=== PATIENT | male | born 1940 | race Caucasian/White ===

== ENCOUNTER 2019-04-15 10:37 | Emergency (ER) | payer MEDICARE, OTHER ==
[~2019-04-15] VITALS: Ht 180.3 cm; Wt 81.7 kg
--- OUTSIDE RECORDS SUMMARY | ~2019-04-15 | XMS | Encounter Summary ---
Demographics + + + | Address | [address] | | | [place] [address] | + + + | Home Phone | | + + + | Preferred Language | Unknown | + + + | Marital Status | | + + + | Taoism Affiliation | Unknown | + + + | Race | Unknown | + + + | Ethnic Group | Unknown | + + + Author + + + | Author | [facility] | | | and [place] | + + + | Organization | [facility] | | | and [place] | + + + | Address | Unknown | + + + | Phone | Unavailable | + + + Support + + +---------+ + | Name | Relationship | Address | Phone | + + +---------+ + | Tami Gall | ECON | Unknown | | + + +---------+ + Care Team Providers + +------+ + | Care Tobacco Shaker Name | Role | Phone | + +------+ + | Parminder Malagon MD | PCP | | + +------+ + Encounter Details +--------+ + + + + | Date | Type | Department | Care Team | Description | +--------+ + + + + | 05/22/ | Orders Only | [facility] | Mya Frederick | | | 2016 | | RHEUMATOLOGY [address] | [address] | | | | | [address] | [facility] | | | | | [place] | [place] [address] | | | | | [address] | [phone] | | | | | [phone] | | | +--------+ + + + + Social History + +-------+ +--------+------+ | Tobacco Use | Types | Packs/Day | Years | Date | | | | | Used | | + +-------+ +--------+------+ | Never Assessed | | | | | + +-------+ +--------+------+ + + + | Sex Assigned at | Date Recorded | | | | + + + | Not on file | | + + + + + + + | Job Start Date | Occupation | Industry | + + + + | Not on file | Not on file | Not on file | + + + + + + + + | Travel History | Travel Start | Travel End | + + + + + + | No recent travel history available. | + + documented as of this encounter Plan of Treatment +--------+ + + + + | Date | Type | Specialty | Care Team | Description | +--------+ + + + + | 04/28/ | Office | Cardiology | Leighann Maddox, | | | 2019 | Visit | | MD [address] | | | | | | [place] | | | | | | [address] | | | | | | | | +--------+ + + + + | 05/11/ | Office | Orthopedic Surgery | Scot Wilson PT | | | 2019 | Visit | | [address] | | | | | | [place] [address] | | | | | | [phone] | | | | | | | | +--------+ + + + + | 05/11/ | Office | Orthopedic Surgery | Korey Hussein | | | 2019 | Visit | | MD [address] | | | | | | [place] | | | | | | [address] | | | | | | | | +--------+ + + + + | 05/14/ | Office | Rheumatology | Mya Frederick | | | 2019 | Visit | | SHELLY [address] | | | | | | [address] | | | | | | [place] [address] | | | | | | [phone] | | | | | | | | +--------+ + + + + | 06/06/ | Hospital | | Korey Hussein | Primary | | 2019 | Encounter | | MD [address] | 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[place] | right knee; Chronic | | | | | [address] | pain of right knee | | | | | | | +--------+ + + + + | 06/06/ | Surgery | | Korey Hussein | RIGHT TOTAL KNEE | | 2019 | | | MD [address] | ARTHROPLASTY | | | | | [place] | | | | | | [address] | | | | | | | | +--------+ + + + + | 06/21/ | Office | Orthopedic Surgery | Tahir, Jossue | | | 2019 | Visit | | [address] | | | | | | [address] | | | | | | [place] [address] | | | | | | [phone] | | | | | | | | +--------+ + + + + documented as of this encounter Procedures + +--------+ + + + | Procedure Name | Priori | Date/Time | Associated Diagnosis | Comments | | | ty | | | | + +--------+ + + + | EXTERNAL LAB: CBC | Routin | 05/22/2015 | | Results for this | | | e | 10:51 AM | | procedure are in the | | | | PST | | results section. | + +--------+ + + + | SEDIMENTATION RATE, | Routin | 05/22/2015 | | Results for this | | AUTOMATED | e | 10:51 AM | | procedure are in the | | | | PST | | results section. | + +--------+ + + + | COMPREHENSIVE | Routin | 05/22/2015 | | Results for this | | METABOLIC PANEL | e | 10:51 AM | | procedure are in the | | | | PST | | results section. | + +--------+ + + + documented in this encounter Results Sedimentation rate, automated (05/22/2015 10:51 AM PST) + +-------+ + + + | Component | Value | Ref Range | Performed | Pathologist | | | | | At | Signature | + +-------+ + + + | Sed Rate | 1 | 0 - 20 | EXTERNAL | | | | | | LAB | | + +-------+ + + + + + | Specimen | + + | Blood specimen | | (specimen) | + + + +---------+ + + | Performing | Address | City/State/Zipcode | Phone Number | | Organization | | | | + +---------+ + + | EXTERNAL LAB | | | | + +---------+ + + External Lab: CBC (05/22/2015 10:51 AM PST) + + + + + + | Component | Value | Ref Range | Performed | Pathologist | | | | | At | Signature | + + + + + + | WBC | 7.6 | 3.8 - 11.0 | EXTERNAL | | | | | 10*3/uL | LAB | | + + + + + + | RED CELL | 4.89 | 4.20 - 5.70 | EXTERNAL | | | COUNT | | | LAB | | + + + + + + | Hgb | 17.9 (H) | 13.2 - 17.0 | EXTERNAL | | | | | g/dL | LAB | | + + + + + + | Hematocrit, | 50.7 (H) | 39.0 - 50.0 % | EXTERNAL | | | POC | | | LAB | | + + + + + + | MCV | 104.0 (H) | 80.0 - 100.0 fL | EXTERNAL | | | | | | LAB | | + + + + + + | MCH | 36.5 (H) | 27.0 - 34.0 pg | EXTERNAL | | | | | | LAB | | + + + + + + | MCHC | 35.2 | 32.0 - 35.5 | EXTERNAL | | | | | g/dL | LAB | | + + + + + + | Platelet | 143 (L) | 150 - 400 | EXTERNAL | | | Count | | 10*3/uL | LAB | | | Plasma | | | | | + + + + + + | MPV | 8.7 | fL | EXTERNAL | | | | | | LAB | | + + + + + + | Differentia | AUTOMATED | | EXTERNAL | | | l Type | | | LAB | | + + + + + + | % Segmented | 76.6 | | EXTERNAL | | | | | | LAB | | | Neutrophils | | | | | + + + + + + | % | 13.0 | % | EXTERNAL | | | Lymphocytes | | | LAB | | + + + + + + | % Monocytes | 8.9 | % | EXTERNAL | | | | | | LAB | | + + + + + + | % | 1.0 | % | EXTERNAL | | | Eosinophils | | | LAB | | + + + + + + | % Basophils | 0.5 | % | EXTERNAL | | | | | | LAB | | + + + + + + | Absolute | 5.8 | 1.9 - 7.4 | EXTERNAL | | | Segmented | | 10*3/uL | LAB | | | Neutrophils | | | | | + + + + + + | Absolute | 1.0 | 1.0 - 3.9 | EXTERNAL | | | Lymphocytes | | 10*3/uL | LAB | | + + + + + + | Absolute | 0.7 | 0.0 - 0.8 | EXTERNAL | | | Monocytes | | 10*3/uL | LAB | | + + + + + + | Absolute | 0.1 | 0.0 - 0.5 | EXTERNAL | | | Eosinophils | | 10*3/uL | LAB | | + + + + + + | Absolute | 0.0 | 0.0 - 0.1 | EXTERNAL | | | Basophils | | 10*3/uL | LAB | | + + + + + + + + | Specimen | + + | Blood specimen | | (specimen) | + + + +---------+ + + | Performing | Address | City/State/Zipcode | Phone Number | | Organization | | | | + +---------+ + + | EXTERNAL LAB | | | | + +---------+ + + Comprehensive Metabolic Panel (05/22/2015 10:51 AM PST) + + + + + + | Component | Value | Ref Range | Performed | Pathologist | | | | | At | Signature | + + + + + + | Na | 147 (H) | 135 - 143 | EXTERNAL | | | | | mmol/L | LAB | | + + + + + + | K | 3.9 | 3.5 - 4.9 | EXTERNAL | | | | | mmol/L | LAB | | + + + + + + | Cl | 105 | 99 - 109 mmol/L | EXTERNAL | | | | | | LAB | | + + + + + + | CO2 | 27 | 23 - 32 mmol/L | EXTERNAL | | | | | | LAB | | + + + + + + | Anion Gap | 19 | 5 - 20 mmol/L | EXTERNAL | | | | | | LAB | | + + + + + + | Glucose, | 94 | 65 - 99 mg/dL | EXTERNAL | | | Fasting | | | LAB | | + + + + + + | BUN | 28 (H) | 8 - 25 mg/dL | EXTERNAL | | | | | | LAB | | + + + + + + | Creatinine | 1.0 | 0.70 - 1.30 | EXTERNAL | | | | | mg/dL | LAB | | + + + + + + | BUN/Creatin | 28 | | EXTERNAL | | | ine Ratio | | | LAB | | + + + + + + | Calcium | 9.8 | 8.5 - 10.5 | EXTERNAL | | | | | mg/dL | LAB | | + + + + + + | Protein, | 6.9 | 6.3 - 8.2 g/dL | EXTERNAL | | | Total | | | LAB | | + + + + + + | Albumin | 4.5 | 3.3 - 4.8 g/dL | EXTERNAL | | | | | | LAB | | + + + + + + | Globulin | 2.4 | 1.3 - 4.9 g/dL | EXTERNAL | | | | | | LAB | | + + + + + + | A/G Ratio | 1.9 | 1.0 - 2.4 | EXTERNAL | | | | | | LAB | | + + + + + + | Bilirubin | 1.2 | 0.1 - 1.5 mg/dL | EXTERNAL | | | Total | | | LAB | | + + + + + + | ALP, | 78 | 35 - 115 U/L | EXTERNAL | | | External | | | LAB | | + + + + + + | AST | 34 | 10 - 45 U/L | EXTERNAL | | | | | | LAB | | + + + + + + | ALT | 24 | 10 - 65 U/L | EXTERNAL | | | | | | LAB | | + + + + + + | Estimated | >60Comment: GFR <60: | | EXTERNAL | | | GFR | CHRONIC KIDNEY DISEASE, | | LAB | | | | IF FOUND OVER A 3 MONTH | | | | | | PERIOD. GFR <15: KIDNEY | | | | | | FAILURE. FOR | | | | | | AMERICANS, MULTIPLY THE | | | | | | CALCULATED GFR BY 1.210. | | | | + + + + + + + + | Specimen | + + | Blood specimen | | (specimen) | + + + +---------+ + + | Performing | Address | City/State/Zipcode | Phone Number | | Organization | | | | + +---------+ + + | EXTERNAL LAB | | | | + +---------+ + + documented in this encounter Visit Diagnoses Not on filedocumented in this encounter"
--- OUTSIDE RECORDS SUMMARY | ~2019-04-15 | XMS | Encounter Summary ---
Demographics + + + | Address | [address] | | | [place] [address] | + + + | Home Phone | | + + + | Preferred Language | Unknown | + + + | Marital Status | | + + + | Rastafari Affiliation | Unknown | + + + | Race | Unknown | + + + | Ethnic Group | Unknown | + + + Author + + + | Author | [facility] | | | and [place] | + + + | Organization | [facility] | | | and [place] [...] Team Providers + +------+ + | Care Radiagraph Operator Name | Role | Phone | + +------+ + | Parminder Malagon MD | PCP | | + +------+ + Encounter Details +--------+ + + + + | Date | Type | Department | Care Team | Description | +--------+ + + + + | 01/22/ | Orders Only | [facility] | Romel Martin, | | | 2015 | | RHEUMATOLOGY [address] | [address] | | | | [address] [place] | | | | | [place] | [address] | | | | | [address] | | | | | | [phone] | | | +--------+ + + + [...] | 2019 | Visit | | [address] | | | | | | [place] | | | | | | [address] | | | | | | | | +--------+ + + + + | 05/11/ | Office | Orthopedic Surgery | Scot Wilson PT | | | 2019 | Visit | | [address] | | | | | | [place] [address] | | | | | | [phone] | | | | | | | | +--------+ + + + + | 05/11/ | Office | Orthopedic Surgery | Korey Hussein | | | 2019 | Visit | | [address] | | | | | | [place] | | | | | | [address] | | | | | | | | +--------+ + + + + | 05/14/ | Office | Rheumatology | Mya Frederick | | | 2019 | Visit | | [address] | | | | | | [address] | | | | | | [place] [address] | | | | | | [phone] | | | | | | | | +--------+ + + + + | 06/06/ | Hospital | | Korey Hussein | Primary | | 2019 | Encounter | | [address] | 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[place] | right knee; Chronic | | | | | [address] | pain of right knee | | | | | | | +--------+ + + + + | 06/06/ | Surgery | | Korey Hussein | RIGHT TOTAL KNEE | | 2019 | | | [address] | ARTHROPLASTY | | | | | [place] | | | | | | [address] | | | | | | | | +--------+ + + + + | 06/21/ | Office | Orthopedic Surgery | Jossue Haro | | | 2020 | Visit | | [address] | | | | | | [address] | | | | | | [place] [address] | | | | | | [phone] | | | | | | | | +--------+ + + + + documented as of this encounter Procedures + +--------+ + + + | Procedure Name | Priori | Date/Time | Associated Diagnosis | Comments | | | ty | | | | + +--------+ + + + | EXTERNAL LAB: CBC | Routin | 01/23/2016 | | Results for this | | | e | 9:25 AM | | procedure are in the | | | | PDT | | results section. | + +--------+ + + + | SEDIMENTATION RATE, | Routin | 01/23/2016 | | Results for this | | AUTOMATED | e | 9:25 AM | | procedure are in the | | | | PDT | | results section. | + +--------+ + + + | COMPREHENSIVE | Routin | 01/23/2016 | | Results for this | | METABOLIC PANEL | e | 9:25 AM | | procedure are in the | | | | PDT | | results section. | + +--------+ + + + documented in this encounter Results Sedimentation rate, automated (01/23/2016 9:25 AM PDT) + +-------+ + + + | Component | Value | Ref Range | Performed | Pathologist | | | | | At | Signature | + +-------+ + + + | Sed Rate | 3 | 0 - 20 mm/h | EXTERNAL | | | | | [...] + +---------+ + + External Lab: CBC (01/23/2016 9:25 AM PDT) + + + + + + | Component | Value | Ref Range | Performed | Pathologist | | | | | At | Signature | + + + + + + | WBC | 9.8 | 3.8 - 11.0 | EXTERNAL | | | | | 10*3/uL | LAB | | + + + + + + | RED CELL | 5.01 | 4.20 - 5.70 | EXTERNAL | | | COUNT | | 10*6/uL | LAB | | + + + + + + | Hgb | 17.6 (H) | 13.2 - 17.0 | EXTERNAL | | | | | g/dL | LAB | | + + + + + + | Hematocrit, | 50.1 (H) | 39.0 - 50.0 % | EXTERNAL | | | POC | | | LAB | | + + + + + + | MCV | 100.0 | 80.0 - 100.0 fL | EXTERNAL | | | | | | LAB | | + + + + + + | MCH | 35.1 (H) | 27.0 - 34.0 pg | EXTERNAL | | | | | | LAB | | + + + + + + | MCHC | 35.1 | 32.0 - 35.5 | EXTERNAL | | | | | g/dL | LAB | | + + + + + + | RDW-CV | 45.5 | 37 - 53 fL | EXTERNAL | | | | | | LAB | | + + + + + + | Platelet | 172 | 150 - 400 | EXTERNAL | | | Count | | 10*3/uL | LAB | | | Plasma | | | | | + + + + + + | MPV | 9.5 | fL | EXTERNAL | | | | | | LAB | | + + + + + + | Differentia | AUTOMATED | | EXTERNAL | | | l Type | | | LAB | | + + + + + + | % Segmented | 77.54 | % | EXTERNAL | | | | | | LAB | | | Neutrophils | | | | | + + + + + + | % | 11.82 | % | EXTERNAL | | | Lymphocytes | | | LAB | | + + + + + + | % Monocytes | 9.21 | % | EXTERNAL | | | | | | LAB | | + + + + + + | % | 1.17 | % | EXTERNAL | | | Eosinophils | | | LAB | | + + + + + + | % Basophils | 0.26 | % | EXTERNAL | | | | | | LAB | | + + + + + + | Absolute | 7.60 (H) | 1.90 - 7.40 | EXTERNAL | | | Segmented | | 10*3/uL | LAB | | | Neutrophils | | | | | + + + + + + | Absolute | 1.16 | 1.00 - 3.90 | EXTERNAL | | | Lymphocytes | | 10*3/uL | LAB | | + + + + + + | Absolute | 0.90 (H) | 0.00 - 0.80 | EXTERNAL | | | Monocytes | | 10*3/uL | LAB | | + + + + + + | Absolute | 0.12 | 0.00 - 0.50 | EXTERNAL | | | Eosinophils | | 10*3/uL | LAB | | + + + + + + | Absolute | 0.03 | 0.00 - 0.10 | EXTERNAL | | | Basophils | [...] + +---------+ + + Comprehensive Metabolic Panel (01/23/2016 9:25 AM PDT) + + + + + + | Component | Value | Ref Range | Performed | Pathologist | | | | | At | Signature | + + + + + + | Na | 145 | 135 - 145 | EXTERNAL | | | | | [...] + + + + | CO2 | 33 (H) | 23 - 32 mmol/L | EXTERNAL | | | | | | LAB | | + + + + + + | Anion Gap | 11 | 5 - 20 mmol/L | EXTERNAL | | | | | | LAB | | + + + + + + | Glucose, | 78 | 65 - 99 mg/dL | EXTERNAL | | | Fasting | | | LAB | | + + + + + + | BUN | 27 (H) | 8 - 25 mg/dL | EXTERNAL | | | | | | LAB | | + + + + + + | Creatinine | 1.1 | 0.70 - 1.30 | EXTERNAL | | | | | mg/dL | LAB | | + + + + + + | BUN/Creatin | 25 | | EXTERNAL | | | ine Ratio | | | LAB | | + + + + + + | Calcium | 9.6 | 8.5 - 10.5 | EXTERNAL | | | | | mg/dL | LAB | | + + + + + + | Protein, | 6.7 | 6.3 - 8.2 g/dL | EXTERNAL | | | Total | | | LAB | | + + + + + + | Albumin | 3.9 | 3.3 - 4.8 g/dL | EXTERNAL | | | | | | LAB | | + + + + + + | Globulin | 2.8 | 1.3 - 4.9 g/dL | EXTERNAL | | | | | | LAB | | + + + + + + | A/G Ratio | 1.4 | 1.0 - 2.4 | EXTERNAL | | | | | | LAB | | + + + + + + | Bilirubin | 1.1 | 0.1 - 1.5 mg/dL | EXTERNAL | | | Total | | | LAB | | + + + + + + | ALP, | 72 | 35 - 115 U/L | EXTERNAL | | | External | | | LAB | | + + + + + + | AST | 37 | 10 - 45 U/L | EXTERNAL | | | | | | LAB | | + + + + + + | ALT | 29 | 10 - 65 U/L | EXTERNAL | | | | | | LAB | | + + + + + + | Estimated | >60Comment: GFR <60: | mL/min/{1.73_m2 | EXTERNAL | | | GFR | CHRONIC KIDNEY DISEASE, | } | LAB | | | | IF [...]
--- OUTSIDE RECORDS SUMMARY | ~2019-04-15 | XMS | Clinical Summary ---
Demographics + + + | Address | [address] | | | [place] [address] | + + + | Home Phone | | + + + | Preferred Language | Unknown | + + + | Marital Status | | + + + | Orthodoxy Affiliation | Unknown | + + + | Race | Unknown | + + + | Ethnic Group | Unknown | + + + Author + + + | Author | [facility] | | | and [place] | + + + | Organization | [facility] | | | and [place] | [...] Team Providers + +------+ + | Care Commercial Loan Administrator Name | Role | Phone | + +------+ + | Parminder Malagon MD | PCP | | + +------+ + Allergies + + + + + + | Active Allergy | Reactions | Severity | Noted | Comments | | | | | Date | | + + + + + + | Penicillins | Hives | High | 01/20/20 | | | | | | 15 | | + + + + + + Medications + + + +---------+------+------+-------+ | Medication | Sig | Dispensed | Refills | Star | End | Statu | | | | | | t | Date | s | | | | | | Date | | | + + + +---------+------+------+-------+ | metoprolol | Take 50 mg by mouth | | 0 | | | Activ | | succinate | Daily. | | | | | e | | (TOPROL-XL) 50 mg 24 | | | | | | | | hr tablet | | | | | | | + + + +---------+------+------+-------+ | omeprazole | Take 20 mg by mouth | | 0 | | | Activ | | (PRILOSEC) 20 mg | every morning | | | | | e | | capsule | (before breakfast). | | | | | | + + + +---------+------+------+-------+ | B Complex-C (SUPER | Take 1 tablet by | | 0 | | | Activ | | B COMPLEX PO) | mouth daily. | | | | | e | + + + +---------+------+------+-------+ | | Take 1 tablet by | | 0 | | | Activ | | Glucosamine-Chondroi | mouth daily. | | | | | e | | t-Vit C-Mn | | | | | | | | (GLUCOSAMINE 1500 | | | | | | | | COMPLEX PO) | | | | | | | + + + +---------+------+------+-------+ | Multiple | Take 1 tablet by | | 0 | | | Activ | | Minerals-Vitamins | mouth daily. | | | | | e | | (CALCIUM | | | | | | | | HPNDUIE-AUM-VZKESAQX | | | | | | | | PO) | | | | | | | + + + +---------+------+------+-------+ | ascorbic acid | Take 1,000 mg by | | 0 | | | Activ | | (VITAMIN C) 1000 MG | mouth daily. | | | | | e | | tablet | | | | | | | + + + +---------+------+------+-------+ | | Take 2 tablets by | | 0 | 10/0 | | Activ | | lisinopril-hydrochlo | mouth daily. | | | 6/20 | | e | | rothiazide | | | | 15 | | | | (PRINZIDE,ZESTORETIC | | | | | | | | ) 20-12.5 MG per | | | | | | | | tablet | | | | | | | + + + +---------+------+------+-------+ | potassium chloride | Take 20 mEq by mouth | | 0 | | | Activ | | (KLOR-CON) 20 MEQ | daily. | | | | | e | | packet | | | | | | | + + + +---------+------+------+-------+ | pravastatin | Take 20 mg by mouth | | 0 | 10/0 | | Activ | | (PRAVACHOL) 40 MG | daily. | | | 8/20 | | e | | tablet | | | | 15 | | | + + + +---------+------+------+-------+ | tocopherol | Take 400 Units by | | 0 | | | Activ | | (VITAMIN E) 400 | mouth daily. | | | | | e | | units capsule | | | | | | | + + + +---------+------+------+-------+ | folic acid 1 mg | TAKE ONE TABLET BY | 90 | 3 | 11/30 | | Activ | | tablet | MOUTH ONCE DAILY | tablet | | 420 | | e | | | | | | 19 | | | + + + +---------+------+------+-------+ | sulfaSALAzine | TAKE 1 TABLET BY | 180 | 0 | 11/0 | | Activ | | (AZULFIDINE) 500 mg | MOUTH TWICE DAILY | tablet | | 4/20 | | e | | tablet | | | | 19 | | | + + + +---------+------+------+-------+ | aspirin 325 MG EC | Take 1 tablet by | 60 | 0 | 11/1 | | Activ | | tablet | mouth 2 times daily. | tablet | | 8/20 | | e | | | | | | 19 | | | + + + +---------+------+------+-------+ | celecoxib | Take 1 capsule by | 60 | 0 | 01/29 | | Activ | | (CELEBREX) 100 mg | mouth 2 times daily. | capsule | | 7/20 | | e | | capsule | | | | 19 | | | + + + +---------+------+------+-------+ +---+ + | | Additional | | | informationPatient | | | not taking. Reported | | | on 04/01/2019 10:23 | | | AM | +---+ + + + +---------+---+------+---+-------+ | gabapentin | Take 1 capsule by | 90 | 0 | 01/29 | | Activ | | (NEURONTIN) 100 mg | mouth 3 times daily. | capsule | | 7/20 | | e | | capsule | | | | 19 | | | + + +---------+---+------+---+-------+ +---+ + | | Additional | | | informationPatient | | | not taking. Reported | | | on 04/01/2019 10:23 | | | AM | +---+ + + + +--------+---+------+---+-------+ | acetaminophen | Take 2 tablets by | 60 | 0 | 01/29 | | Activ | | (TYLENOL) 500 mg | mouth every 8 hours. | tablet | | 7/20 | | e | | tablet | | | | 19 | | | + + +--------+---+------+---+-------+ | traMADol (ULTRAM) | Take 1 tablet by | 30 | 0 | 01/29 | | Activ | | 50 mg tablet | mouth EVERY 4 TO 6 | tablet | | 7/20 | | e | | | HOURS NEEDED (for | | | 19 | | | | | increased pain). | | | | | | + + +--------+---+------+---+-------+ +---+ + | | Additional | | | informationPatient | | | not taking. Reported | | | on 04/01/2019 10:23 | | | AM | +---+ + Active Problems + + + | Problem | Noted Date | + + + | Primary osteoarthritis of right knee | 04/07/2019 | + + + + + | Overview: Added automatically from request for surgery | | [id number] | + + + + + | Chronic pain of right knee | 04/07/2019 | + + + + + | Overview: Added automatically from request for surgery | | [id number] | + + + + + | Pain in both knees, unspecified chronicity | 01/08/2019 | + + + + + | Overview: Added automatically from request for surgery | | [id number] | + + + + + | Primary osteoarthritis of left knee | 01/08/2019 | + + + | Abnormal ECG | 04/22/2018 | + + + | Former smoker | 12/01/2017 | + + + | Scrotal hematoma | 11/30/2017 | + + + | High risk medication use | 12/30/2016 | + + + + + | Overview: Last Assessment & Plan: Basic labs Monitored | | (CBC,CMP and ESR): OrderedLabs routinely ordered due to high | | risk medication use- Monitored for cytopenias, liver toxicity, | | renal dysfunction and disease activity. Hepatitis panel negative | | 2011 This will be checked every 5 years based on patients risk or | | at time of biologic drug change. Chest x-ray satisfactory 2011 | | No evidence of cardiopulmonary disease Last Assessment & Plan: | | Basic labs Monitored (CBC,CMP and ESR): OrderedLabs | | routinely ordered due to high risk medication use- Monitored for | | cytopenias, liver toxicity, renal dysfunction and disease | | activity. Hepatitis panel negative 2011 This will be checked | | every 5 years based on patients risk or at time of biologic drug | | change. Chest x-ray satisfactory 2011 No evidence of | | cardiopulmonary disease | + + + + + | Primary osteoarthritis of both hands | 12/30/2016 | + + + + + | Overview: Last Assessment & Plan: Patient has done well and | | will continue to use mobic PRN. Discussed NSAID indications for | | use and its side effects. Patient aware that NSAIDs and even | | dumont-2 inhibitors may cause some side effects including stomach | | upset, GI bleed, hypertension, renal failure, liver problems. | | Patient advised regarding administration to offset these side | | effects including morning dosing, intake with food in | | stomach. Last Assessment & Plan: Taking Mobic 7.5mg daily. | | Planning a left TKA. Patient is taking OTC analgesics PRN for | | pain. Discussed the utility of omega fatty acid and | | glucosamine/chondroitin supplements, weight loss and exercise. | | Discussed NSAID indications for useand its side effects. Patient | | aware that NSAIDs and even dumont-2 inhibitors may cause some side | | effects including stomach upset, GI bleed, hypertension, renal | | failure, liver problems. Patient advised regarding administration | | to offset these side effects including morning dosing, intake | | with food in stomach. | + + + + + | Rheumatoid arthritis involving multiple joints | 12/30/2016 | + + + + + | Overview: Methotrexate/SulfaSALAzine (AZULFIDINE) Last | | Assessment & Plan: Responding well to current treatment plan. No | | change in treatment plan. Patient understands that treatment is | | [employer] and if patient fails to continue regimen , the disease | | has propensity to flare.Methotrexate threshold is 10mg weekly no | | lower. Last Assessment & Plan: Responding well to current | | treatment plan. No change in treatment plan. Patient understands | | that treatment is [employer] and if patient fails to continue | | regimen , the disease has propensity to flare.Rheumatological | | perspective the patient may remain on both of sulfasalazine and | | methotrexate for his total knee replacement. Likely need to hold | | the Mobic | + + + + + | History of prostate cancer | 03/30/2001 | + + + + + | Overview: 2000 Prostatectomy | + + + +---+ | HTN (hypertension) | | + +---+ | Beta Blockers - Daily Use | | + +---+ | URIEL Inhibitors - Daily Use | | + +---+ | Chronic renal insufficiency, stage II (mild) | | + +---+ + + | Overview: 8212-9840: GFR 40's-60's | + + + +---+ | Left posterior fascicular block (LPFB) | | + +---+ | History of orchiectomy, right | | + +---+ + + | Overview: Ultrasound suggested a complex cystic mass. | | Inguinal exploration 11/04/17 identified induration and | | enlargement of the epididymis with traces of green discoloration | | to the tissue. Right inguinal orchiectomy was performed and | | pathology reported benign necrosis which replaced the epididymis, | | with a compressed fairly normal testis. | + + Encounters +--------+ + + + + | Date | Type | Specialty | Care Team | Description | +--------+ + + + + | 04/08/ | Orders Only | Orthopedic Surgery | Korey Hussein | | | 2019 | | | MD Shan | | +--------+ + + + + | 04/06/ | Orders Only | Orthopedic Surgery | Korey Hussein | Primary | | 2019 | | | MD Shan | 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| right knee (Primary | | | | | | Dx); Chronic pain of | | | | | | right knee | +--------+ + + + + | 04/01/ | Hospital | Radiology | Jossue Haro | Left knee pain, | | 2019 | Encounter | | SHELLY Hamilton | unspecified | | | | | | chronicity; S/P TKR | | | | | | (total knee | | | | | | replacement), left | +--------+ + + + + | 04/01/ | Office | Orthopedic Surgery | Jossue Haro | Primary | | 2019 | Visit | | SHE[place] | 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| right knee (Primary | | | | | | Dx); Chronic pain of | | | | | | right knee; S/P TKR | | | | | | (total knee | | | | | | replacement), left | +--------+ + + + + | 03/25/ | Orders Only | Orthopedic Surgery | Jossue Haro | Left knee pain, | | 2018 | | | SHELLY Hamilton | unspecified | | | | | | chronicity (Primary | | | | | | Dx); S/P TKR (total | | | | | | knee replacement), | | | | | | left | +--------+ + + + + | 02/23/ | Office | Orthopedic Surgery | Jossue Haro | S/P orthopedic | | 2018 | Visit | | SHELLY Hamilton | surgery, follow-up | | | | | | exam (Primary Dx) | +--------+ + + + + | 02/15/ | Telephone | Orthopedic Surgery | TahirJossue | Other | | 2019 | | | SHELLY Hamilton | | +--------+ + + + + | 02/12/ | Surgery | | Korey Hussein | LEFT TOTAL KNEE | | 2018 | | | MD Shna | ARTHROPLASTY | +--------+ + + + + | 02/12/ | Anesthesia | | Billy Malagon, | | | 2018 | Event | | MD | | +--------+ + + + + | 02/12/ | Hospital | | Korey Hussein | Pain in both knees, | | 2019 - | Encounter | | MD Shan | unspecified | | | | | | chronicity; Primary | | 02/14/ | | | | osteoarthritis of | | 2018 | | | | left knee | +--------+ + + + + | 02/10/ | Orders Only | Orthopedic Surgery | Korey Hussein | Pain in both knees, | | 2018 | | | MD Shan | unspecified | | | | | | chronicity (Primary | | | | | | Dx) | +--------+ + + + + | 02/04/ | Office | Orthopedic Surgery | Korey Hussein | Pre-op testing | | 2019 | Visit | | MD Shan | (Primary Dx); | | | | | | Primary | | | | | | 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| left knee; | | | | | | Hypertension, | | | | | | unspecified type; | | | | | | senior living current | | | | | | use of diuretic; | | | | | | Nocturia | +--------+ + + + + | 02/04/ | Office | Orthopedic Surgery | Scot Wilson PT | Pain in both knees, | | 2018 | Visit | | | unspecified | | | | | | chronicity (Primary | | | | | | Dx); Primary | | | | | | 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| left knee | +--------+ + + + + | 01/31/ | Refill | Rheumatology | Mya Frederick | Medication Refill | | 2018 | | | SHELLY Nguyen | | +--------+ + + + + from Last 3 Months Family History + + +---------+ + | Medical History | Relation | Name | Comments | + + +---------+ + | Heart defect | Brother | | | + + +---------+ + | Arthritis | Brother | Edil | | + + +---------+ + | Heart failure | Father | | | + + +---------+ + | Alzheimer's disease | Mother | | | + + +---------+ + + +---------+ + + | Relation | Name | Status | Comments | + +---------+ + + | Brother | | | heart surgery | + +---------+ + + | Brother | | Alive | heart surgery | + +---------+ + + | Brother | | | | + +---------+ + + | Brother | Edil | | | + +---------+ + + | Father | | | | + +---------+ + + | Father | | | CHF | | | | (Age | | | | | 84) | | + +---------+ + + | Mother | | | | + +---------+ + + | Mother | | | | + +---------+ + + Social History + +-------+ +--------+ + | Tobacco Use | Types | Packs/Day | Years | Date | | | | | Used | | + +-------+ +--------+ + | Former Smoker | | | | Quit: 1968 | + +-------+ +--------+ + + +---+---+---+ | Smokeless Tobacco: | | | | | Never Used | | | | + +---+---+---+ + + +---------+ + | Alcohol Use | Drinks/Week | oz/Week | Comments | + + +---------+ + | Yes | | | 1/ month | + + +---------+ + + + + + | Alcohol Habits | Answer | Date Recorded | + + + + | How often do you have a drink containing | Monthly or less | 02/11/2019 | | alcohol? | | | + + + + | How many drinks containing alcohol do you | Not asked | | | have on a typical day when you are | | | | drinking? | | | + + + + | How often do you have six or more drinks on | Not asked | | | one occasion? | | | + + + + + + + | Sex Assigned at [...] recent travel history available. | + + Last Filed Vital Signs + + + + + | Vital Sign | Reading | Time Taken | Comments | + + + + + | Blood Pressure | 168/76 | 02/14/2019 7:24 AM | | | | | PST | | + + + + + | Pulse | 70 | 02/14/2019 7:24 AM | | | | | PST | | + + + + + | Temperature | 36.5 C (97.7 F) | 02/14/2019 7:24 AM | | | | | PST | | + + + + + | Respiratory Rate | 20 | 02/14/2019 7:24 AM | | | | | PST | | + + + + + | Oxygen Saturation | 92% | 02/14/2019 7:24 AM | | | | | PST | | + + + + + | Inhaled Oxygen | - | - | | | Concentration | | | | + + + + + | Weight | 82.2 kg (181 lb 3.5 | 02/23/2019 10:14 AM | | | | oz) | PST | | + + + + + | Height | 180.3 cm (5' 11") | 02/23/2019 10:14 AM | | | | | PST | | + + + + + | Body Mass Index | 25.27 | 02/23/2019 10:14 AM | | | | | PST | | + + + + + Plan of Treatment +--------+ + + + + | Date | Type | Specialty | Care Team | Description | +--------+ + + + + | 04/28/ | Office | Cardiology | Leighann Maddox, | | | 2020 | Visit | | MD Aileen MARISCAL | | | | | | [place] | | | | | | [address] | | | | | | | | +--------+ + + + + | 05/11/ | Office | Orthopedic Surgery | Scot Wilson PT | | | 2019 | Visit | | [address] | | | | | | [place] [address] | | | | | | [phone] | | | | | | | | +--------+ + + + + | 05/11/ | Office | Orthopedic Surgery | Korey Hussein | | | 2019 | Visit | | MD [address] | | | | | | [place] | | | | | | [address] | | | | | | | | +--------+ + + + + | 05/14/ | Office | Rheumatology | Mya Frederick | | | 2020 | Visit | | SHELLY Nguyen [address] | | | | | | [place] | | | | | | [place] [address] | | | | | | [phone] | | | | | | | | +--------+ + + + + | 06/06/ | Hospital | | Korey Hussein | Primary | | 2019 | Encounter | | MD [address] | 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[place] | right knee; Chronic | | | | | [id number] | pain of right knee | | | | | | | +--------+ + + + + | 06/06/ | Surgery | | Korey Hussein | RIGHT TOTAL KNEE | | 2019 | | | [place] [address] | ARTHROPLASTY | | | | | [place] | | | | | | [address] | | | | | | | | +--------+ + + + + | 06/21/ | Office | Orthopedic Surgery | Jossue Haro | | | 2019 | Visit | | SHELLY Hamilton [address] | | | | | | [address] | | | | | | [place] [address] | | | | | | [phone] | | | | | | | | +--------+ + + + + + + + + + | Health Maintenance | Due Date | Last Done | Comments | + + + + + | Vaccine: | | | | | Dtap/Tdap/Td (1 - | 1 | | | | Tdap) | | | | + + + + + | Vaccine: Zoster (1 | | | | | of 2) | 0 | | | + + + + + | Vaccine: | | | | | Pneumococcal 65+ (1 | 5 | | | | of 2 - PCV13) | | | | + + + + + | Adult Annual | | | | | Wellness Visit | 8 | | | + + + + + | Vaccine: Influenza | | | | | (#1) | 9 | | | + + + + + Implants + +--------+--------+ +--------+--------+--------+ | Implanted | Type | Area | Manufacture | Device | Shelf | Model | | | | | r | | Expira | / | | | | | | Identi | tion | Serial | | | | | | fier | Date | / Lot | + +--------+--------+ +--------+--------+--------+ | Imp Knee Ptela Polyeth 32mm - | Generi | Left: | [place] - | | 09/27/ | 42-540 | | [id number]: Qty: 1 | c | Knee | ZIMM | | 2026 | 0-000- | | on 02/12/2019 by Keenan, | | | | | | 32 / | | Korey Torrez MD at [facility] | | | | | | /[id number] | | [facility] | | | | | | [facility] | | CENTER | | | | | | | + +--------+--------+ +--------+--------+--------+ | Imp Knee Fem Stem [id number] | Generi | Left: | [place] - | | 07/28/ | 42-502 | | Lt - [id number]: | c | Knee | ZIMM | | 2028 | 6-070- | | Qty: 1 on 02/12/2019 by | | | | | | 01 / | | Korey Hussein MD at | | | | | | /[id number] | | [facility] | | | | | | [address] | | [facility] | | | | | | | + +--------+--------+ +--------+--------+--------+ | Imp Knee Tib 5deg Lt Szh - | Generi | Left: | [place] - | | 12/28/ | 42-532 | | [id number]: Qty: 1 | c | Knee | ZIMM | | 2027 | 0-083- | | on 02/12/2019 by Keenan, | | | | | | 01 / | | Korey Torrez MD at [facility] | | | | | | /[id number] | | [facility] | | | | | | [address] | | CENTER | | | | | | | + +--------+--------+ +--------+--------+--------+ | Imp Knee Surf Art L 13 | Generi | Left: | [place] - | | 06/28/ | 42-512 | | 8-11gh - [id number]: | c | Knee | ZIMM | | 2019 | 1-009- | | Qty: 1 on 02/12/2019 by | | | | | | 13 / | | Korey Hussein MD at | | | | | | /[id number] | | [facility] | | | | | | [address] | | [facility] | | | | | | | + +--------+--------+ +--------+--------+--------+ | Nik Bone Palacos-R Hv 40gm - | | Left: | GREGGUS - | | 05/28/ | [id number] | | [id number]: Qty: 1 | | Knee | KELL | | 2022 | 3 / | | on 02/12/2019 by Keenan, | | | | | | /[id number] | | Korey Torrez MD at [facility] | | | | | | [address] | | [facility] | | | | | | | | CENTER | | | | | | | + +--------+--------+ +--------+--------+--------+ | Nik Bone Palacos-R Hv 40gm - | | Left: | HERAEUS - | | 05/28/ | [id number] | | [id number]: Qty: 1 | | Knee | KELL | | 2022 | 3 / | | on 02/12/2019 by Keenan, | | | | | | /[id number] | | Korey Torrez MD at [facility] | | | | | | [address] | | [facility] | | | | | | | | CENTER | | | | | | | + +--------+--------+ +--------+--------+--------+ Procedures + +--------+ + + + | Procedure Name | Priori | Date/Time | Associated Diagnosis | Comments | | | ty | | | | + +--------+ + + + | XR KNEE LEFT 1 - 2 | Routin | 04/01/2019 | Left knee pain, | Results for this | | VW | e | 10:12 AM | unspecified | procedure are in the | | | | PST | chronicity S/P TKR | results section. | | | | | (total knee | | | | | | replacement), left | | + +--------+ + + + | HEMOGLOBIN AND | Routin | 02/13/2019 | | Results for this | | HEMATOCRIT | e | 6:27 AM | | procedure are in the | | | | PST | | results section. | + +--------+ + + + | BASIC METABOLIC | Routin | 02/13/2019 | | Results for this | | PANEL | e | 6:27 AM | | procedure are in the | | | | PST | | results section. | + +--------+ + + + | RESPIRATORY THERAPY | Routin | 02/12/2019 | | | | COMMUNICATION | e | 1:29 PM | | | | | | PST | | | + +--------+ + + + | XR KNEE LEFT 1 - 2 | STAT | 02/12/2019 | | Results for this | | VW | | 11:47 AM | | procedure are in the | | | | PST | | results section. | + +--------+ + + + | ANE NERVE BLOCK | Routin | 02/12/2019 | | Results for this | | CATHETER NOTE | e | 10:15 AM | | procedure are in the | | | | PST | | results section. | + +--------+ + + + | ANE NERVE BLOCK | Routin | 02/12/2019 | | Results for this | | CATHETER NOTE | e | 10:15 AM | | procedure are in the | | | | PST | | results section. | + +--------+ + + + | ANE AIRWAY NOTE | Routin | 02/12/2019 | | Results for this | | | e | 10:14 AM | | procedure are in the | | | | PST | | results section. | + +--------+ + + + | ARTHROPLASTY KNEE | | 02/12/2019 | Pain in both | | | | | 9:48 AM | knees, unspecified | | | | | PST | chronicity Primary | | | | | | 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| left knee | | + +--------+ + + + +---+--------+ | | | | | Specia | | | l | | | Needs | | | Yan | | | Mariano | | | | | | [place] | +---+--------+ + +--------+ + + + | URINALYSIS WITH | Routin | 02/04/2019 | Pre-op testing | Results for this | | MICROSCOPIC WITH | e | 1:09 PM | Primary | procedure are in the | | CULTURE IF INDICATED | | PST | osteoarthritis of | results section. | | | | | left knee Nocturia | | + +--------+ + + + | BASIC METABOLIC | Routin | 02/04/2019 | Pre-op testing | Results for this | | PANEL | e | 1:07 PM | Primary | procedure are in the | | | | PST | osteoarthritis of | results section. 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 | | | | | left knee | | | | | | Hypertension, | | | | | | unspecified type | | + +--------+ + + + | ECG 12 LEAD | Routin | 02/04/2019 | Pre-op testing | Results for this | | | e | 11:52 AM | Primary | procedure are in the | | | | PST | osteoarthritis of | results section. | | | | | left knee | | | | | | Hypertension, | | | | | | unspecified type | | + +--------+ + + + | CULTURE, MRSA | Routin | 02/04/2019 | Pre-op testing | Results for this | | | e | 11:51 AM | Primary | procedure are in the | | | | PST | osteoarthritis of | results section. | | | | | left knee | | + +--------+ + + + from Last 3 Months Results XR Knee Left 1 - 2 Vw (04/01/2019 10:12 AM PST)Only the most recent of 2 results within the time period is included. + + | Specimen | + + | | + + + + + | Impressions | Performed At | + + + | No evidence for interval complication. Dictated and Signed by: | [facility] | | Watson Lino MD Electronically signed: 04/01/2019 4:36 PM | | + + + + + + | Narrative | Performed At | + + + | XR KNEE LEFT 1 - 2 VW 04/01/2019 10:12 AM HISTORY: S/P LEFT TOTAL | [facility] | | KNEE ARTHROPLASTY DOS 02/12/19. COMPARISON: 02/12/2019 | | | FINDINGS: Intact appearance of the total left knee arthroplasty. | | | Resolving soft tissue swelling and joint effusion. Vascular | | | calcifications are seen. Bones are in anatomic alignment. | | + + + + + | Procedure Note | + + | Noe, Rad Results In - 04/01/2019 4:39 PM PST XR KNEE LEFT 1 - 2 VW 04/01/2019 10:12 AM | | | | HISTORY: S/P LEFT TOTAL KNEE ARTHROPLASTY DOS 02/12/19. | | | | COMPARISON: 02/12/2019 | | | | FINDINGS: Intact appearance of the total left knee arthroplasty. Resolving soft | | tissue swelling and joint effusion. Vascular calcifications are seen. Bones are | | in anatomic alignment. | | | | IMPRESSION: | | No evidence for interval complication. | | | | Dictated and Signed by: Watson Lino MD | | Electronically signed: 04/01/2019 4:36 PM | + + + +---------+ + + | Performing | Address | City/State/Zipcode | Phone Number | | Organization | | | | + +---------+ + + | [facility] | | | | + +---------+ + + Hemoglobin and Hematocrit (02/13/2019 6:27 AM PST) + +-------+ + + + | Component | Value | Ref Range | Performed | Pathologist | | | | | At | Signature | + +-------+ + + + | Hematocrit | 40.2 | 40.0 - 51.0 % | [facility] | | | | | [facility] | | | | [facility] | | | [facility] - | | | | | | [facility] | | + +-------+ + + + | Hemoglobin | 14.1 | 13.5 - 18.0 | [facility] | | | | | g/dL | [facility] | | | | | | [facility] | | | | | | CENTER - | | | | | | LABORATORY | | + +-------+ + + + + + | Specimen | + + | Blood | + + + + + + + | Performing | Address | City/State/Zipcode | Phone Number | | Organization | | | | + + + + + | [facility] | [address] | [place], [place] | [phone] | | [facility] | | [address] | | | - LABORATORY | | | | + + + + + Basic Metabolic Panel (02/13/2019 6:27 AM PST)Only the most recent of 2 results within the time period is included. + + + + + + | Component | Value | Ref Range | Performed | Pathologist | | | | | At | Signature | + + + + + + | Na | 143 | 136 - 145 | [facility] | | | | | mmol/L | [facility] | | | | | | MEDICAL | | | | | | CENTER - | | | | | | LABORATORY | | + + + + + + | K | 3.5 | 3.4 - 5.1 | [facility] | | | | | mmol/L | [facility] | | | | | | MEDICAL | | | | | | CENTER - | | | | | | LABORATORY | | + + + + + + | Cl | 106 | 98 - 107 mmol/L | [facility] | | | | | | [facility] | | | | | | MEDICAL | | | | | | CENTER - | | | | | | LABORATORY | | + + + + + + | CO2 | 29 | 20 - 31 mmol/L | [facility] | | | | | | [facility] | | | | | | MEDICAL | | | | | | CENTER - | | | | | | LABORATORY | | + + + + + + | Anion Gap | 8 | 3 - 16 mmol/L | [facility] | | | | | | [facility] | | | | | | MEDICAL | | | | | | CENTER - | | | | | | LABORATORY | | + + + + + + | Glucose | 116 (H) | 60 - 106 mg/dL | [facility] | | | | | | [facility] | | | | | | MEDICAL | | | | | | CENTER - | | | | | | LABORATORY | | + + + + + + | BUN | 24 (H) | 9 - 23 mg/dL | [facility] | | | | | | [facility] | | | | | | MEDICAL | | | | | | CENTER - | | | | | | LABORATORY | | + + + + + + | Creatinine | 1.24 | 0.70 - 1.30 | [facility] | | | | | mg/dL | [facility] | | | | | | MEDICAL | | | | | | CENTER - | | | | | | LABORATORY | | + + + + + + | eGFR if not | 56 (L)Comment: | >=60 | [facility] | | | | GLOMERULAR FILTRATION | mL/min/1.73m2 | [facility] | | | [place] | RATE,ESTIMATED | | MEDICAL | | | | mL/min/[id number] than | | CENTER - | | | | 60 Chronic kidney | | LABORATORY | | | | disease,if found over a | | | | | | 3-month period.Less than | | | | | | 15 Kidney failureFor | | | | | | | | | | | | Americans,multiply the | | | | | | calculated GFR by 1.21. | | | | | | | | | | + + + + + + | Calcium | 8.7 | 8.7 - 10.4 | [facility] | | | | | mg/dL | [facility] | | | | | | MEDICAL | | | | | | CENTER - | | | | | | LABORATORY | | + + + + + + | BUN/Creatin | 19.4 | | [facility] | | | ine Ratio | | | [facility] | | | | | | MEDICAL | | | | | | CENTER - | | | | | | LABORATORY | | + + + + + + + + | Specimen | + + | Blood | + + + + + + + | Performing | Address | City/State/Zipcode | Phone Number | | Organization | | | | + + + + + | [facility] | [address] | [place] | [phone] | | [facility] | | [address] | | | - LABORATORY | | | | + + + + + Nerve Block (02/12/2019 10:15 AM PST) + + + | Narrative | Performed At | + + + | Billy Malagon MD 02/12/2019 10:16 AM Perineural Procedure | | | Note 02/12/2019 9:38 AM LDA Nerve Block Type: IPACK (nterspace | | | between the Popliteal Artery and Capsule of the Knee) Laterality: | | | left Continuous block with catheter: No Provider requested | | | procedure: Keenan Indication: postoperative analgesia | | | Preprocedure check: patient identified, procedure and rescue equipment | | | checked, preevaluation including airway assessment complete, | | | risks/benefits discussed, consent obtained, timeout performed, | | | reassessment prior to procedure and monitors applied Patient | | | position: supine Preparation: chlorhexidine/isopropyl alcohol | | | Introducer used: no Technique: ultrasound Radiology image stored in | | | patient's chart: ultrasound Needle: stimulating Needle size: 21 g | | | Needle length: 4 in Medication administered through: needle and | | | incremental injection Negative findings: no blood aspirated Total | | | volume of local anesthetic solution administered: 15 mL Attempts: 1 | | | Ease of procedure: easy Comments: IPACK Regional block placed for | | | postoperative pain control at request of patient and surgeon. | | | Under ultrasound guidance, a needle (as specified above) was | | | inserted and placed in close proximity within the posterior fossa of | | | the knee. Ultrasound was also used to visualize the spread of | | | local anesthetic in close proximity to the nerve/plane being | | | blocked. The nerve appeared anatomically normal, and there was no | | | apparent abnormal pathological findings. A permanent ultrasound | | | image was saved in the patient's record. NIBP/SpO2 monitoring. | | | Please see anesthesia record or flowsheet for vital sign | | | documentation and see anesthesia record or MAR for additional | | | medication documentation. Performing provider: Billy Malagon | | | Authorizing provider: Billy Malagon MD Residential Driver: Koki Carmichael, | | | AT | | + + + Nerve Block (02/12/2019 10:15 AM PST) + + + | Narrative | Performed At | + + + | Billy aMlagon MD 02/12/2019 10:15 AM Perineural Procedure | | | Note 02/12/2019 9:35 AM Nerve block: adductor canal-femoral | | | Laterality: left Provider requested procedure: Keenan Indication: | | | postoperative analgesia Preprocedure check: patient identified, | | | procedure and rescue equipment checked, preevaluation including | | | airway assessment complete, risks/benefits discussed, consent | | | obtained, timeout performed, reassessment prior to procedure and | | | monitors applied Patient position: supine Preparation: | | | chlorhexidine/isopropyl alcohol Technique: ultrasound Radiology | | | image stored in patient's chart: ultrasound Needle: stimulating and | | | insulated Needle size: 21 g Needle length: 4 in Medication | | | administered through: needle Negative findings: no blood aspirated | | | and no paresthesia Total volume of local anesthetic solution | | | administered: 15 (Incremental injection in 3-4 mL increments with | | | negative aspiration each time.) mL Attempts: 1 Ease of procedure: | | | easy Comments: Regional block placed for postoperative pain | | | control at request of patient and surgeon. Under ultrasound | | | guidance, a needle (as specified above) was inserted and placed in | | | close proximity within the adductor canal. Ultrasound was also | | | used to visualize the spread of local anesthetic in close proximity | | | to the nerve being blocked. The nerve appeared anatomically | | | normal, and there was no apparent abnormal pathological findings. | | | A permanent ultrasound image was saved in the patient's record. | | | Positive level and "donut" sign. NIBP/SpO2 monitoring. Spouse | | | present and actively watched both PNBs. Please see | | | anesthesia record or flowsheet for vital sign documentation and see | | | anesthesia record or MAR for additional medication documentation. | | | Performing provider: Billy Malagon MD Authorizing provider: | | | Billy Malagon MD Residential Driver: Koki Carmichael AT | | + + + Airway (02/12/2019 10:14 AM PST) + + + | Narrative | Performed At | + + + | Billy Malagon MD 02/12/2019 10:15 AM Anesthesia Airway | | | Placement 02/12/2019 9:53 AM Preprocedure check: patient | | | identified, suction, airway equipment checked, oxygen, airway | | | assessed and patient reassessment prior to induction Rapid Sequence | | | Induction: no Mask ventilation: easy (poor seal with large | | | mustache) Attempts: 1 Airway type: laryngeal mask Size: 5 Cuffed: | | | cuffed Route, reference point: center of mouth Trauma: none Tube | | | placement verification: carbon dioxide detection Performing provider: | | | Billy Malagon MD Authorizing provider: Billy Malagon MD | | | Please see intraoperative grid for any additional medication | | | documentation. | | + + + Urinalysis with Microscopic with Culture if Indicated (02/04/2019 1:09 PM PST) + + + + + + | Component | Value | Ref Range | Performed | Pathologist | | | | | At | Signature | + + + + + + | Color, | Karen (A) | Light Yellow, | [facility] | | | Urine | | Yellow, Straw | [facility] | | | | | | MEDICAL | | | | | | CENTER - | | | | | | LABORATORY | | + + + + + + | Clarity | Hazy (A) | Clear | [facility] | | | | | | [facility] | | | | | | MEDICAL | | | | | | CENTER - | | | | | | LABORATORY | | + + + + + + | pH, Urine | 6.0 | 5.0 - 8.0 | [facility] | | | | | | [facility] | | | | | | MEDICAL | | | | | | CENTER - | | | | | | LABORATORY | | + + + + + + | Specific | 1.023 | 1.001 - 1.030 | [facility] | | | [place] | | | [facility] | | | | | | MEDICAL | | | | | | CENTER - | | | | | | LABORATORY | | + + + + + + | Protein, | Negative | Negative | [facility] | | | Urine | | | [facility] | | | | | | MEDICAL | | | | | | CENTER - | | | | | | LABORATORY | | + + + + + + | Blood, | Negative | Negative | [facility] | | | Urine | | | [facility] | | | | | | MEDICAL | | | | | | CENTER - | | | | | | LABORATORY | | + + + + + + | Glucose, | Negative | Negative | [facility] | | | Urine | | | [facility] | | | | | | MEDICAL | | | | | | CENTER - | | | | | | LABORATORY | | + + + + + + | Ketones, | 20 mg/dL (A) | Negative | [facility] | | | Urine | | | [facility] | | | | | | MEDICAL | | | | | | CENTER - | | | | | | LABORATORY | | + + + + + + | Bilirubin, | Negative | Negative | [facility] | | | Urine | | | [facility] | | | | | | MEDICAL | | | | | | CENTER - | | | | | | LABORATORY | | + + + + + + | Nitrite, | Negative | Negative | [facility] | | | Urine | | | [facility] | | | | | | MEDICAL | | | | | | CENTER - | | | | | | LABORATORY | | + + + + + + | Leukocyte | Negative | Negative | [facility] | | | Esterase, | | | [facility] | | | Urine | | | MEDICAL | | | | | | CENTER - | | | | | | LABORATORY | | + + + + + + | Urobilinoge | Negative | 0.2 mg/dL, 1.0 | [facility] | | | n, Urine | | mg/dL, Negative | [facility] | | | | | | MEDICAL | | | | | | CENTER - | | | | | | LABORATORY | | + + + + + + | WBC UA | 0-2 | 0 - 2 /HPF | [facility] | | | | | | [facility] | | | | | | MEDICAL | | | | | | CENTER - | | | | | | LABORATORY | | + + + + + + | RBC UA | 0-2 | 0 - 2 /HPF | [facility] | | | | | | [facility] | | | | | | MEDICAL | | | | | | CENTER - | | | | | | LABORATORY | | + + + + + + | SQUAMOUS | 2-5 (A) | 0 - 2 /LPF | [facility] | | | EPITHELIAL | | | [facility] | | | UA | | | MEDICAL | | | | | | CENTER - | | | | | | LABORATORY | | + + + + + + | BACTERIA UA | Negative | Negative /HPF | [facility] | | | | | | [facility] | | | | | | MEDICAL | | | | | | CENTER - | | | | | | LABORATORY | | + + + + + + | MUCUS UA | Present (A) | Negative /LPF | [facility] | | | | | | [facility] | | | | | | MEDICAL | | | | | | CENTER - | | | | | | LABORATORY | | + + + + + + | HYALINE | 0-2 | 0 - 2 /LPF | [facility] | | | [facility] | | | [facility] | | | | | | MEDICAL | | | | | | CENTER - | | | | | | LABORATORY | | + + + + + + | URINE | Urine Culture Not | | [facility] | | | COMMENT | Indicated | | [facility] | | | | | | MEDICAL | | | | | | CENTER - | | | | | | LABORATORY | | + + + + + + + + | Specimen | + + | Urine | + + + + + + + | Performing | Address | City/State/Zipcode | Phone Number | | Organization | | | | + + + + + | [facility] | [address] | [place] | [phone] | | [facility] | | [address] | | | - LABORATORY | | | | + + + + + CBC with Differential (02/04/2019 1:07 PM PST) + + + + + + | Component | Value | Ref Range | Performed | Pathologist | | | | | At | Signature | + + + + + + | WBC | 7.7 | 4.0 - 11.0 K/uL | [facility] | | | | | | [facility] | | | | | | MEDICAL | | | | | | CENTER - | | | | | | LABORATORY | | + + + + + + | RBC | 4.92 | 4.30 - 5.70 | [facility] | | | | | M/uL | [facility] | | | | | | MEDICAL | | | | | | CENTER - | | | | | | LABORATORY | | + + + + + + | Hemoglobin | 16.8 | 13.5 - 18.0 | [facility] | | | | | g/dL | [facility] | | | | | | MEDICAL | | | | | | CENTER - | | | | | | LABORATORY | | + + + + + + | Hematocrit | 48.5 | 40.0 - 51.0 % | [facility] | | | | | | [facility] | | | | | | MEDICAL | | | | | | CENTER - | | | | | | LABORATORY | | + + + + + + | MCV | 98.6 | 83.0 - 101.0 fL | [facility] | | | | | | [facility] | | | | | | MEDICAL | | | | | | CENTER - | | | | | | LABORATORY | | + + + + + + | MCH | 34.1 | 28.0 - 35.0 pg | [facility] | | | | | | [facility] | | | | | | MEDICAL | | | | | | CENTER - | | | | | | LABORATORY | | + + + + + + | MCHC | 34.6 | 32.0 - 36.0 | [facility] | | | | | g/dL | [facility] | | | | | | MEDICAL | | | | | | CENTER - | | | | | | LABORATORY | | + + + + + + | RDW-CV | 12.0 | <15.0 % | [facility] | | | | | | [facility] | | | | | | MEDICAL | | | | | | CENTER - | | | | | | LABORATORY | | + + + + + + | RDW-SD | 43.4 | 35.1 - 46.3 fL | [facility] | | | | | | [facility] | | | | | | MEDICAL | | | | | | CENTER - | | | | | | LABORATORY | | + + + + + + | Platelet | 166 | 140 - 440 K/uL | [facility] | | | Count | | | [facility] | | | | | | MEDICAL | | | | | | CENTER - | | | | | | LABORATORY | | + + + + + + | MPV | 10.4 | 6.5 - 12.4 fL | [facility] | | | | | | [facility] | | | | | | MEDICAL | | | | | | CENTER - | | | | | | LABORATORY | | + + + + + + | % | 74.3 | 45.0 - 82.0 % | [facility] | | | Neutrophils | | | [facility] | | | | | | MEDICAL | | | | | | CENTER - | | | | | | LABORATORY | | + + + + + + | % | 16.0 (L) | 20.0 - 45.0 % | [facility] | | | Lymphocytes | | | [facility] | | | | | | MEDICAL | | | | | | CENTER - | | | | | | LABORATORY | | + + + + + + | % Monocytes | 7.8 | 4.0 - 12.0 % | [facility] | | | | | | [facility] | | | | | | MEDICAL | | | | | | CENTER - | | | | | | LABORATORY | | + + + + + + | % | 1.3 | 0.0 - 5.0 % | [facility] | | | Eosinophils | | | [facility] | | | | | | MEDICAL | | | | | | CENTER - | | | | | | LABORATORY | | + + + + + + | % Basophils | 0.3 | 0.0 - 1.0 % | [facility] | | | | | | [facility] | | | | | | MEDICAL | | | | | | CENTER - | | | | | | LABORATORY | | + + + + + + | % Immature | 0.3 | 0.0 - 0.4 % | [facility] | | | Granulocyte | | | [facility] | | | s | | | MEDICAL | | | | | | CENTER - | | | | | | LABORATORY | | + + + + + + | Absolute | 5.74 | 1.80 - 8.50 | [facility] | | | Neutrophils | | K/uL | [facility] | | | | | | MEDICAL | | | | | | CENTER - | | | | | | LABORATORY | | + + + + + + | Absolute | 1.23 | 0.60 - 3.20 | [facility] | | | Lymphocytes | | K/uL | [facility] | | | | | | MEDICAL | | | | | | CENTER - | | | | | | LABORATORY | | + + + + + + | Absolute | 0.60 | 0.00 - 1.00 | [facility] | | | Monocytes | | K/uL | [facility] | | | | | | MEDICAL | | | | | | CENTER - | | | | | | LABORATORY | | + + + + + + | Absolute | 0.10 | 0.00 - 0.40 | [facility] | | | Eosinophils | | K/uL | [facility] | | | | | | MEDICAL | | | | | | CENTER - | | | | | | LABORATORY | | + + + + + + | Absolute | 0.02 | 0.00 - 0.10 | [facility] | | | Basophils | | K/uL | [facility] | | | | | | MEDICAL | | | | | | CENTER - | | | | | | LABORATORY | | + + + + + + | Absolute | 0.02 | 0.00 - 0.03 | [facility] | | | Immature | | K/uL | [facility] | | | Granulocyte | | | MEDICAL | | | s | | | CENTER - | | | | | | LABORATORY | | + + + + + + | % nRBC | 0 | 0 - 2 per 100 | [facility] | | | | | WBCs | [facility] | | | | | | MEDICAL | | | | | | CENTER - | | | | | | LABORATORY | | + + + + + + | Absolute | 0.00 | 0.00 - 0.01 | [facility] | | | nRBC | | K/uL | [facility] | | | | | | MEDICAL | | | | | | CENTER - | | | | | | LABORATORY | | + + + + + + + + | Specimen | + + | Blood | + + + + + + + | Performing | Address | City/State/Zipcode | Phone Number | | Organization | | | | + + + + + | [facility] | [address] | [place], [place] | [phone] | | [facility] | | [address] | | | - LABORATORY | | | | + + + + + ECG 12 lead (02/04/2019 11:52 AM PST) + + + + + + | Component | Value | Ref Range | Performed | Pathologist | | | | | At | Signature | + + + + + + | VENTRICULAR | 69 | BPM | [facility] | | | RATE EKG | | | | | + + + + + + | ATRIAL RATE | 69 | BPM | [facility] | | + + + + + + | P-R | 108 | ms | [facility] | | | INTERVAL | | | | | + + + + + + | QRS | 112 | ms | [facility] | | | DURATION | | | | | + + + + + + | Q-T | 432 | ms | [facility] | | | INTERVAL | | | | | + + + + + + | Q-T | 462 | ms | [facility] | | | INTERVAL | | | | | | (CORRECTED) | | | | | + + + + + + | P WAVE AXIS | 136 | degrees | [facility] | | + + + + + + | QRS AXIS | 135 | degrees | [facility] | | + + + + + + | T AXIS | -5 | degrees | [facility] | | + + + + + + | INTERPRETAT | Unusual P axis, possible | | [facility] | | | ION TEXT | ectopic atrial rhythm | | | | | | with premature atrial | | | | | | complexesLeft posterior | | | | | | fascicular blockInferior | | | | | | infarct , age | | | | | | undeterminedAbnormal | | | | | | ECGNo previous ECGs | | | | | | availableConfirmed by | | | | | | DESIRAE DELUNA MD ([id number]) | | | | | | on 02/05/2019 6:38:49 AM | | | | + + + + + + + + | Specimen | + + | | + + + + + | Narrative | Performed At | + + + | | | + + + + +---------+ + + | Performing | Address | City/State/Zipcode | Phone Number | | Organization | | | | + +---------+ + + | [facility] | | | | + +---------+ + + Culture, MRSA (02/04/2019 11:51 AM PST) + + + + + + | Component | Value | Ref Range | Performed | Pathologist | | | | | At | Signature | + + + + + + | Culture | Negative for MRSA by | | [facility] | | | | chromogenic agar method. | | [facility] | | | | | | MEDICAL | | | | | | CENTER - | | | | | | LABORATORY | | + + + + + + + + | Specimen | + + | Tissue - Both | | anterior nares (body | | structure) | + + + + + + + | Performing | Address | City/State/Zipcode | Phone Number | | Organization | | | | + + + + + | [facility] | [address] | [place] | [phone] | | [facility] | | [address] | | | - LABORATORY | | | | + + + + + from Last 3 Months Insurance + +--------+ +--------+ +---------+--------+ | Payer | Benefi | Subscriber | Effect | Phone | Address | Type | | | t Plan | ID | figueroa | | | | | | / | | Dates | | | | | | Group | | | | | | + +--------+ +--------+ +---------+--------+ | MEDICARE | MED[employer] | [id number] | 03/31/19 | [phone] | | Medica | | | RE | | 07-Pre | 5 | | re | | | PART A | | sent | | | | | | AND B | | | | | | + +--------+ +--------+ +---------+--------+ | MEDICARE | [employer] | [id number] | 03/31/19 | [phone] | | Medica | | | RE | | 07-Pre | 5 | | re | | | PART A | | sent | | | | | | AND B | | | | | | + +--------+ +--------+ +---------+--------+ | CIGNA | CIGNA | [id number] | | [id number] | | Indemn | | | MDCR | | 017-Pr | 1 | | ity | | | SUPPLE | | esent | | | | | | MENT | | | | | | | | SOLUTI | | | | | | | | ONS | | | | | | + +--------+ +--------+ +---------+--------+ | CIGNA | CIGNA | [id number] | | [id number] | | Indemn | | | MDCR | | 017-Pr | 1 | | ity | | | SUPPLE | | esent | | | | | | MENT | | | | | | | | SOLUTI | | | | | | | | ONS | | | | | | + +--------+ +--------+ +---------+--------+ + +--------+ +--------+ + + | Guarantor Name | Accoun | Relation to | Date | Phone | Billing Address | | | t Type | Patient | of | | | | | | | | | | + +--------+ +--------+ + + | Beni Delcid | Person | Self [birth year] | [address] | | | al/Fam | | 1940 | [address] | [place] [address] | | | [place] | | | 3 (Home) | | + +--------+ +--------+ + + | Beni Delcid | Person | Self [birth year] | [address] | | | al/Fam | | 1940 | [address] | [place] [address] | | | [place] | | | 3 (Home) | | + +--------+ +--------+ + + Advance Directives + + + + + | Type | Date Recorded | Patient | Explanation | | | | 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
--- OUTSIDE RECORDS SUMMARY | ~2019-04-15 | XMS | Encounter Summary ---
Demographics + + + | Address | [address] | | | [place] [address] | + + + | Home Phone | | + + + | Preferred Language | Unknown | + + + | Marital Status | | + + + | Orthodoxy Affiliation | Unknown | + + + | Race | Unknown | + + + | Ethnic Group | Unknown | + + + Author + + + | Author | [facility] | | | and [place] | + + + | Organization | [facility] | | | and [place] | [...] Team Providers + +------+ + | Care Steel Layout Worker Name | Role | Phone | + +------+ + | Parminder Malagon MD | PCP | | + +------+ + Reason for Visit + + + | Reason | Comments | + + + | Initial Assessment | | + + + Evaluate & Treat (Routine) +--------+ + + + + + | Status | Reason | Specialty | Diagnoses / | Referred By | Referred To | | | | | Procedures | Contact | Contact | +--------+ + + + + + | Closed | Specialty | Physical | Diagnoses | [place], | Scot Wilson | | | Services | Therapy / | Pain in | Korey L, | B, PT [address] | | | Required | Orthopedic | both knees, | MD [address] | | | | Surgery | unspecified | [address] | [place], | | | | | chronicity | [place], | [place] [address] | | | | | Primary | [address] | Phone: | | | | | osteoarthrit | Phone: | [phone] | | | | | is of left | [phone] | Fax: | | | | | knee | Fax: | [phone] | | | | | | [phone] | | +--------+ + + + + + Encounter Details +--------+---------+ + + + | Date | Type | Department | Care Team | Description | +--------+---------+ + + + | 02/04/ | Office | [facility] [place] | Scot Wilson, PT | Pain in both knees, | | 2019 | Visit | ORTHOPEDIC SURGERY | [address] [facility] [place] | unspecified | | | | [address] [facility] | [place] [address] | chronicity (Primary | | | | [place] | [phone] | Dx); Primary | | | | [address] | | osteoarthritis of | | | | [phone] | | left knee | +--------+---------+ + + + Social History + +-------+ +--------+------+ | Tobacco Use | Types | Packs/Day | Years | Date | | | | | Used | | + +-------+ +--------+------+ | Former Smoker | | | | | + +-------+ +--------+------+ + +---+---+---+ | Smokeless Tobacco: | | | | | Never Used | | | | + +---+---+---+ + + +---------+ + | Alcohol Use | Drinks/Week | oz/Week | Comments | + + +---------+ + | Yes | | | 1/ month | + + +---------+ + + + + | Sex Assigned [...] + + documented as of this encounter Functional Status + + + + | Functional Status | Response | Date of Assessment | + + + + | Are you deaf or do you have serious | No | 12/02/2017 | | difficulty hearing? | | | + + + + | Are you blind or do you have serious | No | 12/02/2017 | | difficulty seeing, even when wearing | | | | glasses? | | | + + + + | Do you have serious difficulty walking or | No | 12/02/2017 | | climbing stairs? (5 years old or older) | | | + + + + | Do you have difficulty dressing or bathing? | No | 12/02/2017 | | (5 years old or older) | | | + + + + | Because of a physical, mental, or emotional | No | 12/02/2017 | | condition, do you have difficulty doing | | | | errands alone such as visiting a doctor's | | | | office or shopping? [15 years old or | | | | older)] | | | + + + + + + + + | Cognitive Status | Response | Date of Assessment | + + + + | Because of a physical, mental, or emotional | No | 12/02/2017 | | condition, do you have serious difficulty | | | | concentrating, remembering, or making | | | | decisions? (5 years old or older) | | | + + + + documented as of this encounter Progress Notes Scot Wilson, PT - 02/04/2019 11:00 AM PST Physical Therapy Plan of Care Date: 02/04/2019 Patient Name: Beni Delcid Date of : 1940 Encounter Diagnoses Code Name Primary? M25.561, M25.562 Pain in both knees, unspecified chronicity Yes M17.12 Primary osteoarthritis of left knee Date of Onset: 05/30/2018 Start of Care Date: 02/04/2019 Requested # of Visits: 1 visits 1x/week for one month Certification From: 02/04/2019 Certification To: 05/05/2019 Clinical Impression: Patient presents to physical therapy for their pre-habilitation total joint replacement evaluation. Beni Delcid is scheduled for a left total knee arthrop lasty on 02/12/2019. The predicted patient discharge disposition is home with outpatient the madiha. For outpatient physical therapy, patient requests to be scheduled at [facility] with recommended start date 02/17/2019. Patient has identified Tami ) as their support defensive secondary coach. Patient has completed the physical therapy specific pre-operat figueroa education. Patient was educated on post-operative pain management techniques and how to best prepare their home for recovery. Functional outcome measure TUG with a pre operative score of 10.08. Patient reported outcome measure KOOS Jr. with a pre operative score of 47.49%. PROMIS Global - 10 pre operative Physical Health Raw Score: 75% (T-score: 47.7 ), Global - 10 Mental Health Raw Score: 65% (T-score: 45.8 ). Patient's superintendent terminal goal is walk around [facility]. Patient agrees with this pre-operative plan for post-operative return to function. Goals: Patient Reported Outcome Goals Patient Reported Outcome Goals: PSFS Patient Specific Functional Scale Goal 1: Patient agrees with home with outpatient PT as th e predicted post-operative discharge destination. Patient Specific Functional Scale Goal 1 Status: 10 Patient Specific Functional Scale Goal 2: Patient demonstrates independence with their pre- habilitation exercise program. Patient Specific Functional Scale Goal 2 Status: 10 Patient Specific Functional Scale Goal 3: Patient and physical therapist established long t erm goal for post-surgery. Patient Specific Functional Scale Goal 3 Status: 10 Treatment Plan/Interventions PT [id number] - Therapeutic [id number] - Self Care/Home [id number] - Gait T [id number] - Therapeutic [id number] - Neuromuscular [id number] - Manual Therapy Electronically signed by: Scot Wilson PT, 02/04/2019 12:20 Patient Name: Beni Delcid/: 1940/ Scot Avila P T - 02/04/2019 11:00 AM PST [facility] [address] [place] [id number] Physical Therapy Pre-habilitation Orthopedic Evaluation Date: 02/04/2019 Patient Information Patient Name: Beni Delcid Date of : 1940 Age: 78 y.o. Assessment Patient presents to physical therapy for their pre-habilitation total joint replacement marie gillette. Beni Delcid is scheduled for a left total knee arthroplasty on 02/12/2019. T he predicted patient discharge disposition is home with outpatient therapy. For outpatient p hysical therapy, patient requests to be scheduled at [facility] ([facility]) with seb mmended start date 02/17/2019. Patient has identified Tami ([phone]) as their support defensive secondary coach. Patient has completed the physical therapy specific pre-operative education. Patient was educated on post-operative pain management techniques and how to best prepare their nay e for recovery. Functional outcome measure TUG with a pre operative score of 10.08. Patient reported outcome measure KOOS Jr. with a pre operative score of 47.49%. PROMIS Global - 10 pre operative Physical Health Raw Score: 75% (T-score: 47.7 ), Global - 10 Mental Health Raw Score: 65% (T-score: 45.8 ). Patient's skilled nursing goal is walk around [facility]. Patient agrees with this pre-operative plan for post-operative return to function. History Social History Socioeconomic History Marital status: Spouse name: Not on file Number of children: Not on file Years of education: Not on file Highest education level: Not on file Occupational History Occupation: retired Tobacco Use Smoking status: Former Smoker Smokeless tobacco: Never Used Substance and Sexual Activity Alcohol use: Yes Comment: 1/ month Drug use: No Comment: Drug use: No Sexual activity: Never Encounter Diagnoses Code Name Primary? M25.561, M25.562 Pain in both knees, unspecified chronicity Yes M17.12 Primary osteoarthritis of left knee Date of Onset: 05/30/2018 Referring Provider: Korey Hussein MD No history on file. Past Medical History: Diagnosis Date Arthritis Cancer (HCC) prostate Hyperlipemia Hypertension Hypertension Joint pain Osteoarthritis Prostate cancer (HCC) Rheumatoid arthritis (HCC) Past Surgical History: Procedure Laterality Date APPENDECTOMY 1954 APPENDECTOMY COLONOSCOPY 2004 CYST REMOVAL 11/04/2017 scrotum HERNIA REPAIR INCISION AND DRAINAGE N/A 12/01/2017 Procedure: INCISION AND DRAINAGE SCROTUM; Surgeon: Tay Garrido MD; Location: [facility] MAIN OR INGUINAL HERNIA REPAIR Right 1979 KNEE ARTHROSCOPY Bilateral 1989' PROSTATECTOMY 2000 prostate cancer scrotal cyst excision Left 2008 [place] TESTICLE REMOVAL Right 11/04/2017 Dr. Garrido TONSILLECTOMY Family History Problem Relation Age of Onset Alzheimer's disease Mother Heart failure Father Heart defect Brother Arthritis Brother Developmental History Allergies Allergen Reactions Penicillins Hives Pain Assessment: Pain Scale Used: NUMERIC Pain Rating Pre Assessment: 3 Location: left knee Subjective: Living environment: Lives with: spouse / significant other Type of home: house Stairs to enter: 2 stairs to enter and without railing. Stairs in home: no stairs. Bathroom set up: walk in shower with grab bar Available assistance at discharge: Name: Tami, for indefinite Additional social support: Manuelito (son) for one wek Durable medical equipment: Currently uses: none Has access to: front wheeled walker, cane, toileting aids and brand advocate Have you fallen in the last year? no Have you recently had physical therapy? no Objective: AROM: left knee approximately 4-105 degrees Gait: Left Antalgic Goals: Patient Reported Outcome Goals Patient Reported Outcome Goals: PSFS Patient Specific Functional Scale Goal 1: Patient agrees with home with outpatient PT as th e predicted post-operative discharge destination. Patient Specific Functional Scale Goal 1 Status: 10 Patient Specific Functional Scale Goal 2: Patient demonstrates independence with their pre- habilitation exercise program. Patient Specific Functional Scale Goal 2 Status: 10 Patient Specific Functional Scale Goal 3: Patient and physical therapist established long t erm goal for post-surgery. Patient Specific Functional Scale Goal 3 Status: 10 Plan Date of Onset: 05/30/2018 Start of Care Date: 02/04/2019 Requested # of Visits: 1 visits 1x/week for one month Certification From: 02/04/2019 Certification To: 05/05/2019 Treatment Plan/Interventions PT [id number] - Therapeutic [id number] - Self Care/Home [id number] - Gait T [id number] - Therapeutic Lzamlljyxc66878 - Neuromuscular Elcbjsdycoo35891 - Manual Therapy Patient and/or family has indicated understanding of treatment needs and actively participa sangeetha in the creation of this plan for care. Today's Treatment Start Time: 1045 Stop time: 1120 Duration: 35 minutes Timed Treatment Codes: 15 minutes # of PT Visits: 1 Objective: Patient education: Patient completed the physical therapy specific pre-operative education. Patient was educated on post-operative pain management techniques and how to best prepare t heir home for recovery. Patient was instructed in the below home exercise program and was ab le to safely return demonstration for each exercise. Prepared by: Scot Wilson Exercises Seated Knee Bend Stretch - 10 sets - 1 reps - 30 seconds hold - 3x daily - 7x weekly Seated Knee Extension Stretch with Chair - 30 seconds hold - 10 sets - 1 reps - 3x daily - 7x weekly Knee Extension Stretch on Towel Roll - 30 seconds hold - 10 sets - 1 reps - 3x daily - 7x w eekly Thigh Squeeze - 25 reps - 2 sets - 3x daily - 7x weekly Seated Heel Toe Raises - 25 reps - 2 sets - 3x daily - 7x weekly Patient Education Walking with a Front Wheel Walker - Weight Bearing as Tolerated Total Knee Replacement Handout Electronically signed by: Scot Wilson, PT, 02/04/2019 12:19 Patient Name: Beni Delcid/: 1940/ y signed by Scot Wilson PT at 02/04/2019 12:20 PM PSTdocumented in this encounter Plan of Treatment +--------+ + + + + | Date | Type | Specialty | Care Team | Description | +--------+ + + + + | 04/28/ | Office | Cardiology | Leighann Maddox, | | | 2019 | Visit | | MD Aileen MARISCAL | | | | | | [place] | | | | | | [address] | | | | | | | | +--------+ + + + + | 05/11/ | Office | Orthopedic Surgery | Scot iWlson PT | | | 2019 | Visit | | [address] | | | | | | [place] [address] | | | | | | [phone] | | | | | | | | +--------+ + + + + | 05/11/ | Office | Orthopedic Surgery | Korey Hussein | | | 2019 | Visit | | MD [address] | | | | | | [place] | | | | | | [address] | | | | | | | | +--------+ + + + + | 05/14/ | Office | Rheumatology | Mya Frederick | | | 2020 | Visit | | SHELLY Nguyen [address] | | | | | | [place] | | | | | | [place] [address] | | | | | | [phone] | | | | | | | | +--------+ + + + + | 06/06/ | Hospital | | Korey Hussein | Primary | | 2020 | Encounter | | MD [address] | 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[place] | right knee; Chronic | | | | | [address] | pain of right knee | | | | | | | +--------+ + + + + | 06/06/ | Surgery | | Korey Hussein | RIGHT TOTAL KNEE | | 2020 | | | MD Shan [address] | ARTHROPLASTY | | | | | [place] | | | | | | [address] | | | | | | | | +--------+ + + + + | 06/21/ | Office | Orthopedic Surgery | Jossue Haro | | | 2019 | Visit | | [address] | | | | | | [address] | | | | | | [place] [address] | | | | | | [phone] | | | | | | | | +--------+ + + + + documented as of this encounter Visit Diagnoses + + | Diagnosis | + + | Pain in both knees, unspecified chronicity - Primary | + + | Primary osteoarthritis of left knee Primary localized osteoarthrosis, lower leg | + + documented in this encounter"
--- OUTSIDE RECORDS SUMMARY | ~2019-04-15 | XMS | Encounter Summary ---
Demographics + + + | Address | [address] | | | [place] [address] | + + + | Home Phone | | + + + | Preferred Language | Unknown | + + + | Marital Status | | + + + | Yarsanism Affiliation | Unknown | + + + | Race | Unknown | + + + | Ethnic Group | Unknown | + + + Author + + + | Author | [facility] | | | and [place] | + + + | Organization | [facility] | | | and [...] Team Providers + +------+ + | Care Van Cdl Driver Name | Role | Phone | + +------+ + | Parminder Malagon MD | PCP | | + +------+ + Reason for Visit + + + | Reason | Comments | + + + | Knee Pain | bilateral knee pain ONSET 6 MO | + + + | New Patient | establish care with Jossue haro | + + + Evaluate & Treat (Routine) + +--------+ + + + + | Status | Reason | Specialty | Diagnoses / | Referred By | Referred To | | | | | Procedures | Contact | Contact | + +--------+ + + + + | Authorized | | Orthopedic | Diagnoses | [facility] | Camilo Gamboa | | | | Surgery | Pain in | Parminder | Orthopedic | | | | | right knee | MD Igor | Surgery [address] | | | | | Pain in left | [address] | | | | | knee | [place] | [place], | | | | | | [place] | [place] | | | | | | [address] | [address] | | | | | | Phone: | Phone: | | | | | | [phone] | [phone] | | | | | | Fax: | Fax: | | | | | | [phone] | [phone] | + +--------+ + + + + Encounter Details +--------+---------+ + + + | Date | Type | Department | Care Team | Description | +--------+---------+ + + + | 12/08/ | Office | [facility] | Jossue Haro | Pain in both knees, | | 2018 | Visit | ORTHOPEDIC SURGERY | SHELLY [address] | unspecified | | | | [address] [facility] | [facility] [place] | chronicity (Primary | | | | [place], [place] | [place] [address] | Dx); Primary | | | | [address] | [phone] | osteoarthritis of | | | | [phone] | | right knee; Primary | | | | | | 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| left knee | +--------+---------+ + [...] + + documented as of this encounter Last Filed Vital Signs + + + + + | Vital Sign | Reading | Time Taken | Comments | + + + + + | Blood Pressure | - | - | | + + + + + | Pulse | - | - | | + + + + + | Temperature | - | - | | + + + + + | Respiratory Rate | - | - | | + + + + + | Oxygen Saturation | - | - | | + + + + + | Inhaled Oxygen | - | - | | | Concentration | | | | + + + + + | Weight | 83.8 kg (184 lb 12.8 | 12/08/2018 9:54 AM | | | | oz) | PDT | | + + + + + | Height | 180.3 cm (5' 11") | 12/08/2018 9:54 AM | | | | | PDT | | + + + + + | Body Mass Index | 25.77 | 12/08/2018 9:54 AM | | | | | PDT | | + + + + + documented in this encounter Functional Status + + + [...] [place] | | | | | | [address] | | | | | | | | +--------+ + + + + | 05/11/ | Office | Orthopedic Surgery | Scot Wilson PT | | | 2019 | Visit | | [address] | | | | | | [place] [address] | | | | | | [phone] | | | | | | | | +--------+ + + + + | 05/11/ | Office | Orthopedic Surgery | Korey Hussein | | | 2020 | Visit | | MD [address] | | | | | | [place] | | | | | | [address] | | | | | | | | +--------+ + + + + | 05/14/ | Office | Rheumatology | Mya Frederick | | | 2019 | Visit | | SHELLY Nguyen [address] | | | | | | [address] | | | | | | [place] [address] | | | | | | [phone] | | | | | | | | +--------+ + + + + | 06/06/ | Hospital | | Korey Hussein | Primary | | 2019 | Encounter | | MD [address] | 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[place] | right knee; Chronic | | | | | [address] | pain of right knee | | | | | | | +--------+ + + + + | 06/06/ | Surgery | | Korey Hussein | RIGHT TOTAL KNEE | | 2019 | | | MD Shan [address] | ARTHROPLASTY | | | | | [place] | | | | | | [address] | | | | | | | | +--------+ + + + + | 06/21/ | Office | Orthopedic Surgery | Jossue Haro | | | 2019 | Visit | | SHELLY [address] | | | | | | [address] | | | | | | [place] [address] | | | | | | [phone] | | | | | | | | +--------+ + + + + documented as of this encounter Visit Diagnoses + + | Diagnosis | + + | Pain in both knees, unspecified chronicity - Primary | + + | Primary osteoarthritis of right knee Primary localized osteoarthrosis, lower leg | + + | Primary osteoarthritis of left knee Primary localized osteoarthrosis, lower leg | + + documented in this encounter
--- OUTSIDE RECORDS SUMMARY | ~2019-04-15 | XMS | Encounter Summary ---
Demographics + + + | Address | [address] | | | [place] [address] | + + + | Home Phone | | + + + | Preferred Language | Unknown | + + + | Marital Status | | + + + | Mu-Ism Affiliation | Unknown | + + + | Race | Unknown | + + + | Ethnic Group | Unknown | + + + Author + + + | Author | [facility] | | | and [place] | + + + | Organization | [facility] | | | and [place] [...] Team Providers + +------+ + | Care Newspaper Clipper Name | Role | Phone | + +------+ + | Parminder Malagon MD | PCP | | + +------+ + Reason for Visit Auth/Cert +--------+--------+ + + + + | Status | Reason | Specialty | Diagnoses / | Referred By | Referred To | | | | | Procedures | Contact | Contact | +--------+--------+ + + + + | | | | Diagnoses | | [place], | | | | | Pain in | | Korey Torrez MD | | | | | both knees, | | [address] | | | | | unspecified | | [address] [place] | | | | | chronicity | | [place] | | | | | Primary | | [address] Phone: | | | | | osteoarthrit | | [phone] | | | | | is of left | | Fax: | | | | | knee | | [phone] | | | | | Procedures | | | | | | | PA TOTAL | | | | | | | KNEE | | | | | | | ARTHROPLASTY | | | | | | | LEFT TOTAL | | | | | | | KNEE | | | | | | | ARTHROPLASTY | | | | | | | | | | +--------+--------+ + + + + Encounter Details +--------+ + + + + | Date | Type | Department | Care Team | Description | +--------+ + + + + | 02/12/ | Hospital | [facility] | Korey Hussein | Pain in both knees, | | 2019 - | Encounter | [facility] | MD Shan [address] [facility] | unspecified | | | | [address] | [place] | chronicity; Primary | | 02/14/ | | [place] [address] | [address] | osteoarthritis of | | 2019 | | [phone] | | left knee | +--------+ + + + + Social History + +-------+ +--------+ [...] | 82.2 kg (181 lb 3.5 | 02/12/2019 7:41 AM | | | | oz) | PST | | + + + + + | Height | 180.3 cm (5' 11") | 02/12/2019 1:01 PM | | | | | PST | | + + + + + | Body Mass Index | 25.27 | 02/12/2019 7:41 AM | | | | | PST [...] + + documented as of this encounter Discharge Summaries Jossue Haro PA-C - 02/14/2019 11:49 AM PSTFormatting of this note might be differe nt from the original. Name: Beni Delcid : [id number] Age: 78 y.o. Sex: male Todays Date: 02/14/2019 PCP:Parminder Malagon MD Date of admission: 02/12/2019 Date of Discharge: 02/14/19 Admitting Physician: Dr. Korey Hussein Discharging Physician: Jossue Haro PA-C Admitting Diagnosis: Primary osteoarthritis left knee Discharge Diagnosis: Left total knee arthroplasty Admitting Condition: Stable and Comfortable Discharge Condition: Comfortable. Pain well controlled. Hospital Course: Pt was admitted to [facility] for a left total knee arthropla sty. This surgical procedure was performed by Dr. Korey Hussein and Jossue Haro PA-C. Pt was admitted to inpatient status for recovery. They continued to progress well and be ac tively engaged with both PT and OT. Pain overall has remained quite controlled postoperativ fawn. The plan is for him to be discharged today to his home for continued recovery and reha bilitation. We will continue with aspirin 325 mg twice daily for blood thinning therapy. Consults: PT, OT, Respiratory Labs: Vitals: 02/13/19 1800 02/13/19 2020 02/14/19 0238 02/14/19 0724 BP: 109/54 118/67 148/72 168/76 Pulse: 60 64 63 70 Resp: Temp: 36.1 C (97 F) 36.7 C (98 F) 35.8 C (96.5 F) 36.5 C (97.7 F) TempSrc: Oral Oral Oral Oral SpO2: 96% 95% 98% 92% Weight: Height: @[id number]@ No results found for this or any previous visit (from the past 24 hour(s)). Treatments: No current facility-administered medications on file prior to encounter. Current Outpatient Medications on File Prior to Encounter Medication Sig Dispense Refill acetaminophen (TYLENOL) 500 mg tablet Take 2 tablets by mouth every 8 hours. 60 tablet 0 ascorbic acid (VITAMIN C) 1000 MG tablet Take 1,000 mg by mouth daily. [START ON 02/15/2019] aspirin 325 MG EC tablet Take 1 tablet by mouth 2 times daily. 60 tablet 0 aspirin 81 MG tablet Take 81 mg by mouth every other day. B Complex-C (SUPER B COMPLEX PO) Take 1 tablet by mouth daily. folic acid 1 mg tablet TAKE ONE TABLET BY MOUTH ONCE DAILY 90 tablet 3 Krbbpdykayz-Sdgmkpzme-Nvr C-Mn (GLUCOSAMINE 1500 COMPLEX PO) Take 1 tablet by mouth yunier ly. lisinopril-hydrochlorothiazide (PRINZIDE,ZESTORETIC) 20-12.5 MG per tablet Take 2 table ts by mouth daily. meloxicam (MOBIC) 7.5 mg tablet Take 1 tablet by mouth daily. methotrexate 2.5 mg tablet TAKE 4 TABLETS BY MOUTH ONCE A WEEK 54 tablet 0 metoprolol succinate (TOPROL-XL) 50 mg 24 hr tablet Take 50 mg by mouth Daily. Multiple Minerals-Vitamins (CALCIUM ICIGWLQ-AWN-UGUIFUVF PO) Take 1 tablet by mouth yunier ly. omeprazole (PRILOSEC) 20 mg capsule Take 20 mg by mouth every morning (before breakfast ). potassium chloride (KLOR-CON) 20 MEQ packet Take 20 mEq by mouth daily. pravastatin (PRAVACHOL) 40 MG tablet Take 20 mg by mouth daily. tocopherol (VITAMIN E) 400 units capsule Take 400 Units by mouth daily. Discharge Physical Exam: Constitutional:Alert and oriented x 3, in no acute distress Head: Atraumatic and normocephalic Eyes: EOM intact bilaterally Respiratory: Non-labored respiration, no acute SOA Cardiovascular: No ankle or foot edema lower extremities Skin: Keep bandages are clean, dry and intact to the left lower extremity. [place] are int act to the left anterior knee incision site. No hematoma or seroma is noted. Inspection of incision site reveals no erythema, induration, drainage or signs of infection. Limited bru ising noted. Incision and knee does remain mildly swollen. Left knee dressed with Aquacel bandage. Neuro: Neurovascularly intact lower extremities, bilaterally Pysch: Cooperative with exam and answers questions promptly when asked. M/S: Moves normal plantar and dorsiflexion of the left ankle without pain. Discharge Medications New Medications Details acetaminophen 500 mg tablet Take 2 tablets by mouth every 8 hours. aka: TYLENOL aspirin 325 MG EC tablet Replaces: aspirin 81 MG tablet Take 1 tablet by mouth 2 times daily. Start: February 15, 2019 celecoxib 100 mg capsule Take 1 capsule by mouth 2 times daily. aka: CELEBREX gabapentin 100 mg capsule Take 1 capsule by mouth 3 times daily. aka: NEURONTIN traMADol 50 mg tablet Take 1 tablet by mouth EVERY 4 TO 6 HOURS NEEDED (for increased pain). aka: ULTRAM Unchanged Medications Details ascorbic acid 1000 MG tablet Take 1,000 mg by mouth daily. aka: VITAMIN C CALCIUM QQEPCIO-JFN-PWOFWLEY PO Take 1 tablet by mouth daily. folic acid 1 mg tablet TAKE ONE TABLET BY MOUTH ONCE DAILY GLUCOSAMINE 1500 COMPLEX PO Take 1 tablet by mouth daily. lisinopril-hydrochlorothiazide 20-12.5 MG per tablet Take 2 tablets by mouth daily. aka: PRINZIDE,ZESTORETIC metoprolol succinate 50 mg 24 hr tablet Take 50 mg by mouth Daily. aka: TOPROL-XL omeprazole 20 mg capsule Take 20 mg by mouth every morning (before breakfast). aka: priLOSEC potassium chloride 20 MEQ packet Take 20 mEq by mouth daily. aka: KLOR-CON pravastatin 40 MG tablet Take 20 mg by mouth daily. aka: PRAVACHOL sulfaSALAzine 500 mg tablet TAKE 1 TABLET BY MOUTH TWICE DAILY aka: AZULFIDINE SUPER B COMPLEX PO Take 1 tablet by mouth daily. tocopherol 400 units capsule Take 400 Units by mouth daily. aka: VITAMIN E Discontinued Medications aspirin 81 MG tablet Replaced by: aspirin 325 MG EC tablet meloxicam 7.5 mg tablet aka: MOBIC methotrexate 2.5 mg tablet Diet: Regular diet Activity: activity as tolerated on affected leg Wound Care: Keep aquacell bandage in place. Remove aquacell bandage in 7 days. Follow Up: Follow up as scheduled with Dr. Hussein at office. Jossue Haro PA-C 02/14/19. This not was dictated using [employer] Voice recognition system. There may be minor errors in grammar. documented in t his encounter Discharge Instructions Instructions Jossue Haro PA-C - 02/12/2019Please keep appointment in Dr Hussein' s office as already scheduled. Take pain medications as prescribed if necessary Remove aquacell bandage from left knee in 7 days Continue with aspirin 325mg twice daily for blood thinning therapy for next 4 wks. Continue with full wt bearing on left leg. Elevate the left leg in response to swelling If you have any questions, comments or concerns please contact our office Do not exceed 4,000 mg of acetaminophen (Tylenol) per day. Hydrocodone-acetaminophen ([place] ) and Oxycodone-acetaminophen (Percocet) have 325 mg acetaminophen per tablet. Regular stren gth acetaminophen is 325 mg per tablet. Extra strength has 500 mg per tablet. Do not consume alcohol while taking opioid mediations. If constipation arises, try docusate-senna one tablet twice daily; milk of magnesia 30 mL o nce each night; or Miralax one capful (17 grams) dissolved in half a cup of water once daily for 3 days. If constipation does not resolve within 3 days after discharge, contact the doc tor's office. Medication Instructions: Do not exceed 4,000 mg of acetaminophen (Tylenol) per day. Hydrocodone-acetaminophen ([place] ) and Oxycodone-acetaminophen (Percocet) have 325 mg acetaminophen per tablet. Regular stre ngth acetaminophen is 325 mg per tablet. Extra strength has 500 mg per tablet. While you are taking the blood thinner (aspirin 325 mg daily), please do not take any NSAID s (additional aspirin, ibuprofen, naproxen, Motrin, Advil, Aleve, etc.) These can increase your risk of bleeding. Watch for signs of bleeding: Easy bruising Bleeding from the gums Vomiting something that looks like coffee grounds Dark tarry stool Call the doctor if you experience any of these. Watch for signs of blood clots: DVT: hard, hot, hurt, red in back of calf PE or KS: sudden chest pain or trouble breathing Stroke: trouble thinking or weakness on one side of body Call 911 if you experience any of these symptoms. Do not consume alcohol while taking prescription pain medications. For constipation: While you are taking opioid pain medications (hydrocodone and/or oxycodone), continue to ta ke docusate (Colace) and senna (Senokot) twice daily. This will both help you have a bowel movement and help the stool stay soft and duho-en-aaam. Remember to drink plenty of fluids and eat fiber-containing foods. If you do not have a bowel movement within two days of returning home, add milk of magnesia 30 mL once each night and/or Miralax one capful (17 grams) dissolved in half a cup of water once daily for 3 days. These are available kyht-uko-[id number] at any drugstore. If you are still constipated 3 days after discharge, add a one-time bisacodyl (Dulcolax) leal ppository or an enema. If these do not work, contact the surgeon's office. documented in this encounter Medications at Time of Discharge + + + +---------+ + + | Medication | Sig | Dispensed | Refills | Start | End Date | | | | | | Date | | + + + +---------+ + + | acetaminophen | Take 2 tablets by | 60 | 0 | 02/15/20 | | | (TYLENOL) 500 mg | mouth every 8 hours. | tablet | | 19 | | | tablet | | | | | | + + + +---------+ + + | ascorbic acid | Take 1,000 mg by | | 0 | | | | (VITAMIN C) 1000 MG | mouth daily. | | | | | | tablet | | | | | | + + + +---------+ + + | aspirin 325 MG EC | Take 1 tablet by | 60 | 0 | 02/16/20 | | | tablet | mouth 2 times daily. | tablet | | 19 | | + + + +---------+ + + | B Complex-C (SUPER | Take 1 tablet by | | 0 | | | | B COMPLEX PO) | mouth daily. | | | | | + + + +---------+ + + | celecoxib | Take 1 capsule by | 60 | 0 | 02/15/20 | | | (CELEBREX) 100 mg | mouth 2 times daily. | capsule | | 19 | | | capsule | | | | | | + + + +---------+ + + | folic acid 1 mg | TAKE ONE TABLET BY | 90 | 3 | 12/23/19 | | | tablet | MOUTH ONCE DAILY | tablet | | 19 | | + + + +---------+ + + | gabapentin | Take 1 capsule by | 90 | 0 | 02/15/20 | | | (NEURONTIN) 100 mg | mouth 3 times daily. | capsule | | 19 | | | capsule | | | | | | + + + +---------+ + + | | Take 1 tablet by | | 0 | | | | Glucosamine-Chondroi | mouth daily. | | | | | | t-Vit C-Mn | | | | | | | (GLUCOSAMINE 1500 | | | | | | | COMPLEX PO) | | | | | | + + + +---------+ + + | | Take 2 tablets by | | 0 | 01/04/20 | | | lisinopril-hydrochlo | mouth daily. | | | 15 | | | rothiazide | | | | | | | (PRINZIDE,ZESTORETIC | | | | | | | ) 20-12.5 MG per | | | | | | | tablet | | | | | | + + + +---------+ + + | metoprolol | Take 50 mg by mouth | | 0 | | | | succinate | Daily. | | | | | | (TOPROL-XL) 50 mg 24 | | | | | | | hr tablet | | | | | | + + + +---------+ + + | Multiple | Take 1 tablet by | | 0 | | | | Minerals-Vitamins | mouth daily. | | | | | | (CALCIUM | | | | | | | [id number] | | | | | | | PO) | | | | | | + + + +---------+ + + | omeprazole | Take 20 mg by mouth | | 0 | | | | (PRILOSEC) 20 mg | every morning | | | | | | capsule | (before breakfast). | | | | | + + + +---------+ + + | potassium chloride | Take 20 mEq by mouth | | 0 | | | | (KLOR-CON) 20 MEQ | daily. | | | | | | packet | | | | | | + + + +---------+ + + | pravastatin | Take 20 mg by mouth | | 0 | 01/06/20 | | | (PRAVACHOL) 40 MG | daily. | | | 15 | | | tablet | | | | | | + + + +---------+ + + | sulfaSALAzine | TAKE 1 TABLET BY | 180 | 0 | 02/02/20 | | | (AZULFIDINE) 500 mg | MOUTH TWICE DAILY | tablet | | 19 | | | tablet | | | | | | + + + +---------+ + + | tocopherol | Take 400 Units by | | 0 | | | | (VITAMIN E) 400 | mouth daily. | | | | | | units capsule | | | | | | + + + +---------+ + + | traMADol (ULTRAM) | Take 1 tablet by | 30 | 0 | 02/15/20 | | | 50 mg tablet | mouth EVERY 4 TO 6 | tablet | | 19 | | | | HOURS NEEDED (for | | | | | | | increased pain). | | | | | + + + +---------+ + + documented as of this encounter Progress Notes Arabella Hopper RN - 02/14/2019 12:23 PM PSTAVS and RXs given and explained to patient, he acknowledged understanding and all questions answered. is coming at 1pm to take him ho me, states he does not need help dressing. Will go to car via wheelchair with CNAElectronica lly signed by Arabella Hopper RN at 02/14/2019 12:25 PM Korey Gutiérrez MD - 2018 9:04 AM PST Beni Cox Farhana SUBJECTIVE: POD # 1 No complaints, taking Tylenol only for pain. Has already been up to the bathroom. OBJECTIVE: Vitals with Comments 02/13/2019 02/13/2019 02/13/2019 02/13/2019 SYSTOLIC - 125 - 111 DIASTOLIC - 58 - 55 Pulse 88 75 71 64 Temp - 97.7 - 96.3 Resp 20 16 18 18 Weight - - - - Height - - - - SPO2 95 97 98 99 BMI - - - - Pain Score - - - - Pain Loc - - - - Pain Edu? - - - - Intake/Output Summary (Last 24 hours) at 02/13/2019 09 Last data filed at 02/13/2019 0515 Gross per 24 hour Intake 3470 ml Output 1030 ml Net 2440 ml Recent Results (from the past 24 hour(s)) Basic Metabolic Panel Collection Time: 02/13/19 6:27 AM Result Value Ref Range Na 143 136 - 145 mmol/L K 3.5 3.4 - 5.1 mmol/L Cl 106 98 - 107 mmol/L CO2 29 20 - 31 mmol/L Anion Gap 8 3 - 16 mmol/L Glucose 116 (H) 60 - 106 mg/dL BUN 24 (H) 9 - 23 mg/dL Creatinine 1.24 0.70 - 1.30 mg/dL eGFR if not 56 (L) >=60 mL/min/1.73m2 Calcium 8.7 8.7 - 10.4 mg/dL BUN/Creatinine Ratio 19.4 Hemoglobin and Hematocrit Collection Time: 02/13/19 6:27 AM Result Value Ref Range Hematocrit 40.2 40.0 - 51.0 % Hemoglobin 14.1 13.5 - 18.0 g/dL Microbiology Results (72 hrs) No results found for the last 72 hours. Bandages dry. NV function intact to feet. ASSESSMENT: Stable. PLAN: Mobilize, possible home tomorrow. Korey Hussein MD MD documented in this encounter Plan of Treatment +--------+ + + + + | Date | Type | Specialty | Care Team | Description | +--------+ + + + + | 04/28/ | Office | Cardiology | Leighann Maddox, | | | 2019 | Visit | | MD Aileen MARISCAL | | | | | | [place] | | | | | | [id number] | | | | | | | | +--------+ + + + + | 05/11/ | Office | Orthopedic Surgery | Scot Wilson PT | | | 2019 | Visit | | [address] | | | | | | [place] [address] | | | | | | [phone] | | | | | | | | +--------+ + + + + | 05/11/ | Office | Orthopedic Surgery | Korey Hussein | | 2019 | Visit | | MD Shan [address] | | | | | | [place] | | | | | | [address] | | | | | | | | +--------+ + + + + | 05/14/ | Office | Rheumatology | Mya Frederick | | | 2019 | Visit | | SHELLY Nguyen [address] | | | | | | [address] | | | | | | [place] [address] | | | | | | [phone] | | | | | | | | +--------+ + + + + | 06/06/ | Hospital | | Korey Hussein | Primary | | 2019 | Encounter | | MD [address] | 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[place] | right knee; Chronic | | | | | [id number] | pain of right knee | | | | | | | +--------+ + + + + | 06/06/ | Surgery | | Korey Hussein | RIGHT TOTAL KNEE | | 2019 | | | MD Shan [address] | ARTHROPLASTY | | | | | [place] | | | | | | [address] | | | | | | | | +--------+ + + + + | 06/21/ | Office | Orthopedic Surgery | Jossue Haro | | 2019 | Visit | | SHELLY [address] | | | | | | [address] | | | | | | [place] [address] | | | | | | [phone] | | | | | | | [...] | | | Yan | | | [place] | | | | | | Eric | +---+--------+ documented in this encounter Results Hemoglobin and Hematocrit (02/13/2019 6:27 AM PST) + +-------+ + + + | Component | Value | Ref Range | Performed | Pathologist | | | | | At | Signature | + +-------+ + + + | Hematocrit | 40.2 | 40.0 - 51.0 % | [facility] | | | | | | [facility] | | | | | | [facility] | | | | | | [facility] - | | | | | | LABORATORY | | + +-------+ + + + | Hemoglobin | 14.1 | 13.5 - 18.0 | [facility] | | | | | g/dL | [facility] | | | | | | [facility] [...] | + + + + + | [facility] | [address] | [place] | [phone] | | [facility] | | [address] | | | - LABORATORY | | | | + + + + + Basic Metabolic Panel (02/13/2019 6:27 AM PST) + + + + + [...] (H) | 9 - 23 mg/dL | [facility] | | | | | | [facility] | | | | | | MEDICAL | | | | | | CENTER - | | | | | | LABORATORY | | + + + + + + | Creatinine | 1.24 | 0.70 - 1.30 | [facility] | | | | | mg/dL | [facility] | | | | | | MEDICAL | | | | | | CENTER - | | | | | | LABORATORY | | + + + + + + | eGFR if not | 56 (L)Comment: | >=60 | [facility] | | | | GLOMERULAR FILTRATION | mL/min/1.73m2 | [facility] | | | TRINIDADIAN | RATE,ESTIMATED | | MEDICAL | | | | mL/min/1.42n4Oqds than | | CENTER - | | [...] | | ine Ratio | | | [facility] | | [...] | + + + + + | [facility] | [address] | [place] | [phone] | | [facility] | | [address] | | | - LABORATORY | | | | + + + + + XR Knee Left 1 - 2 Vw (02/12/2019 11:47 AM [facility]) + + | Specimen | + + | | + + + + + | Impressions | Performed At | + + + | No radiographic evidence of immediate complication. Dictated and | [facility] | | Signed by: Bob Chavis MD Electronically signed: 02/12/2019 | | | 12:01 PM | | + + + + + + | Narrative | Performed At | + + + | CLINICAL INFORMATION: left tka. COMPARISON: 12/08/2018. | [facility] | | FINDINGS: 2 views of the left knee. Total knee arthropathy | | | changes without evidence to suggest hardware complication. Anterior | | | cutaneous eyad with expected subcutaneous air and edema. | | | Arteriovascular calcifications are evident. | | + + + + + | Procedure Note | + + | Oz Liu Results In - 02/12/2019 12:04 PM PST CLINICAL INFORMATION: left tka. | | | | COMPARISON: 12/08/2018. | | | | FINDINGS: | | 2 views of the left knee. | | | | Total knee arthropathy changes without evidence to suggest hardware | | complication. Anterior cutaneous eyad with expected subcutaneous air and | | edema. Arteriovascular calcifications are evident. | | | | IMPRESSION: | | No radiographic evidence of immediate complication. | | | | Dictated and Signed by: Bob Chavis MD | | Electronically signed: 02/12/2019 12:01 PM | + + + +---------+ + + | Performing | Address | City/State/Zipcode | Phone Number | | Organization | | | | + +---------+ + + | [facility] | | | | + +---------+ + + documented in this encounter Visit Diagnoses + + | Diagnosis | + + | Primary osteoarthritis of left knee - Primary Primary localized osteoarthrosis, lower | | leg | + + | Pain in both knees, unspecified chronicity | + + | HTN (hypertension) Unspecified essential hypertension | + + | Rheumatoid arthritis involving multiple joints (HCC) | + + | Chronic renal insufficiency, stage II (mild) Chronic kidney disease, Stage II (mild) | + + | Left posterior fascicular block (LPFB) | + + documented in this encounter Admitting Diagnoses + + | Diagnosis | + + | Pain in both knees, unspecified chronicity | + + | Primary osteoarthritis of left knee Primary localized osteoarthrosis, lower leg | + + documented in this encounter Administered Medications + +--------+ + +------+------+ | Medication Order | MAR | Action | Dose | Rate | Site | | | Action | Date | | | | + +--------+ + +------+------+ | acetaminophen (TYLENOL) tablet | Given | 02/13/20 | 1,000 mg | | | | 1,000 mg 1,000 mg, Oral, ONCE, | | 19 8:24 | | | | | Fri02/12/19 at 0830, For 1 dose, | | AM PST | | | | | Pre-op | | | | | | + +--------+ + +------+------+ +---+---+ | | | +---+---+ + +-------+ + +---+---+ | acetaminophen (TYLENOL) tablet | Given | 02/15/20 | 1,000 mg | | | | 1,000 mg 1,000 mg, Oral, EVERY 8 | | 19 6:38 | | | | | HOURS (3 times per day), First | | AM PST | | | | | dose on Fri02/12/19 at 1400, | | | | | | | Start 8 hours after pre-op dose., | | | | | | | Post-op/Phase II | | | | | | + +-------+ + +---+---+ +-------+ + +---+---+ | Given | 02/14/20 | 1,000 mg | | | | | 19 9:36 | | | | | | PM PST | | | | +-------+ + +---+---+ | Given | 02/14/20 | 1,000 mg | | | | | 19 2:10 | | | | | | PM PST | | | | +-------+ + +---+---+ +---+---+ | | | +---+---+ + +-------+ + +---+---+ | ascorbic acid (VITAMIN C) | Given | 02/15/20 | 1,000 mg | | | | tablet 1,000 mg 1,000 mg, Oral, | | 19 9:48 | | | | | DAILY, First dose on 02/13/19 | | AM PST | | | | | at 0900 | | | | | | + +-------+ + +---+---+ +-------+ + +---+---+ | Given | 02/14/20 | 1,000 mg | | | | | 19 8:49 | | | | | | AM PST | | | | +-------+ + +---+---+ +---+---+ | | | +---+---+ + +-------+ +--------+---+---+ | aspirin EC tablet 325 mg 325 | Given | 02/15/20 | 325 mg | | | | mg, Oral, DAILY, First dose on | | 19 9:48 | | | | | 02/13/19 at 0700, Do not cut | | AM PST | | | | | or crush Give first dose within | | | | | | | 20 hours of surgery end time. | | | | | | | Nursing/Pharmacy to retime first | | | | | | | dose to 1900 for surgeries ending | | | | | | | between 2200 and 0900., | | | | | | | Post-op/Phase II | | | | | | + +-------+ +--------+---+---+ +-------+ +--------+---+---+ | Given | 02/14/20 | 325 mg | | | | | 19 6:54 | | | | | | AM PST | | | | +-------+ +--------+---+---+ +---+---+ | | | +---+---+ + +-------+ +--------+---+---+ | celecoxib (CELEBREX) capsule | Given | 02/15/20 | 100 mg | | | | 100 mg 100 mg, Oral, 2 TIMES | | 19 9:48 | | | | | DAILY, First dose on Fri02/12/19 | | AM PST | | | | | at 1315, If urine output is less | | | | | | | than 240ml/8 hours (30ml/hr) or | | | | | | | if signs of bleeding, contact MD | | | | | | | and hold., Post-op/Phase II | | | | | | + +-------+ +--------+---+---+ +-------+ +--------+---+---+ | Given | 02/14/20 | 100 mg | | | | | 19 9:36 | | | | | | PM PST | | | | +-------+ +--------+---+---+ | Given | 02/14/20 | 100 mg | | | | | 19 8:48 | | | | | | AM PST | | | | +-------+ +--------+---+---+ + +---+ | | | + +---+ | diphenhydrAMINE (BENADRYL) 12.5 | | | mg/5 mL liquid 25 mg 25 mg, | | | Oral, EVERY 4 HOURS PRN, Itching, | | | Starting Fri02/12/19 at 1257, | | | Oral route is preferred., | | | Post-op/Phase II | | + +---+ | | | + +---+ | diphenhydrAMINE (BENADRYL) | | | injection 12.5 mg 12.5 mg, | | | Intravenous, EVERY 4 HOURS PRN, | | | Itching, Starting Fri02/12/19 at | | | 1257, Oral route is preferred., | | | Post-op/Phase II | | + +---+ | | | + +---+ | diphenhydrAMINE (BENADRYL) | | | tablet 25 mg 25 mg, Oral, EVERY | | | 4 HOURS PRN, Itching, Starting | | | Fri02/12/19 at 1257, Oral route | | | is preferred., Post-op/Phase II | | + +---+ | | | + +---+ + +-------+ +------+---+---+ | folic acid tablet 1 mg 1 mg, | Given | 02/15/20 | 1 mg | | | | Oral, DAILY, First dose on Fri | | 19 9:48 | | | | | 02/13/19 at 0900 | | AM PST | | | | + +-------+ +------+---+---+ +-------+ +------+---+---+ | Given | 02/14/20 | 1 mg | | | | | 19 8:49 | | | | | | AM PST | | | | +-------+ +------+---+---+ +---+---+ | | | +---+---+ + +-------+ +--------+---+---+ | gabapentin (NEURONTIN) capsule | Given | 02/15/20 | 100 mg | | | | 100 mg 100 mg, Oral, 3 TIMES | | 19 9:48 | | | | | DAILY, First dose on Fri02/12/19 | | AM PST | | | | | at 1400, For 3 days, Hold for | | | | | | | over-sedation, dizziness or | | | | | | | visual disturbance and contact | | | | | | | MD., Post-op/Phase II | | | | | | + +-------+ +--------+---+---+ +-------+ +--------+---+---+ | Given | 02/14/20 | 100 mg | | | | | 19 9:36 | | | | | | PM PST | | | | +-------+ +--------+---+---+ | Given | 02/14/20 | 100 mg | | | | | 19 2:10 | | | | | | PM PST | | | | +-------+ +--------+---+---+ +---+---+ | | | +---+---+ + +-------+ +---------+---+---+ | hydroCHLOROthiazide (MICROZIDE) | Given | 02/15/20 | 12.5 mg | | | | capsule 12.5 mg 12.5 mg, Oral, | | 19 9:48 | | | | | DAILY, First dose on Fri02/12/19 | | AM PST | | | | | at 1330 | | | | | | + +-------+ +---------+---+---+ +-------+ +---------+---+---+ | Given | 02/14/20 | 12.5 mg | | | | | 19 8:49 | | | | | | AM PST | | | | +-------+ +---------+---+---+ | Given | 02/13/20 | 12.5 mg | | | | | 19 1:32 | | | | | | PM PST | | | | +-------+ +---------+---+---+ +---+---+ | | | +---+---+ + +---------+ +---+---+---+ | lactated ringers (LR) infusion | New Bag | 02/13/20 | | | | | at 10-100 mL/hr, Intravenous, | | 19 11:22 | | | | | CONTINUOUS, Starting 02/12/19 | | AM PST | | | | | at 0830, TKO., Pre-op | | | | | | + +---------+ +---+---+---+ +---------+ +--------+-------+---+ | New Bag | 02/13/20 | 1,000 | 100 | | | | 19 8:23 | mLs | mL/hr | | | | AM PST | | | | +---------+ +--------+-------+---+ +---+---+ | | | +---+---+ + +---------+ +---+-------+---+ | lactated ringers (LR) infusion | New Bag | 02/13/20 | | 100 | | | at 100 mL/hr, Intravenous, | | 19 1:29 | | mL/hr | | | CONTINUOUS, Starting 02/12/19 | | PM PST | | | | | at 1315, Post-op/Phase II | | | | | | + +---------+ +---+-------+---+ +---+---+ | | | +---+---+ + +-------+ +-------+---+---+ | lisinopril (PRINIVIL, ZESTRIL) | Given | 02/15/20 | 20 mg | | | | tablet 20 mg 20 mg, Oral, DAILY, | | 19 9:48 | | | | | First dose on Fri02/12/19 at | | AM PST | | | | | 1330 | | | | | | + +-------+ +-------+---+---+ +-------+ +-------+---+---+ | Given | 02/14/20 | 20 mg | | | | | 19 8:49 | | | | | | AM PST | | | | +-------+ +-------+---+---+ | Given | 02/13/20 | 20 mg | | | | | 19 1:32 | | | | | | PM PST | | | | +-------+ +-------+---+---+ +---+---+ | | | +---+---+ + +-------+ +-------+---+---+ | metoprolol succinate | Given | 02/15/20 | 50 mg | | | | (TOPROL-XL) ER tablet 50 mg 50 | | 19 9:48 | | | | | mg, Oral, DAILY, First dose on | | AM PST | | | | | 02/13/19 at 0900, Tablet may | | | | | | | be cut where scored but do not | | | | | | | crush., | | | | | | + +-------+ +-------+---+---+ +-------+ +-------+---+---+ | Given | 02/14/20 | 50 mg | | | | | 19 8:49 | | | | | | AM PST | | | | +-------+ +-------+---+---+ +---+---+ | | | +---+---+ + +-------+ +-------+---+---+ | pantoprazole (PROTONIX) DR | Given | 02/15/20 | 40 mg | | | | tablet 40 mg 40 mg, Oral, DAILY | | 19 6:38 | | | | | BEFORE BREAKFAST, First dose on | | AM PST | | | | | 02/12/19 at 1315, Indication: | | | | | | | GERD | | | | | | + +-------+ +-------+---+---+ + + +-------+---+---+ | Given | 02/14/20 | 40 mg | | | | | 19 6:54 | | | | | | AM PST | | | | + + +-------+---+---+ | Dispense to Home | 02/13/20 | 40 mg | | | | | 19 1:34 | | | | | | PM PST | | | | + + +-------+---+---+ +---+---+ | | | +---+---+ + +-------+ +-------+---+---+ | pravastatin (PRAVACHOL) tablet | Given | 02/14/20 | 40 mg | | | | 40 mg 40 mg, Oral, NIGHTLY, | | 19 9:36 | | | | | First dose on Fri02/12/19 at | | PM PST | | | | | 2100 | | | | | | + +-------+ +-------+---+---+ +-------+ +-------+---+---+ | Given | 02/13/20 | 40 mg | | | | | 19 9:37 | | | | | | PM PST | | | | +-------+ +-------+---+---+ +---+---+ | | | +---+---+ + +-------+ +--------+---+---+ | sulfaSALAzine (AZULFIDINE) | Given | 02/15/20 | 500 mg | | | | tablet 500 mg 500 mg, Oral, 2 | | 19 9:59 | | | | | TIMES DAILY, First dose on Fri | | AM PST | | | | | 02/12/19 at 1315 | | | | | | + +-------+ +--------+---+---+ +-------+ +--------+---+---+ | Given | 02/14/20 | 500 mg | | | | | 19 9:36 | | | | | | PM PST | | | | +-------+ +--------+---+---+ | Given | 02/14/20 | 500 mg | | | | | 19 8:49 | | | | | | AM PST | | | | +-------+ +--------+---+---+ +---+---+ | | | +---+---+ + +---------+ +-----+--------+---+ | vancomycin 1 g in sodium | New Bag | 02/14/20 | 1 g | 166.7 | | | chloride 0.9% 250 mL IVPB 1 g, | | 19 3:04 | | mL/hr | | | Intravenous, Administer over 90 | | AM PST | | | | | Minutes, EVERY 8 HOURS INTERVAL, | | | | | | | First dose (after last | | | | | | | modification) on Fri02/12/19 at | | | | | | | 1900, For 2 doses, Start 12 hours | | | | | | | after previous dose. Last dose | | | | | | | to be given within 24 hours of | | | | | | | surgery end time Activate system | | | | | | | and mix before use., | | | | | | | Post-op/Phase II, Indications: | | | | | | | Surgical Prophylaxis | | | | | | + +---------+ +-----+--------+---+ +---------+ +-----+--------+---+ | New Bag | 02/13/20 | 1 g | 166.7 | | | | 19 6:56 | | mL/hr | | | | PM PST | | | | +---------+ +-----+--------+---+ +---+---+ | | | +---+---+ + +-------+ +-------+---+---+ | vancomycin 1.5 g in sodium | Bolus | 02/13/20 | 1.5 g | | | | chloride 0.9% 250 mL IVPB 1.5 g, | | 19 8:40 | | | | | Intravenous, Administer over 90 | | AM PST | | | | | Minutes, Prior to Incision, | | | | | | | Starting 02/12/19 at 0951, | | | | | | | For 1 dose, Keep in | | | | | | | refrigerator., Pre-op, | | | | | | | Indications: Surgical Prophylaxis | | | | | | + +-------+ +-------+---+---+ +---------+ +-------+--------+---+ | New Bag | 02/13/20 | 1.5 g | 176.7 | | | | 19 8:39 | | mL/hr | | | | AM PST | | | | +---------+ +-------+--------+---+ +---+---+ | | | +---+---+ documented in this encounter
--- OUTSIDE RECORDS SUMMARY | ~2019-04-15 | XMS | Encounter Summary ---
Demographics + + + | Address | [address] | | | [place] [address] | + + + | Home Phone | | + + + | Preferred Language | Unknown | + + + | Marital Status | | + + + | Roman Catholic Affiliation | Unknown | + + + | Race | Unknown | + + + | Ethnic Group | Unknown | + + + Author + + + | Author | [facility] | | | and [place] | + + + | Organization | [facility] | | | and [...] Team Providers + +------+ + | Care News Commentator Name | Role | Phone | + +------+ + | Parminder Malagon MD | PCP | | + +------+ + Reason for Visit + + + | Reason | Comments | + + + | Medication Refill | | + + + Encounter Details +--------+--------+ + + + | Date | Type | Department | Care Team | Description | +--------+--------+ + + + | 12/20/ | Refill | [facility] | Mya Frederick | Medication Refill | | 2019 | | RHEUMATOLOGY [address] | [address] | | | | | [address] | [address] | | | | | [place], [place] | [place] [address] | | | | | [address] | [phone] | | | | | [phone] | | | +--------+--------+ + + + Social History + +-------+ [...] MARISCAL | | | | | | [address] [place] | | | | | | [address] | | | | | | | | +--------+ + + + + | 05/11/ | Office | Orthopedic Surgery | Scot Wilson PT | | | 2019 | Visit | | [address] | | | | | | [place] [address] | | | | | | [phone] | | | | | | | | +--------+ + + + + | 05/11/ | Office | Orthopedic Surgery | Korey Hussein | | | 2019 | Visit | | [address] | | | | | | [place] | | | | | | [address] | | | | | | | | +--------+ + + + + | 05/14/ | Office | Rheumatology | Mya Frederick | | | 2019 | Visit | | SHELLY Nguyen [address] | | | | | | [address] | | | | | | [place] [address] | | | | | | [phone] | | | | | | | | +--------+ + + + + | 06/06/ | Hospital | | Korey Hussein | Primary | | 2019 | Encounter | | [address] | 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[place] | right knee; Chronic | | | | | [address] | pain of right knee | | | | | | | +--------+ + + + + | 06/06/ | Surgery | | Korey Hussein | RIGHT TOTAL KNEE | | 2019 | | | [address] | ARTHROPLASTY | | | | | [place] | | | | | | [address] | | | | | | | | +--------+ + + + + | 06/21/ | Office | Orthopedic Surgery | Jossue Haro | | | 2019 | Visit | | [address] | | | | | | [address] | | | | | | [place] [address] | | | | | | [phone] | | | | | | | | +--------+ + + + + documented as of this encounter Visit Diagnoses Not on filedocumented in this encounter"
--- OUTSIDE RECORDS SUMMARY | ~2019-04-15 | XMS | Encounter Summary ---
Demographics + + + | Address | [address] | | | [place] [address] | + + + | Home Phone | | + + + | Preferred Language | Unknown | + + + | Marital Status | | + + + | Nondenominational Affiliation | Unknown | + + + | Race | Unknown | + + + | Ethnic Group | Unknown | + + + Author + + + | Author | [facility] | | | and [place] | + + + | Organization | [facility] | | | and [place] [...] Team Providers + +------+ + | Care Stained Glass Glazier Name | Role | Phone | + +------+ + | Parminder Malagon MD | PCP | | + +------+ + Reason for Visit +--------+ + | Reason | Comments | +--------+ + | Other | | +--------+ + Encounter Details +--------+ + + + + | Date | Type | Department | Care Team | Description | +--------+ + + + + | 02/15/ | Telephone | [facility] | Jossue Haro | Other | | 2019 | | ORTHOPEDIC SURGERY | [address] | | | | | [address] [facility] | [address] [place] | | | | | [place], [place] | [place] [address] | | | | | [address] | [phone] | | | | | [phone] | | | +--------+ + + + [...] | | | | | [address] [place] | | | | | | [address] | | | | | | | | +--------+ + + + + | 05/11/ | Office | Orthopedic Surgery | Scot Wilson PT | | | 2019 | Visit | | [address] | | | | | | [place] [address] | | | | | | [phone] | | | | | | | | +--------+ + + + + | 05/11/ | Office | Orthopedic Surgery | Korey Hussein | | | 2019 | Visit | | MD Shan [address] | | | | | | [place] | | | | | | [address] | | | | | | | | +--------+ + + + + | 05/14/ | Office | Rheumatology | Mya Frederick | | | 2019 | Visit | | SHELLY Nguyen [address] | | | | | | [address] | | | | | | [place] [address] | | | | | | [phone] | | | | | | | | +--------+ + + + + | 06/06/ | Hospital | | Korey Hussein | Primary | | 2020 | Encounter | | [address] | 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[place] | right knee; Chronic | | | | | [address] | pain of right knee | | | | | | | +--------+ + + + + | 06/06/ | Surgery | | Korey Hussein | RIGHT TOTAL KNEE | | 2019 | | | [address] | ARTHROPLASTY | | | | | [place] | | | | | | [address] | | | | | | | | +--------+ + + + + | 06/21/ | Office | Orthopedic Surgery | Jossue Haro | | | 2019 | Visit | | [address] | | | | | | [address] | | | | | | [place] [address] | | | | | | [phone] | | | | | | | | +--------+ + + + + documented as of this encounter Visit Diagnoses Not on filedocumented in this encounter"
--- OUTSIDE RECORDS SUMMARY | ~2019-04-15 | XMS | Encounter Summary ---
Demographics + + + | Address | [address] | | | [place] [address] | + + + | Home Phone | | + + + | Preferred Language | Unknown | + + + | Marital Status | | + + + | Buddhist Affiliation | Unknown | + + + | Race | Unknown | + + + | Ethnic Group | Unknown | + + + Author + + + | Author | [facility] | | | and [place] | + + + | Organization | [facility] | | | and [...] Team Providers + +------+ + | Care Alterations Expert Name | Role | Phone | + +------+ + | Parminder Malagon MD | PCP | | + +------+ + Encounter Details +--------+ + + + + | Date | Type | Department | Care Team | Description | +--------+ + + + + | 12/08/ | [facility] | [facility] | Jossue Haro | Pain in both knees, | | 2019 | Encounter | [facility] | [address] | unspecified | | | | [address] | [address] | chronicity | | | | [place], [place] | [place] [address] | | | | | [address] | [phone] | | | | | [phone] | | | +--------+ + + + [...] + + documented as of this encounter Medications at Time of Discharge [...] | | | | | | | [id number] | | | | | | | [...] mg by mouth | | 0 | 10/08/20 | | | (PRAVACHOL) 40 MG | [...] + + +---------+ + + | aspirin 81 MG | Take 81 mg by mouth | | 0 | | | | tablet | every other day. | | | | 9 | + + + +---------+ + + | folic acid 1 mg | TAKE ONE TABLET BY | | 0 | 12/23/19 | | | tablet | MOUTH ONCE DAILY | | | 18 | 9 | + + + +---------+ + + | levoFLOXacin | Take 1 tablet by | 4 | 0 | 12/03/19 | | | (LEVAQUIN) 500 mg | mouth Daily. | tablet | | 18 | 9 | | tabletIndications: | Indications: | | | | | | PURULENT SKIN AND | Purulent Skin and | | | | | | SOFT TISSUE | Soft Tissue | | | | | | INFECTION | Infection | | | | | + + + +---------+ + + | lisinopril | Take 20 mg by mouth | | 0 | | | | (PRINIVIL, ZESTRIL) | 2 times daily. | | | | 9 | | 20 mg tablet | | | | | | + + + +---------+ + + | meloxicam (MOBIC) | Take 1 tablet by | | 0 | 05/04/19 | | | 7.5 mg tablet | mouth daily. | | | 19 | 9 | + + + +---------+ + + | methotrexate 2.5 | Take 10 mg by mouth | | 0 | | | | mg tablet | Once a week. | | | | 9 | + + + +---------+ + + | metoprolol | Take 50 mg by mouth | | 0 | 01/04/20 | | | tartrate (LOPRESSOR) | daily. | | | 15 | 9 | | 50 mg tablet | | | | | | + + + +---------+ + + | sulfaSALAzine | TAKE 1 TABLET BY | 180 | 0 | 11/19/19 | | | (AZULFIDINE) 500 mg | MOUTH TWICE DAILY | tablet | | 19 | 9 | | tablet | | | | [...] 2019 | Visit | | [address] | | | | | | [place] | | | | | | [address] | | | | | | | | +--------+ + + + + | 05/11/ | Office | Orthopedic Surgery | Scot Wilson PT | | | 2019 | Visit | | [address] | | | | | | [place] [address] | | | | | | [phone] | | | | | | | | +--------+ + + + + | 05/11/ | Office | Orthopedic Surgery | Korey Hussein | | | 2019 | Visit | | MD [address] | | | | | | [place] | | | | | | [address] | | | | | | | | +--------+ + + + + | 05/14/ | Office | Rheumatology | Mya Frederick | | | 2019 | Visit | | SHELLY Nguyen [address] | | | | | | [facility] | | | | | | [place] [address] | | | | | | [phone] | | | | | | | | +--------+ + + + + | 06/06/ | Hospital | | Korey Hussein | Primary | | 2019 | Encounter | | [address] | 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[place] | right knee; Chronic | | | | | [address] | pain of right knee | | | | | | | +--------+ + + + + | 06/06/ | Surgery | | Korey Hussein | RIGHT TOTAL KNEE | | 2020 | | | [address] | ARTHROPLASTY | | | | | [place] | | | | | | [address] | | | | | | | | +--------+ + + + + | 06/21/ | Office | Orthopedic Surgery | Jossue Haro | | | 2019 | Visit | | [address] | | | | | | [address] | | | | | | [place] [address] | | | | | | [phone] | | | | | | | | +--------+ + + + + documented as of this encounter Procedures + +--------+ + + + | Procedure Name | Priori | Date/Time | Associated Diagnosis | Comments | | | ty | | | | + +--------+ + + + | XR KNEE RIGHT 4 + VW | Routin | 12/08/2018 | Pain in both | Results for this | | | e | 9:43 AM | knees, unspecified | procedure are in the | | | | PDT | chronicity | results section. | + +--------+ + + + | XR KNEE LEFT 1 - 2 | Routin | 12/08/2018 | Pain in both | Results for this | | VW | e | 9:43 AM | knees, unspecified | procedure are in the | | | | PDT | chronicity | results section. | + +--------+ + + + documented in this encounter Results XR Knee Left 1 - 2 Vw (12/08/2018 9:43 AM PDT) + + | Specimen | + + | | + + + + + | Narrative | Performed At | + + + | XR KNEE LEFT 1 - 2 VW, XR KNEE RIGHT 4 + VW 12/08/2018 9:43 AM | [facility] | | HISTORY: BILATERAL KNEE PAIN. COMPARISON: None. FINDINGS: See | | | below IMPRESSION - Severe right medial and patellofemoral | | | compartment osteophytosis with obliteration of the medial compartment | | | joint space. Severe tricompartmental left knee gastroenteritis | | | with obliteration of the left medial compartment joint space. No | | | evidence of effusion bilaterally. Bilateral patella baja. | | | Pronounced vascular calcifications bilaterally. Dictated and | | | Signed by: Watson Lino MD Electronically signed: 12/08/2018 | | | 10:47 AM | | + + + + + | Procedure Note | + + | Noe, Oz Results In - 12/08/2018 10:50 AM PDT XR KNEE LEFT 1 - 2 VW, XR KNEE RIGHT 4 | | + VW 12/08/2018 9:43 AMHISTORY: BILATERAL KNEE PAIN.COMPARISON: None.FINDINGS:See | | belowIMPRESSION -Severe right medial and patellofemoral compartment osteophytosis | | withobliteration of the medial compartment joint space.Severe tricompartmental left knee | | gastroenteritis with obliteration of the leftmedial compartment joint space.No evidence | | of effusion bilaterally.Bilateral patella baja.Pronounced vascular calcifications | | bilaterally. Dictated and Signed by: Watson Lino MD Electronically signed: 12/08/2018 | | 10:47 AM | | | |IMPRESSION - | |Severe right medial and patellofemoral compartment osteophytosis with | |obliteration of the medial compartment joint space. | | | |Severe tricompartmental left knee gastroenteritis with obliteration of the left | |medial compartment joint space. | | | |No evidence of effusion bilaterally. | | | |Bilateral patella baja. | | | |Pronounced vascular calcifications bilaterally. | | | | | | | |Dictated and Signed by: Watson Lino MD | | Electronically signed: 12/08/2018 10:47 AM | + + + +---------+ + + | Performing | Address | City/State/Zipcode | Phone Number | | Organization | | | | + +---------+ + + | [facility] | | | | + +---------+ + + XR Knee Right 4 + Vw (12/08/2018 9:43 AM PDT) + + | Specimen | + + | | + + + + + | Narrative | Performed At | + + + | XR KNEE LEFT 1 - 2 VW, XR KNEE RIGHT 4 + VW 12/08/2018 9:43 AM | [facility] | | HISTORY: BILATERAL KNEE PAIN. COMPARISON: None. FINDINGS: See | | | below IMPRESSION - Severe right medial and patellofemoral | | | compartment osteophytosis with obliteration of the medial compartment | | | joint space. Severe tricompartmental left knee gastroenteritis | | | with obliteration of the left medial compartment joint space. No | | | evidence of effusion bilaterally. Bilateral patella baja. | | | Pronounced vascular calcifications bilaterally. Dictated and | | | Signed by: Watson Lino MD Electronically signed: 12/08/2018 | | | 10:47 AM | | + + + + + | Procedure Note | + + | Noe, Rad Results In - 12/08/2018 10:50 AM PDT XR KNEE LEFT 1 - 2 VW, XR KNEE RIGHT 4 | | + VW 12/08/2018 9:43 AMHISTORY: BILATERAL KNEE PAIN.COMPARISON: None.FINDINGS:See | | belowIMPRESSION -Severe right medial and patellofemoral compartment osteophytosis | | withobliteration of the medial compartment joint space.Severe tricompartmental left knee | | gastroenteritis with obliteration of the leftmedial compartment joint space.No evidence | | of effusion bilaterally.Bilateral patella baja.Pronounced vascular calcifications | | bilaterally. Dictated and Signed by: Watson Lino MD Electronically signed: 12/08/2018 | | 10:47 AM | | | |IMPRESSION - | |Severe right medial and patellofemoral compartment osteophytosis with | |obliteration of the medial compartment joint space. | | | |Severe tricompartmental left knee gastroenteritis with obliteration of the left | |medial compartment joint space. | | | |No evidence of effusion bilaterally. | | | |Bilateral patella baja. | | | |Pronounced vascular calcifications bilaterally. | | | | | | | |Dictated and Signed by: Watson Lino MD | | Electronically signed: 12/08/2018 10:47 AM | + + + +---------+ + + | Performing | Address | City/State/Zipcode | Phone Number | | Organization | | | | + +---------+ + + | [facility] | | | | + +---------+ + + documented in this encounter Visit Diagnoses + + | Diagnosis | + + | Pain in both knees, unspecified chronicity | + + documented in this encounter"
--- OUTSIDE RECORDS SUMMARY | ~2019-04-15 | XMS | Encounter Summary ---
Demographics + + + | Address | [address] | | | [place] [address] | + + + | Home Phone | | + + + | Preferred Language | Unknown | + + + | Marital Status | | + + + | Yazidi Affiliation | Unknown | + + + | Race | Unknown | + + + | Ethnic Group | Unknown | + + + Author + + + | Author | [facility] | | | and [place] | + + + | Organization | [facility] | | | and [...] Team Providers + +------+ + | Care Project Development Manager Name | Role | Phone | + +------+ + | Parminder Malagon MD | PCP | | + +------+ + Reason for Referral Evaluate & Treat (Routine) + + + + + + + | Status | Reason | Specialty | Diagnoses / | Referred By | Referred To | | | | | Procedures | Contact | Contact | + + + + + + + | Authorized | Specialty | Physical | Diagnoses | [facility] | [facility] | | | Services | Therapy | Pain in | [address]y Torrez, | HOSPITAL | | | Required | | both knees, | [address] | PHYSICAL | | | | | unspecified | [address] | THERAPY [address] | | | | | chronicity | [place], | [place] | | | | | Procedures | [place] [address] | [place] | | | | | [facility] | Phone: | [phone] | | | | | | [phone] | Phone: | | | | | | Fax: | [phone] | | | | | | [phone] | Fax: | | | | | | | [phone] | + + + + + + + Encounter Details +--------+ + + + + | Date | Type | Department | Care Team | Description | +--------+ + + + + | 02/10/ | Orders Only | [facility] [place] | Korey Hussein | Pain in both knees, | | 2018 | | ORTHOPEDIC SURGERY | MD [address] | unspecified | | | | [address] [facility] | [place] | chronicity (Primary | | | | [place] | [address] | Dx) | | | | [address] | | | | | | [phone] | | | +--------+ + + + [...] [place] | | | | | | [address] | | | | | | | | +--------+ + + + + | 05/11/ | Office | Orthopedic Surgery | Scot Wilson PT | | | 2019 | Visit | | [address] | | | | | | [place] [address] | | | | | | [phone] | | | | | | | | +--------+ + + + + | 05/11/ | Office | Orthopedic Surgery | Korey Hussein | | | 2019 | Visit | | [address] | | | | | | [place] | | | | | | [address] | | | | | | | | +--------+ + + + + | 05/14/ | Office | Rheumatology | Mya Frederick | | | 2019 | Visit | | [address] | | | | | | [address] | | | | | | [place] [address] | | | | | | [phone] | | | | | | | | +--------+ + + + + | 06/06/ | Hospital | | Korey Hussein | Primary | | 2019 | Encounter | | [address] | 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[place] | right knee; Chronic | | | | | [address] | pain of right knee | | | | | | | +--------+ + + + + | 06/06/ | Surgery | | Korey Hussein | RIGHT TOTAL KNEE | | 2019 | | | [address] | ARTHROPLASTY | | | | | [place] | | | | | | [address] | | | | | | | | +--------+ + + + + | 06/21/ | Office | Orthopedic Surgery | Jossue Haro | | | 2019 | Visit | | [address] | | | | | | [address] | | | | | | [place] [address] | | | | | | [phone] | | | | | | | | +--------+ + + + + + + +--------+ + + | Name | Type | Priori | Associated Diagnoses | Order Schedule | | | | ty | | | + + +--------+ + + | * [facility] | Outpatient | Routin | Pain in both | Ordered: 02/10/2019 | | Therapy - [facility] | Referral | e | knees, unspecified | | | Referral | | | chronicity | | + + +--------+ + + documented as of this encounter Visit Diagnoses + + | Diagnosis | + + | Pain in both knees, unspecified chronicity - Primary | + + documented in this encounter"
--- OUTSIDE RECORDS SUMMARY | ~2019-04-15 | XMS | Encounter Summary ---
Demographics + + + | Address | [address] | | | [place] [address] | + + + | Home Phone | | + + + | Preferred Language | Unknown | + + + | Marital Status | | + + + | Taoist Affiliation | Unknown | + + + | Race | Unknown | + + + | Ethnic Group | Unknown | + + + Author + + + | Author | [facility] | | | and [place] | + + + | Organization | [facility] | | | and [place] [...] Team Providers + +------+ + | Care Record Center Specialist Name | Role | Phone | + +------+ + | Parminder Malagon MD | PCP | | + +------+ + Reason for Visit +---------+ + | Reason | Comments | +---------+ + | Post Op | left total knee arthroplasty DOS 02/12/19 | +---------+ + Encounter Details +--------+---------+ + + + | Date | Type | Department | Care Team | Description | +--------+---------+ + + + | 04/01/ | Office | [facility] | Jossue Haro | Primary | | 2020 | Visit | ORTHOPEDIC SURGERY | [address] | osteoarthritis of | | | | [address] [facility] | [facility] [place] | right knee (Primary | | | | [place] | [place] [address] | Dx); Chronic pain of | | | | [address] | [phone] | right knee; S/P TKR | | | | [phone] | | (total knee | | | | | | replacement), left | +--------+---------+ + + + Social History [...] documented as of this encounter Progress Notes Jossue Haro PA-C - 04/01/2019 10:45 AM PSTFormatting of this note might be differe nt from the original. Name:Beni Delcid Todays Date: 04/01/2019 Age: 79 y.o. PCP: Parminder Malagon MD Chief Complaint Patient presents with Post Op left total knee arthroplasty DOS 02/12/19 SUBJECTIVE: Returns today for postoperative visit following left total knee arthroplasty performed on 04/14/2018; just shy of 2 months ago. Feels that he is recovering appropriately and quite we ll. He is only using aspirin and Tylenol for pain control PRN. [facility]. He notes that physical therapy has had them up to 115 degrees already. He is resuming all of his normal activities and quite pleased with his recovery. His curre nt level pain is 0 OBJECTIVE: Full weightbearing today with examination. He is ambulate without assistance of a walker a nd/or cane with no significant abnormal gait observed. Imaging/Studies: No studies to review at this time. There were no vitals filed for this visit. ASSESSMENT/PLAN: 1. Left total knee arthroplasty, status postop A. Patient is recovering quite well and appropriate from left total knee arthroplasty wit h pain overall being minimal and well-controlled. He is completed blood thinning therapy. And is now resume all of his normal activities. Recommend standing continue with light and low impact activities and continue with formal outpatient physical therapy. Recommend no hi gh impact activities. Follow-up at this time for the left total knee arthroplasty will be o n an as-needed basis and I will now move forward with authorization for a right total knee a rthroplasty to be performed in May if available. Follow my office will therefore be for p reoperative exam for right total knee arthroplasty. Follow-up of the left knee once again i s PRN. B. Patient is advised that if they have any questions, comments or concerns to contact our office. Electronically signed by: Jossue Haro PA-C 04/01/2019 12:25 PM If patient received pain medication today the prescription monitoring program was reviewed and patient appears to be in compliance with his program. This note was dictated using the Treat[employer] voice recognition system. Minor errors in grammar may have occurred. documented in t his encounter Plan of Treatment +--------+ + + + + | Date | Type | Specialty | Care Team | Description | +--------+ + + + + | 04/28/ | Office | Cardiology | Leighann Maddox, | | | 2019 | Visit | | MD [address] | | | | | | [place] | | | | | | [address] | | | | | | | | +--------+ + + + + | 05/11/ | Office | Orthopedic Surgery | Scot Wilson PT | | | 2019 | Visit | | [address] | | | | | | [place] [address] | | | | | | [phone] | | | | | | | | +--------+ + + + + | 05/11/ | Office | Orthopedic Surgery | Korey Hussein | | | 2019 | Visit | | MD Shan [address] | | | | | | [place] | | | | | | [address] | | | | | | | | +--------+ + + + + | 05/14/ | Office | Rheumatology | Otoniel Mya | | | 2020 | Visit | | [address] | | | | | | [address] | | | | | | [place] [address] | | | | | | [phone] | | | | | | | | +--------+ + + + + | 06/06/ | Hospital | | Korey Hussein | Primary | | 2020 | Encounter | | MD Shan [address] | 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[place] | right knee; Chronic | | | | | [address] | pain of right knee | | | | | | | +--------+ + + + + | 06/06/ | Surgery | | Korey Hussein | RIGHT TOTAL KNEE | | 2020 | | | MD Shan [address] | ARTHROPLASTY | | | | | [place] | | | | | | [address] | | | | | | | | +--------+ + + + + | 06/21/ | Office | Orthopedic Surgery | Jossue Haro | | | 2019 | Visit | | [address] | | | | | | [address] [place] | | | | | | [place] [address] | | | | | | [phone] | | | | | | | | +--------+ + + + + documented as of this encounter Visit Diagnoses + + | Diagnosis | + + | Primary osteoarthritis of right knee - Primary Primary localized osteoarthrosis, | | lower leg | + + | Chronic pain of right knee | + + | S/P TKR (total knee replacement), left | + + documented in this encounter"
--- OUTSIDE RECORDS SUMMARY | ~2019-04-15 | XMS | Encounter Summary ---
Demographics + + + | Address | [address] | | | [place] [address] | + + + | Home Phone | | + + + | Preferred Language | Unknown | + + + | Marital Status | | + + + | Presybeterian Affiliation | Unknown | + + + | Race | Unknown | + + + | Ethnic Group | Unknown | + + + Author + + + | Author | [facility] | | | and [place] | + + + | Organization | [facility] | | | and [...] Team Providers + +------+ + | Care Blankbook Forwarder Name | Role | Phone | + [...] | | | | Diagnoses | | | | | | | Scrotal | | | | | | | hematoma | | | | | | | scrotal | | | | | | | bleeding and | | | | | | | weeping | | | | | | | Procedures | | | | | | | INCISION AND | | | | | | | DRAINAGE | | | | | | | SCROTUM | | | +--------+--------+ + + + + Encounter Details +--------+ + + + + | Date | Type | Department | Care Team | Description | +--------+ + + + + | 12/01/ | [facility]est[facility] | [facility] | Korey Stone | | | 2017 | Event | MED CTR OR INTRA OP | MD [address] | | | | | [address] | [facility] | | | | | [place] | [place] [address] | | | | | [address] | [phone] | | | | | [phone] | | | +--------+ + + + + Anesthesia Record + + + + + | Procedure Name | Responsible | Anesthesia Start | Anesthesia Stop Time | | | Anesthesiologist | Time | | + + + + + | INCISION AND | Korey Hernandez | 12/01/17 1015 | 12/01/17 1110 | | DRAINAGE GDOTUM | MD Chase | | | | (N/A Rectum) | | | | + + + + + +----+---+ + + | Da | T | Event | Comment | | te | i | | | | | m | | | | | e | | | +----+---+ + + | 09 | 0 | | | | /0 | 8 | | | | 3/ | 5 | | | | 20 | 7 | | | | 18 | | | | +----+---+ + + | | 1 | An Checkout | Pre-use anesthesia machine/equipment checkout. | | | 0 | | | | | 1 | | | | | 5 | | | +----+---+ + + | | 1 | An Start | Reassessment prior to anesthesia induction/procedure. Transport | | | 0 | | from hospital [facility] to OR | | | 1 | | | | | 5 | | | +----+---+ + + | | 1 | Preoxygenat | | | | 0 | ed | | | | 2 | | | | | 8 | | | +----+---+ + + | | 1 | An | | | | 0 | Induction | | | | 3 | | | | | 1 | | | +----+---+ + + | | 1 | An | | | | 0 | Intubation | | | | 3 | | | | | 2 | | | +----+---+ + + | | 1 | AN | Per surgeon request. Pt received IV dose of levaquin last night, | | | 0 | Antibiotic | surgeon plans on re-dosing tonight, no additional abx requested | | | 3 | declined | for OR | | | 3 | | | +----+---+ + + | | 1 | [place] | | | | 0 | 43-degrees | | | | 3 | | | | | 4 | | | +----+---+ + + | | 1 | Pre-Procedu | | | | 0 | ral Timeout | | | | 3 | Completed | | | | 8 | | | +----+---+ + + | | 1 | First | | | | 0 | Inc/Proc St | | | | 4 | | | | | 3 | | | +----+---+ + + | | 1 | [place] off | | | | 1 | | | | | 0 | | | | | 3 | | | +----+---+ + + | | 1 | Breathing | | | | 1 | Spontaneous | | | | 0 | ly | | | | 3 | | | +----+---+ + + | | 1 | an stop | | | | 1 | data | | | | 0 | | | | | 3 | | | +----+---+ + + | | 1 | Moving | | | | 1 | Purposefull | | | | 0 | y | | | | 9 | | | +----+---+ + + | | 1 | Extubated | | | | 1 | Awake | | | | 0 | | | | | 9 | | | +----+---+ + + | | 1 | An Stop | Patient handed off to recovery nurse. | | | 1 | | | | | 0 | | | +----+---+ + + +------+ | Meds | +------+ + +---------+ | Name | Total | + +---------+ | fentaNYL | 100 mcg | + +---------+ | lidocaine 2% | 100 mg | + +---------+ | propofol (DIPRIVAN) injection | 200 mg | | (bolus) (20 mL) | | + +---------+ | dexamethasone | 5 mg | + +---------+ | ondansetron | 4 mg | + +---------+ | Phenylephrine 100mcg/mL SYRINGE | 150 mcg | + +---------+ | LR (Infusion) | 300 mL | + +---------+ + + | Name | + + | N2O Flow Rate (L/Min) | + + | O2 Flow Rate (L/Min) | + + | Insp O2 | + + | Exp SEV | + + | Air Flow Rate (L/Min) | + + + + | No blood administrations on file. | + + +--------+ + + + | Type | Details | Placement | Removal | +--------+ + + + | Wound | ; ana; megan (see | 11/30/17 7834 by | 12/02/17943 by | | | comments); s/p surgical site | | Champ Nichols RN | | | healing no drainage; 12/02/17; | | | | | 0944 | | | +--------+ + + + | Wound | Right; lower; scrotum; other (see | 11/30/172340 by | 12/02/17943 by | | | comments); oozing; 12/02/17; | | Champ Nichols RN | | | 0944 | | | +--------+ + + + | Periph | 11/30/17; 1900; Right; | 11/30/171900 by | 12/02/17 09 by | | eral | Antecubital; [id number] | Ann-Marie Frias RN | Champ Nichols RN | | IV | catheter system; 20 gauge; | | | | | Hematology, Chemistry; 0; no | | | | | longer indicated, catheter/device | | | | | intact; short term use; | | | | | 12/02/17; 0943 | | | +--------+ + + + | Airway | Placement Date: 12/01/17; | 12/01/17 1032 by | 12/01/17 1109 by | | | Placement Time: 1032 (created via | Korey Hernandez | Korey Hernandez | | | procedure documentation); | MD Chase | MD Chase | | | Attempts: 1; Airway Type: | | | | | laryngeal mask; Size: 5; Trauma: | | | | | none; Placement Check: exhaled | | | | | CO2 detection device, bilateral | | | | | chest rise, breath sounds equal | | | | | bilaterally; Removal Date: | | | | | 12/01/17; Removal Time: 1109; | | | | | Additional Comments: Atraumatic | | | | | LMA placement with quality seat | | | | | and seal. Initially tight seal | | | | | but syringe used to remove 3mL of | | | | | air and bulb feels much softer | | | | | now. | | | +--------+ + + + | Vagina | 12/01/17; 1055; OR; 1; Inserted | 12/01/17 1055 by | 12/02/17 0944 by | | l | by surgeon into pts scrotum. ; | Jennifer Kulkarni RN | Champ Nichols RN | | Packin | healing within expectations; | | | | g | 12/02/17; 0944 | | | +--------+ + + + | Drain/ | 12/01/17; 1059; #1; anterior; | 12/01/17 1059 by | 12/02/17942 by | | Device | (scrotum); Alexis; 04/03 in | Jennifer Kulkarni RN | Champ Nichols RN | | Site | alexis; short term use; | | | | | 12/02/17; 0943 | | | +--------+ + + + | Read | 12/01/17; 1059; Bilateral; | 12/01/17 1059 by | 12/02/17 09 by | | only - | scrotum; Vag packing inserted | Jennifer Kulkarni RN | Champ Nichols RN | | | into scrotum; short term use; | | | | Incisi | 12/02/17; 0943 | | | | on | | | | +--------+ + + + documented in this encounter Social History + +-------+ +--------+------+ | Tobacco [...] +---------+ + | Yes | | | sometimes | + + +---------+ + + + [...] [place] | | | | | | [address] | | | | | | | | +--------+ + + + + | 05/11/ | Office | Orthopedic Surgery | Scot Wilson PT | | | 2019 | Visit | | [address] | | | | | | [place] [address] | | | | | | [phone] | | | | | | | | +--------+ + + + + | 05/11/ | Office | Orthopedic Surgery | Korey Hussein | | | 2019 | Visit | | [address] | | | | | | [place] | | | | | | [address] | | | | | | | | +--------+ + + + + | 05/14/ | Office | Rheumatology | Mya Frederick | | | 2019 | Visit | | SHELLY Nguyen [address] | | | | | | [address] | | | | | | [place] [address] | | | | | | [phone] | | | | | | | | +--------+ + + + + | 06/06/ | Hospital | | Korey Hussein | Primary | | 2019 | Encounter | | [address] | 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[place] | right knee; Chronic | | | | | [address] | pain of right knee | | | | | | | +--------+ + + + + | 06/06/ | Surgery | | Korey Hussein | RIGHT TOTAL KNEE | | 2019 | | | MD [address] | ARTHROPLASTY | | | | | [place] | | | | | | [address] | | | | | | | | +--------+ + + + + | 06/21/ | Office | Orthopedic Surgery | Jossue Haro | | | 2019 | Visit | | [address] | | | | | | [address] | | | | | | [place] [address] | | | | | | [phone] | | | | | | | | +--------+ + + + + documented as of this encounter Procedures + +--------+ + + + | Procedure Name | Priori | Date/Time | Associated Diagnosis | Comments | | | ty | | | | + +--------+ + + + | ANE AIRWAY NOTE | Routin | 12/01/2017 | | Results for this | | | e | 10:40 AM | | procedure are in the | | | | PDT | | results section. | + +--------+ + + + documented in this encounter Results Anesthesia Airway Note (12/01/2017 10:40 AM PDT) + + + | Narrative | Performed At | + + + | Korey Stone MD 12/01/2017 10:42 Anesthesia Airway | | | Placement 12/01/2017 10:32 Preprocedure check: patient identified, | | | oxygen, airway assessed, suction, airway equipment checked and | | | patient reassessment prior to induction Attempts: 1 Airway type: | | | laryngeal mask Size: 5 Cuffed: cuffed Route, reference point: | | | center of mouth Tube secured with: adhesive tape Trauma: none Tube | | | placement verification: bilateral chest rise, equal bilateral breath | | | sounds and carbon dioxide detection Performing provider: CHASE, | | | KOREY HERNANDEZ Comments: Atraumatic LMA placement with quality | | | seat and seal. Initially tight seal but syringe used to remove 3mL | | | of air and bulb feels much softer now. Electronically Signed | | | by: Korey Stone MD | | | ESig date/time: 12/01/2017 10:40 | | + + + + + | Procedure Note | + + | Korey Stone MD - 12/01/2017 10:40 AM PDT Anesthesia Airway | | Placement12/01/2017 10:32Preprocedure check: patient identified, oxygen, airway assessed, | | suction, airway equipment checked and patient reassessment prior to inductionAttempts: | | 1Airway type: laryngeal maskSize: 5Cuffed: cuffedRoute, reference point: center of | | mouthTube secured with: adhesive tapeTrauma: noneTube placement verification: bilateral | | chest rise, equal bilateral breath sounds and carbon dioxide detectionPerforming | | provider: KOREY STONEComments: Atraumatic LMA placement with quality seat and | | seal. Initially tight seal but syringe used to remove 3mL of air and bulb feels much | | softer now.Electronically Signed by: Korey Stone MD ESig | | date/time: 12/01/2017 10:40 | |Trauma: none | |Tube placement verification: bilateral chest rise, equal bilateral breath sounds and carbon dioxide detection | |Performing provider: KOREY STONE | | | |Comments: Atraumatic LMA placement with quality seat and seal. Initially tight seal but syr ana used to remove 3mL of air and bulb feels much softer now. | | | | | |Electronically Signed by: Korey Stone MD ESig date/time: 12/01/2017 10:40 | | | + + documented in this encounter Visit Diagnoses Not on filedocumented in this encounter Administered Medications + +--------+ +------+------+------+ | Medication Order | MAR | Action | Dose | Rate | Site | | | Action | Date | | | | + +--------+ +------+------+------+ | dexamethasone (PF) 10 mg/mL | Given | 12/02/19 | 5 mg | | | | injection Intravenous, PRN, | | 18 10:31 | | | | | Starting 12/01/17 at 1031, | | AM PDT | | | | | Anesthesia Intra-op | | | | | | + +--------+ +------+------+------+ +---+---+ | | | +---+---+ + +-------+ +--------+---+---+ | fentaNYL (PF) injection | Given | 12/02/19 | 25 mcg | | | | Intravenous, PRN, Pain, Starting | | 18 10:48 | | | | | 12/01/17 at 1028, Anesthesia | | AM PDT | | | | | Intra-op | | | | | | + +-------+ +--------+---+---+ +-------+ +--------+---+---+ | Given | 12/02/19 | 25 mcg | | | | | 18 10:43 | | | | | | AM PDT | | | | +-------+ +--------+---+---+ | Given | 12/02/19 | 50 mcg | | | | | 18 10:28 | | | | | | AM PDT | | | | +-------+ +--------+---+---+ +---+---+ | | | +---+---+ + +---------+ +---+---+---+ | lactated ringers (LR) infusion | New Bag | 12/02/19 | | | | | Intravenous, CONTINUOUS PRN, | | 18 10:15 | | | | | Starting Fri12/01/17 at 1015, | | AM PDT | | | | | Anesthesia Intra-op | | | | | | + +---------+ +---+---+---+ +---+---+ | | | +---+---+ + +-------+ +--------+---+---+ | lidocaine (PF) 2% injection | Given | 12/02/19 | 100 mg | | | | Intravenous, PRN, Starting Mon | | 18 10:31 | | | | | 12/01/17 at 1031, Anesthesia | | AM PDT | | | | | Intra-op | | | | | | + +-------+ +--------+---+---+ +---+---+ | | | +---+---+ + +-------+ +------+---+---+ | ondansetron (ZOFRAN) injection | Given | 12/02/19 | 4 mg | | | | Intravenous, PRN, Nausea, | | 18 10:31 | | | | | Vomiting, Starting 12/01/17 at | | AM PDT | | | | | 1031, Anesthesia Intra-op | | | | | | + +-------+ +------+---+---+ +---+---+ | | | +---+---+ + +-------+ +---------+---+---+ | phenylephrine (DEBBIE-SYNEPHRINE) | Given | 12/02/19 | 150 mcg | | | | 100 mcg/mL injection | | 18 10:45 | | | | | Intravenous, PRN, Starting Mon | | AM PDT | | | | | 12/01/17 at 1045, Anesthesia | | | | | | | Intra-op | | | | | | + +-------+ +---------+---+---+ +---+---+ | | | +---+---+ + +-------+ +--------+---+---+ | propofol (DIPRIVAN) injection | Given | 12/02/19 | 200 mg | | | | Intravenous, PRN, Starting Mon | | 18 10:31 | | | | | 12/01/17 at 1031, Anesthesia | | AM PDT | | | | | Intra-op | | | | | | + +-------+ +--------+---+---+ +---+---+ | | | +---+---+ documented in this encounter"
--- OUTSIDE RECORDS SUMMARY | ~2019-04-15 | XMS | Encounter Summary ---
Demographics + + + | Address | [address] | | | [place] [address] | + + + | Home Phone | | + + + | Preferred Language | Unknown | + + + | Marital Status | | + + + | Mu-Ism Affiliation | Unknown | + + + | Race | Unknown | + + + | Ethnic Group | Unknown | + + + Author + + + | Author | [facility] | | | and [place] | + + + | Organization | and [facility] | | | and [place] [...] Team Providers + +------+ + | Care Marine Engine Machinist Name | Role | Phone | + +------+ + | Parminder Malagon MD | PCP | | + +------+ + Reason for Visit + + + | Reason | Comments | + + + | Post-op Problem | | + + + Auth/Cert +--------+--------+ + + + + | [...] +--------+--------+ + + + + Encounter Details +--------+---------+ + + + | Date | Type | Department | Care Team | Description | +--------+---------+ + + + | 12/01/ | Surgery | [facility] | Tay Garrido MD | INCISION AND | | 2018 | | MED CTR OR INTRA OP | [address] | D[facility] SCR[facility] | | | | [address] | [place] | | | | | [place] | [address] | | | | | [address] | [phone] | | | | | [phone] | | | +--------+---------+ + + + Social History [...] + + + | Blood Pressure | 160/78 | 12/02/2017 7:20 AM | | | | | PDT | | + + + + + | Pulse | 74 | 12/02/2017 7:20 AM | | | | | PDT | | + + + + + | Temperature | 36.3 C (97.3 F) | 12/02/2017 7:20 AM | | | | | PDT | | + + + + + | Respiratory Rate | 18 | 12/02/2017 7:20 AM | | | | | PDT | | + + + + + | Oxygen Saturation | 96% | 12/02/2017 7:20 AM | | | | | PDT | | + + + + + | Inhaled Oxygen | - | - | | | Concentration | | | | + + + + + | Weight | 83.9 kg (185 lb) | 11/30/2017 6:54 PM | | | | | PDT | | + + + + + | Height | 180.3 cm (5' 11") | 11/30/2017 6:54 PM | | | | | PDT | | + + + + + | Body Mass Index | 25.8 | 11/30/2017 6:54 PM | | | | | PDT | [...] documented as of this encounter Discharge Summaries Tay Garrido MD - 12/02/2017 6:32 AM PDT DISCHARGE SUMMARY Pt. Name/Age/: Beni Delcid 77 y.o. 1940 Date of Admission: 11/30/2017 Date of Discharge: 12/02/2017 Admitting Physician: Yan Pierre MD PCP: Parminder Malagon Discharging Physician: Tay Garrido Consultants: Primary Discharge Dx: Scrotal hematoma with focal skin necrosis Patient Active Problem List Diagnosis Scrotal hematoma Former smoker Secondary Discharge Dx: Rheumatoid arthritis Procedures: Debridement and drainage of scrotal hematoma Hospital Course, including Complications: The patient presented to the emergency room with drainage of bloody discharge from the scrotum following his initial surgery on 11/04/17. H e had a 2.5 cm tlingit & haida of necrosis on the anterior inferior scrotum which was draining dark b lood. Surgical aspiration cleared about 150 cc of nonpurulent and clot from the scrotum. W ound packing was initiated. Wound cultures remain pending. He presented with an elevated w clint blood cell count but remained afebrile. He had remarkable absence of wound pain. He w as instructed on showering deeply into the wound and repacking the wound twice daily. 4 add itional days of oral Levaquin prescribed following his 2 hospital IV doses of Levaquin. Medications Reconciled upon Discharge are: Discharge Medications New Medications Details levoFLOXacin 500 mg tablet Take 1 tablet by mouth Daily. Indications: Purulent Skin and Soft Tissue Infection aka: LEVAQUIN Unchanged Medications Details lisinopril 20 mg tablet Take 20 mg by mouth 2 times daily. aka: PRINIVIL, ZESTRIL methotrexate 2.5 mg tablet Take 10 mg by mouth Once a week. metoprolol succinate 50 mg 24 hr tablet Take 50 mg by mouth Daily. aka: TOPROL-XL omeprazole 20 mg capsule Take 20 mg by mouth every morning (before breakfast). aka: priLOSEC sulfaSALAzine 500 mg tablet Take 500 mg by mouth 2 times daily. aka: AZULFIDINE There is no immunization history on file for this patient. Vital Signs: Temp: 35.9 C (96.6 F) BP: 158/70 Pulse: 89 Resp: 18 SpO2: 94 % Min/Max Temp past 24 hours:Temp Av.7 C (98 F) Min: 35.9 C (96.6 F) Max: 37 C (98.6 F) Intake/Output Summary (Last 24 hours) at 12/02/17 0632 Last data filed at 12/01/17 1935 Gross per 24 hour Intake 2456 ml Output 125 ml Net 2331 ml Last Wt. Before discharge: Weight: 83.9 kg (185 lb) Pending study results on DC: Wound culture and histology Follow-Up Plans: Follow-up with: Dr. Garrido Diet: Normal Activity: Limited for 1 week Electronically signed by: Tay Garrido, 12/02/2017 6:32 [facility] documented in this enc ounter Discharge Instructions Instructions Tay Garrido MD - 11/30/2017Shower deeply into wound twice daily and then r eplace gauze packing. Resume all normal medications. Limited physical activity the next we ek. documented in this encounter Medications at Time [...] + +---------+ + + | sulfaSALAzine | Take 500 mg by mouth | | 0 | | | | (AZULFIDINE) 500 mg | 2 times daily. | | | | 9 | | tablet | | [...] [place] | | | | | | [id number] | | | | | | | | +--------+ + + + + | 05/11/ | Office | Orthopedic Surgery | Scot Wilson PT | | | 2019 | Visit | | [address] | | | | | | [place] [address] | | | | | | [phone] | | | | | | | | +--------+ + + + + | 05/11/ | Office | Orthopedic Surgery | Korey Hussein | | 2019 | Visit | | [address] | | | | | | [place] | | | | | | [address] | | | | | | | | +--------+ + + + + | 05/14/ | Office | Rheumatology | Mya Frederick | | 2019 | Visit | | SHELLY Nguyen [address] | | | | | | [address] | | | | | | [place] [address] | | | | | | [phone] | | | | | | | | +--------+ + + + + | 06/06/ | Hospital | | Korey Hussein | Primary | | 2019 | Encounter | | [address] | 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[place] | right knee; Chronic | | | | | [address] | pain of right knee | | | | | | | +--------+ + + + + | 06/06/ | Surgery | | Korey Hussein | RIGHT TOTAL KNEE | | 2019 | | | MD Shan [address] | ARTHROPLASTY | | | | | [place] | | | | | | [address] | | | | | | | | +--------+ + + + + | 06/21/ | Office | Orthopedic Surgery | Jossue Haro | | 2019 | Visit | | [address] | | | | | | [address] | | | | | | [place] [address] | | | | | | [phone] | | | | | | | | +--------+ + + + + documented as of this encounter Procedures + +--------+ + + + | Procedure Name | Priori | Date/Time | Associated Diagnosis | Comments | | | ty | | | | + +--------+ + + + | CBC WITH | Routin | 12/02/2017 | | Results for this | | DIFFERENTIAL | e | 6:10 AM | | procedure are in the | | | | PDT | | results section. | + +--------+ + + + | BASIC METABOLIC | Routin | 12/02/2017 | | Results for this | | PANEL | e | 6:10 AM | | procedure are in the | | | | PDT | | results section. | + +--------+ + + + | CULTURE, WOUND, | Routin | 12/01/2017 | | Results for this | | SMEAR | e | 10:49 AM | | procedure are in the | | | | PDT | | results section. | + +--------+ + + + | CULTURE, WOUND, | Routin | 12/01/2017 | | Results for this | | SMEAR, W/ANAEROBE | e | 10:49 AM | | procedure are in the | | | | PDT | | results section. | + +--------+ + + + | CULTURE, ANAEROBIC | Routin | 12/01/2017 | | Results for this | | | e | 10:49 AM | | procedure are in the | | | | PDT | | results section. | + +--------+ + + + | INCISION AND | | 12/01/2017 | scrotal bleeding | | | DRAINAGE SCROTUM | | 10:26 AM | and regan | | | | | PDT | | | + +--------+ + + + | CBC WITH | Routin | 12/01/2017 | | Results for this | | DIFFERENTIAL | e | 5:49 AM | | procedure are in the | | | | PDT | | results section. | + +--------+ + + + | COMPREHENSIVE | Routin | 12/01/2017 | | Results for this | | METABOLIC PANEL | e | 5:49 AM | | procedure are in the | | | | PDT | | results section. | + +--------+ + + + | SURGICAL PATHOLOGY | Routin | 12/01/2017 | | Results for this | | EXAM | e | 12:00 AM | | procedure are in the | | | | PDT | | results section. | + +--------+ + + + | URINALYSIS WITH | Routin | 11/30/2017 | | Results for this | | MICROSCOPIC WITH | e | 9:14 PM | | procedure are in the | | CULTURE IF INDICATED | | PDT | | results section. | + +--------+ + + + | US SCROTUM AND | STAT | 11/30/2017 | | Results for this | | TESTICLES | | 8:19 PM | | procedure are in the | | | | PDT | | results section. | + +--------+ + + + | EXTRA LAVENDER TOP | Routin | 11/30/2017 | | Results for this | | TUBE | e | 7:03 PM | | procedure are in the | | | | PDT | | results section. | + +--------+ + + + | EXTRA GREEN TOP TUBE | Routin | 11/30/2017 | | Results for this | | | e | 7:03 PM | | procedure are in the | | | | PDT | | results section. | + +--------+ + + + | EXTRA GOLD TOP TUBE | Routin | 11/30/2017 | | Results for this | | | e | 7:03 PM | | procedure are in the | | | | PDT | | results section. | + +--------+ + + + | EXTRA BLUE TOP TUBE | Routin | 11/30/2017 | | Results for this | | | e | 7:03 PM | | procedure are in the | | | | PDT | | results section. | + +--------+ + + + | CBC WITH | STAT | 11/30/2017 | | Results for this | | DIFFERENTIAL | | 7:02 PM | | procedure are in the | | | | PDT | | results section. | + +--------+ + + + | BASIC METABOLIC | STAT | 11/30/2017 | | Results for this | | PANEL | | 7:02 PM | | procedure are in the | | | | PDT | | results section. | + +--------+ + + + | ECG - EXTERNAL SCAN | | 10/21/2017 | | Results for this | | | | 12:00 AM | | procedure are in the | | | | PDT | | results section. | + +--------+ + + + documented in this encounter Results Basic Metabolic Panel (12/02/2017 6:10 AM PDT) + + + + + + | Component | Value | Ref Range | Performed | Pathologist | | | | | At | Signature | + + + + + + | Na | 142 | 136 - 149 | [facility] | | | | | mmol/L | [facility] | | | | | | [facility] | | | | | | [facility] - | | | | | | LABORATORY | | + + + + + + | K | 3.7 | 3.5 - 5.1 | [facility] | | | | | mmol/L | [facility] | | | | | | [facility] | | | | | | [facility] - | | | | | | LABORATORY | | + + + + + + | Cl | 106 | 98 - 109 mmol/L | [facility] | | | | | | [facility] | | | | | | [facility] | | | | | | [facility] - | | | | | | LABORATORY | | + + + + + + | CO2 | 31 | 24 - 31 mmol/L | [facility] | | | | | | [facility] | | | | | | [facility] | | | | | | [facility] - | | | | | | LABORATORY | | + + + + + + | Anion Gap | 5 | 3 - 16 mmol/L | [facility] | | | | | | [facility] | | | | | | [facility] | | | | | | [facility] - | | | | | | LABORATORY | | + + + + + + | Glucose | 130 (H) | 70 - 109 mg/dL | [facility] | | | | | | [facility] | | | | | | [facility] | | | | | | [facility] - | | | | | | LABORATORY | | + + + + + + | BUN | 19 (H) | 7 - 18 mg/dL | [facility] | | | | | | [facility] | | | | | | [facility] | | | | | | C[facility] - | | | | | | LABORATORY | | + + + + + + | Creatinine | 1.24 | 0.60 - 1.30 | [facility] | | | | | mg/dL | [facility] | | | | | | MEDICAL | | | | | | CENTER - | | | | | | LABORATORY | | + + + + + + | eGFR if not | 57 (L)Comment: | >=60 | [facility] | | | | GLOMERULAR FILTRATION | mL/min/1.73m2 | [facility] | | | [place] | RATE,ESTIMATED | | MEDICAL | | | | mL/min/1.81l8Tmhp than | | CENTER - | | [...] + + + + | Calcium | 8.1 (L) | 8.3 - 10.5 | [facility] | | | | | mg/dL | [facility] | | | | | | [facility] | | | | | | CENTER - | | | | | | LABORATORY | | + + + + + + | BUN/Creatin | 15.3 | | [facility] | | | ine Ratio | | | [facility] | | [...] + + | [facility] | [address] | [place] | [phone] | | [facility] | | [address] | | | - LABORATORY | | | | + + + + + CBC with Differential (12/02/2017 6:10 AM PDT) + + + + + + | Component | Value | Ref Range | Performed | Pathologist | | | | | At | Signature | + + + + + + | WBC | 14.6 (H) | 4.0 - 11.0 K/uL | [facility] | | | | | | [facility] | | | | | | MED[facility] | | | | | | CENTER - | | | | | | LABORATORY | | + + + + + + | RBC | 4.02 (L) | 4.30 - 5.70 | [facility] | | | | | M/uL | [facility] | | | | | | MEDICAL | | | | | | CENTER - | | | | | | LABORATORY | | + + + + + + | Hemoglobin | 13.9 | 13.5 - 18.0 | [facility] | | | | | g/dL | [facility] | | | | | | [facility]ICAL | | | | | | CENTER - | | | | | | LABORATORY | | + + + + + + | Hematocrit | 40.4 | 40.0 - 51.0 % | [facility] | | | | | | [facility] | | | | | | [facility]ICAL | | | | | | CENTER - | | | | | | LABORATORY | | + + + + + + | MCV | 100.5 | 83.0 - 101.0 fL | [facility] | | | | | | [facility] | | | | | | [facility] | | | | | | CENTER - | | | | | | LABORATORY | | + + + + + + | MCH | 34.6 | 28.0 - 35.0 pg | [facility] | | | | | | [facility] | | | | | | [facility] | | | | | | [facility] - | | | | | | LABORATORY | | + + + + + + | MCHC | 34.4 | 32.0 - 36.0 | [facility] | | | | | g/dL | [facility] | | | | | | MEDICAL | | | | | | CENTER - | | | | | | LABORATORY | | + + + + + + | RDW-CV | 13.1 | <15.0 % | [facility] | | | | | | [facility] | | | | | | [facility] | | | | | | CENTER - | | | | | | LABORATORY | | + + + + + + | Platelet | 160 | 140 - 440 K/uL | [facility] | | | Count | | | [facility] | | | | | | [facility] | | | | | | CENTER - | | | | | | LABORATORY | | + + + + + + | MPV | 9.3 | fL | [facility] | | | | | | [facility] | | | | | | [facility] | | | | | | CENTER - | | | | | | LABORATORY | | + + + + + + | % | 88.3 (H) | 45.0 - 82.0 % | [facility] | | | Neutrophils | | | [facility] | | | | | | MEDICAL | | | | | | CENTER - | | | | | | LABORATORY | | + + + + + + | % | 4.4 (L) | 20.0 - 45.0 % | [facility] | | | Lymphocytes | | | [facility] | | | | | | MEDICAL | | | | | | CENTER - | | | | | | LABORATORY | | + + + + + + | % Monocytes | 7.1 | 4.0 - 12.0 % | [facility] | | | | | | [facility] | | | | | | MEDICAL | | | | | | CENTER - | | | | | | LABORATORY | | + + + + + + | % | 0.0 | 0.0 - 5.0 % | [facility] | | | Eosinophils | | | [facility] | | | | | | [facility]ICAL | | | | | | CENTER - | | | | | | LABORATORY | | + + + + + + | % Basophils | 0.2 | 0.0 - 1.0 % | [facility] | | | | | | [facility] | | | | | | MEDICAL | | | | | | CENTER - | | | | | | LABORATORY | | + + + + + + | Absolute | 12.90 (H) | 1.80 - 8.50 | [facility] | | | Neutrophils | | K/uL | [facility] | | | | | | [facility]ICAL | | | | | | CENTER - | | | | | | LABORATORY | | + + + + + + | Absolute | 0.60 | 0.60 - 3.20 | [facility] | | | Lymphocytes | | K/uL | [facility] | | | | | | [facility]ICAL | | | | | | CENTER - | | | | | | LABORATORY | | + + + + + + | Absolute | 1.00 | 0.00 - 1.00 | [facility] | | | Monocytes | | K/uL | [facility] | | | | | | MEDICAL | | | | | | CENTER - | | | | | | LABORATORY | | + + + + + + | Absolute | 0.00 | 0.00 - 0.40 | [facility] | | | Eosinophils | | K/uL | [facility] | | | | | | MEDICAL | | | | | | CENTER - | | | | | | LABORATORY | | + + + + + + | Absolute | 0.00 | 0.00 - 0.10 | [facility] | [...] + + | [facility] | [address] | [place] | [phone] | | [facility] | | [address] | | | - LABORATORY | | | | + + + + + Culture, Anaerobic (12/01/2017 10:49 AM PDT) + + + + + + | Component | Value | Ref Range | Performed | Pathologist | | | | | At | Signature | + + + + + + | Culture | No anaerobes isolated. | | [facility] | | | | | | [facility] | | | | | | MEDICAL | | | | | | CENTER - | | | | | | LABORATORY | | + + + + + + + + | Specimen | + + | Tissue - Entire | | scrotum (body | | structure) | + + + + + + + | Performing | Address | City/State/Zipcode | Phone Number | | Organization | | | | + + + + + | [facility] | [address] | [place] | [phone] | | [facility] | | [address] | | | - LABORATORY | | | | + + + + + Culture, Wound, Smear (12/01/2017 10:49 AM PDT) + + + + + + | Component | Value | Ref Range | Performed | Pathologist | | | | | At | Signature | + + + + + + | Culture | 3+ Escherichia coli | | [facility] | | | | | | [facility] | | | | | | [facility] | | | | | | CENTER - | | | | | | LABORATORY | | + + + + + + | Culture | 1+ Enterococcus | | [facility] | | | | faecalisComment: | | [facility] | | | | Combination therapy of | | MEDICAL | | | | ampicillin, penicillin, | | CENTER - | | | | or vancomycin (for | | LABORATORY | | | | susceptible strains), | | | | | | plus an aminoglycoside, | | | | | | is usually indicated for | | | | | | serious enterococcal | | | | | | infections, such as | | | | | | endocarditis, unless | | | | | | high-level resistance to | | | | | | both gentamicin and | | | | | | streptomycin is | | | | | | documented; such | | | | | | combinations are | | | | | | predicted to result in | | | | | | synergistic killing of | | | | | | the enterococcus. | | | | + + + + + + | Culture | 3+ Corynebacterium | | [facility] | | | | amycolatumComment: No | | [facility] | | | | interpretive standards | | MEDICAL | | | | available for | | CENTER - | | | | sensitivities. | | LABORATORY | | + + + + + + | Gram Stain | 3+ White Blood Cells | | [facility] | | | Result | | | [facility] | | | | | | MEDICAL | | | | | | CENTER - | | | | | | LABORATORY | | + + + + + + | Gram Stain | No squamous epithelial | | [facility] | | | Result | cells seen | | [facility] | | | | | | MEDICAL | | | | | | CENTER - | | | | | | LABORATORY | | + + + + + + | Gram Stain | 1+ Gram positive cocci | | [facility] | | | Result | | | [facility] | | | | | | MEDICAL | | | | | | CENTER - | | | | | | LABORATORY | | + + + + + + | Gram Stain | 1+ Gram positive bacilli | | [facility] | | | Result | | | [facility] | | | | | | MEDICAL | | | | | | CENTER - | | | | | | LABORATORY | | + + + + + + | Gram Stain | 1+ Gram negative rods | | [facility] | | | Result | | | [facility] | | | | | | MEDICAL | | | | | | CENTER - | | | | | | LABORATORY | | + + + + + + + + | Specimen | + + | Tissue - Entire | | scrotum (body | | structure) | + + + + +--------+ + | Organism | Antibiotic | Method | Susceptibility | + + +--------+ + | Escherichia coli | Ampicillin | | >=32 ug/mL: | | | | | Resistant | + + +--------+ + | Escherichia coli | Ampicillin + | | 16 ug/mL: | | | Sulbactam | | Intermediate | + + +--------+ + | Escherichia coli | Cefazolin | | >=64 ug/mL: | | | | | Resistant | + + +--------+ + | Escherichia coli | Cefoxitin | | 32 ug/mL: | | | | | Resistant | + + +--------+ + | Escherichia coli | Ceftazidime | | 8 ug/mL: Sensitive | + + +--------+ + | Escherichia coli | Ceftriaxone | | 8 ug/mL: Sensitive | + + +--------+ + | Escherichia coli | Ciprofloxacin | | <=0.25 ug/mL: | | | | | Sensitive | + + +--------+ + | Escherichia coli | Ertapenem | | <=0.5 ug/mL: | | | | | Sensitive | + + +--------+ + | Escherichia coli | Gentamicin | | <=1 ug/mL: | | | | | Sensitive | + + +--------+ + | Escherichia coli | Meropenem | | <=0.25 ug/mL: | | | | | Sensitive | + + +--------+ + | Escherichia coli | Tobramycin | | <=1 ug/mL: | | | | | Sensitive | + + +--------+ + | Escherichia coli | Trimethoprim + | | >=320 ug/mL: | | | Sulfamethoxazole | | Resistant | + + +--------+ + | Enterococcus | Ampicillin | | <=2 ug/mL: | | faecalis | | | Sensitive | + + +--------+ + | Enterococcus | Penicillin G | | 2 ug/mL: Sensitive | | faecalis | | | | + + +--------+ + | Enterococcus | Vancomycin | | 2 ug/mL: Sensitive | | faecalis | | | | + + +--------+ + + + + + + | Performing | Address | City/State/Zipcode | Phone Number | | Organization | | | | + + + + + | [facility] | [address] | [place] | [phone] | | [facility] | | [address] | | | - LABORATORY | | | | + + + + + Comprehensive Metabolic Panel (12/01/2017 5:49 AM PDT) + + + + + + | Component | Value | Ref Range | Performed | Pathologist | | | | | At | Signature | + + + + + + | Na | 141 | 136 - 149 | [facility] | | | | | mmol/L | [facility] | | | | | | [facility] | | | | | | CENTER - | | | | | | LABORATORY | | + + + + + + | K | 3.3 (L) | 3.5 - 5.1 | [facility] | | | | | mmol/L | [facility] | | | | | | MEDICAL | | | | | | CENTER - | | | | | | LABORATORY | | + + + + + + | Cl | 104 | 98 - 109 mmol/L | [facility] | | | | | | [facility] | | | | | | MEDICAL | | | | | | CENTER - | | | | | | LABORATORY | | + + + + + + | CO2 | 27 | 24 - 31 mmol/L | [facility] | | | | | | [facility] | | | | | | MEDICAL | | | | | | CENTER - | | | | | | LABORATORY | | + + + + + + | Anion Gap | 10 | 3 - 16 mmol/L | [facility] | | | | | | [facility] | | | | | | [facility] | | | | | | CENTER - | | | | | | LABORATORY | | + + + + + + | Glucose | 104 | 70 - 109 mg/dL | [facility] | | | | | | [facility] | | | | | | [facility]ICAL | | | | | | CENTER - | | | | | | LABORATORY | | + + + + + + | BUN | 22 (H) | 7 - 18 mg/dL | [facility] | | | | | | [facility] | | | | | | MEDICAL | | | | | | CENTER - | | | | | | LABORATORY | | + + + + + + | Creatinine | 1.20 | 0.60 - 1.30 | [facility] | | | | | mg/dL | [facility] | | | | | | MEDICAL | | | | | | CENTER - | | | | | | LABORATORY | | + + + + + + | eGFR if not | 59 (L)Comment: | >=60 | [facility] | | | | GLOMERULAR FILTRATION | mL/min/1.73m2 | [facility] | | | [place] | RATE,ESTIMATED | | MEDICAL | | | | mL/min/1.04y0Wzwi than | | CENTER - | | [...] + + + + | Calcium | 8.4 | 8.3 - 10.5 | [facility] | | | | | mg/dL | [facility] | | | | | | MEDICAL | | | | | | CENTER - | | | | | | LABORATORY | | + + + + + + | Albumin | 3.0 (L) | 3.2 - 5.0 g/dL | [facility] | | | | | | [facility] | | | | | | MEDICAL | | | | | | CENTER - | | | | | | LABORATORY | | + + + + + + | Bilirubin | 1.3 | 0.1 - 1.5 mg/dL | [facility] | | | Total | | | [facility] | | | | | | MEDICAL | | | | | | CENTER - | | | | | | LABORATORY | | + + + + + + | Total | 5.6 (L) | 6.0 - 7.8 g/dL | [facility] | | | Protein | | | [facility] | | | | | | MEDICAL | | | | | | CENTER - | | | | | | LABORATORY | | + + + + + + | AST | 18 | 10 - 42 U/L | [facility] | | | | | | [facility] | | | | | | MEDICAL | | | | | | CENTER - | | | | | | LABORATORY | | + + + + + + | ALT | 11 | 6 - 45 U/L | [facility] | | | | | | [facility] | | | | | | MEDICAL | | | | | | CENTER - | | | | | | LABORATORY | | + + + + + + | Alkaline | 51 | 40 - 110 U/L | [facility] | | | Phosphatase | | | [facility] | | | | | | MEDICAL | | | | | | CENTER - | | | | | | LABORATORY | | + + + + + + | Globulin | 2.6 | 2.1 - 3.8 g/dL | [facility] | | | | | | [facility] | | | | | | MEDICAL | | | | | | CENTER - | | | | | | LABORATORY | | + + + + + + | Albumin/Leslie | 1.2 | 0.8 - 2.0 | [facility] | | | bulin Ratio | | | [facility] | | | | | | MEDICAL | | | | | | CENTER - | | | | | | LABORATORY | | + + + + + + | BUN/Creatin | 18.3 | | [facility] | | | ine Ratio | | | [facility] | | [...] + + | [facility] | [address] | [place] | [phone] | | [facility] | | [id number] | | | - LABORATORY | | | | + + + + + CBC with Differential (12/01/2017 5:49 AM PDT) + + + + + + | Component | Value | Ref Range | Performed | Pathologist | | | | | At | Signature | + + + + + + | WBC | 13.7 (H) | 4.0 - 11.0 K/uL | [facility] | | | | | | [facility] | | [facility] | | [facility] | | | | | | [facility] - | | | | | | LABORATORY | | + + + + + + | RBC | 4.03 (L) | 4.30 - 5.70 | [facility] | | | | | M/uL | [facility] | | | | | | [facility] | | | | | | [facility] - | | | | | | LABORATORY | | + + + + + + | Hemoglobin | 14.0 | 13.5 - 18.0 | [facility] | | | | | g/dL | [facility] | | | | | | [facility] | | | | | | [facility] - | | | | | | LABORATORY | | + + + + + + | Hematocrit | 40.5 | 40.0 - 51.0 % | [facility] | | | | | | [facility] | | | | | | [facility] | | | | | | [facility] - | | | | | | LABORATORY | | + + + + + + | MCV | 100.5 | 83.0 - 101.0 fL | [facility] | | | | | | [facility] | | | | | | [facility] | | | | | | [facility] - | | | | | | LABORATORY | | + + + + + + | MCH | 34.8 | 28.0 - 35.0 pg | [facility] | | | | | | [facility] | | | | | | [facility] | | | | | | [facility] - | | | | | | LABORATORY | | + + + + + + | MCHC | 34.7 | 32.0 - 36.0 | [facility] | | | | | g/dL | [facility] | | | | | | [facility] | | | | | | [facility] - | | | | | | LABORATORY | | + + + + + + | RDW-CV | 13.2 | <15.0 % | [facility] | | | | | | [facility] | | | | | | [facility] | | | | | | [facility] - | | | | | | LABORATORY | | + + + + + + | Platelet | 148 | 140 - 440 K/uL | [facility] | | | Count | | | [facility] | | | | | | [facility] | | | | | | [facility] - | | | | | | LABORATORY | | + + + + + + | MPV | 9.1 | fL | [facility] | | | | | | [facility] | | | | | | [facility] | | | | | | [facility] - | | | | | | LABORATORY | | + + + + + + | % | 85.8 (H) | 45.0 - 82.0 % | [facility] | | | Neutrophils | | | [facility] | | | | | | [facility] | | | | | | CENTER - | | | | | | LABORATORY | | + + + + + + | % | 5.8 (L) | 20.0 - 45.0 % | [facility] | | | Lymphocytes | | | [facility] | | | [facility] | [facility] | [facility] - | | | | | | LABORATORY | | + + + + + + | % Monocytes | 8.1 | 4.0 - 12.0 % | [facility] | | | | | | [facility] | | | | | | [facility] | | | | [facility] | [facility] - | | | | | | LABORATORY | | + + + + + + | % | 0.2 | 0.0 - 5.0 % | [facility] | | | Eosinophils | | | [facility] | | | | | | [facility] | | | | | | C[facility] - | | | | | | LABORATORY | | + + + + + + | % Basophils | 0.1 | 0.0 - 1.0 % | [facility] | | | | | | [facility] | | | | | | [facility] | | | | | | [facility] - | | | | | | LABORATORY | | + + + + + + | Absolute | 11.80 (H) | 1.80 - 8.50 | [facility] | | | Neutrophils | | K/uL | [facility] | | | | | | [facility] | | | | | | CENTER - | | | | | | LABORATORY | | + + + + + + | Absolute | 0.80 | 0.60 - 3.20 | [facility] | | | Lymphocytes | | K/uL | [facility] | | | | | | [facility] | | | | | | [facility] - | | | | | | LABORATORY | | + + + + + + | Absolute | 1.10 (H) | 0.00 - 1.00 | [facility] | | | Monocytes | | K/uL | [facility] | | | | | | [facility] | | | | | | CENTER - | | | | | | LABORATORY | | + + + + + + | Absolute | 0.00 | 0.00 - 0.40 | [facility] | | | Eosinophils | | K/uL | [facility] | | | | | | [facility] | | | | | | C[facility] - | | | | | | LABORATORY | | + + + + + + | Absolute | 0.00 | 0.00 - 0.10 | [facility] | | | Basophils | | K/uL | [facility] | | | | [...] + + | [facility] | [address] | [place], [place] | [phone] | | [facility] | | [address] | | | - LABORATORY | | | | + + + + + Surgical Pathology Exam (12/01/2017 12:00 AM PDT) + + | Specimen | + + | | + + + + + | Narrative | Performed At | + + + | SPECIMEN(S): A SCROTAL WALL SPECIMEN SOURCE: A. SCROTAL WALL | [facility] | | CLINICAL HISTORY: Scrotal bleeding and weeping. Incision and | [facility] | | drainage, scrotum. FINAL PATHOLOGIC DIAGNOSIS: Scrotal wall, | | | incision and drainage: - Blood clot and purulent material in | | | association with focally necrotic soft tissue. COMMENT: The | | | histologic features are compatible with abscess. JVR:[facility]:C2NR | | | MICROSCOPIC EXAMINATION: Histologic sections of all submitted blocks | | | are examined by light microscopy. These findings, together with the | | | gross examination, support the pathologic diagnosis. GROSS | | | DESCRIPTION: The specimen, received in formalin, labeled "scrotal | | | wall," is a 1.9 x 1.6 x 1.1 cm, hunt-red hemorrhagic fragment. | | | Entirely submitted in (A1). am:DANNIELLE:jhonathan PERFORMING LABORATORY: | | | The technical component was performed by [facility], [address] | | [facility] [address] (Small Battery Plate Assembler: Stephanie Courtney MD; | | | CLIA# [id number]). Professional interpretation was performed by | | | [employer], [facility], [facility] | | | [place] [address] (Small Battery Plate Assembler: Abelardo | | | Tere Thacker). Diagnostician: Abelardo Thacker MD | | | Pathologist Electronically Signed 12/03/2017 | | + + + + +---------+ + + | Performing | Address | City/State/Zipcode | Phone Number | | Organization | | | | + +---------+ + + | [facility] | | | | | [facility] | | | | + +---------+ + + Urinalysis with Microscopic with Culture if Indicated (11/30/2017 9:14 PM PDT) + + + + + + [...] + + + + | Clarity | Timothy (A) | Clear | [facility] | | | | | | [facility] | | | | | [facility] | | | | | | [facility] - | | | | | | LABORATORY | | + + + + + + | pH, Urine | 5.0 | 5.0 - 8.0 | [facility] | | | | | | [facility] | | | | | | [facility] | | | | | | CENTER - | | | | | | LABORATORY | | + + + + + + | Specific | 1.029 | 1.001 - 1.030 | [facility] | | | [place] | | | [facility] | | | | | | [facility] | | | | | | CENTER - | | | | | | LABORATORY | | + + + + + + | Protein, | 30 mg/dL (A) | Negative | [facility] | [...] + + + + | Ketones, | Trace (A) | Negative | [facility] | | [...] URINE | Urine Culture Not | | [facility] | | | COMMENT | Indicated | | [facility] | | | | | | MEDICAL | | | | | | CENTER - | | | | | | LABORATORY | | + + + + + + + + | Specimen | + + | Urine - Urine | | specimen obtained by | | clean catch | | procedure (specimen) | + + + + + + + | Performing | Address | City/State/Zipcode | Phone Number | | Organization | | | | + + + + + | [facility] | [address] | [place] | [phone] | | [facility] | | [address] | | | - LABORATORY | | | | + + + + + US Scrotum And Testicles (11/30/2017 8:19 PM PDT) + + | Specimen | + + | | + + + + + | Narrative | Performed At | + + + | US SCROTUM AND TESTICLES 11/30/2017 7:35 PM HISTORY: POST-OP | [facility] | | PROBLEM. COMPARISON: None. PROTOCOL: Simpson scale and Doppler | | | images of the scrotum. FINDINGS: Right testicle: The right | | | scrotum is filled with complex fluid measuring 12.8 x 8.3 x 8.1 cm | | | that obscures the testicle from view. The epididymis is not seen. | | | This likely represents a large hematoma. Left testicle: The | | | parenchyma is normal with normal color flow. The testicle measures | | | 4.5 x 2.7 x 2.2 cm. The left epididymis is normal with normal color | | | flow. There is no hydrocele or varicocele. IMPRESSION - Right | | | scrotum filled with complex fluid measuring 12.8 x 8.3 x 8.1 cm that | | | obscures the testicle from view and likely represents a large | | | hematoma. Dictated and Signed by: Shady Bob MD | | | Electronically signed: 12/01/2017 11:39 AM | | + + + + + | Procedure Note | + + | Noe, Rad Results In - 12/01/2017 11:42 AM PDT US SCROTUM AND TESTICLES 11/30/2017 7:35 | | PM HISTORY: POST-OP PROBLEM.COMPARISON: None.PROTOCOL: Simpson scale and Doppler images of | | the scrotum.FINDINGS:Right testicle: The right scrotum is filled with complex fluid | | measuring 12.8 x8.3 x 8.1 cm that obscures the testicle from view. The epididymis is not | | seen.This likely represents a large hematoma.Left testicle: The parenchyma is normal | | with normal color flow. The testiclemeasures 4.5 x 2.7 x 2.2 cm. The left epididymis is | | normal with normal colorflow. There is no hydrocele or varicocele.IMPRESSION -Right | | scrotum filled with complex fluid measuring 12.8 x 8.3 x 8.1 cm thatobscures the | | testicle from view and likely represents a large hematoma.Dictated and Signed by: Shady | | MD Paulino Electronically signed: 12/01/2017 11:39 AM | |8.3 x 8.1 cm that obscures the testicle from view. The epididymis is not seen. | |This likely represents a large hematoma. | | | |Left testicle: The parenchyma is normal with normal color flow. The testicle | |measures 4.5 x 2.7 x 2.2 cm. The left epididymis is normal with normal color | |flow. There is no hydrocele or varicocele. | | | |IMPRESSION - | |Right scrotum filled with complex fluid measuring 12.8 x 8.3 x 8.1 cm that | |obscures the testicle from view and likely represents a large hematoma. | | | |Dictated and Signed by: Shady Bob MD | | Electronically signed: 12/01/2017 11:39 AM | + + + +---------+ + + | Performing | Address | City/State/Zipcode | Phone Number | | Organization | | | | + +---------+ + + | [facility] | | | | + +---------+ + + Extra Blue Top Tube (11/30/2017 7:03 PM PDT) + +-------+ + + + | Component | Value | Ref Range | Performed | Pathologist | | | | | At | Signature | + +-------+ + + + | Extra Blue | Done | | [facility] | | | Top Tube | | | [facility] | | [...] + + | [facility] | [address] | [place] | [phone] | | [facility] | | [address] | | | - LABORATORY | | | | + + + + + Extra Gold Top Tube (11/30/2017 7:03 PM PDT) + +-------+ + + + | Component | Value | Ref Range | Performed | Pathologist | | | | | At | Signature | + +-------+ + + + | Extra Gold | Done | | [facility] | | | Top Tube | | | [facility] | | [...] [address] | [place] | [phone] | | [facility] | | [address] | | | - LABORATORY | | | | + + + + + Extra Green Top Tube (11/30/2017 7:03 PM PDT) + +-------+ + + + | Component | Value | Ref Range | Performed | Pathologist | | | | | At | Signature | + +-------+ + + + | Extra Green | Done | | [facility] | | | Top Tube | | | [facility] | | [...] + + | [facility] | [address] | [place] | [phone] | | [facility] | | [address] | | | - LABORATORY | | | | + + + + + Extra Lavender Top Tube (11/30/2017 7:03 PM PDT) + +-------+ + + + | Component | Value | Ref Range | Performed | Pathologist | | | | | At | Signature | + +-------+ + + + | Extra | Done | | [facility] | | | Lavender | | | [facility] | | | Top Tube | | | MEDICAL | | | [...] + + | [facility] | [address] | [place] | [phone] | | [facility] | | [address] | | | - LABORATORY | | | | + + + + + Basic Metabolic Panel (11/30/2017 7:02 PM PDT) + + + + + + | Component | Value | Ref Range | Performed | Pathologist | | | | | At | Signature | + + + + + + | Na | 139 | 136 - 149 | [facility] | | | | | mmol/L | [facility] | | | | | | MEDICAL | | | | | | CENTER - | | | | | | LABORATORY | | + + + + + + | K | 3.4 (L) | 3.5 - 5.1 | [facility] | | | | | mmol/L | [facility] | | | | | | MEDICAL | | | | | | CENTER - | | | | | | LABORATORY | | + + + + + + | Cl | 103 | 98 - 109 mmol/L | [facility] | | | | | | [facility] | | | | | | MEDICAL | | | | | | CENTER - | | | | | | LABORATORY | | + + + + + + | CO2 | 28 | 24 - 31 mmol/L | [facility] | | [...] + + + + | Glucose | 128 (H) | 70 - 109 mg/dL | [facility] | | | | | | [facility] | | | | | | MEDICAL | | | | | | CENTER - | | | | | | LABORATORY | | + + + + + + | BUN | 27 (H) | 7 - 18 mg/dL | [facility] | | | | | | [facility] | | | | | | MEDICAL | | | | | | CENTER - | | | | | | LABORATORY | | + + + + + + | Creatinine | 1.42 (H) | 0.60 - 1.30 | [facility] | | | | | mg/dL | [facility] | | | | | | MEDICAL | | | | | | CENTER - | | | | | | LABORATORY | | + + + + + + | eGFR if not | 48 (L)Comment: | >=60 | [facility] | | | | GLOMERULAR FILTRATION | mL/min/1.73m2 | [facility] | | | [place] | RATE,ESTIMATED | | MEDICAL | | | | mL/min/1.97g4Tuff than | | CENTER - | | [...] + + | Calcium | 8.7 | 8.3 - 10.5 | [facility] | | | | | mg/dL | [facility] | | | | | | MEDICAL | | | | | | CENTER - | | | | | | LABORATORY | | + + + + + + | BUN/Creatin | 19.0 | | [facility] | | | ine Ratio | | | [facility] | | [...] [address] | [place] | [phone] | | [facility] | | [address] | | | - LABORATORY | | | | + + + + + CBC with Differential (11/30/2017 7:02 PM PDT) + + + + + + | Component | Value | Ref Range | Performed | Pathologist | | | | | At | Signature | + + + + + + | WBC | 21.8 (H) | 4.0 - 11.0 K/uL | [facility] | | | | | | [facility] | | | | | | [facility] | | | | | | CENTER - | | | | | | LABORATORY | | + + + + + + | RBC | 4.28 (L) | 4.30 - 5.70 | [facility] | | | | | M/uL | [facility] | | | | | | MEDICAL | | | | | | CENTER - | | | | | | LABORATORY | | + + + + + + | Hemoglobin | 14.7 | 13.5 - 18.0 | [facility] | | | | | g/dL | [facility] | | | | | | MEDICAL | | | | | | CENTER - | | | | | | LABORATORY | | + + + + + + | Hematocrit | 43.4 | 40.0 - 51.0 % | [facility] | | | | | | [facility] | | | | | | MEDICAL | | | | | | CENTER - | | | | | | LABORATORY | | + + + + + + | MCV | 101.3 (H) | 83.0 - 101.0 fL | [facility] | | | | | | [facility] | | | | | | MEDICAL | | | | | | CENTER - | | | | | | LABORATORY | | + + + + + + | MCH | 34.3 | 28.0 - 35.0 pg | [facility] | | | | | | [facility] | | | | | | MEDICAL | | | | | | CENTER - | | | | | | LABORATORY | | + + + + + + | MCHC | 33.9 | 32.0 - 36.0 | [facility] | | | | | g/dL | [facility] | | | | | | MEDICAL | | | | | | CENTER - | | | | | | LABORATORY | | + + + + + + | RDW-CV | 13.2 | <15.0 % | [facility] | | | | | | [facility] | | | | | | MEDICAL | | | | | | CENTER - | | | | | | LABORATORY | | + + + + + + | Platelet | 171 | 140 - 440 K/uL | [facility] | | | Count | | | [facility] | | | | | | MEDICAL | | | | | | CENTER - | | | | | | LABORATORY | | + + + + + + | MPV | 8.7 | fL | [facility] | | | | | | [facility] | | | | | | MEDICAL | | | | | | CENTER - | | | | | | LABORATORY | | + + + + + + | % | 85.4 (H) | 45.0 - 82.0 % | [facility] | | | Neutrophils | | | [facility] | | | | | | MEDICAL | | | | | | CENTER - | | | | | | LABORATORY | | + + + + + + | % | 5.0 (L) | 20.0 - 45.0 % | [facility] | | | Lymphocytes | | | [facility] | | | | | | MEDICAL | | | | | | CENTER - | | | | | | LABORATORY | | + + + + + + | % Monocytes | 9.0 | 4.0 - 12.0 % | [facility] | | | | | | [facility] | | | | | | MEDICAL | | | | | | CENTER - | | | | | | LABORATORY | | + + + + + + | % | 0.1 | 0.0 - 5.0 % | [facility] | | | Eosinophils | | | [facility] | | | | | | MEDICAL | | | | | | CENTER - | | | | | | LABORATORY | | + + + + + + | % Basophils | 0.5 | 0.0 - 1.0 % | [facility] | | | | | | [facility] | | | | | | MEDICAL | | | | | | CENTER - | | | | | | LABORATORY | | + + + + + + | Absolute | 18.70 (H) | 1.80 - 8.50 | [facility] | | | Neutrophils | | K/uL | [facility] | | | | | | MEDICAL | | | | | | CENTER - | | | | | | LABORATORY | | + + + + + + | Absolute | 1.10 | 0.60 - 3.20 | [facility] | | | Lymphocytes | | K/uL | [facility] | | | | | | MEDICAL | | | | | | CENTER - | | | | | | LABORATORY | | + + + + + + | Absolute | 2.00 (H) | 0.00 - 1.00 | [facility] | | | Monocytes | | K/uL | [facility] | | | | | | MEDICAL | | | | | | CENTER - | | | | | | LABORATORY | | + + + + + + | Absolute | 0.00 | 0.00 - 0.40 | [facility] | | | Eosinophils | | K/uL | [facility] | | | | | | MEDICAL | | | | | | CENTER - | | | | | | LABORATORY | | + + + + + + | Absolute | 0.10 | 0.00 - 0.10 | [facility] | | | Basophils | | K/uL [...] + + | [facility] | [address] | [place] | [phone] | | [facility] | | [address] | | | - LABORATORY | | | | + + + + + ECG - EXTERNAL SCAN (10/21/2017 12:00 AM PDT) + + + | Narrative | Performed At | + + + | Ordered by an | | | unspecified provider. | | + + + documented in this encounter Visit Diagnoses Not on filedocumented in this encounter Administered Medications + +--------+---------+------+------+------+ | Medication Order | MAR | Action | Dose | Rate | Site | | | Action | Date | | | | + +--------+---------+------+------+------+ + +---+ | acetaminophen (TYLENOL) 160 | | | mg/5 mL liquid 650 mg 650 mg, | | | Oral, EVERY 4 HOURS PRN, Mild | | | Pain, Fever, fever equal or | | | greater than 38.3 C, Starting Sun | | | 11/30/17 at 2223, If unable to | | | swallow tablets. Maximum dose of | | | acetaminophen is 4,000 mg from | | | all sources in 24 hours., | | + +---+ | | | + +---+ | acetaminophen (TYLENOL) | | | suppository 650 mg 650 mg, | | | Rectal, EVERY 4 HOURS PRN, Mild | | | Pain, Fever, fever equal or | | | greater than 38.3 C, Starting Sun | | | 11/30/17 at 2223, If unable to | | | take oral. Maximum dose of | | | acetaminophen is 4,000 mg from | | | all sources in 24 hours., | | + +---+ | | | + +---+ | acetaminophen (TYLENOL) tablet | | | 650 mg 650 mg, Oral, EVERY 4 | | | HOURS PRN, Mild Pain, Fever, | | | fever equal to or more than 38.3 | | | C, Starting 11/30/17 at 2223, | | | May use liquid for patients | | | unable to swallow tablets. | | | Maximum dose of acetaminophen is | | | 4,000 mg from all sources in 24 | | | hours., | | + +---+ | | | + +---+ + +-------+ +--------+---+ + | bacitracin 50,000 units/10 mL | Given | 12/02/19 | 1,000 | | Surgical | | 50,000 Units in sodium chloride | | 18 11:04 | mLs | | Site | | 0.9% injection 1,000 mL | | AM PDT | | | | | irrigation PRN, Starting Mon | | | | | | | 12/01/17 at 1104, Intra-op | | | | | | + +-------+ +--------+---+ + +---+---+ | | | +---+---+ + +-------+ +--------+---+---+ | docusate sodium (COLACE) | Given | 12/02/19 | 100 mg | | | | capsule 100 mg 100 mg, Oral, | | 18 8:25 | | | | | TIMES DAILY, First dose on Fri | | PM PDT | | | | | 12/01/17 at 2100, First line agent | | | | | | | for constipation, Post-op/Phase | | | | | | | II | | | | | | + +-------+ +--------+---+---+ + +---+ | | | + +---+ | levoFLOXacin (LEVAQUIN) tablet | | | 500 mg 500 mg, Oral, DAILY, | | | First dose on Fri12/02/17 at 2100, | | | Give 2 hours before or 2 hours | | | after antacids, iron, or zinc., | | | Indications: PURULENT SKIN AND | | | SOFT TISSUE INFECTION | | + +---+ | | | + +---+ | lisinopril (PRINIVIL, ZESTRIL) | | | tablet 20 mg 20 mg, Oral, 2 | | | TIMES DAILY, First dose (after | | | last modification) on Fri12/02/17 | | | at 0900, Post-op/Phase II | | + +---+ | | | + +---+ + +-------+ +-------+---+---+ | metoprolol succinate | Given | 12/02/19 | 50 mg | | | | (TOPROL-XL) ER tablet 50 mg 50 | | 18 8:42 | | | | | mg, Oral, DAILY, First dose on | | AM PDT | | | | | 12/01/17 at 0900, Tablet may be | | | | | | | cut where scored but do not | | | | | | | crush., | | | | | | + +-------+ +-------+---+---+ + +---+ | | | + +---+ | ondansetron (ZOFRAN ODT) | | | disintegrating tablet 4 mg 4 mg, | | | Oral, EVERY 6 HOURS PRN, Nausea, | | | Vomiting, Starting 11/30/17 at | | | 2223, First line agent, | | + +---+ | | | + +---+ | ondansetron (ZOFRAN) injection | | | 4 mg 4 mg, Intravenous, EVERY 6 | | | HOURS PRN, Nausea, Vomiting, | | | Starting 11/30/17 at 2223, | | | First line agent. Use PO option | | | unless NPO status or unable to | | | tolerate., | | + +---+ | | | + +---+ + +-------+ +-------+---+---+ | pantoprazole (PROTONIX) DR | Given | 12/03/19 | 40 mg | | | | tablet 40 mg 40 mg, Oral, DAILY | | 18 6:39 | | | | | BEFORE BREAKFAST, First dose on | | AM PDT | | | | | 12/02/17 at 0730, Do not cut or | | | | | | | crush., Indication: GERD, | | | | | | | Post-op/Phase II | | | | | | + +-------+ +-------+---+---+ + +---+ | | | + +---+ | potassium chloride (KLOR-CON) | | | ER tablet 10 mEq 10 mEq, Oral, 2 | | | TIMES DAILY, First dose on Fri | | | 12/02/17 at 0900, May take with | | | food to decrease GI upset., | | + +---+ | | | + +---+ + +-------+ +--------+---+---+ | senna (SENOKOT) tablet 8.6 mg | Given | 12/02/19 | 8.6 mg | | | | 8.6 mg, Oral, 2 TIMES DAILY, | | 18 8:25 | | | | | First dose on 11/30/17 at 2245, | | PM PDT | | | | | If docusate ineffective or not | | | | | | | ordered, give BID until BM, then | | | | | | | PRN. Hold for loose stools, | | | | | | + +-------+ +--------+---+---+ +-------+ +--------+---+---+ | Given | 12/02/19 | 8.6 mg | | | | | 18 8:42 | | | | | | AM PDT | | | | +-------+ +--------+---+---+ | Given | 12/01/19 | 8.6 mg | | | | | 18 10:47 | | | | | | PM PDT | | | | +-------+ +--------+---+---+ +---+---+ | | | +---+---+ documented in this encounter
--- OUTSIDE RECORDS SUMMARY | ~2019-04-15 | XMS | Encounter Summary ---
Demographics + + + | Address | [address] | | | [place] [address] | + + + | Home Phone | | + + + | Preferred Language | Unknown | + + + | Marital Status | | + + + | Jain Affiliation | Unknown | + + + | Race | Unknown | + + + | Ethnic Group | Unknown | + + + Author + + + | Author | [facility] | | | and [place] | + + + | Organization | [facility] | | | and [place] [...] Team Providers + +------+ + | Care Spinning Bath Patroller Name | Role | Phone | + +------+ + | Parminder Malagon MD | PCP | | + +------+ + Encounter Details +--------+ + + + + | Date | Type | Department | Care Team | Description | +--------+ + + + + | 10/21/ | Orders Only | [facility] | Provider, | Rheumatoid arthritis | | 2019 | | SYSTEM GENERIC OP | MD [address] | ([facility]); Other long | | | | CONVERSION [address] | [address] | term (current) drug | | | | [address] [place], [place] | [place] [address] | therapy | | | | [address] | | | | | | [phone] | | | +--------+ + + + [...] +---------+ + | Yes | | | Alcoholic | | | | | Drinks/day: occ | + + +---------+ + + + [...] [place] | | | | | | [address] | | | | | | | | +--------+ + + + + | 05/11/ | Office | Orthopedic Surgery | Scot Wilson PT | | | 2019 | Visit | | [address] | | | | | | [place] [address] | | | | | | [phone] | | | | | | | | +--------+ + + + + | 05/11/ | Office | Orthopedic Surgery | Korey Hussein | | | 2019 | Visit | | MD Shan [address] | | | | | | [place] | | | | | | [address] | | | | | | | | +--------+ + + + + | 05/14/ | Office | Rheumatology | Mya Frederick | | | 2019 | Visit | | SHELLY Nguyen [address] | | | | | | [address] | | | | | | [place] [address] | | | | | | [phone] | | | | | | | | +--------+ + + + + | 06/06/ | Hospital | | Korey Hussein | Primary | | 2020 | Encounter | | MD [address] | 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[place] | right knee; Chronic | | | | | [address] | pain of right knee | | | | | | | +--------+ + + + + | 06/06/ | Surgery | | Korey Hussein | RIGHT TOTAL KNEE | | 2020 | | | MD Shan [address] | ARTHROPLASTY | | | | | [place] | | | | | | [address] | | | | | | | | +--------+ + + + + | 06/21/ | Office | Orthopedic Surgery | Jossue Haro | | | 2019 | Visit | | [address] | | | | | | [address] | | | | | | [place] [address] | | | | | | [phone] | | | | | | | | +--------+ + + + + + +------+--------+ + + | Name | Type | Priori | Associated Diagnoses | Order Schedule | | | | ty | | | + +------+--------+ + + | CBC with | Lab | Routin | Rheumatoid | 2 Occurrences | | Differential | | e | arthritis ([facility]) | starting 11/13/2018 | | | | | Other nursing home | until 04/28/2019, 1 | | | | | (current) drug | completed | | | | | therapy | | + +------+--------+ + + | Comprehensive | Lab | Routin | Rheumatoid | 2 Occurrences | | Metabolic Panel | | e | arthritis ([facility]) | starting 11/13/2018 | | | | | Other watermelon inspector | until 04/28/2019, 1 | | | | | (current) drug | completed | | | | | therapy | | + +------+--------+ + + | Sedimentation Rate | Lab | Routin | Rheumatoid | 2 Occurrences | | | | e | arthritis ([facility]) | starting 11/13/2018 | | | | | Other nursing home | until 04/28/2019, 1 | | | | | (current) drug | completed | | | | | therapy | | + +------+--------+ + + | C-Reactive Protein | Lab | Routin | Rheumatoid | 2 Occurrences | | | | e | arthritis ([facility]) | starting 11/13/2018 | | | | | Other watermelon inspector | until 04/28/2019, 1 | | | | | (current) drug | completed | | | | | therapy | | + +------+--------+ + + documented as of this encounter Results C-Reactive Protein (01/05/2019 9:09 AM PDT) + + + + + + | Component | Value | Ref Range | Performed | Pathologist | | | | | At | Signature | + + + + + + | CRP | <0.3Comment: Testing | <0.5 mg/dL | REFERENCE | | | | performed at [facility];[address] | | LAB | | | | [place] | | [facility] | | | | [address];[place] [address] | | LABORATORY | | + + + + + + + + | Specimen | + + | Blood | + + + + + + + | Performing | Address | City/State/Zipcode | Phone Number | | Organization | | | | + + + + + | REFERENCE LAB | [address] | [place] [address] | [phone] | | [facility] | Blvd[address] | | | | LABORATORY | | | | + + + + + | REFERENCE LAB | [address] | [place] [address] | | | [facility] | Blvd[address] | | | | LABORATORY | | | | + + + + + Sedimentation Rate (01/05/2019 9:09 AM PDT) + + + + + + | Component | Value | Ref Range | Performed | Pathologist | | | | | At | Signature | + + + + + + | ESR | 4Comment: Testing | 0 - 20 mm/Hr | REFERENCE | | | | performed at [facility];[address] | | LAB | | | | [place] | | [facility] | | | | [address];[place] [address] | | LABORATORY | | + + + + + + + + | Specimen | + + | Blood | + + + + + + + | Performing | Address | City/State/Zipcode | Phone Number | | Organization | | | | + + + + + | REFERENCE LAB | [address] [place] [address] | [place] [address] | [phone] | | [facility] | Blvd[address] | | | | LABORATORY | | | | + + + + + | REFERENCE LAB | [address] [place] [address] | [place] [address] | | | [facility] | Blvd[address] | | | | LABORATORY | | | | + + + + + Comprehensive Metabolic Panel (01/05/2019 9:09 AM PDT) + + + + + + | Component | Value | Ref Range | Performed | Pathologist | | | | | At | Signature | + + + + + + | Na | 147 (H) | 135 - 145 | REFERENCE | | | | | mmol/L | LAB | | | | | | [facility] | | | | | | LABORATORY | | + + + + + + | K | 4.2 | 3.5 - 4.9 | REFERENCE | | | | | mmol/L | LAB | | | | | | [facility] | | | | | | LABORATORY | | + + + + + + | Cl | 108 | 99 - 109 mmol/L | REFERENCE | | | | | | LAB | | | | | | [facility] | | | | | | LABORATORY | | + + + + + + | CO2 | 32 | 23 - 32 mmol/L | REFERENCE | | | | | | LAB | | | | | | [facility] | | | | | | LABORATORY | | + + + + + + | Anion Gap | 11 | 5 - 20 mmol/L | REFERENCE | | | | | | LAB | | | | | | [facility] | | | | | | LABORATORY | | + + + + + + | Glucose | 89 | 65 - 99 mg/dL | REFERENCE | | | | | | LAB | | | | | | [facility] | | | | | | LABORATORY | | + + + + + + | BUN | 30 (H) | 8 - 25 mg/dL | REFERENCE | | | | | | LAB | | | | | | [facility] | | | | | | LABORATORY | | + + + + + + | Creatinine | 1.1 | 0.70 - 1.30 | REFERENCE | | | | | mg/dL | LAB | | | | | | [facility] | | | | | | LABORATORY | | + + + + + + | BUN/Creatin | 27 | | REFERENCE | | | ine Ratio | | | LAB | | | | | | [facility] | | | | | | LABORATORY | | + + + + + + | Calcium | 9.4 | 8.5 - 10.5 | REFERENCE | | | | | mg/dL | LAB | | | | | | [facility] | | | | | | LABORATORY | | + + + + + + | Protein, | 7.0 | 6.3 - 8.2 g/dL | REFERENCE | | | Total | | | LAB | | | | | | [facility] | | | | | | LABORATORY | | + + + + + + | Albumin | 4.0 | 3.3 - 4.8 g/dL | REFERENCE | | | | | | LAB | | | | | | [facility] | | | | | | LABORATORY | | + + + + + + | Globulin | 3.0 | 1.3 - 4.9 g/dL | REFERENCE | | | | | | LAB | | | | | | [facility] | | | | | | LABORATORY | | + + + + + + | A/G Ratio | 1.3 | 1.0 - 2.4 | REFERENCE | | | | | | LAB | | | | | | [facility] | | | | | | LABORATORY | | + + + + + + | BILIRUBIN, | 0.8 | 0.1 - 1.5 mg/dL | REFERENCE | | | TOTAL | | | LAB | | | | | | [facility] | | | | | | LABORATORY | | + + + + + + | ALK PHOS | 85 | 35 - 115 U/L | REFERENCE | | | | | | LAB | | | | | | [facility] | | | | | | LABORATORY | | + + + + + + | AST | 32 | 10 - 45 U/L | REFERENCE | | | | | | LAB | | | | | | [facility] | | | | | | LABORATORY | | + + + + + + | ALT | 26 | 10 - 65 U/L | REFERENCE | | | | | | LAB | | | | | | [facility] | | | | | | LABORATORY | | + + + + + + | Estimated | >60Comment: GFR <60: | >60 | REFERENCE | | | GFR | CHRONIC KIDNEY DISEASE, | mL/min/1.73m2 | LAB | | | | IF FOUND OVER A 3 MONTH | | [facility] | | | | PERIOD.GFR <15: KIDNEY | | LABORATORY | | | | FAILURE.FOR | | | | | | AMERICANS, MULTIPLY THE | | | | | | CALCULATED GFR BY | | | | | | 1.210.This eGFR is | | | | | | calculated using the | | | | | | MDRD IDMS traceable | | | | | | equation.Testing | | | | | | performed at [facility];[address] | | | | | | [facility] | | | | | | [facility];[place] [address] | | | | | | | | | | + + + + + + + + | Specimen | + + | Blood | + + + + + + + | Performing | Address | City/State/Zipcode | Phone Number | | Organization | | | | + + + + + | REFERENCE LAB | [address] [place] [address] | [place] [address] | [phone] | | [facility] | Blvd[address] | | | | LABORATORY | | | | + + + + + | REFERENCE LAB | [address] [place] [address] | [place] [address] | | | [facility] | Blvd. | | | | LABORATORY | | | | + + + + + CBC with Differential (01/05/2019 9:09 AM PDT) + + + + + + | Component | Value | Ref Range | Performed | Pathologist | | | | | At | Signature | + + + + + + | WBC | 8.13 | 3.80 - 11.00 | REFERENCE | | | | | K/uL | LAB | | | | | | [facility] | | | | | | LABORATORY | | + + + + + + | RBC | 5.08 | 4.20 - 5.70 | REFERENCE | | | | | M/uL | LAB | | | | | | [facility] | | | | | | LABORATORY | | + + + + + + | Hemoglobin | 17.8 (H) | 13.2 - 17.0 | REFERENCE | | | | | g/dL | LAB | | | | | | [facility] | | | | | | LABORATORY | | + + + + + + | Hematocrit | 51.8 (H) | 39.0 - 50.0 % | REFERENCE | | | | | | LAB | | | | | | [facility] | | | | | | LABORATORY | | + + + + + + | MCV | 102.1 (H) | 80.0 - 100.0 fl | REFERENCE | | | | | | LAB | | | | | | [facility] | | | | | | LABORATORY | | + + + + + + | MCH | 35.1 (H) | 27.0 - 34.0 pg | REFERENCE | | | | | | LAB | | | | | | [facility] | | | | | | LABORATORY | | + + + + + + | MCHC | 34.4 | 32.0 - 35.5 | REFERENCE | | | | | g/dL | LAB | | | | | | [facility] | | | | | | LABORATORY | | + + + + + + | RDW-SD | 45.9 | 37 - 53 fl | REFERENCE | | | | | | LAB | | | | | | [facility] | | | | | | LABORATORY | | + + + + + + | Platelet | 171 | 150 - 400 K/uL | REFERENCE | | | Count | | | LAB | | | | | | [facility] | | | | | | LABORATORY | | + + + + + + | MPV | 9.3 | fl | REFERENCE | | | | | | LAB | | | | | | [facility] | | | | | | LABORATORY | | + + + + + + | Diff Type | AUTOMATED | | REFERENCE | | | | | | LAB | | | | | | [facility] | | | | | | LABORATORY | | + + + + + + | % | 79.00 | % | REFERENCE | | | Neutrophils | | | LAB | | | | | | [facility] | | | | | | LABORATORY | | + + + + + + | % | 11.80 | % | REFERENCE | | | Lymphocytes | | | LAB | | | | | | [facility] | | | | | | LABORATORY | | + + + + + + | Monocyte % | 7.34 | % | REFERENCE | | | | | | LAB | | | | | | [facility] | | | | | | LABORATORY | | + + + + + + | Eosinophils | 1.32 | % | REFERENCE | | | % | | | LAB | | | | | | [facility] | | | | | | LABORATORY | | + + + + + + | Basophils % | 0.54 | % | REFERENCE | | | | | | LAB | | | | | | [facility] | | | | | | LABORATORY | | + + + + + + | Neutrophils | 6.42 | 1.90 - 7.40 | REFERENCE | | | , Absolute | | K/uL | LAB | | | | | | [facility] | | | | | | LABORATORY | | + + + + + + | Absolute | 0.96 (L) | 1.00 - 3.90 | REFERENCE | | | Lymphocytes | | K/uL | LAB | | | | | | [facility] | | | | | | LABORATORY | | + + + + + + | Absolute | 0.60 | 0.00 - 0.80 | REFERENCE | | | Monocytes | | K/uL | LAB | | | | | | [facility] | | | | | | LABORATORY | | + + + + + + | Eosinophils | 0.11 | 0.00 - 0.50 | REFERENCE | | | , Absolute | | K/uL | LAB | | | | | | [facility] | | | | | | LABORATORY | | + + + + + + | Basophils, | 0.04Comment: Testing | 0.00 - 0.10 | REFERENCE | | | Absolute | performed at [facility];[address] | [address] | LAB | | | | [place] | | [facility] | | | | [address];[place] [address] | | LABORATORY | | + + + + + + + + | Specimen | + + | Blood | + + + + + + + | Performing | Address | City/State/Zipcode | Phone Number | | Organization | | | | + + + + + | REFERENCE LAB | [address] | [place] [address] | [phone] | | [facility] | Blvd[address] | | | | LABORATORY | | | | + + + + + | REFERENCE LAB | [address] | [place] [address] | | | [facility] | Blvd[address] | | | | LABORATORY | | | | + + + + + documented in this encounter Visit Diagnoses + + | Diagnosis | + + | Rheumatoid arthritis (HCC) | + + | Other nursing home (current) drug therapy | + + documented in this encounter"
--- OUTSIDE RECORDS SUMMARY | ~2019-04-15 | XMS | Encounter Summary ---
Demographics + + + | Address | [address] | | | [place] [address] | + + + | Home Phone | | + + + | Preferred Language | Unknown | + + + | Marital Status | | + + + | Hindu Affiliation | Unknown | + + + | Race | Unknown | + + + | Ethnic Group | Unknown | + + + Author + + + | Author | [facility] | | | and [place] | + + + | Organization | [facility] | | | and [...] Team Providers + +------+ + | Care Welding Machine Operator Ultrasonic Name | Role | Phone | + +------+ + | Parminder Malagon MD | PCP | | + +------+ + Encounter Details +--------+ + + + + | Date | Type | Department | Care Team | Description | +--------+ + + + + | 03/25/ | Orders Only | [facility] | Jossue Haro | Left knee pain, | | 2018 | | ORTHOPEDIC SURGERY | SHELLY [address] | unspecified | | | | [address] [facility] | [address] | chronicity (Primary | | | | [place] | [place] [address] | Dx); S/P TKR (total | | | | [address] | [phone] | knee replacement), | | | | [phone] | | left | +--------+ + + + + Social [...] | | | | | [place] | | | | | | [address] | | | | | | | | +--------+ + + + + | 05/11/ | Office | Orthopedic Surgery | Scot Wilson PT | | | 2019 | Visit | | [address] | | | | | | [place] [address] | | | | | | [phone] | | | | | | | | +--------+ + + + + | 05/11/ | Office | Orthopedic Surgery | Korey Hussein | | | 2019 | Visit | | [address] | | | | | | [place] | | | | | | [address] | | | | | | | | +--------+ + + + + | 05/14/ | Office | Rheumatology | Mya Frederick | | | 2019 | Visit | | SHELLY Nguyen [address] | | | | | | [address] | | | | | | [place] [address] | | | | | | [phone] | | | | | | | | +--------+ + + + + | 06/06/ | Hospital | | Korey Hussein | Primary | | 2020 | Encounter | | MD [address] | 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[place] | right knee; Chronic | | | | | [address] | pain of right knee | | | | | | | +--------+ + + + + | 06/06/ | Surgery | | Korey Hussein | RIGHT TOTAL KNEE | | 2019 | | | MD [address] | ARTHROPLASTY | | | | | [place] | | | | | | [address] | | | | | | | | +--------+ + + + + | 06/21/ | Office | Orthopedic Surgery | Jossue Haro | | | 2019 | Visit | | [address] | | | | | | [address] | | | | | | [place] [address] | | | | | | [phone] | | | | | | | | +--------+ + + + + documented as of this encounter Results GUNJAN Bradley Left 1 - 2 Vw (04/01/2019 10:12 AM PST) + + | Specimen | + + [...] + | Noe, Oz Results In - 04/01/2019 4:39 PM PST XR KNEE LEFT - 2 VW 04/01/2019 10:12 AM | [...] + | Diagnosis | + + | Left knee pain, unspecified chronicity - Primary | + + | S/P TKR (total knee replacement), left | + + documented in this encounter"
--- OUTSIDE RECORDS SUMMARY | ~2019-04-15 | XMS | Encounter Summary ---
Demographics + + + | Address | [address] | | | [place] [address] | + + + | Home Phone | | + + + | Preferred Language | Unknown | + + + | Marital Status | | + + + | Rastafari Affiliation | Unknown | + + + | Race | Unknown | + + + | Ethnic Group | Unknown | + + + Author + + + | Author | [facility] | | | and [place] | + + + | Organization | [facility] | | | and [...] Team Providers + +------+ + | Care Hydro Station Operator Name | Role | Phone | [...] + + | 12/01/ | Anesthesia | [facility] | Korey Stone | | | 2017 | Event | MED CTR OR INTRA OP | MD Tiburcio [address] | | | | | [address] | [facility] | | | | | [place] | [place] [address] | | | | | [address] | [phone] | | | | | [phone] | | | +--------+ + + + + Anesthesia Record + + + + + | Procedure Name | Responsible | Anesthesia Start | Anesthesia Stop Time | | | Anesthesiologist | Time | | + + + + + | INCISION AND | Korey Hernandez | 12/01/17 1015 | 12/01/17 1110 | | DRAINAGE DGOTUM | MD Chase | | | | [...] +----+---+ + + | | 1 | [place] | | | | 0 | 43-degrees [...] +----+---+ + + | | 1 | [place] off | | | | 1 | [...] | ; ana; megan (see | 11/30/17 2991 by | 12/02/17943 by | | | [...] 09 by | | eral | Antecubital; [id number] | Ann-Marie Frias RN | [address] [...] [place] | | | | | | [address] | | | | | | | | +--------+ + + + + | 05/11/ | Office | Orthopedic Surgery | Scot Wilson PT | | | 2019 | Visit | | [address] | | | | | | [place] [address] | | | | | | [phone] | | | | | | | | +--------+ + + + + | 05/11/ | Office | Orthopedic Surgery | Korey Hussein | | | 2019 | Visit | | [address] | | | | | | [place] | | | | | | [address] | | | | | | | | +--------+ + + + + | 05/14/ | Office | Rheumatology | Mya Frederick | | | 2019 | Visit | | SHELLY Nguyen [address] | | | | | | [address] | | | | | | [place] [address] | | | | | | [phone] | | | | | | | | +--------+ + + + + | 06/06/ | Hospital | | Korey Hussein | Primary | | 2019 | Encounter | | MD [address] | 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[place] | right knee; Chronic | | | | | [address] | pain of right knee | | | | | | | +--------+ + + + + | 06/06/ | Surgery | | Korey Hussein | RIGHT TOTAL KNEE | | 2019 | | | MD [address] | ARTHROPLASTY | | | | | [place] | | | | | | [address] | | | | | | | | +--------+ + + + + | 06/21/ | Office | Orthopedic Surgery | Jossue Haro | | | 2019 | Visit | | [address] | | | | | | [address] | | | | | | [place] [address] | | | | | | [phone] | | | | | | | [...]
--- OUTSIDE RECORDS SUMMARY | ~2019-04-15 | XMS | Encounter Summary ---
Demographics + + + | Address | [address] | | | [place] [address] | + + + | Home Phone | | + + + | Preferred Language | Unknown | + + + | Marital Status | | + + + | Moravian Affiliation | Unknown | + + + | Race | Unknown | + + + | Ethnic Group | Unknown | + + + Author + + + | Author | [facility] | | | and [place] | + + + | Organization | [facility] | | | and [place] [...] Team Providers + +------+ + | Care Hanger Off Name | Role | Phone | + +------+ + | Parminder Malagon MD | PCP | | + +------+ + Encounter Details +--------+ + + + + | Date | Type | Department | Care Team | Description | +--------+ + + + + | 05/22/ | Orders Only | [facility] | Mya Frederick | | | 2016 | | RHEUMATOLOGY [address] | [address]LLY [address] | | | | | [address] | [facility] | | | | | [place] | [place] [address] | | | | | [address] | [phone] | | | | | [phone] | | | +--------+ + + + [...] [place] | | | | | | [address] | | | | | | | | +--------+ + + + + | 05/11/ | Office | Orthopedic Surgery | Soct Wilson PT | | | 2019 | Visit | | [address] | | | | | | [place] [address] | | | | | | [phone] | | | | | | | | +--------+ + + + + | 05/11/ | Office | Orthopedic Surgery | Korey Hussein | | | 2019 | Visit | | [address] | | | | | | [place] | | | | | | [address] | | | | | | | | +--------+ + + + + | 05/14/ | Office | Rheumatology | Mya Frederick | | | 2019 | Visit | | SHELLY Nguyen [address] | | | | | | [address] | | | | | | [place] [address] | | | | | | [phone] | | | | | | | | +--------+ + + + + | 06/06/ | Hospital | | Korey Hussein | Primary | | 2019 | Encounter | | MD [address] | 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[place] | right knee; Chronic | | | | | [address] | pain of right knee | | | | | | | +--------+ + + + + | 06/06/ | Surgery | | Korey Hussein | RIGHT TOTAL KNEE | | 2019 | | | MD [address] | ARTHROPLASTY | | | | | [place] | | | | | | [address] | | | | | | | | +--------+ + + + + | 06/21/ | Office | Orthopedic Surgery | Tahir, Jossue | | | 2019 | Visit | | [address] | | | | | | [address] | | | | | | [place] [address] | | | | | | [phone] | | | | | | | [...]
--- OUTSIDE RECORDS SUMMARY | ~2019-04-15 | XMS | Encounter Summary ---
Demographics + + + | Address | [address] | | | [place] [address] | + + + | Home Phone | | + + + | Preferred Language | Unknown | + + + | Marital Status | | + + + | Mormonism Affiliation | Unknown | + + + | Race | Unknown | + + + | Ethnic Group | Unknown | + + + Author + + + | Author | [facility] | | | and [place] | + + + | Organization | [facility] | | | and [place] [...] Team Providers + +------+ + | Care Automatic Spooler Operator Name | Role | Phone | [...] | chronicity | [place], | [place] [address] | | | | | Primary | [address] | Phone: | | | | | osteoarthrit | Phone: | [phone] | | | | | is of left | [phone] | Fax: | | | | | knee | Fax: | [phone] | | | | | | [phone] | | +--------+ + + + + + Encounter Details +--------+---------+ + + + | Date | Type | Department | Care Team | Description | +--------+---------+ + + + | 02/04/ | Office | [facility] | Scot Wilson, PT | Pain in both knees, | | 2019 | Visit | ORTHOPEDIC SURGERY | [address] [facility] [place] | unspecified | | | | [address] [facility] | [place] [address] | chronicity (Primary | | | | [place] | [phone] | Dx); Primary | | | | [address] | | osteoarthritis of | | | | [phone] | | left knee | +--------+---------+ + [...] therapy, patient requests to be scheduled at [facility] with recommended start date 02/17/2019. Patient has identified Tami ) as their support curriculum coach. 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. Patient agrees with this pre-operative plan for [...] Goal 3 Status: 10 Treatment Plan/Interventions PT [id number] - Therapeutic [id number] - Self Care/Home [id number] - Gait T [id number] - Therapeutic Ybhwvnfqnr23962 - Neuromuscular Hclvjszgrve63644 - Manual Therapy Electronically signed by: Scot Wilson PT, 02/04/2019 12:20 Patient Name: Beni Delcid/: 1940/ Scot Avila P T - 02/04/2019 11:00 AM PST [facility] [address] [place] [id number] Physical Therapy Pre-habilitation Orthopedic Evaluation Date: 02/04/2019 [...] therapy, patient requests to be scheduled at [facility] ([facility] with seb mmended start date 02/17/2019. Patient has identified Tami ([phone]) as their support curriculum coach. Patient has completed the physical therapy [...] Raw Score: 65% (T-score: 45.8 ). Patient's senior care goal is walk around [facility]. Patient agrees with this pre-operative plan for [...] DRAINAGE SCROTUM; Surgeon: Tay Garrido MD; Location: [facility] MAIN OR INGUINAL HERNIA REPAIR Right 1979 KNEE ARTHROSCOPY Bilateral 1989' PROSTATECTOMY 2000 prostate cancer scrotal cyst excision Left 2008 [facility] TESTICLE REMOVAL Right 11/04/2017 Dr. Garrido TONSILLECTOMY [...] front wheeled walker, cane, toileting aids and gun profiler Have you fallen in the last year? [...] 02/04/2019 Certification To: 05/05/2019 Treatment Plan/Interventions PT [id number]-[id number] - Therapeutic Riyrbkbm05275 - Self Care/Home Dnapiausfv98732 - Gait T [id number] - Therapeutic Kvgvcnahrc07301 - Neuromuscular Thdcalysmjt33302 - Manual Therapy Patient and/or family has [...] [place] | | | | | | [address] | | | | | | | | +--------+ + + + + | 05/11/ | Office | Orthopedic Surgery | Scot Wilson PT | | | 2019 | Visit | | [address] | | | | | | [place] [address] | | | | | | [phone] | | | | | | | | +--------+ + + + + | 05/11/ | Office | Orthopedic Surgery | Korey Hussein | | | 2019 | Visit | | MD [address] | | | | | | [place] | | | | | | [address] | | | | | | | | +--------+ + + + + | 05/14/ | Office | Rheumatology | Mya Frederick | | | 2020 | Visit | | SHELLY Nguyen [address] | | | | | | [place] | | | | | | [place] [address] | | | | | | [phone] | | | | | | | | +--------+ + + + + | 06/06/ | Hospital | | Korey Hussein | Primary | | 2020 | Encounter | | MD [address] | 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[place] | right knee; Chronic | | | | | [address] | pain of right knee | | | | | | | +--------+ + + + + | 06/06/ | Surgery | | Korey Hussein | RIGHT TOTAL KNEE | | 2020 | | | MD Shan [address] | ARTHROPLASTY | | | | | [place] | | | | | | [address] | | | | | | | | +--------+ + + + + | 06/21/ | Office | Orthopedic Surgery | Jossue Haro | | | 2019 | Visit | | [address] | | | | | | [address] | | | | | | [place] [address] | | | | | | [phone] | | | | | | | [...]
--- OUTSIDE RECORDS SUMMARY | ~2019-04-15 | XMS | Encounter Summary ---
Demographics + + + | Address | [address] | | | [place] [address] | + + + | Home Phone | | + + + | Preferred Language | Unknown | + + + | Marital Status | | + + + | Jehovah'S Witness Affiliation | Unknown | + + + | Race | Unknown | + + + | Ethnic Group | Unknown | + + + Author + + + | Author | [facility] | | | and [place] | + + + | Organization | [facility] | | | and [...] Team Providers + +------+ + | Care Basting Puller Name | Role | Phone | + +------+ + | Parminder Malagon MD | PCP | | + +------+ + Encounter Details +--------+---------+ + + + | Date | Type | Department | Care Team | Description | +--------+---------+ + + + | 01/05/ | Office | [facility] | Mya Frederick | Rheumatoid arthritis | | 2019 | Visit | R[address]ATOLOGY [address] | [address] | involving multiple | | | | [address] | [address] | joints (HCC) | | | | [place] | [place] [address] | (Primary Dx); | | | | [address] | [phone] | Primary | | | | [phone] | | 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| both hands; High | | | | | | risk medication use | +--------+---------+ + + + Social History [...] + + + | Blood Pressure | 144/80 | 01/05/2019 8:54 AM | | | | | PDT | | + + + + + | Pulse | 50 | 01/05/2019 8:54 AM | | | | | PDT | | + + + + + | Temperature | 36.5 C (97.7 F) | 01/05/2019 8:54 AM | | | | | PDT [...] + + + + | Weight | 82.6 kg (182 lb) | 01/05/2019 8:54 AM | | | | | PDT | | + + + + + | Height | 181.6 cm (5' 11.5") | 01/05/2019 8:54 AM | | | | | PDT | | + + + + + | Body Mass Index | 25.03 | 01/05/2019 8:54 AM | | | | | PDT [...] + + documented as of this encounter Patient Instructions Patient Instructions Jessie Obrien Tactical Deception Plans Officer - 01/05/2019 9:00 AM PDTWe hope t hat you have experienced exceptional care today and that you found our service to be courteo us and helpful. If you have any questions or need medication refills you can send us a message/request wally gross Isai or call our office at [phone]. To reach Jessie Getyoo-C type extension [phone] To reach Amilcar Getyoo-C type extension [phone] If you are unable to reach a nurse during clinic hours, please leave a detailed message. We check our messages often and return calls in a timely manner during clinic hours. Orders for labs or imaging: Please remember that Mya will only call you if somethi ng of concern needs to be addressed, otherwise all result will be discussed at your next off ice visit. You can also look at your results on [facility]. If you are experiencing an emergency, please call 911 documented in this encounter Progress Notes Mya Frederick PA-C - 01/05/2019 9:00 AM PDTFormatting of this note might be diff erent from the original. Subjective: Patient ID: Beni Delcid is a 78 y.o. male. Rheumatological History Patient was diagnosed in 2011 with an initial presentation of acute shoulder, hand, hip and knee pain and swelling Serology: Negative RF and Negative anti-CCP Pertinent Imaging:OA changes Tried and failed oral DMARDs include: none Tried and failed biologic DMARDs include: none Tried and failed NSAIDs: none Past medical history does include: prostate cancer, HTN, CAD I Jessie MARIANO am personally taking down the notes in the presence of Mya Frederick PA-C. History of Present Illness Here for: Rheumatoid Arthritis Here for: Follow up Last seen: 09/01/2018 Any changes in overall health since last visit: Planning left TKR 02/12/2019 Current rheumatological medications: mobic 7.5mg daily, sulfasalazine 1gram daily and me thotrexte 10mg weekly Current rheumatological complaint: (RA) Patient is doing well, denies new rashes, chest kirby n and SOB. Patient complains of joint pain mainly in his knees. Morning stiffness in his reyes ds. No joint swelling. Location: hands, knees Morning stiffness lasting about 30 mins Quality: stiff Severity: mild Duration: chronic Timing:Morning>Evening Aggravated by:rest Relieved by:activity Denies: infection, fever and abdominal pain Patient's medications, allergies, past medical, surgical, social and family histories were obtained and reviewed as appropriate. Review of Systems Constitutional: Negative for fever. HENT: Negative for mouth sores and sore throat. Eyes: Negative for pain, discharge and redness. Respiratory: Negative for shortness of breath and wheezing. Cardiovascular: Negative for chest pain. Gastrointestinal: Negative for abdominal pain, constipation, diarrhea, nausea and vomiting. Genitourinary: Negative for dysuria. Musculoskeletal: Positive for arthralgias. Negative for joint swelling. Skin: Negative for rash and wound. Neurological: Negative for dizziness and headaches. IMya PA-C, reviewed the above ROS. Objective: BP 144/80 | Pulse 50 | Temp 36.5 C (97.7 F) | Ht 1.816 m (5' 11.5") | Wt 82.6 kg (1 82 lb) | BMI 25.03 kg/m Physical Exam Constitutional: He appears well-developed and well-nourished. HENT: Nose: No nasal deformity. Mouth/Throat: Uvula is midline and mucous membranes are normal. No oropharyngeal exudate. Eyes: Conjunctivae and EOM are normal. No scleral icterus. Cardiovascular: Normal rate and regular rhythm. Pulmonary/Chest: Effort normal and breath sounds normal. Musculoskeletal: See homunculus for tender and swollen joints. Sternoclavicular- Negative Fists- Able to make complete fists Elbows-Decreased extension by 5 degrees left Knees- crepitus B/L Ankles- negative Feet/MTPs- hallux valgus Lymphadenopathy: He has no cervical adenopathy. Neurological: He is alert. Skin: Skin is warm and dry. No rash noted. STEINBERG-28 (ESR): 1 (Remission) Lab Data: Lab Results Component Value Date WBC 8.13 01/05/2019 HGB 17.8 (H) 01/05/2019 HCT 51.8 (H) 01/05/2019 MCV 102.1 (H) 01/05/2019 LABPLAT 168 09/01/2018 PLT 171 01/05/2019 Lab Results Component Value Date GLUF 103 (H) 09/01/2018 GLUF 113 (H) 05/04/2018 NA 144 09/01/2018 K 4.1 09/01/2018 CL 108 09/01/2018 CALCIUM 9.6 09/01/2018 CO2 34 (H) 09/01/2018 ALT 29 09/01/2018 AST 31 09/01/2018 EGFR 59 (L) 09/01/2018 Lab Results Component Value Date CRP <0.3 09/01/2018 No components found for: SEDRATE Imaging: Laboratory results were reviewed in [facility] as well as chart notes and imaging from other prov ider(s) since their last rheumatology clinic visit, Please see the EMR for further detail. Assessment and Plan: Visit Diagnoses and Associated Orders: Problem List Items Addressed This Visit Musculoskeletal Primary osteoarthritis of both hands Taking Mobic 7.5mg daily. Planning a left TKA. Patient is taking OTC analgesics PRN for p ain. Discussed the utility of omega fatty acid and glucosamine/chondroitin supplements, weig ht loss and exercise. Discussed NSAID indications for useand its side effects. Patient aware that NSAIDs and even dumont-2 inhibitors may cause some side effects including stomach upset, GI bleed, hypertensio n, renal failure, liver problems. Patient advised regarding administration to offset these s allie effects including morning dosing, intake with food in stomach. Rheumatoid arthritis involving multiple joints (HCC) - Primary Responding well to current treatment plan. No change in treatment plan. Patient understan ds that treatment is termite control representative and if patient fails to continue regimen , the disease has pr opensity to flare. Rheumatological perspective the patient may remain on both of sulfasalazine and methotrexat e for his total knee replacement. Likely need to hold the Mobic Other High risk medication use Basic labs Monitored (CBC,CMP and ESR): Ordered Labs routinely ordered due to high risk medication use- Monitored for cytopenias, liver tox icity, renal dysfunction and disease activity. Hepatitis panelnegative 2011 This will be checked every 5 years based on patients risk or at time of biologic drug bagley e. Chest x-raysatisfactory 2011 No evidence of cardiopulmonary disease Risks and benefits of a treatment plan were explained to patient. Patient will follow up with their primary care physician in regards to non-rheumatological symptoms listed under review of systems. Patient was advised to contact our office if there are any change in their symptoms. This is a patient with multiple medical problems that require considerable time and reflect ion in order to properly evaluate and manage. Avoidance of adverse drug interactions and opt imization of treatment/therapy is the primary goal. Complex analysis and decision making was involved in today's visit. I,Mya Frederick PA-C, personally performed the services described in this documentation, with the scribe in my presence, and it is both accurate and complete. Dictation software Dragon/dictation services used, which may contain error for similar soun ding words even after review. Please do not hesitate to contact me for any clarification. Procedures: Procedures do cumented in this encounter Plan of Treatment +--------+ + + + + | Date | Type | Specialty | Care Team | Description | +--------+ + + + + | 04/28/ | Office | Cardiology | Tan Leighann, | | | 2019 | Visit | | MD [address] | | | | | | [place] | | | | | | [address] | | | | | | | | +--------+ + + + + | 05/11/ | Office | Orthopedic Surgery | Scot Wilson PT | | | 2019 | Visit | | [address] | | | | | | [place] [address] | | | | | | [phone] | | | | | | | | +--------+ + + + + | 05/11/ | Office | Orthopedic Surgery | Korey Hussein | | | 2019 | Visit | | MD Shan [address] | | | | | | [place] | | | | | | [address] | | | | | | | | +--------+ + + + + | 05/14/ | Office | Rheumatology | Mya Frederick | | | 2020 | Visit | | SHELLY Nguyen [address] | | | | | | [address] | | | | | | [place] [address] | | | | | | [phone] | | | | | | | | +--------+ + + + + | 06/06/ | Hospital | | Korey Hussein | Primary | | 2020 | Encounter | | MD [address] | 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[place] | right knee; Chronic | | | | | [address] | pain of right knee | | | | | | | +--------+ + + + + | 06/06/ | Surgery | | Korey Hussein | RIGHT TOTAL KNEE | | 2020 | | | MD Shan [address] | ARTHROPLASTY | | | | | [place] | | | | | | [address] | | | | | | | | +--------+ + + + + | 06/21/ | Office | Orthopedic Surgery | Jossue Haro | | | 2019 | Visit | | [address] | | | | | | [address] | | | | | | [place] [address] | | | | | | [phone] | | | | | | | | +--------+ + + + + documented as of this encounter Visit Diagnoses + + | Diagnosis | + + | Rheumatoid arthritis involving multiple joints (HCC) - Primary | + + | Primary osteoarthritis of both hands | + + | High risk medication use Encounter for long-term (current) use of other medications | + + documented in this encounter
--- OUTSIDE RECORDS SUMMARY | ~2019-04-15 | XMS | Encounter Summary ---
Demographics + + + | Address | [address] | | | [place] [address] | + + + | Home Phone | | + + + | Preferred Language | Unknown | + + + | Marital Status | | + + + | Scientology Affiliation | Unknown | + + + | Race | Unknown | + + + | Ethnic Group | Unknown | + + + Author + + + | Author | [facility] [place] | | | and [place] | + + + | Organization | [facility] [place] | | | and [place] | [...] Team Providers + +------+ + | Care Pen Ruler Operator Name | Role | Phone | [...] | +--------+ + + + + | 11/30/ | Hospital | [facility] | Joaquim Kc, | Scrotal hematoma | | 2018 - | Encounter | [facility] | [address] | (Primary Dx); | | | | [address] | [place] | Azotemia; | | 12/02/ | | [place] [address] | [address] | Leukocytosis, | | 2018 | | [phone] | | unspecified type; | | | | | Yan Pierre MD | [place]; Skin | | | | | [address] | necrosis (HCC) | | | | | [place] | | | | | | [address] | | | | | | | [...] following his initial surgery on 11/04/17. H maicol had a 2.5 cm [place] of necrosis on the anterior inferior scrotum [...] signed by: Tay Garrido, 12/02/2017 6:32 [facility] documented in this enc ounter Discharge Instructions [...] [place] | | | | | | [address] | | | | | | | | +--------+ + + + + | 05/11/ | Office | Orthopedic Surgery | Scot Wilson PT | | 2019 | Visit | | [address] | | | | | | [place] [address] | | | | | | [phone] | | | | | | | | +--------+ + + + + | 05/11/ | Office | Orthopedic Surgery | Korey Hussein | | | 2019 | Visit | | [address] | | | | | | [place] | | | | | | [address] | | | | | | | | +--------+ + + + + | 05/14/ | Office | Rheumatology | Mya Frederick | | | 2019 | Visit | | SHELLY Nguyen [address] | | | | | | [place] | | | | | | [place] [address] | | | | | | [phone] | | | | | | | | +--------+ + + + + | 06/06/ | Hospital | | Korey Hussein | Primary | | 2020 | Encounter | | [address] | 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[place] | right knee; Chronic | | | | | [address] | pain of right knee | | | | | | | +--------+ + + + + | 06/06/ | Surgery | | Korey Hussein | RIGHT TOTAL KNEE | 2019 | | | MD Shan [address] | ARTHROPLASTY | | | | | [place] | | | | | | [id number] | | | | | | | | +--------+ + + + + | 06/21/ | Office | Orthopedic Surgery | Jossue Haro | | | 2019 | Visit | | SHELLY [address] | | | | | | [address] | | | | | | [place] [address] | | | | | | [phone] | | | | | | | [...] [facility] | | | | | [facility] - | | | | | | LABORATORY | | + + + + + + | BUN | 19 (H) | 7 - 18 mg/dL | [facility] | | [facility] | | | | | | [facility] | | | | | | [facility] - | | | | | | LABORATORY | | + + + + + + | Creatinine | 1.24 | 0.60 - 1.30 | [facility] | | | | | mg/dL | [facility] | | | | | | [facility] | | | | | | CENTER - | | | | | | LABORATORY | | + + + + + + | eGFR if not | 57 (L)Comment: | >=60 | [facility] | | | | GLOMERULAR FILTRATION | mL/min/1.73m2 | [facility] | | | [place] | RATE,ESTIMATED | | MEDICAL | | | | mL/min/1.37t6Wqqc than | | CENTER - | | [...] [address] | [place] | [phone] | | [facility] | | [address] | | | - LABORATORY | | [...] [address] | [place] | [phone] | | [facility] | | [address] | | | - LABORATORY | | | | + + + + + Culture, Anaerobic (12/01/2017 10:49 AM PDT) + + + + + + | Component | Value | Ref Range | Performed | Pathologist | | | | | At | Signature | + + + + + + | Culture | No anaerobes isolated. | | [facility] | | | | [...] | + + + + + | [facility] | [address] | [place] | [phone] | | [facility] | | [address] | | | - LABORATORY | | | | + + + + + Culture, Wound, Smear (12/01/2017 10:49 AM PDT) + + + + + + | Component | Value | Ref Range | Performed | Pathologist | | | | | At | Signature | + + + + + + | Culture | 3+ Escherichia coli | | [facility] | | | | | | [facility] | | | | | | MEDICAL | | | | | | CENTER - | | | | | | LABORATORY | | + + + + + + | Culture | 1+ Enterococcus | | [facility] | | | | faecalisComment: | | [facility] | | | | Combination therapy of [...] | | | amycolatumComment: No | | [facility] | | | | interpretive standards | | MEDICAL | | | | available for | | CENTER - | | | | sensitivities. | | LABORATORY | | + + + + + + | Gram Stain | 3+ White Blood Cells | | [facility] | | | Result | | | [facility] | | [...] [address] | [place] | [phone] | | [facility] | | [address] | | | - LABORATORY | | [...] (H) | 7 - 18 mg/dL | [facility] | | | | | | [facility] | | | | | | MEDICAL | | | | | | CENTER - | | | | | | LABORATORY | | + + + + + + | Creatinine | 1.20 | 0.60 - 1.30 | [facility] | | | | | mg/dL | [facility] | | | | | | MEDICAL | | | | | | CENTER - | | | | | | LABORATORY | | + + + + + + | eGFR if not | 59 (L)Comment: | >=60 | [facility] | | | | GLOMERULAR FILTRATION | mL/min/1.73m2 | [facility] | | | [place] | RATE,ESTIMATED | | MEDICAL | | | | mL/min/1.35c6Ldnh than | | CENTER - | | [...] | 8.4 | 8.3 - 10.5 | [facility] | [...] | | bulin Ratio | | | [facility] | [...] [address] | [place] | [phone] | | [facility] | | [address] | | | - LABORATORY | | [...] | | | | | g/dL | . [facility] | | | | | | [...] [address] | [place] | [phone] | | [facility] | | [address] | | | - LABORATORY | | | | + + + + + Surgical Pathology Exam (12/01/2017 12:00 AM PDT) + + | Specimen | + + | | + + + + + | Narrative | Performed At | + + + | SPECIMEN(S): A SCROTAL WALL SPECIMEN SOURCE: A. SCROTAL WALL | [place] [facility] | | CLINICAL HISTORY: Scrotal bleeding and weeping. Incision and | INCYTE | | drainage, scrotum. FINAL PATHOLOGIC DIAGNOSIS: Scrotal wall, | | | incision and drainage: - Blood clot and purulent material in | | | association with focally necrotic soft tissue. COMMENT: The | | | histologic features are compatible with abscess. JVR:[facility]:C2NR | | | MICROSCOPIC EXAMINATION: Histologic sections [...] | | | Entirely submitted in (A1). am:BES:jhonathan PERFORMING LABORATORY: | | | The technical component was performed by [facility], [address] | | | [facility] [address] (Fabric Awning Repairer: Stephanie Courtney MD; | | | CLIA# [id number]). Professional interpretation was performed by | | | [facility], [facility], [address] | | | [place] [address] (Fabric Awning Repairer: Abelardo | | | Tere Thacker). Diagnostician: [...] - 1.030 | [facility] | | | [place] | | | [facility] | | [...] ST. | [address] | [place], [place] | [phone] | | [facility] | | [address] | | | - LABORATORY | | [...] | Top Tube | | | [facility] | | [...] [address] | [place] | [phone] | | [facility] | | [address] | | | - LABORATORY | | | | + + + + + Extra Gold Top Tube (11/30/2017 7:03 PM PDT) + +-------+ + + + | Component | Value | Ref Range | Performed | Pathologist | | | | | At | Signature | + +-------+ + + + | Extra Gold | Done | | [facility] | | [...] [address] | [place] | [phone] | | [facility] | | [address] | | | - LABORATORY | | [...] | | Top Tube | | | [facility] | | | | | | [...] [address] | [place] | [phone] | | [facility] | | [address] | | | - LABORATORY | | [...] | | | Lavender | | | [facility] | | | Top Tube | | [...] [address] | [place] | [phone] | | [facility] | | [address] | | | - LABORATORY | | [...] | | | | | mg/dL | [facility] | | | | | | MEDICAL | | | | | | CENTER - | | | | | | LABORATORY | | + + + + + + | eGFR if not | 48 (L)Comment: | >=60 | [facility] | | | | GLOMERULAR FILTRATION | mL/min/1.73m2 | [facility] | | | [place] | RATE,ESTIMATED | | MEDICAL | | | | mL/min/1.96u3Jvuk than | | CENTER - | | [...] | | | | | mg/dL | [facility] | | | | | [...] | + + + + + | [facility] | [address] | [place] | [phone] | | [facility] | | [address] | | | - LABORATORY | | [...] [facility] | | | | | | [facility] | | | | | | MEDICAL | | | | | | CENTER - | | | | | | LABORATORY | | + + + + + + | MCV | 101.3 (H) | 83.0 - 101.0 fL | [facility] | | | | | | [facility] | | | | | | [...] | 0.10 | 0.00 - 0.10 | [facility] | [...] [address] | [place] | [phone] | | [facility] | | [address] | | | - LABORATORY | | | | + + + + + ECG - EXTERNAL SCAN (10/21/2017 12:00 AM PDT) + + + | Narrative | Performed At | + + + | Ordered by an | | | unspecified provider. 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 | + + | Azotemia Other abnormal blood chemistry | + + | Leukocytosis, unspecified type | + + | Chills Chills (without fever) | + + | Skin necrosis (HCC) Other specified disorder of skin | + + documented in this encounter Administered Medications + +--------+---------+------+------+------+ [...] | + +---+ + +-------+ +--------+---+---+ | docusate sodium (COLACE) | Given | 12/02/19 | 100 mg | | | | capsule 100 mg 100 mg, Oral, 2 | | 18 8:42 | | | | | TIMES DAILY, First dose on Sun | | AM PDT | | | | | 11/30/17 at 2245, Hold for loose | | | | | | | stools, | | | | | | + +-------+ +--------+---+---+ +-------+ +--------+---+---+ | Given | 12/01/19 | 100 mg | | | | | 18 10:47 | | | | | | PM PDT | | | | +-------+ +--------+---+---+ +---+---+ | | | +---+---+ + +-------+ +--------+---+---+ | docusate sodium (COLACE) | Given | 12/02/19 | 100 mg | | | | capsule 100 mg 100 mg, Oral, 2 | | 18 8:25 | | | | | TIMES DAILY, First dose on Mon | | PM PDT | | | | | 12/01/17 at 2100, First line agent | | | | | | | for constipation, Post-op/Phase | | | | | | | II | | | | | | + +-------+ +--------+---+---+ +---+---+ | | | +---+---+ + + + +---+-------+---+ | lactated ringers (LR) infusion | Rate/Dos | 12/02/19 | | 100 | | | at 100 mL/hr, Intravenous, | e Change | 18 8:20 | | mL/hr | | | CONTINUOUS, Starting 11/30/17 | | AM PDT | | | | | at 2245 | | | | | | + + + +---+-------+---+ +---------+ +---+-------+---+ | New Bag | 12/02/19 | | 125 | | | | 18 6:10 | | mL/hr | | | | AM PDT | | | | +---------+ +---+-------+---+ | New Bag | 12/01/19 | | 125 | | | | 18 10:49 | | mL/hr | | | | PM PDT | | | | +---------+ +---+-------+---+ +---+---+ | | | +---+---+ + + + +---+ +---+ | lactated ringers (LR) infusion | Rate/Dos | 12/02/19 | | 75 mL/hr | | | at 75 mL/hr, Intravenous, | e Change | 18 8:15 | | | | | CONTINUOUS, Starting Fri12/01/17 | | PM PDT | | | | | at 2014, Post-op/Phase II | | | | | | + + + +---+ +---+ + +---+ | | | + +---+ [...] +---+ | | | + +---+ + +---------+ +--------+-------+---+ | levoFLOXacin in dextrose | New Bag | 12/01/19 | 500 mg | 100 | | | (LEVAQUIN) IVPB 500 mg 500 mg, | | 18 9:16 | | mL/hr | | | Intravenous, Administer over 60 | | PM PDT | | | | | Minutes, ONCE, 11/30/17 at | | | | | | | 2105, For 1 dose, Indications: | | | | | | | Post-Operative Wound Infection | | | | | | + +---------+ +--------+-------+---+ +---+---+ | | | +---+---+ + +---------+ +--------+-------+---+ | levoFLOXacin in dextrose | New Bag | 12/02/19 | 750 mg | 100 | | | (LEVAQUIN) IVPB 750 mg 750 mg, | | 18 8:25 | | mL/hr | | | Intravenous, Administer over 90 | | PM PDT | | | | | Minutes, DAILY, First dose on Mon | | | | | | | 12/01/17 at 2100, Post-op/Phase | | | | | | | II, Indications: PURULENT SKIN | | | | | | | AND SOFT TISSUE INFECTION | | | | | | + +---------+ +--------+-------+---+ + +---+ | | | + +---+ [...] | pantoprazole (PROTONIX) DR | Given | 12/02/19 | 40 mg | | | | tablet 40 mg 40 mg, Oral, DAILY | | 18 6:09 | | | | | BEFORE BREAKFAST, First dose on | | AM PDT | | | | | 9/3/18 at 0630, Indication: | | | | | | | GERD | | | | | | + +-------+ +-------+---+---+ +---+---+ | | | +---+---+ [...] | | TIMES DAILY, First dose on Tu | | | 12/02/17 at 0900, May [...]
--- OUTSIDE RECORDS SUMMARY | ~2019-04-15 | XMS | Encounter Summary ---
Demographics + + + | Address | [address] | | | [place] [address] | + + + | Home Phone | | + + + | Preferred Language | Unknown | + + + | Marital Status | | + + + | Protestant Affiliation | Unknown | + + + | Race | Unknown | + + + | Ethnic Group | Unknown | + + + Author + + + | Author | [facility] | | | and [place] | + + + | Organization | [facility] | | | and [place] | [...] Team Providers + +------+ + | Care Entry Level Assistant Manager Name | Role | Phone | + +------+ + | Parminder Malagon MD | PCP | | + +------+ + Encounter Details +--------+---------+ + + + | Date | Type | Department | Care Team | Description | +--------+---------+ + + + | 01/05/ | Office | [facility] | Mya Frederick | Rheumatoid arthritis | | 2019 | Visit | RHEUMATOLOGY [address] | SHELLY [address] | involving multiple | | | | [address] | [address] | joints (HCC) | | | | [place] | [place] [address] | (Primary Dx); | | | | [address] | [phone] | Primary | | | | [phone] | | osteoarthritis of | | | [...] encounter Patient Instructions Patient Instructions Jessie Obrien Interior Design Faculty Member - 01/05/2019 9:00 AM PDTWe hope t hat you have experienced exceptional care today and that you found our service to be courteo us and helpful. If you have any questions or need medication refills you can send us a message/request wally gross Blipify or call our office at [phone]. To reach Jessie SlidePay-C type extension [phone] To reach Amilcar SlidePay-C type extension [phone] If you are unable to reach a [...] can also look at your results on atHomestars. If you are experiencing an emergency, please [...] SEDRATE Imaging: Laboratory results were reviewed in [facility] as well as chart notes and imaging [...] plan. 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 continue regimen [...] [place] | | | | | | [address] | | | | | | | | +--------+ + + + + | 05/11/ | Office | Orthopedic Surgery | Scot Wilson PT | | | 2019 | Visit | | [address] | | | | | | [place] [address] | | | | | | [phone] | | | | | | | | +--------+ + + + + | 05/11/ | Office | Orthopedic Surgery | Korey Hussein | | | 2019 | Visit | | MD Shan [address] | | | | | | [place] | | | | | | [address] | | | | | | | | +--------+ + + + + | 05/14/ | Office | Rheumatology | Mya Frederick | | | 2020 | Visit | | SHELLY Nguyen [address] | | | | | | [address] | | | | | | [place] [address] | | | | | | [phone] | | | | | | | | +--------+ + + + + | 06/06/ | Hospital | | Korey Hussein | Primary | | 2020 | Encounter | | [address] | 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[place] | right knee; Chronic | | | | | [address] | pain of right knee | | | | | | | +--------+ + + + + | 06/06/ | Surgery | | Korey Hussein | RIGHT TOTAL KNEE | | 2020 | | | MD Shan [address] | ARTHROPLASTY | | | | | [place] | | | | | | [address] | | | | | | | | +--------+ + + + + | 06/21/ | Office | Orthopedic Surgery | Jossue Haro | | | 2019 | Visit | | [address] | | | | | | [address] | | | | | | [place] [address] | | | | | | [phone] | | | | | | | [...]
--- OUTSIDE RECORDS SUMMARY | ~2019-04-15 | XMS | Encounter Summary ---
Demographics + + + | Address | [address] | | | [place] [address] | + + + | Home Phone | | + + + | Preferred Language | Unknown | + + + | Marital Status | | + + + | Congregation Affiliation | Unknown | + + + | Race | Unknown | + + + | Ethnic Group | Unknown | + + + Author + + + | Author | [facility] | | | and [place] | + + + | Organization | [facility] | | | and [...] Team Providers + +------+ + | Care Coach Driver Name | Role | Phone | + +------+ + PCP | Unavailable | + +------+ + Encounter Details +--------+ + + + + | Date | Type | Department | Care Team | Description | +--------+ + + + + | 03/17/ | Hospital | [facility] | Conversion | Pain | | 2013 | Encounter | CONVERSION [address]P [address] | Transaction, | | | | | [address] | Provider Unknown | | | | | [place] | | | | | | [address] | | | | | | [phone] | | | +--------+ + + + [...] | | | | | [address] [place] | | | | | | [address] | | | | | | | | +--------+ + + + + | 05/11/ | Office | Orthopedic Surgery | Scot Wilson PT | | | 2019 | Visit | | [address] | | | | | | [place] [address] | | | | | | [phone] | | | | | | | | +--------+ + + + + | 05/11/ | Office | Orthopedic Surgery | Korey Husseni | | | 2019 | Visit | | [address] | | | | | | [place] | | | | | | [address] | | | | | | | | +--------+ + + + + | 05/14/ | Office | Rheumatology | Mya Frederick | | | 2020 | Visit | | SHELLY Nguyen [address] | | | | | | [place] | | | | | | [place] [address] | | | | | | [phone] | | | | | | | | +--------+ + + + + | 06/06/ | Hospital | | Korey Hussein | Primary | | 2019 | Encounter | | [address] | 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[place] | right knee; Chronic | | | | | [address] | pain of right knee | | | | | | | +--------+ + + + + | 06/06/ | Surgery | | Korey Hussein | RIGHT TOTAL KNEE | | 2020 | | | [address] | ARTHROPLASTY | | | | | [place] | | | | | | [address] | | | | | | | | +--------+ + + + + | 06/21/ | Office | Orthopedic Surgery | Jossue Haro | | | 2019 | Visit | | [address] | | | | | | [address] | | | | | | [place] [address] | | | | | | [phone] | | | | | | | | +--------+ + + + + documented as of this encounter Procedures + +--------+ + + + | Procedure Name | Priori | Date/Time | Associated Diagnosis | Comments | | | ty | | | | + +--------+ + + + | MRI BRAIN W WO | Routin | 02/10/2014 | | Results for this | | CONTRAST | e | 9:50 PM | | procedure are in the | | | | PST | | results section. | + +--------+ + + + documented in this encounter Results MRI Brain w wo Contrast (02/10/2014 9:50 PM PST) + + | Specimen | + + | | + + + + + | Narrative | Performed At | + + + | This is a non-reportable procedure without a radiologist report and | | | is used for image storage only | | + + + + + | Procedure Note | + + | Oz Liu - 11/13/2018 10:40 AM PDT This is a non-reportable procedure | | without a radiologist report and isused for image storage only | + + documented in this encounter Visit Diagnoses + + | Diagnosis | + + | Pain Generalized pain | + + documented in this encounter"
--- OUTSIDE RECORDS SUMMARY | ~2019-04-15 | XMS | Encounter Summary ---
Demographics + + + | Address | [address] | | | [place] [address] | + + + | Home Phone | | + + + | Preferred Language | Unknown | + + + | Marital Status | | + + + | Baptist Affiliation | Unknown | + + + | Race | Unknown | + + + | Ethnic Group | Unknown | + + + Author + + + | Author | [facility] | | | and [place] | + + + | Organization | [facility] | | | and [...] Team Providers + +------+ + | Care Supervisor [employer] Name | Role | Phone | + [...] | | | unspecified | | [facility] [address] | | | | | chronicity | | [place] | | | | | Primary | | [address] Phone: | | | | | osteoarthrit | | [phone] | | | | | is of left | | Fax: | | | | | knee | | [phone] | | | | | Procedures | | | | | | | [place] TOTAL | | | | | | [...] Description | +--------+---------+ + + + | 02/12/ | Surgery | [facility] | Korey Hussein | LEFT TOTAL KNEE | | 2019 | | MED CTR OR INTRA OP | MD Shan [address] | ARTHROPLASTY | | | | [address] | [place] | | | | | [place] | [address] | | | | | [address] | | | | | | [phone] | | | +--------+---------+ + + + [...] controlled. Hospital Course: Pt was admitted to [facility] for a left total knee arthropla sty. [...] 168/76 Pulse: 60 64 63 70 Resp: 18 18 18 20 Temp: 36.1 C (97 F) 36.7 C (98 F) 35.8 C (96.5 F) 36.5 C (97.7 F) TempSrc: Oral Oral Oral Oral SpO2: 96% 95% 98% 92% Weight: Height: @[id number]@ No results found for this or any [...] BY MOUTH ONCE DAILY 90 tablet 3 Lxwwpobkalx-Vixxmmthr-Fsc C-Mn (GLUCOSAMINE 1500 COMPLEX PO) Take 1 [...] mg by mouth Daily. Multiple Minerals-Vitamins (CALCIUM AQFBQEQ-AWT-VLWAWCUW PO) Take 1 tablet by mouth yunier [...] and intact to the left lower extremity. Janene are int act to the left anterior [...] by mouth daily. aka: VITAMIN C CALCIUM KTVJXHX-YEG-VSDTOBVQ PO Take 1 tablet by mouth daily. [...] PA-C 02/14/19. This not was dictated using [employer] Voice recognition system. There may be minor [...] mg of acetaminophen (Tylenol) per day. Hydrocodone-acetaminophen ([place] ) and Oxycodone-acetaminophen (Percocet) have 325 mg [...] mg of acetaminophen (Tylenol) per day. Hydrocodone-acetaminophen ([place] ) and Oxycodone-acetaminophen (Percocet) have 325 mg [...] red in back of calf PE or NC: sudden chest pain or trouble breathing Stroke: [...] and help the stool stay soft and nwhj-eh-kzuf. Remember to drink plenty of fluids and eat fiber-containing foods. If you do not have a bowel movement within two days of returning home, add milk of magnesia 30 mL once each night and/or Miralax one capful (17 grams) dissolved in half a cup of water once daily for 3 days. These are available jcaw-eeb-ieqjqda at any drugstore. If you are still [...] | | | | | | | ZXSDMBJ-LQU-VHINVQOT | | | | | | | [...] MD - 2018 9:04 AM PST Beni Delcid SUBJECTIVE: POD # 1 No complaints, taking Tylenol only for pain. Has already been up to the bathroom. OBJECTIVE: Vitals with Comments 02/13/2019 02/13/2019 02/13/2019 02/13/2019 SYSTOLIC - 125 - 111 DIASTOLIC - 58 - 55 Pulse 88 75 71 64 Temp - 97.7 - 96.3 Resp 18 Weight - - - - Height - - - - SPO2 95 97 98 99 BMI - - - - Pain Score - - - - Pain Loc - - - - Pain Edu? - - - - Intake/Output Summary (Last 24 hours) at 02/13/2019903 Last data filed at 02/13/2019 05 Gross per 24 hour Intake 3470 ml [...] [place] | | | | | | [address] | | | | | | | | +--------+ + + + + | 05/11/ | Office | Orthopedic Surgery | Scot Wilson PT | | | 2019 | Visit | | [address] | | | | | | [place] [address] | | | | | | [phone] | | | | | | | | +--------+ + + + + | 05/11/ | Office | Orthopedic Surgery | Korey Hussein | | | 2019 | Visit | | [address] | | | | | | [place] | | | | | | [address] | | | | | | | | +--------+ + + + + | 05/14/ | Office | Rheumatology | Mya Frederick | | | 2019 | Visit | | SHELLY Nguyen [address] | | | | | | [address] | | | | | | [place] [address] | | | | | | [phone] | | | | | | | | +--------+ + + + + | 06/06/ | Hospital | | Korey Hussein | Primary | | 2019 | Encounter | | [address] | 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[place] | right knee; Chronic | | | | | [address] | pain of right knee | | | | | | | +--------+ + + + + | 06/06/ | Surgery | | Korey Hussein | RIGHT TOTAL KNEE | | 2019 | | | [address] | ARTHROPLASTY | | | | | [place] | | | | | | [address] | | | | | | | | +--------+ + + + + | 06/21/ | Office | Orthopedic Surgery | Jossue Haro | | | 2020 | Visit | | [address] | | | | | | [address] | | | | | | [place] [address] | | | | | | [phone] | | | | | | | [...] [address] | [place] | [phone] | | [facility] | | [address] | | | - LABORATORY | | [...] | | | | | mmol/L | [facility] | | | | | | MEDICAL | | | | | | CENTER - | | | | | | LABORATORY | | + + + + + + | K | 3.5 | 3.4 - 5.1 | [facility] | | | | | mmol/L | [facility] | | | | [...] | 1.24 | 0.70 - 1.30 | [place] | | | | | mg/dL | [...] mL/min/1.73m2 | [facility] | | | [place] | RATE,ESTIMATED | | MEDICAL | | | | mL/min/1.22b4Xhru than | | CENTER - | | [...] + + | [address] | [address] | [place] | [phone] | | [facility] | | [address] | | | - LABORATORY | | | | + + + + + XR Knee Left 1 - 2 Vw (02/12/2019 11:47 AM PST) + + | Specimen | [...] hardware complication. Anterior | | | cutaneous janene with expected subcutaneous air and edema. | [...] suggest hardware | | complication. Anterior cutaneous janene with expected subcutaneous air and | | [...] | | | + +--------+ + +------+------+ +-------+ + +---+---+ | Given | 02/14/20 [...] HOURS PRN, Itching, Starting | | | 02/12/19 at 1257, Oral route | | | is preferred., Post-op/Phase II | | + +---+ | | | + +---+ + +-------+ +------+---+---+ | folic acid tablet 1 mg 1 mg, | Given | 02/15/20 | 1 mg | | | | Oral, DAILY, First dose on Sat | | 19 9:48 | | | [...] | mL/hr | | | CONTINUOUS, Starting Fri02/12/19 | | PM PST | | | [...] +---+---+ | | | +---+---+ + +-------+ +--------+---+ + | ropivacaine (NAROPIN) 2 mg/mL | Given | 02/13/20 | 59 mLs | | Surgical | | (0.2%) 58 mL with EPINEPHrine 1 | | 19 11:03 | | | Site | | mg/mL 0.3 mg, ketorolac (TORADOL) | | AM PST | | | | | 30 mg/mL 30 mg Optesia Mixture | | | | | | | Infiltration, INDUSTRIAL CHEMICALS SUPERVISOR, Starting | | | | | | | Fri02/12/19 at 0951, For 1 dose, | | | | | | | Pre-op | [...] +---+---+ | | | +---+---+ + +-------+ +-----+---+ + | vancomycin injection PRN, | Given | 02/13/20 | 2 g | | Surgical | | Starting 02/12/19 at 1024, | | 19 10:53 | | | Site | | Intra-op | | AM PST | | | | + +-------+ +-----+---+ + +---+---+ | | | +---+---+ documented in this encounter
--- OUTSIDE RECORDS SUMMARY | ~2019-04-15 | XMS | Encounter Summary ---
Demographics + + + | Address | [address] | | | [place] [address] | + + + | Home Phone | | + + + | Preferred Language | Unknown | + + + | Marital Status | | + + + | Sikhism Affiliation | Unknown | + + + | Race | Unknown | + + + | Ethnic Group | Unknown | + + + Author + + + | Author | [facility] | | | and [place] | + + + | Organization | [facility] | | | and [place] [...] Team Providers + +------+ + | Care Immigration Specialist Name | Role | Phone | + +------+ + | Parminder Malagon MD | PCP | | + +------+ + Encounter Details +--------+ + + + + | Date | Type | Department | Care Team | Description | +--------+ + + + + | 04/08/ | Orders Only | [facility] | Korey Hussein | | | 2019 | | ORTHOPEDIC SURGERY | MD Shan [address] | | | | | [address] [facility] | [place] | | | | | [place] | [address] | | | | | [address] | | | | | | [phone] | | | +--------+ + + + [...] [place] | | | | | | [address] | | | | | | | | +--------+ + + + + | 05/11/ | Office | Orthopedic Surgery | Scot Wilson PT | | | 2019 | Visit | | [address] | | | | | | [place] [address] | | | | | | [phone] | | | | | | | | +--------+ + + + + | 05/11/ | Office | Orthopedic Surgery | Korey Hussein | | | 2019 | Visit | | [address] | | | | | | [place] | | | | | | [address] | | | | | | | | +--------+ + + + + | 05/14/ | Office | Rheumatology | Mya Frederick | | | 2019 | Visit | | SHELLY Nguyen [address] | | | | | | [address] | | | | | | [place] [address] | | | | | | [phone] | | | | | | | | +--------+ + + + + | 06/06/ | Hospital | | Korey Hussein | Primary | | 2019 | Encounter | | [address] | 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[place] | right knee; Chronic | | | | | [address] | pain of right knee | | | | | | | +--------+ + + + + | 06/06/ | Surgery | | Korey Hussein | RIGHT TOTAL KNEE | | 2019 | | | MD Shan [address] | ARTHROPLASTY | | | | | [place] | | | | | | [address] | | | | | | | | +--------+ + + + + | 06/21/ | Office | Orthopedic Surgery | Jossue Haro | | | 2019 | Visit | | [address] | | | | | | [address] | | | | | | [place] [address] | | | | | | [phone] | | | | | | | | +--------+ + + + + documented as of this encounter Visit Diagnoses Not on filedocumented in this encounter"
--- OUTSIDE RECORDS SUMMARY | ~2019-04-15 | XMS | Encounter Summary ---
Demographics + + + | Address | [address] | | | [place] [address] | + + + | Home Phone | | + + + | Preferred Language | Unknown | + + + | Marital Status | | + + + | Mu-Ism Affiliation | Unknown | + + + | Race | Unknown | + + + | Ethnic Group | Unknown | + + + Author + + + | Author | [facility] | | | and [place] | + + + | Organization | [facility] | | | [...] Team Providers + +------+ + | Care Vacuum Pan Tender Name | Role | Phone | + [...] Description | +--------+--------+ + + + | 11/15/ | Refill | [facility] | Mya Frederick | Medication Refill | | 2019 | | RHEUMATOLOGY [address] | [address] | | | | | [address] | [address] | | | | | [place], [place] | [place] [address] | | | | | [address] | [phone] | | | | | [phone] | | | +--------+--------+ + + + [...] | | | | | [address] [place] | | | | | | [address] | | | | | | | | +--------+ + + + + | 05/11/ | Office | Orthopedic Surgery | Scot Wilson PT | | | 2019 | Visit | | [address] | | | | | | [place] [address] | | | | | | [phone] | | | | | | | | +--------+ + + + + | 05/11/ | Office | Orthopedic Surgery | Korey Hussein | | | 2019 | Visit | | [address] | | | | | | [place] | | | | | | [address] | | | | | | | | +--------+ + + + + | 05/14/ | Office | Rheumatology | Mya Frederick | | | 2019 | Visit | | SHELLY Nguyen [address] | | | | | | [address] [address] | | | | | | [place] [address] | | | | | | [phone] | | | | | | | | +--------+ + + + + | 06/06/ | Hospital | | Korey Hussein | Primary | | 2019 | Encounter | | [address] | 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[place] | right knee; Chronic | | | | | [address] | pain of right knee | | | | | | | +--------+ + + + + | 06/06/ | Surgery | | Korey Hussein | RIGHT TOTAL KNEE | | 2019 | | | [address] | ARTHROPLASTY | | | | | [place] | | | | | | [address] | | | | | | | | +--------+ + + + + | 06/21/ | Office | Orthopedic Surgery | Jossue Haro | | | 2019 | Visit | | [address] | | | | | | [address] | | | | | | [place] [address] | | | | | | [phone] | | | | | | | | +--------+ + + + + documented as of this encounter Visit Diagnoses Not on filedocumented in this encounter"
--- OUTSIDE RECORDS SUMMARY | ~2019-04-15 | XMS | Clinical Summary ---
Demographics + + + | Address | [address] | | | [place] [address] | + + + | Home Phone | | + + + | Preferred Language | Unknown | + + + | Marital Status | | + + + | Evangelical Affiliation | Unknown | + + + | Race | Unknown | + + + | Ethnic Group | Unknown | + + + Author + + + | Author | [facility] (Historical as of | | | 11-14-18) | + + + | Organization | [facility] (Historical as of | | | 11-14-18) | + + + | Address | Unknown | + + + | Phone | Unavailable | + + + Support + + +---------+ + | Name | Relationship | Address | Phone | + + +---------+ + | Tami Sullivan | ECON | Unknown | | + + +---------+ + Care Team Providers + +------+ + | Care International Relations Professor Name | Role | Phone | + +------+ + | Parminder Malagon MD | PP | | + +------+ + Allergies + + + + + + | Active Allergy | Reactions | Severity | Noted | Comments | | | | | Date | | + + + + + + | Penicillins | Hives | High | 01/20/20 | | | | | | 15 | | + + + + + + Current Medications + + +--------+---------+------+------+-------+ | Prescription | Sig. | Disp. | Refills | Star | End | Statu | | | | | | t | Date | s | | | | | | Date | | | + + +--------+---------+------+------+-------+ | | Take 2 tablets by | | | 10/0 | | Activ | | lisinopril-hydrochlo | mouth daily. | | | 6/20 | | e | | rothiazide | | | | 15 | | | | (ZESTORETIC) 20-12.5 | | | | | | | | MG per tablet | | | | | | | + + +--------+---------+------+------+-------+ | metoprolol | Take 50 mg by mouth | | | 10/0 | | Activ | | (LOPRESSOR) 50 MG | daily. | | | 6/20 | | e | | tablet | | | | 15 | | | + + +--------+---------+------+------+-------+ | omeprazole | Take 20 mg by mouth | | | 10/1 | | Activ | | (PRILOSEC) 20 MG | every morning before | | | 320 | | e | | capsule | breakfast. | | | 15 | | | + + +--------+---------+------+------+-------+ | pravastatin | Take 20 mg by mouth | | | 10/0 | | Activ | | (PRAVACHOL) 40 MG | daily. | | | 11/17 | | e | | tablet | | | | 15 | | | + + +--------+---------+------+------+-------+ | folic acid | TAKE ONE TABLET BY | 90 | 3 | 11/30 | | Activ | | (FOLVITE) 1 MG | MOUTH ONCE DAILY | tablet | | 07/18 | | e | | tabletIndications: | | | | 18 | | | | Rheumatoid arthritis | | | | | | | | of multiple sites | | | | | | | | without rheumatoid | | | | | | | | factor (HCC) | | | | | | | + + +--------+---------+------+------+-------+ | potassium chloride | Take 20 mEq by mouth | | | | | Activ | | (KLOR-CON) 20 MEQ | daily. | | | | | e | | packet | | | | | | | + + +--------+---------+------+------+-------+ | ascorbic acid | Take 1,000 mg by | | | | | Activ | | (VITAMIN C) 1000 MG | mouth daily. | | | | | e | | tablet | | | | | | | + + +--------+---------+------+------+-------+ | vitamin E 400 UNIT | Take 400 Units by | | | | | Activ | | capsule | mouth daily. | | | | | e | + + +--------+---------+------+------+-------+ | B Complex-C (SUPER | Take 1 tablet by | | | | | Activ | | B COMPLEX PO) | mouth daily. | | | | | e | + + +--------+---------+------+------+-------+ | | Take 1 tablet by | | | | | Activ | | Glucosamine-Chondroi | mouth daily. | | | | | e | | t-Vit C-Mn | | | | | | | | (GLUCOSAMINE 1500 | | | | | | | | COMPLEX PO) | | | | | | | + + +--------+---------+------+------+-------+ | Multiple | Take 1 tablet by | | | | | Activ | | Minerals-Vitamins | mouth daily. | | | | | e | | (CALCIUM | | | | | | | | [id number] | | | | | | | | PO) | | | | | | | + + +--------+---------+------+------+-------+ | aspirin 81 MG | Take 81 mg by mouth | | | | | Activ | | tablet | every other day. | | | | | e | + + +--------+---------+------+------+-------+ | meloxicam (MOBIC) | Take 1 tablet by | 90 | 3 | 02/0 | | Activ | | 7.5 MG tablet | mouth daily. | tablet | | 4/20 | | e | | | | | | 19 | | | + + +--------+---------+------+------+-------+ | methotrexate 2.5 | Take 4 tablets by | 54 | 0 | 04/0 | | Activ | | MG | mouth once a week. | tablet | | /20 | | e | | tabletIndications: | | | | 19 | | | | Rheumatoid Arthritis | | | | | | | + + +--------+---------+------+------+-------+ | sulfaSALAzine | Take 1 tablet by | 180 | 0 | 05/3 | | Activ | | (AZULFIDINE) 500 MG | mouth 2 (two) times | tablet | | 0/20 | | e | | tabletIndications: | daily. | | | 19 | | | | Rheumatoid arthritis | | | | | | | | involving multiple | | | | | | | | joints (HCC) | | | | | | | + + +--------+---------+------+------+-------+ | methotrexate 2.5 | TAKE 4 TABLETS BY | 54 | 0 | 06/1 | | Activ | | MG | MOUTH ONCE A WEEK | tablet | | 10/17 | | e | | tabletIndications: | | | | 19 | | | | Rheumatoid Arthritis | | | | | | | + + +--------+---------+------+------+-------+ Active Problems + + + | Problem | Noted Date | + + + | Abnormal ECG | 04/22/2018 | + + + | Scrotal hematoma | 11/30/2017 | + + + | Rheumatoid arthritis involving multiple joints (HCC) | 12/30/2016 | + + + + + | Last Assessment & Plan: Responding well to current treatment | | plan. No change in treatment plan. Patient understands that | | treatment is prison and if patient fails to continue regimen , | | the disease has propensity to flare.Methotrexate threshold is | | 10mg weekly no lower. | + + + + + | Primary osteoarthritis of both hands | 12/30/2016 | + + + + + | Last Assessment & Plan: Patient has done well and will | | continue to use mobic PRN. Discussed NSAID indications for use | | and its side effects. Patient aware that NSAIDs and even dumont-2 | | inhibitors may cause some side effects including stomach upset, | | GI bleed, hypertension, renal failure, liver problems. Patient | | advised regarding administration to offset these side effects | | including morning dosing, intake with food in stomach. | + + + + + | High risk medication use | 12/30/2016 | + + + + + | Last Assessment & Plan: Basic labs Monitored (CBC,CMP and | | ESR): OrderedLabs routinely ordered due to high risk medication | | use- Monitored for cytopenias, liver toxicity, renal dysfunction | | and disease activity. Hepatitis panel negative 2011 This will be | | checked every 5 years based on patients risk or at time of | | biologic drug change. Chest x-ray satisfactory 2011 No evidence | | of cardiopulmonary disease | + + Family History + + +------+ + | Medical History | Relation | Name | Comments | + + +------+ + | Heart defect | Brother | | | + + +------+ + + +------+ + + | Relation | Name | Status | Comments | + +------+ + + | Brother | | | heart surgery | + +------+ + + | Brother | | Alive | heart surgery | + +------+ + + | Father | | | CHF | | | | (Age | | | | | 84) | | + +------+ + + | Mother | | | | + +------+ + + Social History + +-------+ +--------+------+ [...] + +---------+ + | Alcohol Use | Drinks/We | oz/Week | Comments | | | ek | | | + + +---------+ + | Yes | | | occ | + + +---------+ + + + + | Sex Assigned at | Date Recorded | | | | + + + | Not on file | | + + + Last Filed Vital Signs + + + + | Vital Sign | Reading | Time Taken | + + + + | Blood Pressure | 126/84 | 09/01/2018 9:06 AM PDT | + + + + | Pulse | 56 | 09/01/2018 9:06 AM PDT | + + + + | Temperature | 36.5 C (97.7 F) | 09/01/2018 9:06 AM PDT | + + + + | Respiratory Rate | - | - | + + + + | Oxygen Saturation | 98% | 09/01/2018 9:06 AM PDT | + + + + | Inhaled Oxygen | - | - | | Concentration | | | + + + + | Weight | 83.8 kg (184 lb 12.8 | 09/01/2018 9:06 AM PDT | | | oz) | | + + + + | Height | 180.3 cm (5' 11") | 05/04/2018 9:08 AM PST | + + + + | Body Mass Index | 25.77 | 09/01/2018 9:06 AM PDT | + + + + Plan of Treatment +--------+---------+ + + + | Date | Type | Specialty | Care Team | Description | +--------+---------+ + + + | 04/28/ | Office | | Leighann Maddox, | | | 2019 | Visit | | [address] | | | | | | Dr [address], | | | | | | [place] [address] | | | | | | [phone] | | | | | | | | +--------+---------+ + + + + + + + + | Health Maintenance | Due Date | Last Done | Comments | + + + + + | Vaccine: | | | | | Dtap/Tdap/Td (1 - | 9 | | | | Tdap) | | | | + + + + + | Vaccine: Zoster (1 | | | | | of 2) | 0 | | | + + + + + | Vaccine: | | | | | Pneumococcal 65+ | 5 | | | | Low/Medium Risk (1 | | | | | of 2 - PCV13) | | | | + + + + + | Vaccine: Influenza | | | | | (#1) | 9 | | | + + + + + Results Not on filefrom Last 3 Months Insurance + +--------+ +--------+-------+ + | Payer | Benefi | Subscriber | Type | Phone | Address | | | t Plan | ID | | | | | | / | | | | | | | Group | | | | | + +--------+ +--------+-------+ + | MEDICARE | MEDICA | [id number] | | | [address] | | | RE | | | | [place] [phone] | | | IP-OP | | | | | + +--------+ +--------+-------+ + | CIGNA | LOYAL | [id number] | Indemn | | | | | AMERIC | | ity | | | | | AN | | | | | + +--------+ +--------+-------+ + + +--------+ +--------+ + + | Guarantor Name | Accoun | Relation to | Date | Phone | Billing Address | | | t Type | Patient | of | | | | | | | | | | + +--------+ +--------+ + + | LAMONT SULLIVAN | Person | Self [birth year] Home: | [address] | | | al/Fam | | [phone] | [phone] [place] | | | [place] | | [phone] | [phone] | + +--------+ +--------+ + +
--- OUTSIDE RECORDS SUMMARY | ~2019-04-15 | XMS | Encounter Summary ---
Demographics + + + | Address | [address] | | | [place] [address] | + + + | Home Phone | | + + + | Preferred Language | Unknown | + + + | Marital Status | | + + + | Christianity Affiliation | Unknown | + + + | Race | Unknown | + + + | Ethnic Group | Unknown | + + + Author + + + | Author | [facility] | | | and [place] | + + + | Organization | [facility] | | | [...] Team Providers + +------+ + | Care Inter Fold Roll Cutter Name | Role | Phone | + +------+ + | Parminder Malagon MD | PCP | | + +------+ + Encounter Details +--------+ + + + + | Date | Type | Department | Care Team | Description | +--------+ + + + + | 04/01/ | [facility] | [facility] | Jossue Haro | Left knee pain, | | 2019 | Encounter | [facility] | [address] | unspecified | | | | [address] | [address] | chronicity; S/P TKR | | | | [place], [place] | [place] [address] | (total knee | | | | [address] | [phone] | replacement), left | | | | [phone] | | | +--------+ + + + [...] | | | | | | | [id number] | | | | | | | [...] | | | | | [place] | | | | | | [address] | | | | | | | | +--------+ + + + + | 05/11/ | Office | Orthopedic Surgery | Scot Wilson PT | | | 2019 | Visit | | [address] | | | | | | [place] [address] | | | | | | [phone] | | | | | | | | +--------+ + + + + | 05/11/ | Office | Orthopedic Surgery | Korey Hussein | | | 2019 | Visit | | [address] | | | | | | [place] | | | | | | [address] | | | | | | | | +--------+ + + + + | 05/14/ | Office | Rheumatology | Mya Frederick | | | 2019 | Visit | | [address] | | | | | | [address] | | | | | | [place] [address] | | | | | | [phone] | | | | | | | | +--------+ + + + + | 06/06/ | Hospital | | Korey Hussein | Primary | | 2019 | Encounter | | [address] | 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[place] | right knee; Chronic | | | | | [address] | pain of right knee | | | | | | | +--------+ + + + + | 06/06/ | Surgery | | Korey Hussein | RIGHT TOTAL KNEE | | 2019 | | | [address] | ARTHROPLASTY | | | | | [place] | | | | | | [address] | | | | | | | | +--------+ + + + + | 06/21/ | Office | Orthopedic Surgery | Jossue Haro | | | 2019 | Visit | | [address] | | | | | | [address] | | | | | | [place] [address] | | | | | | [phone] | | | | | | | [...] | | + +--------+ + + + documented [...] + | Oz Liu Results In - 04/01/2019 4:39 PM PST [...] + | Left knee pain, unspecified chronicity | + + | S/P TKR (total knee replacement), left | + + documented in this encounter"
--- OUTSIDE RECORDS SUMMARY | ~2019-04-15 | XMS | Encounter Summary ---
Demographics + + + | Address | [address] | | | [place] [address] | + + + | Home Phone | | + + + | Preferred Language | Unknown | + + + | Marital Status | | + + + | Rastafarian Affiliation | Unknown | + + + | Race | Unknown | + + + | Ethnic Group | Unknown | + + + Author + + + | Author | [facility] | | | and [place] | + + + | Organization | [facility] | | [...] Team Providers + +------+ + | Care Director Of National Sales Name | Role | Phone | + +------+ + | Parminder Malagon MD | PCP | | + +------+ + Reason for Visit +---------+ + | Reason | Comments | +---------+ + | Post Op | Left total knee arthroplasty DO 02/12/19 | +---------+ + Encounter Details +--------+---------+ + + + | Date | Type | Department | Care Team | Description | +--------+---------+ + + + | 02/23/ | Office | [facility] | Jossue Haro | S/P orthopedic | | 2019 | Visit | ORTHOPEDIC SURGERY | [address] | surgery, follow-up | | | | [address] [facility] | [facility] | exam (Primary Dx) | | | | [place], [place] | [place] [address] | | | | | [address] | [phone] | | | | | [phone] | | | +--------+---------+ + + + [...] encounter Progress Notes Jossue Haro PA-C - 02/23/2019 10:30 AM PSTFormatting of this note might be differe nt from the original. ORTHOPEDICS [address] [place] [address] [id number] FAX: [phone] Name: Beni Delcid : 1940 Age: 78 y.o. Todays Date: 02/23/2019 Primary Care Provider: Parminder Malagon MD Subjective: First postoperative visit for left total knee arthroplasty performed just 2 weeks ago. Not es he is off all narcotics only taking gabapentin, Celebrex, Tylenol and aspirin as prescrib ed. He is started formal outpatient physical therapy. He is doing some physical therapy at home but notes that his pain change when he fell he was admitted to a hospital in [facility]. He has been on his feet a lot more than anticipated and going to and from the [facility] in [facility] daily. He continues with aspirin for blood thinning therapy. His current level of pain is rated at a 1 Objective: Inspection of the incision site reveals that it is his healing appropriately and quite well . No erythema, induration, swelling or signs of infection noted. No open wound or drainage is noted. Janene over the incision site removed today in the office. Incision site was c leaned and Steri-Strips were placed over the incision site. Skin is warm and dry. Neurovas cularly intact over the incision site and left knee. Passive range of motion department 2-9 0 degrees. He does have what appears to be grade 3 pitting edema at the left lower extremit y distal to the knee. Normal plantar dorsiflexion. Skin is taut. It is moderately to prom inently swollen. Vitals: 02/23/19 1014 Weight: 82.2 kg (181 lb 3.5 oz) Height: 1.803 m (5' 11") Assessment/Plan: 1. Left total knee arthroplasty, status postop A. Patient is recovering appropriate from left knee arthroplasty performed just 2 weeks a go. Range of motion is improving and overall pain is well controlled. He does have quite p rominent swelling and edema at the left lower extremity. He has been having difficulty elev ating the leg secondary to him having to ride in car to and from [facility] to be with his f ruddyy member who is at the hospital there. Stressed the importance of elevation above the l evel of his heart and he is cold therapy as well. Patient does verbalize understanding. Co ntinue physical therapy daily up on his own accord in conjunction with outpatient physical t herapy. B. Patient will follow-up in approximately 3-4 weeks' time for reevaluation and x-rays. C. Patient was advised that should they have any questions, comments or concerns to conta ct our office. Jossue Haro PA-C 02/23/2019 1:25 PM This note was dictated using the [employer] voice recognition system. There may be minor errors in grammar. documented in t his encounter Plan of [...] [place] | | | | | | [id number] | | | | | | | | +--------+ + + + + | 05/11/ | Office | Orthopedic Surgery | Scot Wilson PT | | | 2019 | Visit | | [address] | | | | | | [place] [address] | | | | | | [phone] | | | | | | | | +--------+ + + + + | 05/11/ | Office | Orthopedic Surgery | Korey Hussein | | | 2019 | Visit | | MD Shan [address] | | | | | | [place] | | | | | | [address] | | | | | | | | +--------+ + + + + | 05/14/ | Office | Rheumatology | Mya Frederick | | | 2019 | Visit | | [address] | | | | | | [address] | | | | | | [place] [address] | | | | | | [phone] | | | | | | | | +--------+ + + + + | 06/06/ | Hospital | | Korey Hussein | Primary | | 2020 | Encounter | | MD Shan [address] | 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[place] | right knee; Chronic | | | | | [address] | pain of right knee | | | | | | | +--------+ + + + + | 06/06/ | Surgery | | Korey Hussein | RIGHT TOTAL KNEE | | 2019 | | | [address] | ARTHROPLASTY | | | | | [place] | | | | | | [address] | | | | | | | | +--------+ + + + + | 06/21/ | Office | Orthopedic Surgery | Jossue Haro | | | 2019 | Visit | | [address] | | | | | | [address] | | | | | | [place] [address] | | | | | | [phone] | | | | | | | | +--------+ + + + + documented as of this encounter Visit Diagnoses + + | Diagnosis | + + | S/P orthopedic surgery, follow-up exam - Primary Follow-up examination, following | | other surgery | + + documented in this encounter
--- OUTSIDE RECORDS SUMMARY | ~2019-04-15 | XMS | Encounter Summary ---
Demographics + + + | Address | [address] | | | [place] [address] | + + + | Home Phone | | + + + | Preferred Language | Unknown | + + + | Marital Status | | + + + | Adventism Affiliation | Unknown | + + + | Race | Unknown | + + + | Ethnic Group | Unknown | + + + Author + + + | Author | [facility] | | | and [place] | + + + | Organization | [facility] | | | and [...] Team Providers + +------+ + | Care Manufacturing Cost Estimator Name | Role | Phone | + [...] | | | | | Procedures | [place] [address] | [place] | | | | | [facility] | Phone: | [phone] | | | | | | [phone] | Phone: | | | | | | Fax: | [phone] | | | | | | [phone] | Fax: | | | | | | | [phone] | + + + + + + [...] | unspecified | | | | [address] [facility] | [place] | chronicity (Primary | | | | [place] | [address] | Dx) | | | | [address] | | | | | | [phone] | | | +--------+ + + + [...] [place] | | | | | | 120762 | | | | | | | | +--------+ + + + + | 05/11/ | Office | Orthopedic Surgery | Scot Wilson PT | | | 2019 | Visit | | [address] | | | | | | [place] [address] | | | | | | [phone] | | | | | | | | +--------+ + + + + | 05/11/ | Office | Orthopedic Surgery | Korey Hussein | | | 2019 | Visit | | [address] | | | | | | [place] | | | | | | [address] | | | | | | | | +--------+ + + + + | 05/14/ | Office | Rheumatology | Mya Frederick | | | 2019 | Visit | | [address]LLY Nguyen [address] | | | | | | [address] | | | | | | [place] [address] | | | | | | [phone] | | | | | | | | +--------+ + + + + | 06/06/ | Hospital | | Kroey Hussein | Primary | | 2019 | Encounter | | [address] | 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[place] | right knee; Chronic | | | | | [address] | pain of right knee | | | | | | | +--------+ + + + + | 06/06/ | Surgery | | Korey Hussein | RIGHT TOTAL KNEE | | 2019 | | | [address] | ARTHROPLASTY | | | | | [place] | | | | | | [address] | | | | | | | | +--------+ + + + + | 06/21/ | Office | Orthopedic Surgery | Jossue Haro | | | 2019 | Visit | | [address] | | | | | | [address] | | | | | | [place] [address] | | | | | | [phone] | | | | | | | [...]
--- OUTSIDE RECORDS SUMMARY | ~2019-04-15 | XMS | Encounter Summary ---
Demographics + + + | Address | [address] | | | [place] [address] | + + + | Home Phone | | + + + | Preferred Language | Unknown | + + + | Marital Status | | + + + | Oriental Orthodox Affiliation | Unknown | + + + | Race | Unknown | + + + | Ethnic Group | Unknown | + + + Author + + + | Author | [facility] | | | and [place] | + + + | Organization | [facility] | | [...] Team Providers + +------+ + | Care Numerical Control Nesting Operator Name | Role | Phone | [...] | unspecified | | | | [address] [facility] | [address] | chronicity (Primary | | | | [place] | [place] [address] | Dx); S/P TKR (total | | | | [address] | [phone] | knee replacement), | | | | [phone] | | left | +--------+ + + [...] | | | | | [place] | | | | | | [address] | | | | | | | | +--------+ + + + + | 05/11/ | Office | Orthopedic Surgery | Scot Wilson PT | | | 2019 | Visit | | [address] | | | | | | [place] [address] | | | | | | [phone] | | | | | | | | +--------+ + + + + | 05/11/ | Office | Orthopedic Surgery | Korey Hussein | | | 2019 | Visit | | [address] | | | | | | [place] | | | | | | [address] | | | | | | | | +--------+ + + + + | 05/14/ | Office | Rheumatology | Mya Frederick | | | 2019 | Visit | | SHELLY Nguyen [address] | | | | | | [address] | | | | | | [place] [address] | | | | | | [phone] | | | | | | | | +--------+ + + + + | 06/06/ | Hospital | | Korey Hussein | Primary | | 2020 | Encounter | | [address] | 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[place] | right knee; Chronic | | | | | [address] | pain of right knee | | | | | | | +--------+ + + + + | 06/06/ | Surgery | | Korey Hussein | RIGHT TOTAL KNEE | | 2019 | | | [address] | ARTHROPLASTY | | | | | [place] | | | | | | [address] | | | | | | | | +--------+ + + + + | 06/21/ | Office | Orthopedic Surgery | Jossue Haro | | | 2019 | Visit | | [address] | | | | | | [address] | | | | | | [place] [address] | | | | | | [phone] | | | | | | | [...]
--- OUTSIDE RECORDS SUMMARY | ~2019-04-15 | XMS | Encounter Summary ---
Demographics + + + | Address | [address] | | | [place] [address] | + + + | Home Phone [...] + + + | Organization | [facility] | | | and [place] [...] Team Providers + +------+ + | Care Geotechnical Intern Name | Role | Phone | + [...] | | | | Primary | | [address] Phone: | | | | | osteoarthrit | | [phone] | | | | | is of left | | Fax: | | | | | knee | | [phone] | | | | | Procedures | | | | | | | [place] TOTAL | | | | | | [...] + + | 02/12/ | Hospital | [facility] | Korey Hussein | Pain in both knees, | | 2019 - | Encounter | [facility] | MD Shan [address] [facility] | unspecified | | | | [address] | [place] | chronicity; Primary | | 02/14/ | | [place] [address] | [address] | osteoarthritis of | | 2019 | | [phone] | | left knee | +--------+ + [...] controlled. 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 [...] SpO2: 96% 95% 98% 92% Weight: Height: @[id number]@ No results found for this or any [...] BY MOUTH ONCE DAILY 90 tablet 3 Sgfcgriiijg-Zajstixvl-Jvg C-Mn (GLUCOSAMINE 1500 COMPLEX PO) Take 1 [...] mg by mouth Daily. Multiple Minerals-Vitamins (CALCIUM BJUCKAN-WTX-LWXMIHZX PO) Take 1 tablet by mouth yunier [...] and intact to the left lower extremity. Falcon are int act to the left anterior [...] by mouth daily. aka: VITAMIN C CALCIUM NEWBKWI-YDU-BWJBWJBQ PO Take 1 tablet by mouth daily. [...] PA-C 02/14/19. This not was dictated using [employer] Voice recognition system. There may be minor [...] mg of acetaminophen (Tylenol) per day. Hydrocodone-acetaminophen (Sumner ) and Oxycodone-acetaminophen (Percocet) have 325 mg [...] mg of acetaminophen (Tylenol) per day. Hydrocodone-acetaminophen (Sumner ) and Oxycodone-acetaminophen (Percocet) have 325 mg [...] red in back of calf PE or [place]: sudden chest pain or trouble breathing Stroke: [...] and help the stool stay soft and nvbu-yu-tjgy. Remember to drink plenty of fluids and eat fiber-containing foods. If you do not have a bowel movement within two days of returning home, add milk of magnesia 30 mL once each night and/or Miralax one capful (17 grams) dissolved in half a cup of water once daily for 3 days. These are available rvxr-qmk-tdbyzbx at any drugstore. If you are still [...] | | | | | | | NYJXYRL-JSQ-QRYMOTRE | | | | | | | [...] [place] | | | | | | [id number] | | | | | | | | +--------+ + + + + | 05/11/ | Office | Orthopedic Surgery | Scot Wilson PT | | | 2019 | Visit | | [address] | | | | | | [place] [address] | | | | | | [phone] | | | | | | | | +--------+ + + + + | 05/11/ | Office | Orthopedic Surgery | Korey Hussein | | 2019 | Visit | | MD Shan [address] | | | | | | [place] | | | | | | [address] | | | | | | | | +--------+ + + + + | 05/14/ | Office | Rheumatology | Mya Frederick | | | 2019 | Visit | | [address] | | | | | | [address] | | | | | | [place] [address] | | | | | | [phone] | | | | | | | | +--------+ + + + + | 06/06/ | Hospital | | Korey Hussein | Primary | | 2019 | Encounter | | [address] | 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[place] | right knee; Chronic | | | | | [address] | pain of right knee | | | | | | | +--------+ + + + + | 06/06/ | Surgery | | Korey Hussein | RIGHT TOTAL KNEE | | 2019 | | | MD Shan [address] | ARTHROPLASTY | | | | | [place] | | | | | | [address] | | | | | | | | +--------+ + + + + | 06/21/ | Office | Orthopedic Surgery | Jossue Haro | | 2019 | Visit | | [address] | | | | | | [address] | | | | | | [place] [address] | | | | | | [phone] | | | | | | | [...] | | | | | g/dL | [facility] | | | | | | [...] [address] | [place] | [phone] | | [facility] | | [address] | | | - LABORATORY | | [...] | 1.24 | 0.70 - 1.30 | [facility] | | | | | mg/dL [...] mL/min/1.73m2 | [facility] | | | [facility] | RATE,ESTIMATED | | MEDICAL | | | | mL/min/1.04g7Rdeq than | | CENTER - | | [...] ST. | [address] | [place] | [phone] | | [facility] | | [address] | | | - LABORATORY | | | | + + + + + XR Knee Left 1 - 2 Vw (02/12/2019 11:47 AM [facility]) + + | Specimen | + + [...]
--- OUTSIDE RECORDS SUMMARY | ~2019-04-15 | XMS | Encounter Summary ---
Demographics + + + | Address | [address] | | | [place] [address] | + + + | Home Phone | | + + + | Preferred Language | Unknown | + + + | Marital Status | | + + + | Presybeterian Affiliation | Unknown | + + + | Race | Unknown | + + + | Ethnic Group | Unknown | + + + Author + + + | Author | [facility] | | | and [place] | + + + | Organization | [facility] | | | and [place] [...] Team Providers + +------+ + | Care Early Childhood Education Coordinator Name | Role | Phone | + [...] | | | | Primary | | [address] Phone: | | | | | osteoarthrit | | [phone] | | | | | is of left | | Fax: | | | | | knee | | [phone] | | | | | Procedures | | | | | | | IN TOTAL | | | | | | [...] ARTHROPLASTY | | | | [address] | [place] | | | | | [place] | [address] | | | | | [address] | | | | | | [phone] | | | +--------+---------+ + + + [...] controlled. Hospital Course: Pt was admitted to [facility] for a left total knee arthropla [...] SpO2: 96% 95% 98% 92% Weight: Height: @[id number]@ No results found for this or any [...] BY MOUTH ONCE DAILY 90 tablet 3 Pkawfwsuscm-Cxgmcaqkm-Ipj C-Mn (GLUCOSAMINE 1500 COMPLEX PO) Take 1 [...] mg by mouth Daily. Multiple Minerals-Vitamins (CALCIUM WIMDXMY-DTJ-VWXWNAIO PO) Take 1 tablet by mouth yunier [...] by mouth daily. aka: VITAMIN C CALCIUM FEXATDV-MYY-HJYGDCCU PO Take 1 tablet by mouth daily. [...] PA-C 02/14/19. This not was dictated using [employer] Voice recognition system. There may be minor [...] mg of acetaminophen (Tylenol) per day. Hydrocodone-acetaminophen (Donna ) and Oxycodone-acetaminophen (Percocet) have 325 mg [...] mg of acetaminophen (Tylenol) per day. Hydrocodone-acetaminophen (Donna ) and Oxycodone-acetaminophen (Percocet) have 325 mg [...] red in back of calf PE or [place]: sudden chest pain or trouble breathing Stroke: [...] and help the stool stay soft and wazj-xc-zebn. Remember to drink plenty of fluids and eat fiber-containing foods. If you do not have a bowel movement within two days of returning home, add milk of magnesia 30 mL once each night and/or Miralax one capful (17 grams) dissolved in half a cup of water once daily for 3 days. These are available xooe-axr-ouhuhqn at any drugstore. If you are still [...] | | | | | | | VPKVLUL-GBO-QCIETXTJ | | | | | | | [...] [place] | | | | | | [address] | | | | | | | | +--------+ + + + + | 05/11/ | Office | Orthopedic Surgery | Scot Wilson PT | | | 2019 | Visit | | [address] | | | | | | [place] [address] | | | | | | [phone] | | | | | | | | +--------+ + + + + | 05/11/ | Office | Orthopedic Surgery | Korey Hussein | | | 2019 | Visit | | [address] | | | | | | [place] | | | | | | [address] | | | | | | | | +--------+ + + + + | 05/14/ | Office | Rheumatology | Mya Frederick | | | 2019 | Visit | | SHELLY Nguyen [address] | | | | | | [address] | | | | | | [place] [address] | | | | | | [phone] | | | | | | | | +--------+ + + + + | 06/06/ | Hospital | | Korey Hussein | Primary | | 2019 | Encounter | | [address] | 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[place] | right knee; Chronic | | | | | [address] | pain of right knee | | | | | | | +--------+ + + + + | 06/06/ | Surgery | | Korey Hussein | RIGHT TOTAL KNEE | | 2019 | | | MD [address] | ARTHROPLASTY | | | | | [place] | | | | | | [address] | | | | | | | | +--------+ + + + + | 06/21/ | Office | Orthopedic Surgery | Jossue Haro | | | 2020 | Visit | | [address] | | | | | | [address] | | | | | | [place] [address] | | | | | | [phone] | | | | | | | [...] [address] | [place] | [phone] | | [facility] | | [address] | | | - LABORATORY | | [...] mL/min/1.73m2 | [facility] | | | [place] [facility] | RATE,ESTIMATED | | MEDICAL | | | | mL/min/1.21e7Qswy than | | CENTER - | | [...] + | [address] | [address] | [place] | [phone] | | [facility] | | [address] | | | - LABORATORY | | [...] | | | | | | Infiltration, APPEALS REVIEWER VETERAN, Starting | | | | | | [...]
--- OUTSIDE RECORDS SUMMARY | ~2019-04-15 | XMS | Encounter Summary ---
Demographics + + + | Address | [address] | | | [place] [address] | + + + | Home Phone | | + + + | Preferred Language | Unknown | + + + | Marital Status | | + + + | Jainism Affiliation | Unknown | + + + | Race | Unknown | + + + | Ethnic Group | Unknown | + + + Author + + + | Author | [facility] | | | and [place] | + + + | Organization | [facility] | [...] Team Providers + +------+ + | Care Lard Bleacher Name | Role | Phone | + [...] [address] | | | | | [address] [facility] | [address] [place] | | | | | [place], [place] | [place] [address] | | | | | [address] | [phone] | | | | | [phone] | | | +--------+ + + + [...] | | | | | [place] | | | | | | [address] | | | | | | | | +--------+ + + + + | 05/11/ | Office | Orthopedic Surgery | Scot Wilson PT | | | 2019 | Visit | | [address] | | | | | | [place] [address] | | | | | | [phone] | | | | | | | | +--------+ + + + + | 05/11/ | Office | Orthopedic Surgery | Korey Hussein | | | 2019 | Visit | | MD Shan [address] | | | | | | [place] | | | | | | [address] | | | | | | | | +--------+ + + + + | 05/14/ | Office | Rheumatology | Mya Frederick | | | 2019 | Visit | | [address]LLY [address] | | | | | | [place] [address] | | | | | | [place] [address] | | | | | | [phone] | | | | | | | | +--------+ + + + + | 06/06/ | Hospital | | Korey Hussein | Primary | | 2020 | Encounter | | [address] | 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[place] | right knee; Chronic | | | | | [address] | pain of right knee | | | | | | | +--------+ + + + + | 06/06/ | Surgery | | Korey Hussein | RIGHT TOTAL KNEE | | 2019 | | | [address] | ARTHROPLASTY | | | | | [place] | | | | | | [address] | | | | | | | | +--------+ + + + + | 06/21/ | Office | Orthopedic Surgery | Jossue Haor | | | 2019 | Visit | | [address] | | | | | | [address] | | | | | | [place] [address] | | | | | | [phone] | | | | | | | | +--------+ + + + + documented as of this encounter Visit Diagnoses Not on filedocumented in this encounter"
--- OUTSIDE RECORDS SUMMARY | ~2019-04-15 | XMS | Encounter Summary ---
Demographics + + + | Address | [address] | | | [place] [address] | + + + | Home Phone | | + + + | Preferred Language | Unknown | + + + | Marital Status | | + + + | Sikh Affiliation | Unknown | + + + | Race | Unknown | + + + | Ethnic Group | Unknown | + + + Author + + + | Author | [facility] | | | and [place] | + + + | Organization | [facility] | | | and [...] Team Providers + +------+ + | Care Business Development Engineer Name | Role | Phone | + [...] Description | +--------+--------+ + + + | 01/31/ | Refill | [facility] | Otoniel Mya | Medication Refill | | 2019 | | RHEUMATOLOGY [address] | [address] | | | | | [address] | [address] | | | | | [place], [place] | [place] [address] | | | | | [address] | [phone] | | | | | [phone] | | | +--------+--------+ + + + [...] | | | | | [place] | | | | | | [address] | | | | | | | | +--------+ + + + + | 05/11/ | Office | Orthopedic Surgery | Scot Wilson PT | | | 2019 | Visit | | [address] | | | | | | [place] [address] | | | | | | [phone] | | | | | | | | +--------+ + + + + | 05/11/ | Office | Orthopedic Surgery | Korey Hussein | | | 2019 | Visit | | [address] | | | | | | [place] | | | | | | [address] | | | | | | | | +--------+ + + + + | 05/14/ | Office | Rheumatology | Mya Frederick | | | 2019 | Visit | | SHELLY Nguyen [address] | | | | | | [address] | | | | | | [place] [address] | | | | | | [phone] | | | | | | | | +--------+ + + + + | 06/06/ | Hospital | | Korey Hussein | Primary | | 2019 | Encounter | | [address] | 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[place] | right knee; Chronic | | | | | [address] | pain of right knee | | | | | | | +--------+ + + + + | 06/06/ | Surgery | | Korey Hussein | RIGHT TOTAL KNEE | | 2019 | | | [address] | ARTHROPLASTY | | | | | [place] | | | | | | [address] | | | | | | | | +--------+ + + + + | 06/21/ | Office | Orthopedic Surgery | Jossue Haro | | | 2019 | Visit | | [address] | | | | | | [address] | | | | | | [place] [address] | | | | | | [phone] | | | | | | | | +--------+ + + + + documented as of this encounter Visit Diagnoses Not on filedocumented in this encounter"
--- OUTSIDE RECORDS SUMMARY | ~2019-04-15 | XMS | Encounter Summary ---
Demographics + + + | Address | [address] | | | [place] [address] | + + + | Home Phone | | + + + | Preferred Language | Unknown | + + + | Marital Status | | + + + | Pentecostal Affiliation | Unknown | + + + | Race | Unknown | + + + | Ethnic Group | Unknown | + + + Author + + + | Author | [facility] | | | and [place] | + + + | Organization | [facility] | | | and [place] [...] Team Providers + +------+ + | Care Cafeteria Supervisor Name | Role | Phone | + +------+ + | Parminder Malagon MD | PCP | | + +------+ + Encounter Details +--------+ + + + + | Date | Type | Department | Care Team | Description | +--------+ + + + + | 04/01/ | [facility] | [facility] | Jossue Haro | Left knee pain, | | 2019 | Encounter | [facility] | [address] | unspecified | | | | [address] | [address] | chronicity; S/P TKR | | | | [place], [place] | [place] [address] | (total knee | | | | [address] | [phone] | replacement), left | | | | [phone] | | | +--------+ + + + [...] | | | | | | | [id number] | | | | | | | [...] | | | | | [place] | | | | | | [address] | | | | | | | | +--------+ + + + + | 05/11/ | Office | Orthopedic Surgery | Scot Wilson PT | | | 2019 | Visit | | [address] | | | | | | [place] [address] | | | | | | [phone] | | | | | | | | +--------+ + + + + | 05/11/ | Office | Orthopedic Surgery | Korey Hussein | | | 2019 | Visit | | [address] | | | | | | [place] | | | | | | [address] | | | | | | | | +--------+ + + + + | 05/14/ | Office | Rheumatology | Mya Frederick | | | 2019 | Visit | | [address] | | | | | | [address] | | | | | | [place] [address] | | | | | | [phone] | | | | | | | | +--------+ + + + + | 06/06/ | Hospital | | Korey Hussein | Primary | | 2019 | Encounter | | [address] | 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[place] | right knee; Chronic | | | | | [address] | pain of right knee | | | | | | | +--------+ + + + + | 06/06/ | Surgery | | Korey Hussein | RIGHT TOTAL KNEE | | 2019 | | | [address] | ARTHROPLASTY | | | | | [place] | | | | | | [address] | | | | | | | | +--------+ + + + + | 06/21/ | Office | Orthopedic Surgery | Jossue Haro | | | 2019 | Visit | | [address] | | | | | | [address] | | | | | | [place] [address] | | | | | | [phone] | | | | | | | [...]
--- OUTSIDE RECORDS SUMMARY | ~2019-04-15 | XMS | Encounter Summary ---
Demographics + + + | Address | [address] | | | [place] [address] | + + + | Home Phone | | + + + | Preferred Language | Unknown | + + + | Marital Status | | + + + | Hoahaoism Affiliation | Unknown | + + + | Race | Unknown | + + + | Ethnic Group | Unknown | + + + Author + + + | Author | [facility] | | | and [place] | + + + | Organization | [facility] | | | and [place] | [...] Team Providers + +------+ + | Care Limousine Rental Clerk Name | Role | Phone | + [...] [address]AYES | | | | | [address] | [place] | | | | | [place] | [address] | | | | | [address] | | | | | | [phone] | | | +--------+ + + + [...] [place] | | | | | | [address] | | | | | | | | +--------+ + + + + | 05/11/ | Office | Orthopedic Surgery | Scot Wilson PT | | | 2019 | Visit | | [address] | | | | | | [place] [address] | | | | | | [phone] | | | | | | | | +--------+ + + + + | 05/11/ | Office | Orthopedic Surgery | Korey Hussein | | | 2019 | Visit | | [address] | | | | | | [place] | | | | | | [address] | | | | | | | | +--------+ + + + + | 05/14/ | Office | Rheumatology | Mya Frederick | | | 2019 | Visit | | [address] | | | | | | [address] | | | | | | [place] [address] | | | | | | [phone] | | | | | | | | +--------+ + + + + | 06/06/ | Hospital | | Korey Hussein | Primary | | 2019 | Encounter | | [address] | 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[place] | right knee; Chronic | | | | | [address] | pain of right knee | | | | | | | +--------+ + + + + | 06/06/ | Surgery | | Korey Hussein | RIGHT TOTAL KNEE | | 2019 | | | MD [address] | ARTHROPLASTY | | | | | [place] | | | | | | [address] | | | | | | | | +--------+ + + + + | 06/21/ | Office | Orthopedic Surgery | Jossue Haro | | | 2019 | Visit | | [address] | | | | | | [address] | | | | | | [place] [address] | | | | | | [phone] | | | | | | | | +--------+ + + + + documented as of this encounter Visit Diagnoses Not on filedocumented in this encounter"
--- OUTSIDE RECORDS SUMMARY | ~2019-04-15 | XMS | Encounter Summary ---
Demographics + + + | Address | [address] | | | [place] [address] | + + + | Home Phone | | + + + | Preferred Language | Unknown | + + + | Marital Status | | + + + | Anglican Affiliation | Unknown | + + + | Race | Unknown | + + + | Ethnic Group | Unknown | + + + Author + + + | Author | [facility] | | | and [place] | + + + | Organization | [facility] | | | [...] Team Providers + +------+ + | Care Floor Press Operator Name | Role | Phone | [...] Description | +--------+--------+ + + + | 11/17/ | Refill | [facility] | Mya Frederick | Medication Refill | | 2019 | | RHEUMATOLOGY [address] | [address] | | | | | [address] | [address] | | | | | [place], [place] | [place] [address] | | | | | [address] | [phone] | | | | | [phone] | | | +--------+--------+ + + + [...] | | | | | [place] | | | | | | [address] | | | | | | | | +--------+ + + + + | 05/11/ | Office | Orthopedic Surgery | Scot Wilson PT | | | 2019 | Visit | | [address] | | | | | | [place] [address] | | | | | | [phone] | | | | | | | | +--------+ + + + + | 05/11/ | Office | Orthopedic Surgery | Korey Hussein | | | 2019 | Visit | | [address] | | | | | | [place] | | | | | | [address] | | | | | | | | +--------+ + + + + | 05/14/ | Office | Rheumatology | Mya Frederick | | | 2019 | Visit | | [address] | | | | | | [address] | | | | | | [place] [address] | | | | | | [phone] | | | | | | | | +--------+ + + + + | 06/06/ | Hospital | | Korey Hussein | Primary | | 2019 | Encounter | | [address] | 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[place] | right knee; Chronic | | | | | [address] | pain of right knee | | | | | | | +--------+ + + + + | 06/06/ | Surgery | | Korey Hussein | RIGHT TOTAL KNEE | | 2019 | | | [address] | ARTHROPLASTY | | | | | [place] | | | | | | [address] | | | | | | | | +--------+ + + + + | 06/21/ | Office | Orthopedic Surgery | Jossue Haro | | | 2019 | Visit | | [address] | | | | | | [address] | | | | | | [place] [address] | | | | | | [phone] | | | | | | | | +--------+ + + + + documented as of this encounter Visit Diagnoses Not on filedocumented in this encounter"
--- OUTSIDE RECORDS SUMMARY | ~2019-04-15 | XMS | Encounter Summary ---
Demographics + + + | Address | [address] | | | [place] [address] | + + + | Home Phone | | + + + | Preferred Language | Unknown | + + + | Marital Status | | + + + | Tenriism Affiliation | Unknown | + + + | Race | Unknown | + + + | Ethnic Group | Unknown | + + + Author + + + | Author | [facility] | | | and [place] | + + + | Organization | [facility] [...] Team Providers + +------+ + | Care Cv Tech Name | Role | Phone | + [...] Description | +--------+--------+ + + + | 12/22/ | Refill | [facility] | Otoniel Mya | Medication Refill | | 2019 | | RHEUMATOLOGY [address] | [address] | | | | | [address] | [address] | | | | | [place], [place] | [place] [address] | | | | | [address] | [phone] | | | | | [phone] | | | +--------+--------+ + + + [...] | | | | | [place] | | | | | | [address] | | | | | | | | +--------+ + + + + | 05/11/ | Office | Orthopedic Surgery | Scot Wilson PT | | | 2019 | Visit | | [address] | | | | | | [place] [address] | | | | | | [phone] | | | | | | | | +--------+ + + + + | 05/11/ | Office | Orthopedic Surgery | Korey Hussein | | | 2019 | Visit | | [address] | | | | | | [place] | | | | | | [address] | | | | | | | | +--------+ + + + + | 05/14/ | Office | Rheumatology | Mya Frederick | | | 2019 | Visit | | [address] | | | | | | [address] | | | | | | [place] [address] | | | | | | [phone] | | | | | | | | +--------+ + + + + | 06/06/ | Hospital | | Korey Hussein | Primary | | 2019 | Encounter | | [address] | 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[place] | right knee; Chronic | | | | | [address] | pain of right knee | | | | | | | +--------+ + + + + | 06/06/ | Surgery | | Korey Hussein | RIGHT TOTAL KNEE | | 2019 | | | [address] | ARTHROPLASTY | | | | | [place] | | | | | | [address] | | | | | | | | +--------+ + + + + | 06/21/ | Office | Orthopedic Surgery | Jossue Haro | | | 2019 | Visit | | [address] | | | | | | [address] | | | | | | [place] [address] | | | | | | [phone] | | | | | | | | +--------+ + + + + documented as of this encounter Visit Diagnoses Not on filedocumented in this encounter"
--- OUTSIDE RECORDS SUMMARY | ~2019-04-15 | XMS | Encounter Summary ---
Demographics + + + | Address | [address] | | | [place] [address] | + + + | Home Phone [...] + + | Author | [facility] | | | and [place] | + + + | Organization | [facility] | | | and [place] [...] Team Providers + +------+ + | Care Rn Sane Name | Role | Phone | + +------+ + | Parminder Malagon MD | PCP | | + +------+ + Encounter Details +--------+ + + + + | Date | Type | Department | Care Team | Description | +--------+ + + + + | 01/05/ | Orders Only | [facility] | Alfonso Almeida, | Rheumatoid arthritis | | 2019 | | [address] | Engineer Assistant | ([facility]); Other long | | | | [place] | | term (current) drug | | | | [address] | | therapy | | | | [phone] | | | +--------+ + + + [...] [place] | | | | | | [address] | | | | | | | | +--------+ + + + + | 05/11/ | Office | Orthopedic Surgery | Scot Wilson PT | | 2019 | Visit | | [address] | | | | | | [place] [address] | | | | | | [phone] | | | | | | | | +--------+ + + + + | 05/11/ | Office | Orthopedic Surgery | Korey Hussein | | | 2019 | Visit | | [address] | | | | | | [place] | | | | | | [address] | | | | | | | | +--------+ + + + + | 05/14/ | Office | Rheumatology | Mya Frederick | | | 2019 | Visit | | [address] | | | | | | [address] | | | | | | [place] [address] | | | | | | [phone] | | | | | | | | +--------+ + + + + | 06/06/ | Hospital | | Korey Hussein | Primary | | 2019 | Encounter | | MD [address] | 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[place] | right knee; Chronic | | | | | [address] | pain of right knee | | | | | | | +--------+ + + + + | 06/06/ | Surgery | | Korey Hussein | RIGHT TOTAL KNEE | | 2019 | | | [address] | ARTHROPLASTY | | | | | [place] | | | | | | [address] | | | | | | | | +--------+ + + + + | 06/21/ | Office | Orthopedic Surgery | Jossue Haro | | | 2019 | Visit | | [address] | | | | | | [address] | | | | | | [place] [address] | | | | | | [phone] | | | | | | | | +--------+ + + + + documented as of this encounter Procedures + +--------+ + + + | Procedure Name | Priori | Date/Time | Associated Diagnosis | Comments | | | ty | | | | + +--------+ + + + | SEDIMENTATION RATE | Routin | 01/05/2019 | Rheumatoid | Results for this | | | e | 9:09 AM | arthritis (HCC) | procedure are in the | | | | PDT | Other custodial | results section. | | | | | (current) drug | | | | | | therapy | | + +--------+ + + + | CBC WITH | Routin | 01/05/2019 | Rheumatoid | Results for this | | DIFFERENTIAL | e | 9:09 AM | arthritis (HCC) | procedure are in the | | | | PDT | Other custodial | results section. | | | | | (current) drug | | | | | | therapy | | + +--------+ + + + | C-REACTIVE PROTEIN | Routin | 01/05/2019 | Rheumatoid | Results for this | | | e | 9:09 AM | arthritis (HCC) | procedure are in the | | | | PDT | Other termite exterminator | results section. | | | | | (current) drug | | | | | | therapy | | + +--------+ + + + | COMPREHENSIVE | Routin | 01/05/2019 | Rheumatoid | Results for this | | METABOLIC PANEL | e | 9:09 AM | arthritis (HCC) | procedure are in the | | | | PDT | Other termite exterminator | results section. | | | | | (current) drug | | | | | | therapy | | + +--------+ + + + documented in this encounter Results CBC with Differential (01/05/2019 9:09 AM PDT) [...] | | | Absolute | performed at [facility];[address] | LAB | | | | [place] | | [facility] | | | | [address];[place] [address] | | LABORATORY | | + + + + + + + + | Specimen | + + | Blood | + + + + + + + | Performing | Address | City/State/Zipcode | Phone Number | | Organization | | | | + + + + + | REFERENCE LAB | [address] [place] [address] | [place] [address] | [phone] | | [facility] | Blvd[address] | | | | LABORATORY | | | | + + + + + | REFERENCE LAB | [address] [place] [address] | [place] [address] | | | [facility] | Blvd[address] | [...] | | | | | performed at [facility];[address] | | | | | | [address] | | | | | | Bl[address];[place] [address] | | | | | | | | | | + + + + + + + + | Specimen | + + | Blood | + + + + + + + | Performing | Address | City/State/Zipcode | Phone Number | | Organization | | | | + + + + + | REFERENCE LAB | [address] [address] | [place] [address] | [phone] | | [facility] | Blvd[address] | | | | LABORATORY | | | | + + + + + | REFERENCE LAB | [address] | [place] [address] | | | [facility] | Blvd[address] | [...] REFERENCE | | | | performed at [facility];[address] | | LAB | | | | [facility] | | [facility] | | | | [address];[place] [address] | | LABORATORY | | + + + + + + + + | Specimen | + + | Blood | + + + + + + + | Performing | Address | City/State/Zipcode | Phone Number | | Organization | | | | + + + + + | REFERENCE LAB | [address] [place] [address] | [place] [address] | [phone] | | [facility] | Blvd[address] | | | | LABORATORY | | | | + + + + + | REFERENCE LAB | [address] [place] [address] | [place] [address] | | | [facility] | Blvd[address] | | | | LABORATORY | | | | + + + + + C-Reactive Protein (01/05/2019 9:09 AM PDT) + + + + + + | Component | Value | Ref Range | Performed | Pathologist | | | | | At | Signature | + + + + + + | CRP | <0.3Comment: Testing | <0.5 mg/dL | REFERENCE | | | | performed at [facility];[address] | | LAB | | | | [place] | | [facility] | | | | [address];[place] [address] | | LABORATORY | | + + + + + + + + | Specimen | + + | Blood | + + + + + + + | Performing | Address | City/State/Zipcode | Phone Number | | Organization | | | | + + + + + | REFERENCE LAB | [address] | [place] [address] | [phone] | | [facility] | Blvd[address] | | | | LABORATORY | | | | + + + + + | REFERENCE LAB | [address] [facility] | [place] [address] | | | [facility] | Blvd[address] | | | | LABORATORY | | | | + + + + + documented in this encounter Visit Diagnoses + + | Diagnosis | + + | Rheumatoid arthritis (HCC) | + + | Other custodial (current) drug therapy | + + documented in this encounter"
--- OUTSIDE RECORDS SUMMARY | ~2019-04-15 | XMS | Encounter Summary ---
Demographics + + + | Address | [address] | | | [place] [address] | + + + | Home Phone | | + + + | Preferred Language | Unknown | + + + | Marital Status | | + + + | Spiritism Affiliation | Unknown | + + + | Race | Unknown | + + + | Ethnic Group | Unknown | + + + Author + + + | Author | [facility] | | | and [place] | + + + | Organization | [facility] | | | and [place] [...] Team Providers + +------+ + | Care Oil Rig Roughneck Name | Role | Phone | + +------+ + | Parminder Malagon MD | PCP | | + +------+ + Encounter Details +--------+ + + + + | Date | Type | Department | Care Team | Description | +--------+ + + + + | 09/19/ | Orders Only | [facility] | Mya Frederick | | | 2016 | | RHEUMATOLOGY [address] | [address] | | | | | [address] | [facility] | | | | | [place] | [place] [address] | | | | | [address] | [phone] | | | | | [phone] | | | +--------+ + + + [...] [place] | | | | | | [address] | | | | | | | | +--------+ + + + + | 05/11/ | Office | Orthopedic Surgery | Scot Wilson PT | | | 2019 | Visit | | [address] | | | | | | [place] [address] | | | | | | [phone] | | | | | | | | +--------+ + + + + | 05/11/ | Office | Orthopedic Surgery | Korey Hussein | | | 2019 | Visit | | [address] | | | | | | [place] | | | | | | [address] | | | | | | | | +--------+ + + + + | 05/14/ | Office | Rheumatology | Mya Frederick | | | 2019 | Visit | | [address] | | | | | | [address] | | | | | | [place] [address] | | | | | | [phone] | | | | | | | | +--------+ + + + + | 06/06/ | Hospital | | Korey Hussein | Primary | | 2019 | Encounter | | [address] | 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[place] | right knee; Chronic | | | | | [address] | pain of right knee | | | | | | | +--------+ + + + + | 06/06/ | Surgery | | Korey Hussein | RIGHT TOTAL KNEE | | 2019 | | | [address] | ARTHROPLASTY | | | | | [place] | | | | | | [address] | | | | | | | | +--------+ + + + + | 06/21/ | Office | Orthopedic Surgery | Tahir, Jossue | | | 2019 | Visit | | [address] | | | | | | [address] | | | | | | [place] [address] | | | | | | [phone] | | | | | | | | +--------+ + + + + documented as of this encounter Procedures + +--------+ + + + | Procedure Name | Priori | Date/Time | Associated Diagnosis | Comments | | | ty | | | | + +--------+ + + + | EXTERNAL LAB: CBC | Routin | 09/20/2015 | | Results for this | | | e | 9:10 AM | | procedure are in the | | | | PDT | | results section. | + +--------+ + + + | SEDIMENTATION RATE, | Routin | 09/20/2015 | | Results for this | | AUTOMATED | e | 9:10 AM | | procedure are in the | | | | PDT | | results section. | + +--------+ + + + | COMPREHENSIVE | Routin | 09/20/2015 | | Results for this | | METABOLIC PANEL | e | 9:10 AM | | procedure are in the | | | | PDT | | results section. | + +--------+ + + + documented in this encounter Results Sedimentation rate, automated (09/20/2015 9:10 AM PDT) + +-------+ + + + | Component | Value | Ref Range | Performed | Pathologist | | | | | At | Signature | + +-------+ + + + | Sed Rate | 2 | 0 - 20 mm/h | EXTERNAL [...] + +---------+ + + External Lab: CBC (09/20/2015 9:10 AM PDT) + + + + + + | Component | Value | Ref Range | Performed | Pathologist | | | | | At | Signature | + + + + + + | WBC | 9.2 | 3.8 - 11.0 | EXTERNAL | | | | | 10*3/uL | LAB | | + + + + + + | RED CELL | 4.54 | 4.20 - 5.70 | EXTERNAL | | | COUNT | | 10*6/uL | LAB | | + + + + + + | Hgb | 16.2 | 13.2 - 17.0 | EXTERNAL | | | | | g/dL | LAB | | + + + + + + | Hematocrit, | 47.3 | 39.0 - 50.0 % | EXTERNAL | | | POC | | | LAB | | + + + + + + | MCV | 104.0 (H) | 80.0 - 100.0 fL | EXTERNAL | | | | | | LAB | | + + + + + + | MCH | 35.8 (H) | 27.0 - 34.0 pg | EXTERNAL | | | | | | LAB | | + + + + + + | MCHC | 34.4 | 32.0 - 35.5 | EXTERNAL | | | | | g/dL | LAB | | + + + + + + | Platelet | 160 | 150 - 400 | EXTERNAL | | | Count | | 10*3/uL | LAB | | | Plasma | | | | | + + + + + + | MPV | 8.3 | fL | EXTERNAL | | | | | | LAB | | + + + + + + | Differentia | AUTOMATED | | EXTERNAL | | | l Type | | | LAB | | + + + + + + | % Segmented | 78.8 | | EXTERNAL | | | | | | LAB | | | Neutrophils | | | | | + + + + + + | % | 13.0 | % | EXTERNAL | | | Lymphocytes | | | LAB | | + + + + + + | % Monocytes | 6.4 | % | EXTERNAL | | | | | | LAB | | + + + + + + | % | 1.2 | % | EXTERNAL | | | Eosinophils | | | LAB | | + + + + + + | % Basophils | 0.6 | % | EXTERNAL | | | | | | LAB | | + + + + + + | Absolute | 7.3 | 1.9 - 7.4 | EXTERNAL | | | Segmented | | 10*3/uL | LAB | | | Neutrophils | | | | | + + + + + + | Absolute | 1.2 | 1.0 - 3.9 | EXTERNAL | | | Lymphocytes | | 10*3/uL | LAB | | + + + + + + | Absolute | 0.6 | 0.0 - 0.8 | EXTERNAL | | | Monocytes | | 10*3/uL | LAB | | + + + + + + | Absolute | 0.1 | 0.0 - 0.5 | EXTERNAL | | | Eosinophils | | 10*3/uL | LAB | | + + + + + + | Absolute | 0.1 | 0.0 - 0.1 | EXTERNAL | [...] + +---------+ + + Comprehensive Metabolic Panel (09/20/2015 9:10 AM PDT) + + + + + + | Component | Value | Ref Range | Performed | Pathologist | | | | | At | Signature | + + + + + + | Na | 146 (H) | 135 - 143 | EXTERNAL | | | | | mmol/L | LAB | | + + + + + + | K | 3.6 | 3.5 - 4.9 | EXTERNAL | | | | | mmol/L | LAB | | + + + + + + | Cl | 106 | 99 - 109 mmol/L | EXTERNAL | | | | | | LAB | | + + + + + + | CO2 | 28 | 23 - 32 mmol/L | EXTERNAL | | | | | | LAB | | + + + + + + | Anion Gap | 16 | 5 - 20 mmol/L | EXTERNAL | | | | | | LAB | | + + + + + + | Glucose, | 115 (H) | 65 - 99 mg/dL | EXTERNAL | | | Fasting | | | LAB | | + + + + + + | BUN | 29 (H) | 8 - 25 mg/dL | EXTERNAL | | | | | | LAB | | + + + + + + | Creatinine | 1.0 | 0.70 - 1.30 | EXTERNAL | | | | | mg/dL | LAB | | + + + + + + | BUN/Creatin | 29 | | EXTERNAL | | | ine Ratio | | | LAB | | + + + + + + | Calcium | 9.2 | 8.5 - 10.5 | EXTERNAL | | | | | mg/dL | LAB | | + + + + + + | Protein, | 6.4 | 6.3 - 8.2 g/dL | EXTERNAL | | | Total | | | LAB | | + + + + + + | Albumin | 4.3 | 3.3 - 4.8 g/dL | EXTERNAL | | | | | | LAB | | + + + + + + | Globulin | 2.1 | 1.3 - 4.9 g/dL | EXTERNAL | | | | | | LAB | | + + + + + + | A/G Ratio | 2.0 | 1.0 - 2.4 | EXTERNAL | | | | | | LAB | | + + + + + + | Bilirubin | 0.8 | 0.1 - 1.5 mg/dL | EXTERNAL | | | Total | | | LAB | | + + + + + + | ALP, | 76 | 35 - 115 U/L | EXTERNAL | | | External | | | LAB | | + + + + + + | AST | 25 | 10 - 45 U/L | EXTERNAL | | | | | | LAB | | + + + + + + | ALT | 20 | 10 - 65 U/L | EXTERNAL [...]
--- OUTSIDE RECORDS SUMMARY | ~2019-04-15 | XMS | Encounter Summary ---
Demographics + + + | Address | [address] | | | [place] [address] | + + + | Home Phone | | + + + | Preferred Language | Unknown | + + + | Marital Status | | + + + | Worship Affiliation | Unknown | + + + | Race | Unknown | + + + | Ethnic Group | Unknown | + + + Author + + + | Author | [facility] | | | and [place] | + + + | Organization | [facility] | [...] Team Providers + +------+ + | Care Pole Classifier Name | Role | Phone | + [...] + + | 12/22/ | Refill | [facility] | Otoniel Mya | Medication Refill | | 2019 | | RHEUMATOLOGY [address] | [address]LLY Nguyen [address] | | | | | [address] | [address] | | | | | [place], [place] | [place] [address] | | | | | [address] | [phone] | | | | | [phone] | | | +--------+--------+ + + + [...] | | | | | [place] | | | | | | [address] | | | | | | | | +--------+ + + + + | 05/11/ | Office | Orthopedic Surgery | Scot Wilson PT | | | 2019 | Visit | | [address] | | | | | | [place] [address] | | | | | | [phone] | | | | | | | | +--------+ + + + + | 05/11/ | Office | Orthopedic Surgery | Korey Hussein | | | 2019 | Visit | | [address] | | | | | | [place] | | | | | | [address] | | | | | | | | +--------+ + + + + | 05/14/ | Office | Rheumatology | Mya Frederick | | | 2019 | Visit | | SHELLY Nguyen [address] | | | | | | [address] | | | | | | [place] [address] | | | | | | [phone] | | | | | | | | +--------+ + + + + | 06/06/ | Hospital | | Korey Hussein | Primary | | 2019 | Encounter | | [address] | 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[place] | right knee; Chronic | | | | | [address] | pain of right knee | | | | | | | +--------+ + + + + | 06/06/ | Surgery | | Korey Hussein | RIGHT TOTAL KNEE | | 2019 | | | [address] | ARTHROPLASTY | | | | | [place] | | | | | | [address] | | | | | | | | +--------+ + + + + | 06/21/ | Office | Orthopedic Surgery | Jossue Haro | | | 2019 | Visit | | [address] | | | | | | [address] | | | | | | [place] [address] | | | | | | [phone] | | | | | | | | +--------+ + + + + documented as of this encounter Visit Diagnoses Not on filedocumented in this encounter"
--- OUTSIDE RECORDS SUMMARY | ~2019-04-15 | XMS | Encounter Summary ---
Demographics + + + | Address | [address] | | | [place] [address] | + + + | Home Phone | | + + + | Preferred Language | Unknown | + + + | Marital Status | | + + + | Anabaptist Affiliation | Unknown | + + + | Race | Unknown | + + + | Ethnic Group | Unknown | + + + Author + + + | Author | [facility] | | | and [place] | + + + | Organization | [facility] | | | and [...] Team Providers + +------+ + | Care Radial Router Operator Name | Role | Phone | [...] | Physical | Diagnoses | Keenan | [place] | | | Services | Therapy / | Primary | Korey Torrez, | Orthopedic | | | Required | Orthopedic | osteoarthrit | [address] | | | | Surgery | is of right | [address] | [address] | | | | | knee | [place], | [place], | | | | | Chronic pain | [place] [address] | [place] | | | | | of right | Phone: | [phone] | | | | | knee | [phone] | Phone: | | | | | | Fax: | [phone] | | | | | | [phone] | Fax: | | | | | | | [phone] | + + + + + + + Encounter Details +--------+ + + + + | Date | Type | Department | Care Team | Description | +--------+ + + + + | 04/06/ | Orders Only | [facility] | Korey Hussein | Primary | | 2020 | | ORTHOPEDIC SURGERY | MD Shan [address] [facility] | osteoarthritis of | | | | [address] [facility] | [place], [place] | right knee (Primary | | | | [place], [place] | [address] | Dx); Chronic pain of | | | | [address] | | right knee | | | | [phone] | | | +--------+ + + + [...] [place] | | | | | | [address] | | | | | | | | +--------+ + + + + | 05/11/ | Office | Orthopedic Surgery | Scot Wilson PT | | | 2019 | Visit | | [address] | | | | | | [place] [address] | | | | | | [phone] | | | | | | | | +--------+ + + + + | 05/11/ | Office | Orthopedic Surgery | Korey Hussein | | | 2019 | Visit | | MD [address] | | | | | | [place] | | | | | | [address] | | | | | | | | +--------+ + + + + | 05/14/ | Office | Rheumatology | Mya Frederick | | | 2019 | Visit | | SHELLY Nguyen [address] | | | | | | [address] | | | | | | [place] [address] | | | | | | [phone] | | | | | | | | +--------+ + + + + | 06/06/ | Hospital | | Korey Hussein | Primary | | 2020 | Encounter | | [address] | 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[place] | right knee; Chronic | | | | | [address] | pain of right knee | | | | | | | +--------+ + + + + | 06/06/ | Surgery | | Korey Hussein | RIGHT TOTAL KNEE | | 2019 | | | MD Shan [address] | ARTHROPLASTY | | | | | [place] | | | | | | [address] | | | | | | | | +--------+ + + + + | 06/21/ | Office | Orthopedic Surgery | Jossue Haro | | | 2019 | Visit | | [address] | | | | | | [address] | | | | | | [place] [address] | | | | | | [phone] | | | | | | | | +--------+ + + + + + + +--------+ + + | Name | Type | Priori | Associated Diagnoses | Order Schedule | | | | ty | | | + + +--------+ + + | * [facility] | Outpatient | Routin | Primary | Ordered: 04/06/2019 | | Physical Therapy - | Referral | e | osteoarthritis of | | | AMB Referral | | | right knee Chronic | | | | | | pain of right knee | | + + +--------+ + + documented as of this encounter Visit Diagnoses + + | Diagnosis | + + | Primary osteoarthritis of right knee - Primary Primary localized osteoarthrosis, | | lower leg | + + | Chronic pain of right knee | + + documented in this encounter"
--- OUTSIDE RECORDS SUMMARY | ~2019-04-15 | XMS | Encounter Summary ---
Demographics + + + | Address | [address] | | | [place] [address] | + + + | Home Phone | | + + + | Preferred Language | Unknown | + + + | Marital Status | | + + + | Anabaptism Affiliation | Unknown | + + + | Race | Unknown | + + + | Ethnic Group | Unknown | + + + Author + + + | Author | [facility] | | | and [place] | + + + | Organization | [facility] | | | and [place] | [...] Team Providers + +------+ + | Care Double End Chucking Machine Operator Name | Role | Phone | + +------+ + | Parminder Malagon MD | PCP | | + +------+ + Reason for Visit + + + | Reason | Comments | + + + | Pre-op Exam | left tka dos 02/12/19 | + + + | Knee Pain | | + + + Encounter Details +--------+---------+ + + + | Date | Type | Department | Care Team | Description | +--------+---------+ + + + | 02/04/ | Office | [facility] | Korey Hussein | Pre-op testing | | 2019 | Visit | ORTHOPEDIC SURGERY | MD [address] [facility] | (Primary Dx); | | | | [address] [facility] | [place], [place] | Primary | | | | [place], [place] | [address] | osteoarthritis of | | | | [address] | | left knee; | | | | [phone] | | Hypertension, | | | | | | unspecified type; | | | | | | meterman current | | | | | | use of diuretic; | | | | | | Nocturia | +--------+---------+ + + + Social History [...] + + + | Blood Pressure | 149/67 | 02/04/2019 11:44 AM | | | | | PST | | + + + + + | Pulse | 60 | 02/04/2019 11:44 AM | | | | | PST | | + + + + + | Temperature | 37 C (98.6 F) | 02/04/2019 11:44 AM | | | | | PST | | + + + + + | Respiratory Rate | 16 | 02/04/2019 11:44 AM | | | | | PST | | + + + + + | Oxygen Saturation | 98% | 02/04/2019 11:44 AM | | | | | PST | | + + + + + | Inhaled Oxygen | - | - | | | Concentration | | | | + + + + + | Weight | 82.6 kg (182 lb) | 02/04/2019 11:44 AM | | | | | PST | | + + + + + | Height | 181.6 cm (5' 11.5") | 02/04/2019 11:44 AM | | | | | PST | | + + + + + | Body Mass Index | 25.03 | 02/04/2019 11:44 AM | | | | | PST [...] documented as of this encounter Progress Notes Korey Hussein MD - 02/04/2019 11:45 AM PSTFormatting of this note might be differen t from the original. History of present illness: Beni is a 78 y.o. male who presents to our clinic today for a preop examination. Beni is scheduled for a left total knee joint arthroplasty on 02/13/20 19. He has a 10-year history of bilateral knee pain that has now failed conservative measur es. He is having increasing difficulty with all physical activity including simple activiti es of daily living. His x-rays show relatively severe bilateral knee osteoarthrosis and he therefore is felt to be a candidate for staged, bilateral total knee joint arthroplasties [facility] with the left side first which is the most symptomatic side. Past Medical History: Diagnosis Date Arthritis Cancer (HCC) prostate Hyperlipemia Hypertension Hypertension Joint pain Osteoarthritis Prostate cancer (HCC) Rheumatoid arthritis (HCC) Past Surgical History: Procedure Laterality Date APPENDECTOMY 1954 APPENDECTOMY COLONOSCOPY 2003 CYST REMOVAL 11/04/2017 scrotum HERNIA REPAIR INCISION AND DRAINAGE N/A 12/01/2017 Procedure: INCISION AND DRAINAGE SCROTUM; Surgeon: Tay Garrido MD; Location: [facility] MAIN OR INGUINAL HERNIA REPAIR Right 1979 KNEE ARTHROSCOPY Bilateral PROSTATECTOMY 2000 prostate cancer scrotal cyst excision Left 2008 [place] TESTICLE REMOVAL Right 11/04/2017 Dr. Garrido TONSILLECTOMY Allergies Allergen Reactions Penicillins Hives Current Outpatient Medications on File Prior to Visit Medication Sig Dispense Refill ascorbic acid (VITAMIN C) 1000 MG tablet Take 1,000 mg by mouth daily. aspirin 81 MG tablet Take 81 mg by mouth every other day. B Complex-C (SUPER B COMPLEX PO) Take 1 tablet by mouth daily. folic acid 1 mg tablet TAKE ONE TABLET BY MOUTH ONCE DAILY 90 tablet 3 Qhemtptjonz-Gtnmpjxee-Uti C-Mn (GLUCOSAMINE 1500 COMPLEX PO) Take 1 [...] mg by mouth Daily. Multiple Minerals-Vitamins (CALCIUM NNKUGPZ-BPL-QXIGAZIZ PO) Take 1 tablet by mouth yunier ly. omeprazole (PRILOSEC) 20 mg capsule Take 20 mg by mouth every morning (before breakfast ). potassium chloride (KLOR-CON) 20 MEQ packet Take 20 mEq by mouth daily. pravastatin (PRAVACHOL) 40 MG tablet Take 20 mg by mouth daily. sulfaSALAzine (AZULFIDINE) 500 mg tablet TAKE 1 TABLET BY MOUTH TWICE DAILY 180 tablet 0 tocopherol (VITAMIN E) 400 units capsule Take 400 Units by mouth daily. No current facility-administered medications on file prior to visit. Family History Problem Relation Age of Onset Alzheimer's disease Mother Heart failure Father Heart defect Brother Arthritis Brother Social History Socioeconomic History Marital status: Spouse name: Not on file Number of children: Not on file Years of education: Not on file Highest education level: Not on file Social Needs Financial resource strain: Not on file Food insecurity - worry: Not on file Food insecurity - inability: Not on file Transportation needs - medical: Not on file Transportation needs - non-medical: Not on file Occupational History Occupation: retired Tobacco Use Smoking status: Former Smoker Smokeless tobacco: Never Used Substance and Sexual Activity Alcohol use: Yes Comment: 1/ month Drug use: No Comment: Drug use: No Sexual activity: Never Other Topics Concern Not on file Social History Narrative Not on file Review of Systems Eyes: [] Double vision [x] Glasses/contacts [] Failing vision Ear/Nose/Throat: [] Frequent Colds [] Sinus Disease [] Nose obstruction [x] Sneezing Spells [x] Change in taste [] Artificial teeth [x] Ears ringing [] Ear pain [x] Hearing lo ss [] Teeth problems [] Hoarseness [] Neck swelling [] Sore throat [] Congestion [] Nosebleeds [] Nasal allergies Respiratory: [] Asthma/Wheezing [] Pneumonia [] Night sweats [] Shortness of breath [] Chronic cough [] Coughing up blood [] Exposure to tuberculosis Cardiovascular: [] Heart Problems [x] Hypertension [] Heart murmur [x] Palpitations [] Rheumatic fever [] Phlebitis [] Chest pain [] Ankle swelling [x] Leg cramps [] Raci ng heart [x] Skipping beats [] Blood clots Gastrointestinal: [] Abdominal pain [] Heartburn [] Blood from rectum [] Colitis [] Gallbladder problems [] Troubl e swallowing [] Bloated stomach [] Change in stools [] Vomiting blood [x] Nausea [] Hemorrhoids [] Jaundice [] Hepatitis [] Diarrhea [] Constipation [] Diverticulitis Urinary Tract: [] Painful urination [] Kidney Stones [x] Any urine leakage [x] Weak urine stream [x] Night urination [] Urine infections [] Bedwetting [] Blood in urine Skin: [] Skin rashes [] Itching/Burning [x] Skin bruises easi ly [] Artificial tanning [x] Skin cancer [] Hair loss [] Changes in moles Musculoskeletal: [] Physical handicaps [x] Back or shoulder pain [x]Rheumatoid disease [x] Osteoarthritis [x] Joint pain [x] Joint swelling []Gout [x] Leg cramps at night Neurological: [] Headaches [] Seizures [] Stroke/TIA [] Faintness [] Tremors [] Numbness [x] Dizziness [] Changes in handwriting [] Memory loss [] Shooting pains Psychiatric: [] Depression [] Suicidal thoughts [] Sleep pattern changes [x] Appetite changes [] Recent counseling [] Nervousness/anxiety [] Physical violence [] Marital problems Endocrine: [] Thyroid [] Diabetes Systemic: []Weight loss/gain (over 10 lbs) []Fever/chills []Fatigue [] Sleeping Difficulties [] Speech change [] Voice change Vitals: 02/04/19 1144 BP: 149/67 Pulse: 60 Resp: 16 Temp: 37 C (98.6 F) PainSc: 2 PainLoc: Knee Estimated body mass index is 25.03 kg/m as calculated from the following: Height as of this encounter: 1.816 m (5' 11.5"). Weight as of this encounter: 82.6 kg (182 lb). Physical examination:Patient is alert and oriented and in no acute distress. Inspection reveals: Skin is warm dry and intact with no gross deformity. Head: Oral pharnyx nonerythematous nonedematous no exudate noted Neck: Supple nontender without any lymphadenopathy. Heart: Regular rate and rhythm. Lungs: Clear to auscultation. Abdomen: Soft nontender no masses organomegaly. Cranial nerves 2-12 grossly intact. Musculoskeletal: Both knees are mildly swollen. Both knees display crepitus with range of motion. The left knee is particularly tender over the medial joint line. Neurovascular fun ction is intact to both feet. Assessment: Left knee advanced osteoarthrosis. Plan: The patient is scheduled for a left total knee joint arthroplasty on 02/12/2019. The refore, the planned procedure with its risks, possible complications, expected prognosis, an d treatment alternatives was discussed with the patient. Risks and possible complications w ere listed but not limited to infection, nerve and vessel damage, bleeding, pain, scarring, stiffness, residual symptoms remaining after surgery, and the risk of anesthesia including d eath. No guarantees were given or implied other than that of diligent effort. documented in th is encounter Plan of Treatment +--------+ + + + + | Date | Type | Specialty | Care Team | Description | +--------+ + + + + | 04/28/ | Office | Cardiology | Leighann Maddox, | | | 2019 | Visit | | MD Aileen MARISCAL | | | | | | [facility] [place] | | | | | | [address] | | | | | | | | +--------+ + + + + | 05/11/ | Office | Orthopedic Surgery | Scot Wilson PT | | 2019 | Visit | | [address] | | | | | | [place] [address] | | | | | | [phone] | | | | | | | | +--------+ + + + + | 05/11/ | Office | Orthopedic Surgery | Korey Hussein | | | 2019 | Visit | | [address] | | | | | | [place] | | | | | | [address] | | | | | | | | +--------+ + + + + | 05/14/ | Office | Rheumatology | Mya Frederick | | | 2019 | Visit | | SHELLY Nguyen [address] | | | | | | [address] | | | | | | [place] [address] | | | | | | [phone] | | | | | | | | +--------+ + + + + | 06/06/ | Hospital | | Korey Hussein | Primary | | 2020 | Encounter | | [address] | 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[place] | right knee; Chronic | | | | | [address] | pain of right knee | | | | | | | +--------+ + + + + | 06/06/ | Surgery | | Korey Hussein | RIGHT TOTAL KNEE | | 2019 | | | MD Shan [address] | ARTHROPLASTY | | | | | [place] | | | | | | [address] | | | | | | | | +--------+ + + + + | 06/21/ | Office | Orthopedic Surgery | Jossue Haro | | | 2019 | Visit | | [address] | | | | | | [address] | | | | | | [place] [address] | | | | | | [phone] | | | | | | | [...] + + documented in this encounter Results Urinalysis with Microscopic with Culture if Indicated [...] - 1.030 | [facility] | | | [place] | | | [facility] | | [...] URINE | Urine Culture Not | | TAVON | | | COMMENT | Indicated | | [facility] | | | [...] [address] | [place] | [phone] | | [facility] | | [address] | | | - LABORATORY | | [...] | | | | | M/uL | [facility] | | | | | [...] | | Monocytes | | K/uL | [facility] | [...] | + + + + + | [address] | [address] | [place] | [phone] | | [facility] | | [address] | | | - LABORATORY | | | | + + + + + Basic Metabolic Panel (02/04/2019 1:07 PM PST) + + + + + + | Component | Value | Ref Range | Performed | Pathologist | | | | | At | Signature | + + + + + + | Na | 145 | 136 - 145 | [facility] | | | | | mmol/L | [facility] | | | | | | MEDICAL | | | | | | CENTER - | | | | | | LABORATORY | | + + + + + + | K | 3.7 | 3.4 - 5.1 | [facility] | [...] + | CO2 | 33 (H) | 20 - 31 mmol/L | [facility] | | | | | | [facility] | | | | | | MEDICAL | | | | | | CENTER - | | | | | | LABORATORY | | + + + + + + | Anion Gap | 6 | 3 - 16 mmol/L | [facility] | | | | | | [facility] | | | | | | MEDICAL | | | | | | CENTER - | | | | | | LABORATORY | | + + + + + + | Glucose | 98 | 60 - 106 mg/dL | [facility] | | | | | | [facility] | | | | | | MEDICAL | | | | | | CENTER - | | | | | | LABORATORY | | + + + + + + | BUN | 20 | 9 - 23 mg/dL | [facility] | | | | | | [facility] | | | | | | MEDICAL | | | | | | CENTER - | | | | | | LABORATORY | | + + + + + + | Creatinine | 1.10 | 0.70 - 1.30 | [facility] | | | | | mg/dL | [facility] | | | | | | MEDICAL | | | | | | CENTER - | | | | | | LABORATORY | | + + + + + + | eGFR if not | >60Comment: GLOMERULAR | >=60 | [facility] | | | | FILTRATION | mL/min/1.73m2 | [facility] | | | MALAGASY | RATE,ESTIMATED | | MEDICAL | | | | mL/min/1.41z5Fqbw than | | CENTER - | | [...] + + | Calcium | 9.8 | 8.7 - 10.4 | [facility] | | | | | mg/dL | [facility] | | | | | | MEDICAL | | | | | | CENTER - | | | | | | LABORATORY | | + + + + + + | BUN/Creatin | 18.2 | | [facility] | | | ine [...] [address] | [place] | [phone] | | [facility] | | [address] | | | - LABORATORY | | [...] | | | | DESIRAE DELUNA MD ([id number]) | | | | | | on [...] | | chromogenic agar method. | | [facility] | | | [...] + | [address] | [address] | [place] | [phone] | | [facility] | | [address] | | | - LABORATORY | | | | + + + + + documented in this encounter Visit Diagnoses + + | Diagnosis | + + | Pre-op testing - Primary Preoperative examination, unspecified | + + | Primary osteoarthritis of left knee Primary localized osteoarthrosis, lower leg | + + | Hypertension, unspecified type | + + | shelter current use of diuretic | + + | Nocturia | + + documented in this encounter
--- OUTSIDE RECORDS SUMMARY | ~2019-04-15 | XMS | Encounter Summary ---
Demographics + + + | Address | [address] | | | [place] [address] | + + + | Home Phone | | + + + | Preferred Language | Unknown | + + + | Marital Status | | + + + | Mormonism Affiliation | Unknown | + + + | Race | Unknown | + + + | Ethnic Group | Unknown | + + + Author + + + | Author | [facility] | | | and [place] | + + + | Organization | [facility] | | | and [place] [...] Team Providers + +------+ + | Care Clicking Machine Operator Name | Role | Phone | + +------+ + | Parminder Malagon MD | PCP | | + +------+ + Encounter Details +--------+ + + + + | Date | Type | Department | Care Team | Description | +--------+ + + + + | 01/22/ | Orders Only | [facility] | Romel Martin, | | | 2015 | | RHEUMATOLOGY [address] | | | | [address] | [address] [place] | | | | | [place] | [address] | | | | | [address] | | | | | | [phone] | | | +--------+ + + + [...] [place] | | | | | | [address] | | | | | | | | +--------+ + + + + | 05/11/ | Office | Orthopedic Surgery | Scot Wilson PT | | | 2019 | Visit | | [address] | | | | | | [place] [address] | | | | | | [phone] | | | | | | | | +--------+ + + + + | 05/11/ | Office | Orthopedic Surgery | Korey Hussein | | | 2019 | Visit | | [address] | | | | | | [place] | | | | | | [address] | | | | | | | | +--------+ + + + + | 05/14/ | Office | Rheumatology | Mya Frederick | | | 2019 | Visit | | SHELLY Nguyen [address] | | | | | | [address] | | | | | | [place] [address] | | | | | | [phone] | | | | | | | | +--------+ + + + + | 06/06/ | Hospital | | Korey Hussein | Primary | | 2019 | Encounter | | [address] | 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[place] | right knee; Chronic | | | | | [address] | pain of right knee | | | | | | | +--------+ + + + + | 06/06/ | Surgery | | Korey Hussein | RIGHT TOTAL KNEE | | 2019 | | | [address] | ARTHROPLASTY | | | | | [place] | | | | | | [address] | | | | | | | | +--------+ + + + + | 06/21/ | Office | Orthopedic Surgery | Jossue Haro | | | 2020 | Visit | | [address] | | | | | | [address] [place] | | | | | | [place] [address] | | | | | | [phone] | | | | | | | [...]
--- OUTSIDE RECORDS SUMMARY | ~2019-04-15 | XMS | Clinical Summary ---
Demographics + + + | Address | [address] | | | [place] [address] | + + + | Home Phone [...] | Author | [facility] | | | and [place] | + + + | Organization | 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 Last Assessment & Plan: Responding well to current | | treatment plan. No change in treatment plan. 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 and if patient fails to continue | [...] | + +---+ + + | Overview: 3798-8128: GFR 40's-60's | + + + +---+ [...] 2018 | | | MD Shan | ARTHROPLASTY | +--------+ + + + [...] type; | | | | | | jail current | | | | | | [...] [place] | | | | | | [address] | | | | | | | | +--------+ + + + + | 05/11/ | Office | Orthopedic Surgery | Scot Wilson PT | | | 2019 | Visit | | [address] | | | | | | [place] [address] | | | | | | [phone] | | | | | | | | +--------+ + + + + | 05/11/ | Office | Orthopedic Surgery | Korey Hussein | | | 2019 | Visit | | [address] | | | | | | [place] | | | | | | [address] | | | | | | | | +--------+ + + + + | 05/14/ | Office | Rheumatology | Mya Frederick | | | 2020 | Visit | | SHELLY Nguyen [address] | | | | | | [place] | | | | | | [place] [address] | | | | | | [phone] | | | | | | | | +--------+ + + + + | 06/06/ | Hospital | | Korey Hussein | Primary | | 2019 | Encounter | | [address] | 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[place] | right knee; Chronic | | | | | [address] | pain of right knee | | | | | | | +--------+ + + + + | 06/06/ | Surgery | | Korey Hussein | RIGHT TOTAL KNEE | | 2019 | | | [address] | ARTHROPLASTY | | | | | [place] | | | | | | [address] | | | | | | | | +--------+ + + + + | 06/21/ | Office | Orthopedic Surgery | Jossue Haro | | | 2019 | Visit | | [address]LLY [address] | | | | | | [address] | | | | | | [place] [address] | | | | | | [phone] | | | | | | | [...] | | 09/27/ | 42-540 | | [id number]: Qty: 1 | c | Knee | ZIMM | | 2026 | 0-000- | | on 02/12/2019 by Keenan, | | | | | | 32 / | | Korey Torrez MD at [facility] | | | | | | /[id number] | | [facility] | | | | | | 163 | | CENTER | | | | | | | + +--------+--------+ +--------+--------+--------+ | Imp Knee Fem Stem Pls0 Sz11 | Generi | Left: | [place] - | | 07/28/ | 42-502 | | Lt - [id number]: | c | Knee | ZIMM | | 2028 | 6-070- | | Qty: 1 on 02/12/2019 by | | | | | | 01 / | | Korey Hussein MD at | | | | | | /[address] | | [facility] | | | | | | 459 | | [facility] | | | | | | | + +--------+--------+ +--------+--------+--------+ | Imp Knee Tib 5deg Lt Szh - | Generi | Left: | [place] - | | 12/28/ | 42-532 | | [id number]: Qty: 1 | c | Knee | ZIMM | | 2027 | 0-083- | | on 02/12/2019 by Keenan, | | | | | | 01 / | | Korey Torrez MD at [facility] | | | | | | /[address] | | [facility] | | | | | | 397 | | CENTER | | | | | | | + +--------+--------+ +--------+--------+--------+ | Imp Knee Surf Art L 13 | Generi | Left: | [place] - | | 06/28/ | 42-512 | | 8-11gh - [id number]: | c | Knee | ZIMM | | 2019 | 1-009- | | Qty: 1 on 02/12/2019 by | | | | | | 13 / | | Korey Hussein MD at | | | | | | /[address] | | [facility] | | | | | | 990 | | [facility] | | | | | | | + +--------+--------+ +--------+--------+--------+ | Nik Bone Palacos-R Hv 40gm - | | Left: | GREGGUS - | | 05/28/ | 073312 | | [id number]: Qty: 1 | | Knee | KELL | | 2022 | 3 / | | on 02/12/2019 by Keenan, | | | | | | /[id number] | | Korey Torrez MD at [facility] | | | | | | 858 | | [facility] | | | | | | | | CENTER | | | | | | | + +--------+--------+ +--------+--------+--------+ | Nik Bone Palacos-R Hv 40gm - | | Left: | HERAEUS - | | 05/28/ | 219568 | | [id number]: Qty: 1 | | Knee | KELL | | 2022 | 3 / | | on 02/12/2019 by Keenan, | | | | | | /[address] | | Korey Torrez MD at [facility] | | | | | | 856 | | [facility] | | | | | | | [...] | | | | | left knee long term acute care registered nurse | | | | | | current [...] + | [address] | [address] | [place], [place] | [phone] | | [facility] | | [address] | | | - LABORATORY | | [...] mL/min/1.73m2 | [facility] | | | NEPALESE | RATE,ESTIMATED | | MEDICAL | | | | mL/min/1.52e2Bjve than | | CENTER - | | [...] [address] | [place] | [phone] | | [facility] | | [address] | | | - LABORATORY | | [...] | | Authorizing provider: Billy Malagon MD Pill Packer: Koki Carmichael, | | | AT | | + + + Nerve Block (02/12/2019 10:15 AM PST) + + + | Narrative | Performed At | + + + | Billy Malagon MD 02/12/2019 10:15 AM Perineural Procedure | [...] provider: | | | Billy Malagon MD Pill Packer: Koki Carmichael AT | | + + [...] - 1.030 | [facility] | | | [place] | | | [facility] | | [...] URINE | Urine Culture Not | | [facility] | | | COMMENT | Indicated | | [facility] | | | | | | [...] [address] | [place] | [phone] | | [facility] | | [address] | | | - LABORATORY | | [...] + | [address] | [address] | [place], [place] | [phone] | | [facility] | | [address] | | | - LABORATORY | | [...] | | | | DESIRAE DELUNA MD ([id number]) | | | | | | on [...] + | [address] | [address] | [place] | [phone] | | [facility] | | [address] | | | - LABORATORY | | [...] +--------+ +---------+--------+ | MEDICARE | MEDICA | [id number] | 03/31/19 | [phone] | | Medica | | | RE | | 07-Pre | 5 | | re | | | PART A | | sent | | | | | | AND B | | | | | | + +--------+ +--------+ +---------+--------+ | MEDICARE | MEDICA | [id number] | 03/31/19 | [phone] | | Medica | | | RE | | 07-Pre | 5 | | re | | | PART A | | sent | | | | | | AND B | | | | | | + +--------+ +--------+ +---------+--------+ | CIGNA | CIGNA | [id number] | | [id number] | | Indemn | [...] +--------+ +---------+--------+ | CIGNA | CIGNA | [id number] | | [id number] | | Indemn | [...] | 1940 | [address] | [place] [address] | | | gasper | | | 3 (Home) | | + +--------+ +--------+ + + | Beni Delcid | Person | Self | [birth year] | [address] | | | al/Fam | | 1940 | [address] | [place] [address] | | | [place] | | | 3 (Home) | | + +--------+ +--------+ + + Advance Directives + + + + + | Type | Date Recorded | Patient | Explanation | | | | Debate Director | | + + + + + | Power of | | | | | Lead Sustainability Specialist | | | | + + + [...]
--- OUTSIDE RECORDS SUMMARY | ~2019-04-15 | XMS | Encounter Summary ---
Demographics + + + | Address | [address] | | | [place] [address] | + + + | Home Phone [...] Organization | [facility] | | | and [place] [...] Team Providers + +------+ + | Care Floatlight Powder Mixer Name | Role | Phone | + [...] + + | 02/23/ | Office | [facility] | Jossue Haro | S/P orthopedic | | 2019 | Visit | ORTHOPEDIC SURGERY | SHELLY [address] | surgery, follow-up | | | | [address] [facility] | [facility] | exam (Primary Dx) | | | | [place], [place] | [place] [address] | | | | | [address] | [phone] | | | | | [phone] | | | +--------+---------+ + + + [...] be differe nt from the original. ORTHOPEDICS [address] [place] [id number] FAX: [phone] Name: Beni Delcid : 1940 Age: 78 [...] he was admitted to a hospital in [place] [facility]. He has been on his feet a lot more than anticipated and going to and from the [facility] daily. He continues with aspirin for blood [...] to ride in car to and from [facility] to be with his f ruddyy [...] PM This note was dictated using the Easy Vino voice recognition system. There may be minor [...] [place] | | | | | | [id number] | | | | | | | | +--------+ + + + + | 05/11/ | Office | Orthopedic Surgery | Scot Wilson PT | | | 2019 | Visit | | [address] | | | | | | [place] [address] | | | | | | [phone] | | | | | | | | +--------+ + + + + | 05/11/ | Office | Orthopedic Surgery | Korey Hussein | | | 2019 | Visit | | MD Shan [address] | | | | | | [place] | | | | | | [address] | | | | | | | | +--------+ + + + + | 05/14/ | Office | Rheumatology | Mya Frederick | | | 2019 | Visit | | SHELLY Nguyen [address] | | | | | | [address] [address] | | | | | | [place] [address] | | | | | | [phone] | | | | | | | | +--------+ + + + + | 06/06/ | Hospital | | Korey Hussein | Primary | | 2020 | Encounter | | MD Shan [address] | 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[place] | right knee; Chronic | | | | | [address] | pain of right knee | | | | | | | +--------+ + + + + | 06/06/ | Surgery | | Korey Hussein | RIGHT TOTAL KNEE | | 2019 | | | MD [address] | ARTHROPLASTY | | | | | [place] | | | | | | [address] | | | | | | | | +--------+ + + + + | 06/21/ | Office | Orthopedic Surgery | Jossue Haro | | | 2019 | Visit | | SHELLY Hamilton | | | | | | [address] | | | | | | [place] [address] | | | | | | [phone] | | | | | | | | +--------+ + + + + documented as of this encounter Visit Diagnoses + + | Diagnosis | + + | S/P orthopedic surgery, follow-up exam - Primary Follow-up examination, following | | other surgery | + + documented in this encounter
--- OUTSIDE RECORDS SUMMARY | ~2019-04-15 | XMS | Encounter Summary ---
Demographics + + + | Address | [address] | | | [place] [address] | + + + | Home Phone | | + + + | Preferred Language | Unknown | + + + | Marital Status | | + + + | Buddhism Affiliation | Unknown | + + + | Race | Unknown | + + + | Ethnic Group | Unknown | + + + Author + + + | Author | [facility] | | | and [place] | + + + | Organization | [facility] | | | and [place] [...] Team Providers + +------+ + | Care Under Trimmer Name | Role | Phone | + +------+ + | Parminder Malagon MD | PCP | | + +------+ + Reason for Visit + + + | Reason | Comments | + + + | Procedure | | + + + Encounter Details +--------+ + + + + | Date | Type | Department | Care Team | Description | +--------+ + + + + | 01/04/ | Telephone | [facility] | Korey Hussein | Procedure | | 2019 | | ORTHOPEDIC SURGERY | MD Shan [address] [facility] | | | | | [address] [facility] | [place] | | | | | [place] | [address] | | | | | [address] | | | | | | [phone] | | | +--------+ + + + [...] | | | | | [place] | | | | | | [address] | | | | | | | | +--------+ + + + + | 05/11/ | Office | Orthopedic Surgery | Scot Wilson PT | | | 2019 | Visit | | [address] | | | | | | [place] [address] | | | | | | [phone] | | | | | | | | +--------+ + + + + | 05/11/ | Office | Orthopedic Surgery | Korey Hussein | | | 2019 | Visit | | [address] | | | | | | [place] | | | | | | [address] | | | | | | | | +--------+ + + + + | 05/14/ | Office | Rheumatology | Mya Frederick | | | 2019 | Visit | | SHELLY Nguyen [address] | | | | | | [address] | | | | | | [place] [address] | | | | | | [phone] | | | | | | | | +--------+ + + + + | 06/06/ | Hospital | | Korey Hussein | Primary | | 2020 | Encounter | | [address] | 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[place] | right knee; Chronic | | | | | [address] | pain of right knee | | | | | | | +--------+ + + + + | 06/06/ | Surgery | | Korey Hussein | RIGHT TOTAL KNEE | | 2019 | | | MD [address] | ARTHROPLASTY | | | | | [place] | | | | | | [address] | | | | | | | | +--------+ + + + + | 06/21/ | Office | Orthopedic Surgery | Jossue Haro | | | 2019 | Visit | | SHELLY [address] | | | | | | [address] | | | | | | [place] [address] | | | | | | [phone] | | | | | | | | +--------+ + + + + documented as of this encounter Visit Diagnoses Not on filedocumented in this encounter"
--- OUTSIDE RECORDS SUMMARY | ~2019-04-15 | XMS | Encounter Summary ---
Demographics + + + | Address | [address] | | | [place] [address] | + + + | Home Phone | | + + + | Preferred Language | Unknown | + + + | Marital Status | | + + + | Adventism Affiliation | Unknown | + + + | Race | Unknown | + + + | Ethnic Group | Unknown | + + + Author + + + | Author | [facility] | | | and [place] | + + + | Organization | [facility] | | | and [place] | [...] Team Providers + +------+ + | Care Kettle Operator Name | Role | Phone | + +------+ + PCP | Unavailable | + +------+ + Encounter Details +--------+ + + + + | Date | Type | Department | Care Team | Description | +--------+ + + + + | 03/17/ | Hospital | [facility] | Conversion | Pain | | 2013 | Encounter | CONVERSION DEP [address] | Transaction, | | | | | [address] | Provider Unknown | | | | | [place] | | | | | | [address] | | | | | | [phone] | | | +--------+ + + + [...] | | | | [place] [place] | | | | | | [address] | | | | | | | | +--------+ + + + + | 05/11/ | Office | Orthopedic Surgery | Scot Wilson PT | | | 2019 | Visit | | [address] | | | | | | [place] [address] | | | | | | [phone] | | | | | | | | +--------+ + + + + | 05/11/ | Office | Orthopedic Surgery | Korey Hussein | | | 2019 | Visit | | [address] | | | | | | [place] | | | | | | [address] | | | | | | | | +--------+ + + + + | 05/14/ | Office | Rheumatology | Mya Frederick | | | 2020 | Visit | | SHELLY Nguyen [address] | | | | | | [place] | | | | | | [place] [address] | | | | | | [phone] | | | | | | | | +--------+ + + + + | 06/06/ | Hospital | | Korey Hussein | Primary | | 2019 | Encounter | | MD [address] | 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[place] | right knee; Chronic | | | | | [address] | pain of right knee | | | | | | | +--------+ + + + + | 06/06/ | Surgery | | Korey Hussein | RIGHT TOTAL KNEE | | 2020 | | | MD [address] | ARTHROPLASTY | | | | | [place] | | | | | | [address] | | | | | | | | +--------+ + + + + | 06/21/ | Office | Orthopedic Surgery | Jossue Haro | | | 2019 | Visit | | [address]LLY [address] | | | | | | [address] | | | | | | [place] [address] | | | | | | [phone] | | | | | | | [...]
--- OUTSIDE RECORDS SUMMARY | ~2019-04-15 | XMS | Encounter Summary ---
Demographics + + + | Address | [address] | | | [place] [address] | + + + | Home Phone | | + + + | Preferred Language | Unknown | + + + | Marital Status | | + + + | Restoration Affiliation | Unknown | + + + | Race | Unknown | + + + | Ethnic Group | Unknown | + + + Author + + + | Author | [facility] [place] | | | and [place] | + + + | Organization | [facility] | | | and [place] [...] Team Providers + +------+ + | Care Medical Reception Specialist Name | Role | Phone | [...] + + | 11/30/ | Hospital | [facility] | Joaquim Kc, | Scrotal hematoma | | 2018 - | Encounter | [facility] | [address] | (Primary Dx); | | | | [address] | [place] | Azotemia; | | 12/02/ | | [place] [address] | [address] | Leukocytosis, | | 2018 | | [phone] | | unspecified type; | | | | | Yan Pierre MD | [place]; Skin | | | | | [address] | necrosis (HCC) | | | | | [place] | | | | | | [address] | | | | | | | [...] 11/04/17. H maicol had a 2.5 cm [place] of necrosis on the anterior inferior scrotum [...] signed by: Tay Garrido, 12/02/2017 6:32 [facility] documented in this enc ounter Discharge Instructions [...] [place] | | | | | | 160222 | | | | | | | | +--------+ + + + + | 05/11/ | Office | Orthopedic Surgery | Scot Wilson PT | | 2019 | Visit | | [address] | | | | | | [place] [address] | | | | | | [phone] | | | | | | | | +--------+ + + + + | 05/11/ | Office | Orthopedic Surgery | Korey Hussein | | | 2019 | Visit | | [address] | | | | | | [place] | | | | | | [address] | | | | | | | | +--------+ + + + + | 05/14/ | Office | Rheumatology | Mya Frederick | | | 2019 | Visit | | SHELLY Nguyen [address] | | | | | | [address] | | | | | | [place] [address] | | | | | | [phone] | | | | | | | | +--------+ + + + + | 06/06/ | Hospital | | Korey Hussein | Primary | | 2020 | Encounter | | [address] | 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[place] | right knee; Chronic | | | | | [address] | pain of right knee | | | | | | | +--------+ + + + + | 06/06/ | Surgery | | Korey Hussein | RIGHT TOTAL KNEE | 2019 | | | MD Shan [address] | ARTHROPLASTY | | | | | [place] | | | | | | [id number] | | | | | | | | +--------+ + + + + | 06/21/ | Office | Orthopedic Surgery | Jossue Haro | | | 2019 | Visit | | SHELLY Hamilton | | | | | | [address] | | | | | | [place] [address] | | | | | | [phone] | | | | | | | [...] mL/min/1.73m2 | [facility] | | | [place] | RATE,ESTIMATED | | MEDICAL | | | | mL/min/1.49n0Xsdo than | | CENTER - | | [...] [address] | [place] | [phone] | | [facility] | | [address] | | | - LABORATORY | | [...] [address] | [place] | [phone] | | [facility] | | [address] | | | - LABORATORY | | [...] + | [address] [facility] | [address] | [place] | [phone] | | [facility] | | [address] | | | - LABORATORY | | [...] [address] | [place] | [phone] | | [facility] | | [address] | | | - LABORATORY | | [...] (H) | 7 - 18 mg/dL | [facility] | | | | | | [facility] | | | | | | MEDICAL | | | | | | CENTER - | | | | | | LABORATORY | | + + + + + + | Creatinine | 1.20 | 0.60 - 1.30 | [facility] | | | | | mg/dL | [facility] | | | | | | MEDICAL | | | | | | CENTER - | | | | | | LABORATORY | | + + + + + + | eGFR if not | 59 (L)Comment: | >=60 | [facility] | | | | GLOMERULAR FILTRATION | mL/min/1.73m2 | [facility] | | | [place] | RATE,ESTIMATED | | MEDICAL | | | | mL/min/1.77m4Tyiw than | | CENTER - | | [...] + | [facility] [facility] | [address] | [place] | [phone] | | [facility] | | [address] | | | - LABORATORY | | [...] [address] | [place] | [phone] | | [facility] | | [address] | | | - LABORATORY | | | | + + + + + Surgical Pathology Exam (12/01/2017 12:00 AM PDT) + + | Specimen | + + | | + + + + + | Narrative | Performed At | + + + | SPECIMEN(S): A SCROTAL WALL SPECIMEN SOURCE: A. SCROTAL WALL | [facility] | | CLINICAL HISTORY: Scrotal bleeding and weeping. Incision and | INCYTE | | drainage, scrotum. FINAL PATHOLOGIC DIAGNOSIS: Scrotal wall, | | | incision and drainage: - Blood clot and purulent material in | | | association with focally necrotic soft tissue. COMMENT: The | | | histologic features are compatible with abscess. JVR:[facility]:C2NR | | | MICROSCOPIC EXAMINATION: Histologic sections [...] | The technical component was performed by [employer], [address] | | | [facility] [address] (Hims Coder: Stephanie Courtney MD; | | | CLIA# [id number]). Professional interpretation was performed by | | | [employer], [facility], [address] | | | [place] [address] (Hims Coder: Abelardo | | | Tere Thacker). Diagnostician: [...] - 1.030 | [facility] | | | [place] | | | [facility] | | [...] ST. | [address] | [place], [place] | [phone] | | [facility] | | [address] | | | - LABORATORY | | [...] [address] | [place] | [phone] | | [facility] | | [address] | | | - LABORATORY | | [...] [address] | [place] | [phone] | | [facility] | | [address] | | | - LABORATORY | | [...] [address] | [place] | [phone] | | [facility] | | [address] | | | - LABORATORY | | [...] [address] | [place] | [phone] | | [facility] | | [address] | | | - LABORATORY | | [...] not | 48 (L)Comment: | >=60 | [facility] | | | | GLOMERULAR FILTRATION | mL/min/1.73m2 | [facility] | | | [place] | RATE,ESTIMATED | | MEDICAL | | | | mL/min/1.14v8Fwyf than | | CENTER - | | [...] | | | | | mg/dL | [facility] | | | | | | MEDICAL [...] [address] | [place] | [phone] | | [facility] | | [address] | | | - LABORATORY | | [...] [address] | [place] | [phone] | | [facility] | | [address] | | | - LABORATORY | | [...]
--- OUTSIDE RECORDS SUMMARY | ~2019-04-15 | XMS | Encounter Summary ---
Demographics + + + | Address | [address] | | | [place] [address] | + + + | Home Phone [...] | Organization | [facility] | | | and [...] Team Providers + +------+ + | Care Revenue Accountant Name | Role | Phone | + +------+ + | Parminder Malagon MD | PCP | | + +------+ + Encounter Details +--------+ + + + + | Date | Type | Department | Care Team | Description | +--------+ + + + + | 09/19/ | Orders Only | [facility] | Mya Frederick | | | 2016 | | RHEUMATOLOGY [address] | SHELLY Nguyen [address] | | | | | [address] | [facility] | | | | | [place] | [place] [address] | | | | | [address] | [phone] | | | | | [phone] | | | +--------+ + + + [...] [place] | | | | | | [address] | | | | | | | | +--------+ + + + + | 05/11/ | Office | Orthopedic Surgery | Scot Wilson PT | | | 2019 | Visit | | [address] | | | | | | [place] [address] | | | | | | [phone] | | | | | | | | +--------+ + + + + | 05/11/ | Office | Orthopedic Surgery | Korey Hussein | | | 2019 | Visit | | [address] | | | | | | [place] | | | | | | [address] | | | | | | | | +--------+ + + + + | 05/14/ | Office | Rheumatology | Mya Frederick | | | 2019 | Visit | | SHELLY Nguyen [address] | | | | | | [address] | | | | | | [place] [address] | | | | | | [phone] | | | | | | | | +--------+ + + + + | 06/06/ | Hospital | | Korey Hussein | Primary | | 2019 | Encounter | | [address] | 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[place] | right knee; Chronic | | | | | [id number] | pain of right knee | | | | | | | +--------+ + + + + | 06/06/ | Surgery | | Korey Hussein | RIGHT TOTAL KNEE | | 2019 | | | [facility] | ARTHROPLASTY | | | | | [place] | | | | | | [id number] | | | | | | | | +--------+ + + + + | 06/21/ | Office | Orthopedic Surgery | Tahir, Jossue | | | 2019 | Visit | | SHELLY [address] | | | | | | [address] | | | | | | [place] [address] | | | | | | [phone] | | | | | | | [...]
--- OUTSIDE RECORDS SUMMARY | ~2019-04-15 | XMS | Encounter Summary ---
Demographics + + + | Address | [address] | | | [place] [address] | + + + | Home Phone | | + + + | Preferred Language | Unknown | + + + | Marital Status | | + + + | Uatsdin Affiliation | Unknown | + + + | Race | Unknown | + + + | Ethnic Group | Unknown | + + + Author + + + | Author | [facility] | | | and [place] | + + + | Organization | [facility] | | | [...] Team Providers + +------+ + | Care Refrigerator Repairman Name | Role | Phone | + [...] [place] | | | | | | [address] | [address] | | | | | | Phone: | Phone: | | | | | | [phone] | [phone] | | | | | | Fax: | Fax: | | | | | | [phone] | [phone] | + +--------+ + + + + Encounter Details +--------+---------+ + + + | Date | Type | Department | Care Team | Description | +--------+---------+ + + + | 12/08/ | Office | [facility] | Jossue Haro | Pain in both knees, | | 2018 | Visit | ORTHOPEDIC SURGERY | [address]LLY [address] | unspecified | | | | [address] [facility] | [facility] [place] | chronicity (Primary | | | | [place], [place] | [place] [address] | Dx); Primary | | | | [address] | [phone] | osteoarthritis of | | | | [phone] | | right knee; Primary | | [...] [place] | | | | | | [address] | | | | | | | | +--------+ + + + + | 05/11/ | Office | Orthopedic Surgery | Scot Wilson PT | | | 2019 | Visit | | [address] | | | | | | [place] [address] | | | | | | [phone] | | | | | | | | +--------+ + + + + | 05/11/ | Office | Orthopedic Surgery | Korey Hussein | | | 2020 | Visit | | [address] | | | | | | [place] | | | | | | [address] | | | | | | | | +--------+ + + + + | 05/14/ | Office | Rheumatology | Mya Frederick | | | 2019 | Visit | | SHELLY Nguyen [address] | | | | | | [address] | | | | | | [place] [address] | | | | | | [phone] | | | | | | | | +--------+ + + + + | 06/06/ | Hospital | | Korey Hussein | Primary | | 2019 | Encounter | | [address] | 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[place] | right knee; Chronic | | | | | [address] | pain of right knee | | | | | | | +--------+ + + + + | 06/06/ | Surgery | | Korey Hussein | RIGHT TOTAL KNEE | | 2019 | | | MD Shan [address] | ARTHROPLASTY | | | | | [place] | | | | | | [address] | | | | | | | | +--------+ + + + + | 06/21/ | Office | Orthopedic Surgery | Jossue Haro | | | 2019 | Visit | | [address] | | | | | | [address] [place] | | | | | | [place] [address] | | | | | | [phone] | | | | | | | [...]
--- OUTSIDE RECORDS SUMMARY | ~2019-04-15 | XMS | Encounter Summary ---
Demographics + + + | Address | [address] | | | [place] [address] | + + + | Home Phone | | + + + | Preferred Language | Unknown | + + + | Marital Status | | + + + | Congregational Affiliation | Unknown | + + + | Race | Unknown | + + + | Ethnic Group | Unknown | + + + Author + + + | Author | [facility] | | | and [place] | + + + | Organization | [facility] | | | and [...] + +------+ + | Care Director Of Tax Services Name | Role | Phone | + [...] | | | chronicity | | [place] | | | | | Primary | | [address] Phone: | | | | | osteoarthrit | | [phone] | | | | | is of left | | Fax: | | | | | knee | | [phone] | | | | | Procedures | [...] + + | 02/12/ | Anesthesia | GUILLERMONCAndreas QUIROZ | Billy Malagon, | | | 2019 | Event | [facility] | MD [address] | | | | | [address] | [place] | | | | | [place] | [address] | | | | | [address] | | | | | | [phone] | | | +--------+ + + + + Anesthesia Record + + + + + | Procedure Name | Responsible | Anesthesia Start | Anesthesia Stop Time | | | Anesthesiologist | Time | | + + + + + | LEFT TOTAL KNEE | Billy Malagon MD | 02/12/19 0945 | 02/12/19 1126 | | ARTHROPLASTY (Left | | | | | Knee) | | | | + + + + + +----+---+ + + | Da | T | Event | Comment | | te | i | | | | | m | | | | | e | | | +----+---+ + + | 11 | 0 | Antibiotic | | | /1 | 8 | Given | | | 5/ | 3 | | | | 20 | 9 | | | | 19 | | | | +----+---+ + + | | 0 | An Checkout | Pre-use anesthesia machine/equipment checkout. | | | 9 | | | | | 2 | | | | | 8 | | | +----+---+ + + | | 0 | | | | | 9 | | | | | 3 | | | | | 0 | | | +----+---+ + + | | 0 | Pre-Procedu | | | | 9 | ral Timeout | | | | 3 | Completed | | | | 2 | | | +----+---+ + + | | 0 | Block Start | | | | 9 | | | | | 3 | | | | | 2 | | | +----+---+ + + | | 0 | AN Block | | | | 9 | End | | | | 3 | | | | | 8 | | | +----+---+ + + | | 0 | an stop | | | | 9 | data | | | | 4 | | | | | 5 | | | +----+---+ + + | | 0 | An Start | Reassessment prior to anesthesia induction/procedure. | | | 9 | | | | | 4 | | | | | 5 | | | +----+---+ + + | | 0 | Preoxygenat | | | | 9 | ed | | | | 5 | | | | | 1 | | | +----+---+ + + | | 0 | An | | | | 9 | Induction | | | | 5 | | | | | 2 | | | +----+---+ + + | | 0 | An | | | | 9 | Intubation | | | | 5 | | | | | 3 | | | +----+---+ + + | | 0 | AN Bite | | | | 9 | Block | | | | 5 | | | | | 4 | | | +----+---+ + + | | 1 | Turin | | | | 0 | 43-degrees | | | | 0 | | | | | 6 | | | +----+---+ + + | | 1 | An Tourn | 250 mmHg | | | 0 | Inflated | | | | 0 | | | | | 9 | | | +----+---+ + + | | 1 | First | | | | 0 | Inc/Proc St | | | | 0 | | | | | 9 | | | +----+---+ + + | | 1 | An Tourn | 51 minutes | | | 1 | Deflated | | | | 0 | | | | | 1 | | | +----+---+ + + | | 1 | Turin off | | | | 1 | | | | | 1 | | | | | 7 | | | +----+---+ + + | | 1 | Breathing | | | | 1 | Spontaneous | | | | 2 | ly | | | | 2 | | | +----+---+ + + | | 1 | an stop | | | | 1 | data | | | | 2 | | | | | 2 | | | +----+---+ + + | | 1 | Extubation/ | | | | 1 | Airway LDA | | | | 2 | Removal | | | | 6 | | | +----+---+ + + | | 1 | An Stop | Patient handed off to recovery nurse. | | | 2 | | | | | 6 | | | +----+---+ + + +------+ | Meds | +------+ + + + | Name | Total | + + + | Fentanyl | 100 mcg | + + + | lidocaine 2% (PF) | 180 mg | + + + | Propofol | 90 mg | + + + | dexamethasone | 10 mg | + + + | ondansetron | 4 mg | + + + | HYDROmorphone | 0.8 mg | + + + | ketamine | 75 mg | + + + | ropivacaine 0.5% | 22 mL | + + + | tranexamic acid | 1,600 mg | + + + | ePHEDrine (AKOVAZ) injection 50 | 15 mg | | mg/mL | | + + + | vancomycin 1.5 g in sodium | 1.5 g | | chloride 0.9% 250 mL IVPB | | + + + | lactated ringers (LR) infusion | 1,000 mL | + + + + + | Name | + + [...] Removal | +--------+ + + + | Periph | 02/12/19; 0823; Right; Forearm; | 02/12/19 0823 by | 02/14/19 1220 by | | eral | [id number] catheter system; | Desiree Anand RN | Arabella Hopper RN | | IV | 20 gauge; no longer indicated, | | | | | catheter/device intact; short | | | | | term use; 02/14/19; 1220 | | | +--------+ + + + | Airway | Placement Date: 02/12/19; | 02/12/19 0953 by | 02/12/19 1126 by | | | Placement Time: 952 (created via | Billy Malagon MD | Billy Malagon MD | | | procedure documentation); Mask | | | | | Ventilation: EZ (poor seal with | | | | | large mustache); Attempts: 1; | | | | | Airway Type: laryngeal mask; | | | | | Size: 5; Trauma: none; Placement | | | | | Check: exhaled CO2 detection | | | | | device; Removal Date: 02/12/19; | | | | | Removal Time: 1126 | | | +--------+ + + + | Wound | 02/12/19; 1025; Incision; Left; | 02/12/19 1025 by | 02/14/19 1221 by | | | leg; Healing; 02/14/19; 1221 | Alejandra Carmona RN | Arabella Hopper RN | +--------+ + + + documented in this encounter Social History + +-------+ +--------+ + | [...] [place] | | | | | | [address] | | | | | | | | +--------+ + + + + | 05/11/ | Office | Orthopedic Surgery | Scot Wilson PT | | 2019 | Visit | | [address] | | | | | | [place] [address] | | | | | | [phone] | | | | | | | | +--------+ + + + + | 05/11/ | Office | Orthopedic Surgery | Korey Hussein | | | 2019 | Visit | | [address] | | | | | | [place] | | | | | | [address] | | | | | | | | +--------+ + + + + | 05/14/ | Office | Rheumatology | Mya Frederick | | | 2019 | Visit | | SHELLY Nguyen [address] | | | | | | [address] | | | | | | [place] [address] | | | | | | [phone] | | | | | | | | +--------+ + + + + | 06/06/ | Hospital | | Korey Hussein | Primary | | 2020 | Encounter | | MD Shan [address] | 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[place] | right knee; Chronic | | | | | [address] | pain of right knee | | | | | | | +--------+ + + + + | 06/06/ | Surgery | | Korey Hussein | RIGHT TOTAL KNEE | | 2019 | | | MD Shan [address] | ARTHROPLASTY | | | | | [place] | | | | | | [address] | | | | | | | | +--------+ + + + + | 06/21/ | Office | Orthopedic Surgery | Jossue Haro | | | 2019 | Visit | | [address] | | | | | | [address] | | | | | | [place] [address] | | | | | | [phone] | | | | | | | [...] + + documented in this encounter Results Nerve Block (02/12/2019 10:15 AM PST) + [...] | | Authorizing provider: Billy Malagon MD Irrigation Tax Assessor Collector: Koki Carmichael, | | | AT | | + + + Nerve Block (02/12/2019 10:15 AM PST) + + + | Narrative | Performed At | + + + | Billy Malagon MD 02/12/2019 10:15 AM Perineural Procedure | | | Note 02/12/2019 9:35 AM Nerve block: adductor canal-femoral | | | Laterality: left Provider requested procedure: Hussein Indication: | | | postoperative analgesia Preprocedure [...] provider: | | | Billy Malagon MD Irrigation Tax Assessor Collector: CHRISTOPHE Zayas | | + + + Airway (02/12/2019 [...] | documentation. | | + + + documented in this encounter Visit Diagnoses Not on filedocumented in this encounter Administered Medications + +--------+ +-------+------+------+ | Medication Order | MAR | Action | Dose | Rate | Site | | | Action | Date | | | | + +--------+ +-------+------+------+ | dexamethasone (PF) 10 mg/mL | Given | 02/13/20 | 10 mg | | | | injection Intravenous, PRN, | | 19 10:01 | | | | | Starting Fri02/12/19 at 1001, | | AM PST | | | | | Anesthesia Intra-op | | | | | | + +--------+ +-------+------+------+ +---+---+ | | | +---+---+ + +-------+ +-------+---+---+ | ePHEDrine (AKOVAZ) 50 mg/mL | Given | 02/13/20 | 15 mg | | | | injection Intravenous, PRN, | | 19 9:58 | | | | | Starting Fri02/12/19 at 0958, | | AM PST | | | | | Anesthesia Intra-op | | | | | | + +-------+ +-------+---+---+ +---+---+ | | | +---+---+ + +-------+ +--------+---+---+ | fentaNYL (PF) injection PRN, | Given | 02/13/20 | 50 mcg | | | | Starting 02/12/19 at 1012, | | 19 10:12 | | | | | Anesthesia Intra-op | | AM PST | | | | + +-------+ +--------+---+---+ +-------+ +--------+---+---+ | Given | 02/13/20 | 50 mcg | | | | | 19 9:32 | | | | | | AM PST | | | | +-------+ +--------+---+---+ +---+---+ | | | +---+---+ + +-------+ +--------+---+---+ | HYDROmorphone (DILAUDID) 2 | Given | 02/13/20 | 0.4 mg | | | | mg/mL injection Intravenous, | | 19 10:26 | | | | | PRN, Starting 02/12/19 at | | AM PST | | | | | 1003, Anesthesia Intra-op | | | | | | + +-------+ +--------+---+---+ +-------+ +--------+---+---+ | Given | 02/13/20 | 0.4 mg | | | | | 19 10:03 | | | | | | AM PST | | | | +-------+ +--------+---+---+ +---+---+ | | | +---+---+ + +-------+ +-------+---+---+ | ketamine 50 mg/mL injection | Given | 02/13/20 | 25 mg | | | | Intravenous, PRN, Starting Fri | | 19 10:37 | | | | | 02/12/19 at 1001, Anesthesia | | AM PST | | | | | Intra-op | | | | | | + +-------+ +-------+---+---+ +-------+ +-------+---+---+ | Given | 02/13/20 | 25 mg | | | | | 19 10:15 | | | | | | AM PST | | | | +-------+ +-------+---+---+ | Given | 02/13/20 | 25 mg | | | | | 19 10:01 | | | | | | AM PST | | | | +-------+ +-------+---+---+ +---+---+ | | | +---+---+ + +---------+ [...] +--------+-------+---+ +---+---+ | | | +---+---+ + +-------+ +-------+---+---+ | lidocaine (PF) 2% injection | Given | 02/13/20 | 80 mg | | | | PRN, Starting Fri02/12/19 at | | 19 9:52 | | | | | 0938, Anesthesia Intra-op | | AM PST | | | | + +-------+ +-------+---+---+ +-------+ +--------+---+---+ | Given | 02/13/20 | 100 mg | | | | | 19 9:38 | | | | | | AM PST | | | | +-------+ +--------+---+---+ +---+---+ | | | +---+---+ + +-------+ +------+---+---+ | ondansetron (ZOFRAN) injection | Given | 02/13/20 | 4 mg | | | | PRN, Starting Fri02/12/19 at | | 19 10:01 | | | | | 1001, Anesthesia Intra-op | | AM PST | | | | + +-------+ +------+---+---+ +---+---+ | | | +---+---+ + +-------+ +-------+---+---+ | propofol (DIPRIVAN) injection | Given | 02/13/20 | 90 mg | | | | Intravenous, PRN, Starting Fri | | 19 9:52 | | | | | 02/12/19 at 0952, Anesthesia | | AM PST | | | | | Intra-op | | | | | | + +-------+ +-------+---+---+ +---+---+ | | | +---+---+ + +-------+ +--------+---+---+ | ropivacaine (NAROPIN) 5 mg/mL | Given | 02/13/20 | 10 mLs | | | | (0.5%) injection PERINEURAL, | | 19 9:38 | | | | | PRN, Starting 02/12/19 at | | AM PST | | | | | 0938, Anesthesia Intra-op | | | | | | + +-------+ +--------+---+---+ +-------+ +--------+---+---+ | Given | 02/13/20 | 12 mLs | | | | | 19 9:35 | | | | | | AM PST | | | | +-------+ +--------+---+---+ +---+---+ | | | +---+---+ + +-------+ +--------+---+---+ | tranexamic acid (CYKLOKAPRON) | Given | 02/13/20 | 600 mg | | | | injection Intravenous, | | 19 11:10 | | | | | Administer over 15 Minutes, PRN, | | AM PST | | | | | Starting 02/12/19 at 0957, | | | | | | | Anesthesia Intra-op | | | | | | + +-------+ +--------+---+---+ +-------+ + +---+---+ | Given | 02/13/20 | 1,000 mg | | | | | 19 9:57 | | | | | | AM [...]
--- OUTSIDE RECORDS SUMMARY | ~2019-04-15 | XMS | Encounter Summary ---
Demographics + + + | Address | [address] | | | [place] [address] | + + + | Home Phone | | + + + | Preferred Language | Unknown | + + + | Marital Status | | + + + | Adventist Affiliation | Unknown | + + + | Race | Unknown | + + + | Ethnic Group | Unknown | + + + Author + + + | Author | [facility] | | | and [place] | + + + | Organization | [facility] | | | and [place] [...] Team Providers + +------+ + | Care Piano Tuner Name | Role | Phone | + [...] | | | | Primary | | [address] Phone: | | | | | osteoarthrit | | [phone] | | | | | is of left | | Fax: | | | | | knee | | [phone] | | | | | Procedures | | | | | | | GA TOTAL | | | | | | [...] | | | | | [address] | [place] | | | | | [place] | [address] | | | | | [address] | | | | | | [phone] | | | +--------+ + + + [...] +----+---+ + + | | 1 | [place] | | | | 0 | 43-degrees [...] +----+---+ + + | | 1 | [place] off | | | | 1 | [...] 02/14/19 1220 by | | eral | [id number] catheter system; | Desiree Anand RN | [...] [place] | | | | | | [address] | | | | | | | | +--------+ + + + + | 05/11/ | Office | Orthopedic Surgery | Scot Wilson PT | | 2019 | Visit | | [address] | | | | | | [place] [address] | | | | | | [phone] | | | | | | | | +--------+ + + + + | 05/11/ | Office | Orthopedic Surgery | Korey Hussein | | | 2019 | Visit | | [address] | | | | | | [place] | | | | | | [address] | | | | | | | | +--------+ + + + + | 05/14/ | Office | Rheumatology | Mya Frederick | | | 2019 | Visit | | SHELLY Nguyen [address] | | | | | | [address] | | | | | | [place] [address] | | | | | | [phone] | | | | | | | | +--------+ + + + + | 06/06/ | Hospital | | Korey Hussein | Primary | | 2020 | Encounter | | MD Shan [address] | 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[place] | right knee; Chronic | | | | | [address] | pain of right knee | | | | | | | +--------+ + + + + | 06/06/ | Surgery | | Korey Hussein | RIGHT TOTAL KNEE | | 2019 | | | MD Shan [address] | ARTHROPLASTY | | | | | [place] | | | | | | [address] | | | | | | | | +--------+ + + + + | 06/21/ | Office | Orthopedic Surgery | Jossue Haro | | | 2019 | Visit | | [address] | | | | | | [address] | | | | | | [place] [address] | | | | | | [phone] | | | | | | | [...] | | Authorizing provider: Billy Malagon MD Unhairer: Koki Carmichael, | | | AT | [...] provider: | | | Billy Malagon MD Unhairer: CHRISTOPHE Zayas | | + + + [...]
--- OUTSIDE RECORDS SUMMARY | ~2019-04-15 | XMS | Encounter Summary ---
Demographics + + + | Address | [address] | | | [place] [address] | + + + | Home Phone | | + + + | Preferred Language | Unknown | + + + | Marital Status | | + + + | Adventist Affiliation | Unknown | + + + | Race | Unknown | + + + | Ethnic Group | Unknown | + + + Author + + + | Author | [facility] | | | and [place] | + + + | Organization | [facility] | | | and [...] Team Providers + +------+ + | Care Circle Edger Name | Role | Phone | + +------+ + | Parminder Malagon MD | PCP | | + +------+ + Reason for Referral Evaluate & Treat (Routine) +--------+ + + [...] Therapy / | Pain in | [place], | B, PT [address] | | | Required | Orthopedic | both knees, | [address] | | | | Surgery | unspecified | [address] | [place], | | | | | chronicity | [place], | [place] [address] | | | | | Primary | [place] [address] | Phone: | | | | | osteoarthrit | Phone: | [phone] | | | | | is of left | [phone] | Fax: | | | | | knee | Fax: | [phone] | | | | | | [phone] | | +--------+ + + + + + Encounter Details +--------+ + + + + | Date | Type | Department | Care Team | Description | +--------+ + + + + | 01/08/ | Orders Only | [facility] | Korey Hussein | Pain in both knees, | | 2018 | | ORTHOPEDIC SURGERY | MD [address] | unspecified | | | | [address] [facility] | [place] | chronicity (Primary | | | | [place] | [address] | Dx); Primary | | | | [address] | | osteoarthritis of | | | | [phone] | | left knee | +--------+ + [...] [place] | | | | | | [address] | | | | | | | | +--------+ + + + + | 05/11/ | Office | Orthopedic Surgery | Scot Wilson PT | | | 2019 | Visit | | [address] | | | | | | [place] [address] | | | | | | [phone] | | | | | | | | +--------+ + + + + | 05/11/ | Office | Orthopedic Surgery | Korey Hussein | | 2019 | Visit | | [address] | | | | | | [place] | | | | | | [address] | | | | | | | | +--------+ + + + + | 05/14/ | Office | Rheumatology | Mya Frederick | | | 2019 | Visit | | SHELLY Nguyen [address] | | | | | | [address] | | | | | | [place] [address] | | | | | | [phone] | | | | | | | | +--------+ + + + + | 06/06/ | Hospital | | Korey Hussein | Primary | | 2019 | Encounter | | MD [address] | 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[place] | right knee; Chronic | | | | | [address] | pain of right knee | | | | | | | +--------+ + + + + | 06/06/ | Surgery | | Korey Hussein | RIGHT TOTAL KNEE | | 2019 | | | [address] | ARTHROPLASTY | | | | | [place] | | | | | | [address] | | | | | | | | +--------+ + + + + | 06/21/ | Office | Orthopedic Surgery | Jossue Haro | | | 2019 | Visit | | [address] | | | | | | [address] | | | | | | [place] [address] | | | | | | [phone] | | | | | | | | +--------+ + + + + + + +--------+ + + | Name | Type | Priori | Associated Diagnoses | Order Schedule | | | | ty | | | + + +--------+ + + | * [facility] [place] [facility] | Outpatient | Routin | Pain in both | Ordered: 01/08/2019 | | Physical Therapy - | Referral | e | knees, unspecified | | | AMB Referral | | | chronicity Primary | | | | | | 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| left knee | | + + +--------+ + + documented as of this encounter Visit Diagnoses + + | Diagnosis | + + | Pain in both knees, unspecified chronicity - Primary | + + | Primary osteoarthritis of left knee Primary localized osteoarthrosis, lower leg | + + documented in this encounter"
--- OUTSIDE RECORDS SUMMARY | ~2019-04-15 | XMS | Encounter Summary ---
Demographics + + + | Address | [address] | | | [place] [address] | + + + | Home Phone | | + + + | Preferred Language | Unknown | + + + | Marital Status | | + + + | Restorationism Affiliation | Unknown | + + + | Race | Unknown | + + + | Ethnic Group | Unknown | + + + Author + + + | Author | [facility] | | | and [place] | + + + | Organization | [facility] | | | and [place] [...] Team Providers + +------+ + | Care Animal Care Service Worker Name | Role | Phone | + +------+ + | Parminder Malagon MD | PCP | | + +------+ + Reason for Visit + + + | Reason | Comments | + + + | Surgery Appointment | | + + + Encounter Details +--------+ + + + + | Date | Type | Department | Care Team | Description | +--------+ + + + + | 12/23/ | Telephone | [facility] | Jossue Haro | Surgery Appointment | | 2018 | | ORTHOPEDIC SURGERY | SHELLY [address] | | | | | [address] [facility] | [address] | | | | | [place], [place] | [place] [address] | | | | | [address] | [phone] | | | | | [phone] | | | +--------+ + + + [...] | | | | | | [facility] [place] | | | | | | [address] | | | | | | | | +--------+ + + + + | 05/11/ | Office | Orthopedic Surgery | Scot Wilson PT | | | 2019 | Visit | | [address] | | | | | | [place] [address] | | | | | | [phone] | | | | | | | | +--------+ + + + + | 05/11/ | Office | Orthopedic Surgery | Korey Hussein | | | 2019 | Visit | | [address] | | | | | | [place] | | | | | | [address] | | | | | | | | +--------+ + + + + | 05/14/ | Office | Rheumatology | Mya Frederick | | | 2019 | Visit | | SHELLY Nguyen [address] | | | | | | [address] | | | | | | [place] [address] | | | | | | [phone] | | | | | | | | +--------+ + + + + | 06/06/ | Hospital | | Korey Hussein | Primary | | 2019 | Encounter | | [address] | 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[place] | right knee; Chronic | | | | | [address] | pain of right knee | | | | | | | +--------+ + + + + | 06/06/ | Surgery | | Korey Hussein | RIGHT TOTAL KNEE | | 2019 | | | MD [address] | ARTHROPLASTY | | | | | [place] | | | | | | [address] | | | | | | | | +--------+ + + + + | 06/21/ | Office | Orthopedic Surgery | Jossue Haro | | | 2019 | Visit | | [address] | | | | | | [address] | | | | | | [place] [address] | | | | | | [phone] | | | | | | | [...]
--- OUTSIDE RECORDS SUMMARY | ~2019-04-15 | XMS | Encounter Summary ---
Demographics + + + | Address | [address] | | | [place] [address] | + + + | Home Phone | | + + + | Preferred Language | Unknown | + + + | Marital Status | | + + + | Hindu Affiliation | Unknown | + + + | Race | Unknown | + + + | Ethnic Group | Unknown | + + + Author + + + | Author | [facility] | | | and [place] | + + + | Organization | [facility] | | | and [place] [...] Team Providers + +------+ + | Care Logging Worker Name | Role | Phone | + +------+ + | Parminder Malagon MD | PCP | | + +------+ + Encounter Details +--------+ + + + + | Date | Type | Department | Care Team | Description | +--------+ + + + + | 12/31/ | Orders Only | [facility] | Sid Leung, | | | 2016 | | RHEUMATOLOGY [address] | PA-C [address] | | | | | [address] | [facility] | | | | | [place] | [place] [address] | | | | | [address] | [phone] | | | | | [phone] | | | +--------+ + + + [...] [place] | | | | | | [address] | | | | | | | | +--------+ + + + + | 05/11/ | Office | Orthopedic Surgery | Scot Wilson PT | | | 2019 | Visit | | [address] | | | | | | [place] [address] | | | | | | [phone] | | | | | | | | +--------+ + + + + | 05/11/ | Office | Orthopedic Surgery | Korey Hussein | | | 2019 | Visit | | [address] | | | | | | [place] | | | | | | [address] | | | | | | | | +--------+ + + + + | 05/14/ | Office | Rheumatology | Mya Frederick | | 2019 | Visit | | [address] | | | | | | [address] | | | | | | [place] [address] | | | | | | [phone] | | | | | | | | +--------+ + + + + | 06/06/ | Hospital | | Korey Hussein | Primary | | 2019 | Encounter | | [address] | 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[place] | right knee; Chronic | | | | | [address] | pain of right knee | | | | | | | +--------+ + + + + | 06/06/ | Surgery | | Korey Hussein | RIGHT TOTAL KNEE | | 2019 | | | [address] | ARTHROPLASTY | | | | | [place] | | | | | | [address] | | | | | | | | +--------+ + + + + | 06/21/ | Office | Orthopedic Surgery | Jossue Haro | | | 2020 | Visit | | [address] | | | | | | [address] | | | | | | [place] [address] | | | | | | [phone] | | | | | | | | +--------+ + + + + documented as of this encounter Procedures + +--------+ + + + | Procedure Name | Priori | Date/Time | Associated Diagnosis | Comments | | | ty | | | | + +--------+ + + + | EXTERNAL LAB: CBC | Routin | 12/31/2016 | | Results for this | | | e | 9:44 AM | | procedure are in the | | | | PDT | | results section. | + +--------+ + + + | SEDIMENTATION RATE, | Routin | 12/31/2016 | | Results for this | | AUTOMATED | e | 9:44 AM | | procedure are in the | | | | PDT | | results section. | + +--------+ + + + | COMPREHENSIVE | Routin | 12/31/2016 | | Results for this | | METABOLIC PANEL | e | 9:44 AM | | procedure are in the | | | | PDT | | results section. | + +--------+ + + + documented in this encounter Results Sedimentation rate, automated (12/31/2016 9:44 AM PDT) + +-------+ + + + | Component | Value | Ref Range | Performed | Pathologist | | | | | At | Signature | + +-------+ + + + | Sed Rate | 5 | 0 - 20 mm/h | EXTERNAL [...] + +---------+ + + External Lab: CBC (12/31/2016 9:44 AM PDT) + + + + + + | Component | Value | Ref Range | Performed | Pathologist | | | | | At | Signature | + + + + + + | WBC | 10.1 | 3.8 - 11.0 | EXTERNAL | | | | | 10*3/uL | LAB | | + + + + + + | RED CELL | 5.28 | 4.20 - 5.70 | EXTERNAL | | | COUNT | | 10*6/uL | LAB | | + + + + + + | Hgb | 17.2 (H) | 13.2 - 17.0 | EXTERNAL | | | | | g/dL | LAB | | + + + + + + | Hematocrit, | 51.2 (H) | 39.0 - 50.0 % | EXTERNAL | | | POC | | | LAB | | + + + + + + | MCV | 97.1 | 80.0 - 100.0 fL | EXTERNAL | | | | | | LAB | | + + + + + + | MCH | 32.6 | 27.0 - 34.0 pg | EXTERNAL | | | | | | LAB | | + + + + + + | MCHC | 33.6 | 32.0 - 35.5 | EXTERNAL | | | | | g/dL | LAB | | + + + + + + | RDW-CV | 47.3 | 37 - 53 fL | EXTERNAL | | | | | | LAB | | + + + + + + | Platelet | 198 | 150 - 400 | EXTERNAL | | | Count | | 10*3/uL | LAB | | | Plasma | | | | | + + + + + + | MPV | 9.1 | fL | EXTERNAL | | | | | | LAB | | + + + + + + | Differentia | AUTOMATED | | EXTERNAL | | | l Type | | | LAB | | + + + + + + | % Segmented | 79.61 | % | EXTERNAL | | | | | | LAB | | | Neutrophils | | | | | + + + + + + | % | 11.47 | % | EXTERNAL | | | Lymphocytes | | | LAB | | + + + + + + | % Monocytes | 7.49 | % | EXTERNAL | | | | | | LAB | | + + + + + + | % | 1.05 | % | EXTERNAL | | | Eosinophils | | | LAB | | + + + + + + | % Basophils | 0.38 | % | EXTERNAL | | | | | | LAB | | + + + + + + | Absolute | 8.03 (H) | 1.90 - 7.40 | EXTERNAL | | | Segmented | | 10*3/uL | LAB | | | Neutrophils | | | | | + + + + + + | Absolute | 1.16 | 1.00 - 3.90 | EXTERNAL | | | Lymphocytes | | 10*3/uL | LAB | | + + + + + + | Absolute | 0.76 | 0.00 - 0.80 | EXTERNAL | | | Monocytes | | 10*3/uL | LAB | | + + + + + + | Absolute | 0.11 | 0.00 - 0.50 | EXTERNAL | | | Eosinophils | | 10*3/uL | LAB | | + + + + + + | Absolute | 0.04 | 0.00 - 0.10 | EXTERNAL | [...] + +---------+ + + Comprehensive Metabolic Panel (12/31/2016 9:44 AM PDT) + + + + + + | Component | Value | Ref Range | Performed | Pathologist | | | | | At | Signature | + + + + + + | Na | 143 | 135 - 145 | EXTERNAL | | | | | mmol/L | LAB | | + + + + + + | K | 4.3 | 3.5 - 4.9 | EXTERNAL | | | | | mmol/L | LAB | | + + + + + + | Cl | 105 | 99 - 109 mmol/L | EXTERNAL | | | | | | LAB | | + + + + + + | CO2 | 34 (H) | 23 - 32 mmol/L | EXTERNAL | | | | | | LAB | | + + + + + + | Anion Gap | 8 | 5 - 20 mmol/L | EXTERNAL | | | | | | LAB | | + + + + + + | Glucose, | 104 (H) | 65 - 99 mg/dL | EXTERNAL | | | Fasting | | | LAB | | + + + + + + | BUN | 23 | 8 - 25 mg/dL | EXTERNAL | | | | | | LAB | | + + + + + + | Creatinine | 1.1 | 0.70 - 1.30 | EXTERNAL | | | | | mg/dL | LAB | | + + + + + + | BUN/Creatin | 21 | | EXTERNAL | | | ine Ratio | | | LAB | | + + + + + + | Calcium | 9.6 | 8.5 - 10.5 | EXTERNAL | | | | | mg/dL | LAB | | + + + + + + | Protein, | 7.3 | 6.3 - 8.2 g/dL | EXTERNAL | | | Total | | | LAB | | + + + + + + | Albumin | 3.8 | 3.3 - 4.8 g/dL | EXTERNAL | | | | | | LAB | | + + + + + + | Globulin | 3.5 | 1.3 - 4.9 g/dL | EXTERNAL | | | | | | LAB | | + + + + + + | A/G Ratio | 1.1 | 1.0 - 2.4 | EXTERNAL | | | | | | LAB | | + + + + + + | Bilirubin | 0.8 | 0.1 - 1.5 mg/dL | EXTERNAL | | | Total | | | LAB | | + + + + + + | ALP, | 82 | 35 - 115 U/L | EXTERNAL | | | External | | | LAB | | + + + + + + | AST | 24 | 10 - 45 U/L | EXTERNAL | | | | | | LAB | | + + + + + + | ALT | 26 | 10 - 65 U/L | EXTERNAL | | | | | | LAB | | + + + + + + | Estimated | >60Comment: GFR <60: | mL/min/1.73_m2 | EXTERNAL | | | GFR | [...]
--- OUTSIDE RECORDS SUMMARY | ~2019-04-15 | XMS | Encounter Summary ---
Demographics + + + | Address | [address] | | | [place] [address] | + + + | Home Phone | | + + + | Preferred Language | Unknown | + + + | Marital Status | | + + + | Bahai Affiliation | Unknown | + + + | Race | Unknown | + + + | Ethnic Group | Unknown | + + + Author + + + | Author | [facility] | | | and [place] | + + + | Organization | [facility] | [...] Team Providers + +------+ + | Care Refrigeration Manager Name | Role | Phone | [...] + + | 12/20/ | Refill | [facility] | Mya Frederick | Medication Refill | | 2019 | | RHEUMATOLOGY [address] | SHELLY Nguyen [address] | | | | | [address] | [address] | | | | | [place], [place] | [place] [address] | | | | | [address] | [phone] | | | | | [phone] | | | +--------+--------+ + + + [...] | | | | | [place] | | | | | | [address] | | | | | | | | +--------+ + + + + | 05/11/ | Office | Orthopedic Surgery | Scot Wilson PT | | | 2019 | Visit | | [address] | | | | | | [place] [address] | | | | | | [phone] | | | | | | | | +--------+ + + + + | 05/11/ | Office | Orthopedic Surgery | Korey Hussein | | | 2019 | Visit | | [address] | | | | | | [place] | | | | | | [address] | | | | | | | | +--------+ + + + + | 05/14/ | Office | Rheumatology | Mya Frederick | | | 2019 | Visit | | SHELLY Nguyen [address] | | | | | | [address] | | | | | | [place] [address] | | | | | | [phone] | | | | | | | | +--------+ + + + + | 06/06/ | Hospital | | Korey Hussein | Primary | | 2019 | Encounter | | [address] | 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[place] | right knee; Chronic | | | | | [address] | pain of right knee | | | | | | | +--------+ + + + + | 06/06/ | Surgery | | Korey Hussein | RIGHT TOTAL KNEE | | 2019 | | | [address] | ARTHROPLASTY | | | | | [place] | | | | | | [address] | | | | | | | | +--------+ + + + + | 06/21/ | Office | Orthopedic Surgery | Jossue Haro | | | 2019 | Visit | | [address] | | | | | | [address] | | | | | | [place] [address] | | | | | | [phone] | | | | | | | | +--------+ + + + + documented as of this encounter Visit Diagnoses Not on filedocumented in this encounter"
--- OUTSIDE RECORDS SUMMARY | ~2019-04-15 | XMS | Encounter Summary ---
Demographics + + + | Address | [address] | | | [place] [address] | + + + | Home Phone | | + + + | Preferred Language | Unknown | + + + | Marital Status | | + + + | Presybeterian Affiliation | Unknown | + + + | Race | Unknown | + + + | Ethnic Group | Unknown | + + + Author + + + | Author | [facility] | | | and [place] | + + + | Organization | [facility] | | | and [place] [...] Team Providers + +------+ + | Care Legal Officer Name | Role | Phone | + [...] 2019 | | [address] | Hyster Driver | ([facility]); Other long | | | | [place] | | term (current) drug | | | | [address] | | therapy | | | | [phone] | | | +--------+ + + + [...] [place] | | | | | | [address] | | | | | | | | +--------+ + + + + | 05/11/ | Office | Orthopedic Surgery | Scot Wilson PT | | 2019 | Visit | | [address] | | | | | | [place] [address] | | | | | | [phone] | | | | | | | | +--------+ + + + + | 05/11/ | Office | Orthopedic Surgery | Korey Hussein | | | 2019 | Visit | | [address] | | | | | | [place] | | | | | | [address] | | | | | | | | +--------+ + + + + | 05/14/ | Office | Rheumatology | Mya Frederick | | | 2019 | Visit | | [address] | | | | | | [address] | | | | | | [place] [address] | | | | | | [phone] | | | | | | | | +--------+ + + + + | 06/06/ | Hospital | | Korey Hussein | Primary | | 2019 | Encounter | | MD Shan [address] | 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[place] | right knee; Chronic | | | | | [address] | pain of right knee | | | | | | | +--------+ + + + + | 06/06/ | Surgery | | Korey Hussein | RIGHT TOTAL KNEE | | 2019 | | | [address] | ARTHROPLASTY | | | | | [place] | | | | | | [address] | | | | | | | | +--------+ + + + + | 06/21/ | Office | Orthopedic Surgery | Jossue Haro | | | 2019 | Visit | | [address] | | | | | | [address] | | | | | | [place] [address] | | | | | | [phone] | | | | | | | [...] | | | | PDT | Other care home | results section. | | | | | (current) drug | | | | | | therapy | | + +--------+ + + + | CBC WITH | Routin | 01/05/2019 | Rheumatoid | Results for this | | DIFFERENTIAL | e | 9:09 AM | arthritis (HCC) | procedure are in the | | | | PDT | Other care home | results section. | | | | | (current) drug | | | | | | therapy | | + +--------+ + + + | C-REACTIVE PROTEIN | Routin | 01/05/2019 | Rheumatoid | Results for this | | | e | 9:09 AM | arthritis (HCC) | procedure are in the | | | | PDT | Other exterminator helper | results section. | | | | | (current) drug | | | | | | therapy | | + +--------+ + + + | COMPREHENSIVE | Routin | 01/05/2019 | Rheumatoid | Results for this | | METABOLIC PANEL | e | 9:09 AM | arthritis (HCC) | procedure are in the | | | | PDT | Other exterminator helper | results section. | | | | [...] | | | Absolute | performed at [facility];[address] | [address] | LAB | | | | [place] | | [facility] | | | | [address];[place] [address] | | LABORATORY | | + + + + + + + + | Specimen | + + | Blood | + + + + + + + | Performing | Address | City/State/Zipcode | Phone Number | | Organization | | | | + + + + + | REFERENCE LAB | [address] [place] [address] | [place] [address] | [phone] | | [facility] | Blvd[address] | | | | LABORATORY | | | | + + + + + | REFERENCE LAB | [address] [place] [address] | [place] [address] | | | [facility] | Blvd[address] | [...] | | | | | performed at [facility];[address] | | | | | | [address] | | | | | | Bl[address];[place] [address] | | | | | | | | | | + + + + + + + + | Specimen | + + | Blood | + + + + + + + | Performing | Address | City/State/Zipcode | Phone Number | | Organization | | | | + + + + + | REFERENCE LAB | [address] | [place] [address] | [phone] | | [facility] | Blvd[address] | | | | LABORATORY | | | | + + + + + | REFERENCE LAB | [address] | [place] [address] | | | [facility] | Bl[address] | [...] REFERENCE | | | | performed at [facility];[address] | | LAB | | | | [facility] | | [facility] | | | | Bl[address];[place] [address] | | LABORATORY | | + + + + + + + + | Specimen | + + | Blood | + + + + + + + | Performing | Address | City/State/Zipcode | Phone Number | | Organization | | | | + + + + + | REFERENCE LAB | [address] [place] [address] | [place] [address] | [phone] | | [facility] | Blvd[address] | | | | LABORATORY | | | | + + + + + | REFERENCE LAB | [address] [place] [address] | [place] [address] | | | [facility] | Bl[address] | [...] REFERENCE | | | | performed at [facility];[address] | | LAB | | | | [place] | | [facility] | | | | [address];[place] [address] | | LABORATORY | | + + + + + + + + | Specimen | + + | Blood | + + + + + + + | Performing | Address | City/State/Zipcode | Phone Number | | Organization | | | | + + + + + | REFERENCE LAB | [address] | [place] [address] | [phone] | | [facility] | Blvd[address] | | | | LABORATORY | | | | + + + + + | REFERENCE LAB | [address] [facility] | [place] [address] | | | [facility] | Blvd[address] | | | | LABORATORY | | | | + + + + + documented in this encounter Visit Diagnoses + + | Diagnosis | + + | Rheumatoid arthritis (HCC) | + + | Other care home (current) drug therapy | + + documented in this encounter"
--- OUTSIDE RECORDS SUMMARY | ~2019-04-15 | XMS | Encounter Summary ---
Demographics + + + | Address | [address] | | | [place] [address] | + + + | Home Phone | | + + + | Preferred Language | Unknown | + + + | Marital Status | | + + + | Religion Affiliation | Unknown | + + + | Race | Unknown | + + + | Ethnic Group | Unknown | + + + Author + + + | Author | [facility] | | | and [place] | + + + | Organization | [facility] | | | and [place] | [...] Team Providers + +------+ + | Care Recruiter Name | Role | Phone | + [...] | | knee | [place], | [place], | | | | | Chronic pain | [place] [address] | [place] | | | | | of right | Phone: | [address] | | | | | knee | [phone] | Phone: | | | | | | Fax: | [phone] | | | | | | [phone] | Fax: | | | | | | | [phone] | + + + + + + + Encounter Details +--------+ + + + + | Date | Type | Department | Care Team | Description | +--------+ + + + + | 04/06/ | Orders Only | [facility] | Korey Hussein | Primary | | 2020 | | ORTHOPEDIC SURGERY | MD Shan [address] [facility] | osteoarthritis of | | | | [address] [facility] | [place], [place] | right knee (Primary | | | | [place], [place] | [address] | Dx); Chronic pain of | | | | [address] | | right knee | | | | [phone] | | | +--------+ + + + [...] [place] | | | | | | [address] | | | | | | | | +--------+ + + + + | 05/11/ | Office | Orthopedic Surgery | Scot Wilson PT | | | 2019 | Visit | | [address] | | | | | | [place] [address] | | | | | | [phone] | | | | | | | | +--------+ + + + + | 05/11/ | Office | Orthopedic Surgery | Korey Hussein | | | 2019 | Visit | | MD Shan [address] | | | | | | [place] | | | | | | [address] | | | | | | | | +--------+ + + + + | 05/14/ | Office | Rheumatology | Mya Frederick | | | 2019 | Visit | | SHELLY Nguyen [address] | | | | | | [address] | | | | | | [place] [address] | | | | | | [phone] | | | | | | | | +--------+ + + + + | 06/06/ | Hospital | | Korey Hussein | Primary | | 2020 | Encounter | | [address] | 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[place] | right knee; Chronic | | | | | [address] | pain of right knee | | | | | | | +--------+ + + + + | 06/06/ | Surgery | | Korey Hussein | RIGHT TOTAL KNEE | | 2019 | | | MD Shan [address] | ARTHROPLASTY | | | | | [place] | | | | | | [address] | | | | | | | | +--------+ + + + + | 06/21/ | Office | Orthopedic Surgery | Jossue Haro | | | 2019 | Visit | | [address] | | | | | | [address] | | | | | | [place] [address] | | | | | | [phone] | | | | | | | [...]
--- OUTSIDE RECORDS SUMMARY | ~2019-04-15 | XMS | Encounter Summary ---
Demographics + + + | Address | [address] | | | [place] [address] | + + + | Home Phone | | + + + | Preferred Language | Unknown | + + + | Marital Status | | + + + | Gnosticism Affiliation | Unknown | + + + | Race | Unknown | + + + | Ethnic Group | Unknown | + + + Author + + + | Author | [facility] | | | and [place] | + + + | Organization | [facility] | | | and [place] [...] Team Providers + +------+ + | Care Debt And Budget Counselor Name | Role | Phone | + [...] + + | 11/15/ | Refill | [facility] | Mya Frederick | Medication Refill | | 2019 | | RHEUMATOLOGY [address] | SHELLY Nguyen [address] | | | | | [address] | [address] | | | | | [place], [place] | [place] [address] | | | | | [address] | [phone] | | | | | [phone] | | | +--------+--------+ + + + [...] | | | | | [address] [place] | | | | | | [address] | | | | | | | | +--------+ + + + + | 05/11/ | Office | Orthopedic Surgery | Scot Wilson PT | | | 2019 | Visit | | [address] | | | | | | [place] [address] | | | | | | [phone] | | | | | | | | +--------+ + + + + | 05/11/ | Office | Orthopedic Surgery | Korey Hussein | | | 2019 | Visit | | [address] | | | | | | [place] | | | | | | [address] | | | | | | | | +--------+ + + + + | 05/14/ | Office | Rheumatology | Mya Frederick | | | 2019 | Visit | | SHELLY Nguyen [address] | | | | | | [address] | | | | | | [place] [address] | | | | | | [phone] | | | | | | | | +--------+ + + + + | 06/06/ | Hospital | | Korey Hussein | Primary | | 2019 | Encounter | | [address] | 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[place] | right knee; Chronic | | | | | [address] | pain of right knee | | | | | | | +--------+ + + + + | 06/06/ | Surgery | | Korey Hussein | RIGHT TOTAL KNEE | | 2019 | | | [address] | ARTHROPLASTY | | | | | [place] | | | | | | [address] | | | | | | | | +--------+ + + + + | 06/21/ | Office | Orthopedic Surgery | Jossue Haro | | | 2019 | Visit | | [address] | | | | | | [address] | | | | | | [place] [address] | | | | | | [phone] | | | | | | | | +--------+ + + + + documented as of this encounter Visit Diagnoses Not on filedocumented in this encounter"
--- OUTSIDE RECORDS SUMMARY | ~2019-04-15 | XMS | Encounter Summary ---
Demographics + + + | Address | [address] | | | [place] [address] | + + + | Home Phone | | + + + | Preferred Language | Unknown | + + + | Marital Status | | + + + | Jainism Affiliation | Unknown | + + + | Race | Unknown | + + + | Ethnic Group | Unknown | + + + Author + + + | Author | [facility] | | | and [place] | + + + | Organization | [facility] | | | and [...] Team Providers + +------+ + | Care Feed Crusher Operator Name | Role | Phone | [...] chronicity | [place], | [place] [address] | | | | | Primary | [place] [address] | Phone: | | | | | osteoarthrit | Phone: | [phone] | | | | | is of left | [phone] | Fax: | | | | | knee | Fax: | [phone] | | | | | | [phone] | | +--------+ + + + + [...] | unspecified | | | | [address] [facility] | [place] | chronicity (Primary | | | | [place] | [address] | Dx); Primary | | | | [address] | | osteoarthritis of | | | | [phone] | | left knee | +--------+ + [...] [place] | | | | | | [address] | | | | | | | | +--------+ + + + + | 05/11/ | Office | Orthopedic Surgery | Scot Wilson PT | | | 2019 | Visit | | [address] | | | | | | [place] [address] | | | | | | [phone] | | | | | | | | +--------+ + + + + | 05/11/ | Office | Orthopedic Surgery | Korey Hussein | | 2019 | Visit | | [address] | | | | | | [place] | | | | | | [address] | | | | | | | | +--------+ + + + + | 05/14/ | Office | Rheumatology | Mya Frederick | | | 2019 | Visit | | SHELLY Nguyen [address] | | | | | | [address] | | | | | | [place] [address] | | | | | | [phone] | | | | | | | | +--------+ + + + + | 06/06/ | Hospital | | Korey Hussein | Primary | | 2019 | Encounter | | [address] | 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[place] | right knee; Chronic | | | | | [address] | pain of right knee | | | | | | | +--------+ + + + + | 06/06/ | Surgery | | Korey Hussein | RIGHT TOTAL KNEE | | 2019 | | | [address] | ARTHROPLASTY | | | | | [place] | | | | | | [address] | | | | | | | | +--------+ + + + + | 06/21/ | Office | Orthopedic Surgery | Jossue Haro | | | 2019 | Visit | | [address] | | | | | | [address] | | | | | | [place] [address] | | | | | | [phone] | | | | | | | [...]
--- OUTSIDE RECORDS SUMMARY | ~2019-04-15 | XMS | Encounter Summary ---
Demographics + + + | Address | [address] | | | [place] [address] | + + + | Home Phone [...] + + | Author | [facility] | | | and [place] | + + + | Organization | [facility] | | [...] Team Providers + +------+ + | Care Research Assistant Professor Name | Role | Phone | + +------+ + | Parminder Malagon MD | PCP | | + +------+ + Encounter Details +--------+ + + + + | Date | Type | Department | Care Team | Description | +--------+ + + + + | 10/21/ | Orders Only | [facility] | Provider, | Rheumatoid arthritis | | 2019 | | SYSTEM GENERIC OP | MD [address] | ([facility]); Other long | | | | CONVERSION [address] | [address] | term (current) drug | | | | [address] [place], [place] | [place] [address] | therapy | | | | [address] | | | | | | [phone] | | | +--------+ + + + [...] [place] | | | | | | [address] | | | | | | | | +--------+ + + + + | 05/11/ | Office | Orthopedic Surgery | Scot Wilson PT | | | 2019 | Visit | | [address] | | | | | | [place] [address] | | | | | | [phone] | | | | | | | | +--------+ + + + + | 05/11/ | Office | Orthopedic Surgery | Korey Hussein | | | 2019 | Visit | | MD Shan [address] | | | | | | [place] | | | | | | [address] | | | | | | | | +--------+ + + + + | 05/14/ | Office | Rheumatology | Mya Frederick | | | 2019 | Visit | | [address] | | | | | | [address] | | | | | | [place] [address] | | | | | | [phone] | | | | | | | | +--------+ + + + + | 06/06/ | Hospital | | Korey Hussein | Primary | | 2020 | Encounter | | [address] | 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[place] | right knee; Chronic | | | | | [address] | pain of right knee | | | | | | | +--------+ + + + + | 06/06/ | Surgery | | Korey Hussein | RIGHT TOTAL KNEE | | 2020 | | | MD Shan [address] | ARTHROPLASTY | | | | | [place] | | | | | | [address] | | | | | | | | +--------+ + + + + | 06/21/ | Office | Orthopedic Surgery | Jossue Haro | | | 2019 | Visit | | [address] | | | | | | [address] | | | | | | [place] [address] | | | | | | [phone] | | | | | | | | +--------+ + + + + + +------+--------+ + + | Name | Type | Priori | Associated Diagnoses | Order Schedule | | | | ty | | | + +------+--------+ + + | CBC with | Lab | Routin | Rheumatoid | 2 Occurrences | | Differential | | e | arthritis ([facility]) | starting 11/13/2018 | | | | | Other shelter | until 04/28/2019, 1 | | | | | (current) drug | completed | | | | | therapy | | + +------+--------+ + + | Comprehensive | Lab | Routin | Rheumatoid | 2 Occurrences | | Metabolic Panel | | e | arthritis ([facility]) | starting 11/13/2018 | | | | | Other terminal makeup operator | until 04/28/2019, 1 | | | | | (current) drug | completed | | | | | therapy | | + +------+--------+ + + | Sedimentation Rate | Lab | Routin | Rheumatoid | 2 Occurrences | | | | e | arthritis ([facility]) | starting 11/13/2018 | | | | | Other shelter | until 04/28/2019, 1 | | | | | (current) drug | completed | | | | | therapy | | + +------+--------+ + + | C-Reactive Protein | Lab | Routin | Rheumatoid | 2 Occurrences | | | | e | arthritis ([facility]) | starting 11/13/2018 | | | | | Other terminal makeup operator | until 04/28/2019, 1 | | | [...] REFERENCE | | | | performed at [facility] [address] | | LAB | | | | [place] | | [facility] | | | | [address];[place] [address] | | LABORATORY | | + + + + + + + + | Specimen | + + | Blood | + + + + + + + | Performing | Address | City/State/Zipcode | Phone Number | | Organization | | | | + + + + + | REFERENCE LAB | [address] [facility] [address] | [place] [address] | [phone] | | [facility] | Blvd[address] | | | | LABORATORY | | | | + + + + + | REFERENCE LAB | [address] | [place] [address] | | | [facility] | Bl[address] | [...] REFERENCE | | | | performed at [facility] [address] | | LAB | | | | [place] | | [facility] | | | | [address];[place] [address] | | LABORATORY | | + + + + + + + + | Specimen | + + | Blood | + + + + + + + | Performing | Address | City/State/Zipcode | Phone Number | | Organization | | | | + + + + + | REFERENCE LAB | [address] [place] [address] | [place] [address] | [phone] | | [facility] | Blvd. | | | | LABORATORY | | | | + + + + + | REFERENCE LAB | [address] [place] [address] | [place] [address] | | | [facility] | Blvd. | [...] | | | | | performed at [facility] [address] | | | | | | [facility] | | | | | | [facility];[place] [address] | | | | | | | | | | + + + + + + + + | Specimen | + + | Blood | + + + + + + + | Performing | Address | City/State/Zipcode | Phone Number | | Organization | | | | + + + + + | REFERENCE LAB | [address] [place] [address] | [place] [address] | [phone] | | [facility] | Blvd. | | | | LABORATORY | | | | + + + + + | REFERENCE LAB | [address] [place] [address] | [place] [address] | | | [facility] | Blvd. | [...] | | | Absolute | performed at [facility] [address] | K/uL | LAB | | | | [place] | | [facility] | | | | [address];[place] [address] | | LABORATORY | | + + + + + + + + | Specimen | + + | Blood | + + + + + + + | Performing | Address | City/State/Zipcode | Phone Number | | Organization | | | | + + + + + | REFERENCE LAB | [address] | [place] [address] | [phone] | | [facility] | Blvd[address] | | | | LABORATORY | | | | + + + + + | REFERENCE LAB | [address] | [place] [address] | | | [facility] | Blvd. | | | | LABORATORY | | | | + + + + + documented in this encounter Visit Diagnoses + + | Diagnosis | + + | Rheumatoid arthritis (HCC) | + + | Other shelter (current) drug therapy | + + documented in this encounter"
--- OUTSIDE RECORDS SUMMARY | ~2019-04-15 | XMS | Encounter Summary ---
Demographics + + + | Address | [address] | | | [place] [address] | + + + | Home Phone [...] | [facility] | | | and [place] [...] Team Providers + +------+ + | Care Switchbox Assembler Name | Role | Phone | + [...] + | 02/04/ | Office | [facility] | Korey Hussein | Pre-op testing | | 2019 | Visit | ORTHOPEDIC SURGERY | MD Shan [address] [facility] | (Primary Dx); | | | | [address] 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 Garrido TONSILLECTOMY [...] BY MOUTH ONCE DAILY 90 tablet 3 Rodotdratsc-Lysodmaqz-Myq C-Mn (GLUCOSAMINE 1500 COMPLEX PO) Take 1 [...] mg by mouth Daily. Multiple Minerals-Vitamins (CALCIUM LYWNREG-DCM-UGYJUJUO PO) Take 1 tablet by mouth yunier [...] | | | | | | [facility] [place] | | | | | | [address] | | | | | | | | +--------+ + + + + | 05/11/ | Office | Orthopedic Surgery | Scot Wilson PT | | 2019 | Visit | | [address] | | | | | | [place] [address] | | | | | | [phone] | | | | | | | | +--------+ + + + + | 05/11/ | Office | Orthopedic Surgery | Korey Hussein | | | 2019 | Visit | | [address] | | | | | | [place] | | | | | | [address] | | | | | | | | +--------+ + + + + | 05/14/ | Office | Rheumatology | Mya Frederick | | | 2019 | Visit | | SHELLY [address] | | | | | | [place] | | | | | | [place] [address] | | | | | | [phone] | | | | | | | | +--------+ + + + + | 06/06/ | Hospital | | Korey Hussein | Primary | | 2020 | Encounter | | [address] | 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[place] | right knee; Chronic | | | | | [address] | pain of right knee | | | | | | | +--------+ + + + + | 06/06/ | Surgery | | Korey Hussein | RIGHT TOTAL KNEE | | 2019 | | | MD Shan [address] | ARTHROPLASTY | | | | | [place] | | | | | | [address] | | | | | | | | +--------+ + + + + | 06/21/ | Office | Orthopedic Surgery | Jossue Haro | | | 2019 | Visit | | SHELLY [address] | | | | | | [address] | | | | | | [place] [address] | | | | | | [phone] | | | | | | | [...] - 1.030 | [facility] | | | [place] | | | [facility] | | [...] [address] | [place] | [phone] | | [facility] | | [address] | | | - LABORATORY | | [...] | Monocytes | | K/uL | [facility] | | | | | | MEDICAL [...] + | [address] | [address] | [place] | [phone] | | [facility] | | [address] | | | - LABORATORY | | [...] mL/min/1.73m2 | [facility] | | | [facility] | RATE,ESTIMATED | | MEDICAL | | | | mL/min/1.59d9Lmcy than | | CENTER - | | [...] [address] | [place] | [phone] | | [facility] | | [address] | | | - LABORATORY | | [...] | | | | DESIRAE DELUNA MD ([id number]) | | | | | | on [...] [address] | [place] | [phone] | | [facility] | | [address] | | | - LABORATORY | | | | + + + + + documented in this encounter Visit Diagnoses + + | Diagnosis | + + | Pre-op testing - Primary Preoperative examination, unspecified | + + | Primary osteoarthritis of left knee Primary localized osteoarthrosis, lower leg | + + | Hypertension, unspecified type | + + | custodial current use of diuretic | + + | Nocturia | + + documented in this encounter
--- OUTSIDE RECORDS SUMMARY | ~2019-04-15 | XMS | Clinical Summary ---
Demographics + + + | Address | [address] | | | [place] [address] | + + + | Home Phone | | + + + | Preferred Language | Unknown | + + + | Marital Status | | + + + | Mormonism Affiliation | Unknown | + + + | Race | Unknown | + + + | Ethnic Group | Unknown | + + + Author + + + | Author | [facility] (Historical as of | | | 11-14-18) | + + + | Organization | [facility] (Historical as of | | | 11-14-18) [...] Team Providers + +------+ + | Care Card Grader Name | Role | Phone | + [...] | | | | | | | [id number] | | | | | | | [...] Patient understands that | | treatment is halfway and if patient fails to continue regimen [...] | | | | | | [place] [address] | | | | | | [phone] | | | | | | | [...] +--------+-------+ + | MEDICARE | MEDICA | [id number] | | | [address] | | | RE | | | | [place] [address] | | | IP-OP | | | | | + +--------+ +--------+-------+ + | CIG[employer] | LOYAL | [id number] | Indemn | | | | | [...] | | al/Fam | | 1940 | [phone] [place] | | | gasper | | | [phone] | [address] | + +--------+ +--------+ + +
--- OUTSIDE RECORDS SUMMARY | ~2019-04-15 | XMS | Encounter Summary ---
Demographics + + + | Address | [address] | | | [place] [address] | + + + | Home Phone | | + + + | Preferred Language | Unknown | + + + | Marital Status | | + + + | Pentecostalism Affiliation | Unknown | + + + | Race | Unknown | + + + | Ethnic Group | Unknown | + + + Author + + + | Author | [facility] | | | and [place] | + + + | Organization | [facility] | | | and [place] [...] Team Providers + +------+ + | Care Custom Motorcycle Painter Name | Role | Phone | + [...] + + | 11/17/ | Refill | [facility] | Mya Frederick | Medication Refill | | 2019 | | RHEUMATOLOGY [address] | [address]LLY [address] | | | | | [address] | | | | | [place], [place] | [place] [address] | | | | | [address] | [phone] | | | | | [phone] | | | +--------+--------+ + + + [...] | | | | | [place] | | | | | | [address] | | | | | | | | +--------+ + + + + | 05/11/ | Office | Orthopedic Surgery | Scot Wilson PT | | | 2019 | Visit | | [address] | | | | | | [place] [address] | | | | | | [phone] | | | | | | | | +--------+ + + + + | 05/11/ | Office | Orthopedic Surgery | Korey Hussein | | | 2019 | Visit | | [address] | | | | | | [place] | | | | | | [address] | | | | | | | | +--------+ + + + + | 05/14/ | Office | Rheumatology | Mya Frederick | | | 2019 | Visit | | SHELLY [address] | | | | | | [place] | | | | | | [place] [address] | | | | | | [phone] | | | | | | | | +--------+ + + + + | 06/06/ | Hospital | | Korey Hussein | Primary | | 2019 | Encounter | | [address] | 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[place] | right knee; Chronic | | | | | [address] | pain of right knee | | | | | | | +--------+ + + + + | 06/06/ | Surgery | | Korey Hussein | RIGHT TOTAL KNEE | | 2019 | | | [address] | ARTHROPLASTY | | | | | [place] | | | | | | [address] | | | | | | | | +--------+ + + + + | 06/21/ | Office | Orthopedic Surgery | Jossue Haro | | | 2019 | Visit | | [address]LLY [address] | | | | | | [address] | | | | | | [place] [address] | | | | | | [phone] | | | | | | | | +--------+ + + + + documented as of this encounter Visit Diagnoses Not on filedocumented in this encounter"
--- OUTSIDE RECORDS SUMMARY | ~2019-04-15 | XMS | Encounter Summary ---
Demographics + + + | Address | [address] | | | [place] [address] | + + + | Home Phone | | + + + | Preferred Language | Unknown | + + + | Marital Status | | + + + | Hinduism Affiliation | Unknown | + + + | Race | Unknown | + + + | Ethnic Group | Unknown | + + + Author + + + | Author | [facility] | | | and [place] | + + + | Organization | [facility] | | [...] Team Providers + +------+ + | Care Textile Converter Name | Role | Phone | + [...] + + | 01/31/ | Refill | [facility] | Otoniel Mya | Medication Refill | | 2019 | | RHEUMATOLOGY [address] | [address] | | | | | [address] | [address] | | | | | [place], [place] | [place] [address] | | | | | [address] | [phone] | | | | | [phone] | | | +--------+--------+ + + + [...] | | | | | [place] | | | | | | [address] | | | | | | | | +--------+ + + + + | 05/11/ | Office | Orthopedic Surgery | Scot Wilson PT | | | 2019 | Visit | | [address] | | | | | | [place] [address] | | | | | | [phone] | | | | | | | | +--------+ + + + + | 05/11/ | Office | Orthopedic Surgery | Korey Hussein | | | 2019 | Visit | | [address] | | | | | | [place] | | | | | | [address] | | | | | | | | +--------+ + + + + | 05/14/ | Office | Rheumatology | Mya Frederick | | | 2019 | Visit | | SHELLY [address] | | | | | | [address] | | | | | | [place] [address] | | | | | | [phone] | | | | | | | | +--------+ + + + + | 06/06/ | Hospital | | Korey Hussein | Primary | | 2019 | Encounter | | [address] | 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[place] | right knee; Chronic | | | | | [address] | pain of right knee | | | | | | | +--------+ + + + + | 06/06/ | Surgery | | Korey Hussein | RIGHT TOTAL KNEE | | 2019 | | | [address] | ARTHROPLASTY | | | | | [place] | | | | | | [address] | | | | | | | | +--------+ + + + + | 06/21/ | Office | Orthopedic Surgery | Jossue Haro | | | 2019 | Visit | | [address]LLY [address] | | | | | | [address] | | | | | | [place] [address] | | | | | | [phone] | | | | | | | | +--------+ + + + + documented as of this encounter Visit Diagnoses Not on filedocumented in this encounter"
--- OUTSIDE RECORDS SUMMARY | ~2019-04-15 | XMS | Encounter Summary ---
Demographics + + + | Address | [address] | | | [place] [address] | + + + | Home Phone [...] | Organization | [facility] | | | and [...] Team Providers + +------+ + | Care General Cargo Clerk Name | Role | Phone | + +------+ + | Parminder Malagon MD | PCP | | + +------+ + Encounter Details +--------+ + + + + | Date | Type | Department | Care Team | Description | +--------+ + + + + | 12/08/ | [facility] | [facility] | Jossue Haro | Pain in both knees, | | 2019 | Encounter | [facility] | [address]LLY [address] | unspecified | | | | [address] | [address] | chronicity | | | | [place], [place] | [place] [address] | | | | | [address] | [phone] | | | | | [phone] | | | +--------+ + + + [...] | | | | | | | [id number] | | | | | | | [...] [place] | | | | | | [address] | | | | | | | | +--------+ + + + + | 05/11/ | Office | Orthopedic Surgery | Scot Wilson PT | | | 2019 | Visit | | [address] | | | | | | [place] [address] | | | | | | [phone] | | | | | | | | +--------+ + + + + | 05/11/ | Office | Orthopedic Surgery | Korey Hussein | | | 2019 | Visit | | MD Shan [address] | | | | | | [place] | | | | | | [address] | | | | | | | | +--------+ + + + + | 05/14/ | Office | Rheumatology | Mya Frederick | | | 2019 | Visit | | SHELLY [address] | | | | | | [facility] | | | | | | [place] [address] | | | | | | [phone] | | | | | | | | +--------+ + + + + | 06/06/ | Hospital | | Korey Hussein | Primary | | 2019 | Encounter | | [address] | 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[place] | right knee; Chronic | | | | | [address] | pain of right knee | | | | | | | +--------+ + + + + | 06/06/ | Surgery | | Korey Hussein | RIGHT TOTAL KNEE | | 2020 | | | [address] | ARTHROPLASTY | | | | | [place] | | | | | | [address] | | | | | | | | +--------+ + + + + | 06/21/ | Office | Orthopedic Surgery | Jossue Haro | | | 2019 | Visit | | SHELLY [address] | | | | | | [address] | | | | | | [place] [address] | | | | | | [phone] | | | | | | | [...]
--- OUTSIDE RECORDS SUMMARY | ~2019-04-15 | XMS | Encounter Summary ---
Demographics + + + | Address | [address] | | | [place] [address] | + + + | Home Phone [...] | Organization | [facility] | | | and [place] [...] Providers + +------+ + | Care General Foreman Name | Role | Phone | + +------+ + | Parminder Malagon MD | PCP | | + +------+ + Encounter Details +--------+ + + + + | Date | Type | Department | Care Team | Description | +--------+ + + + + | 12/31/ | Orders Only | [facility] | Sid Leung, | | | 2016 | | RHEUMATOLOGY [address] | PA[address] | | | | | [address] | [facility] | | | | | [place] | [place] [address] | | | | | [address] | [phone] | | | | | [phone] | | | +--------+ + + + [...] [place] | | | | | | [address] | | | | | | | | +--------+ + + + + | 05/11/ | Office | Orthopedic Surgery | Scot Wilson PT | | | 2019 | Visit | | [address] | | | | | | [place] [address] | | | | | | [phone] | | | | | | | | +--------+ + + + + | 05/11/ | Office | Orthopedic Surgery | Korey Hussein | | | 2019 | Visit | | [address] | | | | | | [place] | | | | | | [address] | | | | | | | | +--------+ + + + + | 05/14/ | Office | Rheumatology | Mya Frederick | | 2019 | Visit | | [address]LLY [address] | | | | | | [address] | | | | | | [place] [address] | | | | | | [phone] | | | | | | | | +--------+ + + + + | 06/06/ | Hospital | | Korey Hussein | Primary | | 2019 | Encounter | | [address] | 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[place] | right knee; Chronic | | | | | [address] | pain of right knee | | | | | | | +--------+ + + + + | 06/06/ | Surgery | | Korey Hussein | RIGHT TOTAL KNEE | | 2019 | | | [address] | ARTHROPLASTY | | | | | [place] | | | | | | [address] | | | | | | | | +--------+ + + + + | 06/21/ | Office | Orthopedic Surgery | Jossue Haro | | | 2020 | Visit | | SHELLY [address] | | | | | | [address] [place] | | | | | | [place] [address] | | | | | | [phone] | | | | | | | [...]
--- OUTSIDE RECORDS SUMMARY | ~2019-04-15 | XMS | Encounter Summary ---
Demographics + + + | Address | [address] | | | [place] [address] | + + + | Home Phone | | + + + | Preferred Language | Unknown | + + + | Marital Status | | + + + | Islam Affiliation | Unknown | + + + | Race | Unknown | + + + | Ethnic Group | Unknown | + + + Author + + + | Author | [facility] | | | and [place] | + + + | Organization | [facility] [...] Team Providers + +------+ + | Care Anglesmith Name | Role | Phone | + +------+ + | Parminder Malagon MD | PCP | | + +------+ + Encounter Details +--------+ + + + + | Date | Type | Department | Care Team | Description | +--------+ + + + + | 12/07/ | Orders Only | [facility] | Jossue Haro | Pain in both knees, | | 2018 | | ORTHOPEDIC SURGERY | [address] | unspecified | | | | [address] [facility] | [address] | chronicity (Primary | | | | [place] | [place] [address] | Dx) | | | | [address] | [phone] | | | | | [phone] | | | +--------+ + + + [...] [place] | | | | | | [address] | | | | | | | | +--------+ + + + + | 05/11/ | Office | Orthopedic Surgery | Scot Wilson PT | | | 2019 | Visit | | [address] | | | | | | [place] [address] | | | | | | [phone] | | | | | | | | +--------+ + + + + | 05/11/ | Office | Orthopedic Surgery | Korey Hussein | | | 2019 | Visit | | MD Shan [address] | | | | | | [place] | | | | | | [address] | | | | | | | | +--------+ + + + + | 05/14/ | Office | Rheumatology | Mya Frederick | | | 2019 | Visit | | SHELLY [address] | | | | | | [address] | | | | | | [place] [address] | | | | | | [phone] | | | | | | | | +--------+ + + + + | 06/06/ | Hospital | | Korey Hussein | Primary | | 2020 | Encounter | | MD Shan [address] | 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[place] | right knee; Chronic | | | | | [address] | pain of right knee | | | | | | | +--------+ + + + + | 06/06/ | Surgery | | Korey Hussein | RIGHT TOTAL KNEE | | 2020 | | | MD Shan [address] | ARTHROPLASTY | | | | | [place] | | | | | | [address] | | | | | | | | +--------+ + + + + | 06/21/ | Office | Orthopedic Surgery | Jossue Haro | | | 2019 | Visit | | [address]LLY [address] | | | | | | [address] | | | | | | [place] [address] | | | | | | [phone] | | | | | | | | +--------+ + + + + documented as of this encounter Results XR Knee Left 1 [...]
--- OUTSIDE RECORDS SUMMARY | ~2019-04-15 | XMS | Encounter Summary ---
Demographics + + + | Address | [address] | | | [place] [address] | + + + | Home Phone [...] Organization | [facility] [place] | | | and [...] Team Providers + +------+ + | Care Hematologist Oncologist Name | Role | Phone | + [...] + + | 04/01/ | Office | [facility] | Jossue Haro | Primary | | 2020 | Visit | ORTHOPEDIC SURGERY | [address] | osteoarthritis of | | | | [address] [facility] | [facility] [place] | right knee (Primary | | | | [place] | [place] [address] | Dx); Chronic pain of | | | | [address] | [phone] | right knee; S/P TKR | | | | [phone] | | (total knee | | | [...] for pain control PRN. [facility]. He notes that [...] program. This note was dictated using the [employer] voice recognition system. Minor errors in grammar [...] [place] | | | | | | [address] | | | | | | | | +--------+ + + + + | 05/11/ | Office | Orthopedic Surgery | Scot Wilson PT | | | 2019 | Visit | | [address] | | | | | | [place] [address] | | | | | | [phone] | | | | | | | | +--------+ + + + + | 05/11/ | Office | Orthopedic Surgery | Korey Hussein | | | 2019 | Visit | | MD Shan [address] | | | | | | [place] | | | | | | [address] | | | | | | | | +--------+ + + + + | 05/14/ | Office | Rheumatology | Otoniel Mya | | | 2020 | Visit | | SHELLY Nguyen [address] | | | | | | [address] | | | | | | [place] [address] | | | | | | [phone] | | | | | | | | +--------+ + + + + | 06/06/ | Hospital | | Korey Hussein | Primary | | 2020 | Encounter | | MD Shan [address] | 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[place] | right knee; Chronic | | | | | [address] | pain of right knee | | | | | | | +--------+ + + + + | 06/06/ | Surgery | | Korey Hussein | RIGHT TOTAL KNEE | | 2020 | | | MD Shan [address] | ARTHROPLASTY | | | | | [place] | | | | | | [address] | | | | | | | | +--------+ + + + + | 06/21/ | Office | Orthopedic Surgery | Jossue Haro | | | 2019 | Visit | | [address] | | | | | | [address] [place] | | | | | | [place] [address] | | | | | | [phone] | | | | | | | [...]
--- OUTSIDE RECORDS SUMMARY | ~2019-04-15 | XMS | Encounter Summary ---
Demographics + + + | Address | [address] | | | [place] [address] | + + + | Home Phone | | + + + | Preferred Language | Unknown | + + + | Marital Status | | + + + | Restorationism Affiliation | Unknown | + + + | Race | Unknown | + + + | Ethnic Group | Unknown | + + + Author + + + | Author | [facility] | | | and [place] | + + + | Organization | [facility] | | | and [...] Team Providers + +------+ + | Care Aeronautical Project Engineer Name | Role | Phone | [...] + + | 12/01/ | Surgery | [facility] | Tay Garrido MD | INCISION AND | | 2018 | | MED CTR OR INTRA OP | [address] | DRAINAGE SCROTUM | | | | [address] | [place] | | | | | [place] | [address] | | | | | [address] | [phone] | | | | | [phone] | | | +--------+---------+ + + + [...] 11/04/17. H e had a 2.5 cm sycuan of necrosis on the anterior inferior scrotum [...] signed by: Tay Garrido, 12/02/2017 6:32 [facility] documented in this enc ounter Discharge [...] [place] | | | | | | [id number] | | | | | | | | +--------+ + + + + | 05/11/ | Office | Orthopedic Surgery | Scot Wilson PT | | | 2019 | Visit | | [address] | | | | | | [place] [address] | | | | | | [phone] | | | | | | | | +--------+ + + + + | 05/11/ | Office | Orthopedic Surgery | Korey Hussein | | 2019 | Visit | | [address] | | | | | | [place] | | | | | | [address] | | | | | | | | +--------+ + + + + | 05/14/ | Office | Rheumatology | Mya Frederick | | 2019 | Visit | | SHELLY Nguyen [address] | | | | | | [address] | | | | | | [place] [address] | | | | | | [phone] | | | | | | | | +--------+ + + + + | 06/06/ | Hospital | | Korey Hussein | Primary | | 2019 | Encounter | | [address] | 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[place] | right knee; Chronic | | | | | [address] | pain of right knee | | | | | | | +--------+ + + + + | 06/06/ | Surgery | | Korey Hussein | RIGHT TOTAL KNEE | | 2019 | | | MD Shan [address] | ARTHROPLASTY | | | | | [place] | | | | | | [address] | | | | | | | | +--------+ + + + + | 06/21/ | Office | Orthopedic Surgery | Jossue Haro | | 2019 | Visit | | [address] | | | | | | [address] | | | | | | [place] [address] | | | | | | [phone] | | | | | | | [...] | 1.24 | 0.60 - 1.30 | [facility] | | | | | mg/dL [...] mL/min/1.73m2 | [facility] | | | [place] | RATE,ESTIMATED | | MEDICAL | | | | mL/min/1.19c1Dkdf than | | CENTER - | | [...] [address] | [place] | [phone] | | [facility] | | [address] | | | - LABORATORY | | [...] [address] | [place] | [phone] | | [facility] | | [address] | | | - LABORATORY | | [...] [address] | [place] | [phone] | | [facility] | | [address] | | | - LABORATORY | | [...] [address] | [place] | [phone] | | [facility] | | [address] | | | - LABORATORY | | [...] | 1.20 | 0.60 - 1.30 | [facility] | | | | | mg/dL | [facility] | | | | | | MEDICAL | | | | | | CENTER - | | | | | | LABORATORY | | + + + + + + | eGFR if not | 59 (L)Comment: | >=60 | [place] | | | | GLOMERULAR FILTRATION | mL/min/1.73m2 | [facility] | | | [place] | RATE,ESTIMATED | | MEDICAL | | | | mL/min/1.65z2Gkgq than | | CENTER - | | [...] | 8.4 | 8.3 - 10.5 | [place] | | | | | mg/dL | [facility] | | | | | | [...] [address] | [place] | [phone] | | [facility] | | [address] | | | - LABORATORY | | [...] ST. | [address] | [place], [place] | [phone] | | [facility] | | [address] | | | - LABORATORY | | | | + + + + + Surgical Pathology Exam (12/01/2017 12:00 AM PDT) + + | Specimen | + + | | + + + + + | Narrative | Performed At | + + + | SPECIMEN(S): A SCROTAL WALL SPECIMEN SOURCE: A. SCROTAL WALL | [facility] | | CLINICAL HISTORY: Scrotal bleeding and weeping. Incision and | INCYTE | | drainage, scrotum. FINAL PATHOLOGIC DIAGNOSIS: Scrotal wall, | | | incision and drainage: - Blood clot and purulent material in | | | association with focally necrotic soft tissue. COMMENT: The | | | histologic features are compatible with abscess. JVR:[facility]:C2NR | | | MICROSCOPIC [...] | The technical component was performed by [employer], [address] | | | [facility] [address] (Patient Registrar: Stepahnie Courtney MD; | | | CLIA# [id number]). Professional interpretation was performed by | | | [employer], [facility], [employer] | | | [place] [address] (Patient Registrar: Abelardo | | | Tere Thacker). Diagnostician: [...] - 1.030 | [facility] | | | [place] | | | [facility] | | [...] [address] | [place] | [phone] | | [facility] | | [address] | | | - LABORATORY | | [...] + | [address] | [address] | [place] | [phone] | | [facility] | | [address] | | | - LABORATORY | | [...] [address] | [place] | [phone] | | [facility] | | [address] | | | - LABORATORY | | [...] [address] | [place] | [phone] | | [facility] | | [address] | | | - LABORATORY | | [...] + | [facility] | [address] | [place] | [phone] | | [facility] | | [address] | | | - LABORATORY | | [...] mL/min/1.73m2 | [facility] | | | [place] | RATE,ESTIMATED | | MEDICAL | | | | mL/min/1.33t5Pope than | | CENTER - | | [...] [address] | [place] | [phone] | | [facility] | | [address] | | | - LABORATORY | | [...] [address] | [place] | [phone] | | [facility] | | [address] | | | - LABORATORY | | [...]
--- OUTSIDE RECORDS SUMMARY | ~2019-04-15 | XMS | Encounter Summary ---
Demographics + + + | Address | [address] | | | [place] [address] | + + + | Home Phone | | + + + | Preferred Language | Unknown | + + + | Marital Status | | + + + | Anabaptist Affiliation | Unknown | + + + | Race | Unknown | + + + | Ethnic Group | Unknown | + + + Author + + + | Author | [facility] | | | and [place] | + + + | Organization | [facility] | | | and [place] [...] Team Providers + +------+ + | Care Inpatient Pharmacist Name | Role | Phone | + [...] + | 01/04/ | Telephone | [facility] | Korey Hussein | Procedure | | 2019 | | ORTHOPEDIC SURGERY | MD Shan [address] [facility] | | | | | [address] [facility] | [place] | | | | | [place] | [address] | | | | | [address] | | | | | | [phone] | | | +--------+ + + + [...] | | | | | [place] | | | | | | [address] | | | | | | | | +--------+ + + + + | 05/11/ | Office | Orthopedic Surgery | Scot Wilson PT | | | 2019 | Visit | | [address] | | | | | | [place] [address] | | | | | | [phone] | | | | | | | | +--------+ + + + + | 05/11/ | Office | Orthopedic Surgery | Korey Hussein | | | 2019 | Visit | | [address] | | | | | | [place] | | | | | | [address] | | | | | | | | +--------+ + + + + | 05/14/ | Office | Rheumatology | Mya Frederick | | | 2019 | Visit | | SHELLY Nguyen [address] | | | | | | [address] | | | | | | [place] [address] | | | | | | [phone] | | | | | | | | +--------+ + + + + | 06/06/ | Hospital | | Korey Hussein | Primary | | 2020 | Encounter | | [address] | 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[place] | right knee; Chronic | | | | | [address] | pain of right knee | | | | | | | +--------+ + + + + | 06/06/ | Surgery | | Korey Hussein | RIGHT TOTAL KNEE | | 2019 | | | [address] | ARTHROPLASTY | | | | | [place] | | | | | | [address] | | | | | | | | +--------+ + + + + | 06/21/ | Office | Orthopedic Surgery | Jossue Haro | | | 2019 | Visit | | [address] | | | | | | [address] | | | | | | [place] [address] | | | | | | [phone] | | | | | | | | +--------+ + + + + documented as of this encounter Visit Diagnoses Not on filedocumented in this encounter"
--- OUTSIDE RECORDS SUMMARY | ~2019-04-15 | XMS | Encounter Summary ---
Demographics + + + | Address | [address] | | | [place] [address] | + + + | Home Phone | | + + + | Preferred Language | Unknown | + + + | Marital Status | | + + + | Episcopalian Affiliation | Unknown | + + + | Race | Unknown | + + + | Ethnic Group | Unknown | + + + Author + + + | Author | [facility] | | | and [place] | + + + | Organization | [facility] | | | and [place] [...] Team Providers + +------+ + | Care Implement Mechanic Name | Role | Phone | + [...] + | 12/23/ | Telephone | [facility] | Jossue Haro | Surgery Appointment | | 2018 | | ORTHOPEDIC SURGERY | [address] | | | | | [address] [facility] | [address] | | | | | [place], [place] | [place] [address] | | | | | [address] | [phone] | | | | | [phone] | | | +--------+ + + + [...] | | | | | | [facility] | | | | | | [address] | | | | | | | | +--------+ + + + + | 05/11/ | Office | Orthopedic Surgery | Scot Wilson PT | | | 2019 | Visit | | [address] | | | | | | [place] [address] | | | | | | [phone] | | | | | | | | +--------+ + + + + | 05/11/ | Office | Orthopedic Surgery | Korey Hussein | | | 2019 | Visit | | [address] | | | | | | [place] | | | | | | [address] | | | | | | | | +--------+ + + + + | 05/14/ | Office | Rheumatology | Mya Frederick | | | 2019 | Visit | | SHELLY Nguyen [address] | | | | | | [address] | | | | | | [place] [address] | | | | | | [phone] | | | | | | | | +--------+ + + + + | 06/06/ | Hospital | | Korey Hussein | Primary | | 2019 | Encounter | | [address] | 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[place] | right knee; Chronic | | | | | [address] | pain of right knee | | | | | | | +--------+ + + + + | 06/06/ | Surgery | | Korey Hussein | RIGHT TOTAL KNEE | | 2019 | | | [address] | ARTHROPLASTY | | | | | [place] | | | | | | [address] | | | | | | | | +--------+ + + + + | 06/21/ | Office | Orthopedic Surgery | Jossue Haro | | | 2019 | Visit | | [address] | | | | | | [address] | | | | | | [place] [address] | | | | | | [phone] | | | | | | | [...]
--- OUTSIDE RECORDS SUMMARY | ~2019-04-15 | XMS | Encounter Summary ---
Demographics + + + | Address | [address] | | | [place] [address] | + + + | Home Phone [...] + | Organization | [facility] | | [...] Team Providers + +------+ + | Care Account Supervisor Name | Role | Phone | [...] | | [place] | [place] [address] | Dx) | | | | [address] | [phone] | | | | | [phone] | | | +--------+ + + + [...] [place] | | | | | | [address] | | | | | | | | +--------+ + + + + | 05/11/ | Office | Orthopedic Surgery | Scot Wilson PT | | | 2019 | Visit | | [address] | | | | | | [place] [address] | | | | | | [phone] | | | | | | | | +--------+ + + + + | 05/11/ | Office | Orthopedic Surgery | Korey Hussein | | | 2019 | Visit | | MD Shan [address] | | | | | | [place] | | | | | | [address] | | | | | | | | +--------+ + + + + | 05/14/ | Office | Rheumatology | Mya Frederick | | | 2019 | Visit | | SHELLY Nguyen [address] | | | | | | [address] | | | | | | [place] [address] | | | | | | [phone] | | | | | | | | +--------+ + + + + | 06/06/ | Hospital | | Korey Hussein | Primary | | 2020 | Encounter | | MD Shan [address] | 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[place] | right knee; Chronic | | | | | [address] | pain of right knee | | | | | | | +--------+ + + + + | 06/06/ | Surgery | | Korey Hussein | RIGHT TOTAL KNEE | | 2020 | | | MD Shan [address] | ARTHROPLASTY | | | | | [place] | | | | | | [address] | | | | | | | | +--------+ + + + + | 06/21/ | Office | Orthopedic Surgery | Jossue Haro | | | 2019 | Visit | | [address] | | | | | | [address] | | | | | | [place] [address] | | | | | | [phone] | | | | | | | [...]
[2019-04-15] MEDS ORDERED: FOLIC ACID1 MG PO (11:10)
[2019-04-15] MEDS ORDERED: POTASSIUM CHLO20 ME1 PO (11:11)
[2019-04-15] MEDS ORDERED: AZULFIDINE500 MG PO (11:11)
[2019-04-15] MEDS ORDERED: METOPROLOL TART50 MG PO (11:11)
[2019-04-15] MEDS ORDERED: LISINOPRIL-HCT1 EACH PO (11:11)
[2019-04-15] MEDS ORDERED: METHOTREXATE2.5 MG PO (11:12)
[2019-04-15] MEDS ORDERED: MELOXICAM7.5 MG PO (11:13)
[2019-04-15] MEDS ORDERED: OMEPRAZOLE20 MG PO (11:14)
[2019-04-15] MEDS ORDERED: PRAVASTATIN SOD40 MG PO (11:15)
== END 2019-04-15 14:04 | disposition home or self-care (01) ==
LOC: ED 10:37
DX: R20.0 Anesthesia of skin (principal); I10 Essential (primary) hypertension; Z88.0 Allergy status to penicillin; Z79.899 Other long term (current) drug therapy
CPT/HCPCS: 80053; 85025; 93880; 99284-25

== ENCOUNTER 2019-09-22 14:48 | Inpatient (IN) | payer MEDICARE, OTHER ==
[~2019-09-22] VITALS: Ht 180.3 cm; Wt 81.7 kg
[~2019-09-22 14:48] MED LIST: AZULFIDINE500 MG PO; FOLIC ACID1 MG PO; LISINOPRIL-HCT1 EACH PO; MELOXICAM7.5 MG PO; METHOTREXATE2.5 MG PO; METOPROLOL TART50 MG PO; OMEPRAZOLE20 MG PO; POTASSIUM CHLO20 ME1 PO; PRAVASTATIN SOD40 MG PO
--- NOTE | 2019-09-22 18:56 | NUR ---
PT TO FLOOR VIA STRETCHER, ABLE TO AMBULATE TO BATHROOM AND BED UNASSISTED. ATE DINNER WO TROUBLE. COMPLETELY CLEAR ON NEURO CHECK OTHER THAT SLIGHT DOUBLE VISION. NO SWALLOWING CONCERNS. ATE A HAMBURGER WO DIFF.
--- NOTE | 2019-09-22 21:11 | NUR ---
PATIENT JUST GOT UP TO THE BATHROOM AND WAS STEADY, JUST 1PSBA IN ROOM. PATIENT RETURNED TO BED WITH NO DIFFICULTIES. PATIENT SAYS EVERYTHING IS "NORMAL", EXCEPT FOR OCCASIONAL DOUBLE VISION LOOKING AT THE CLOCK AND ONLY THE "CLOCK." LEFT EYE TRACKS UP AND DOWN, BUT NOT SIDE TO SIDE. PATIENT HAS NO OTHER NEEDS. CALL LIGHT IN REACH.
--- NOTE | 2019-09-22 22:48 | NUR ---
PATIENT RESTING QUIETLY, RESPIRATIONS REGULAR AND EVEN, EYES CLOSED AND CALL LIGHT IN REACH.
--- NOTE | 2019-09-23 00:12 | NUR ---
PATIENT RESTING QUIETLY, EYES CLOSED, RESPIRATIONS REGULAR AND EVEN, CALL LIGHT IN REACH.
--- NOTE | 2019-09-23 02:10 | NUR ---
PATIENT UP TO THE BATHROOM AND STEADY, DENIES DIZZINESS, PAIN, OR DOUPLE VISION. 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 OPAL, BUT LT EYE ONLY TRACKS UP AND DOWN NOT SIDE TO SIDE. CALL LIGHT IS IN REACH.
--- NOTE | 2019-09-23 03:55 | NUR ---
PATIENT RESTING QUIETLY ON HIS RIGHT SIDE, RESPIRATIONS REGULAR AND EVEN, AND EYES CLOSED. CALL LIGHT IN REACH.
--- NOTE | 2019-09-23 05:39 | NUR ---
PATIENT HAS DONE WELL ALL SHIFT, PRETTY MUCH INDEPENDENT IN ROOM, BUT CALLS APPROPRIATELY EACH TIME HE WANTS UP SO WE CAN BE IN THE ROOM WITH HIM. NO DIZZINESS, NO PAIN, ARMS AND LEGS STRONG, JUST DOESN'T HAVE A FULL RANGE OF VISION IN EITHER EYE AND THE LEFT EYE LESS MOVEMENT THAN THE RIGHT. PATIENT HAD A LITTLE DOUBLE VISION AT THE START OF SHIFT WHEN LOOKING AT THE CLOCK ONLY, EVERYTHING ELSE LOOKED NORMAL TO HIM AND NO MORE DOUBLE VISION FROM THEN.
--- NOTE | 2019-09-23 07:23 | NUR ---
0655: Report received from Shady COLLINS. Pt denies any new problems at this time. 0700, pt taken to the MRI at this time.
--- NOTE | 2019-09-23 07:38 | NUR ---
0733: Pt returned to his room from the MRI.
--- NOTE | 2019-09-23 08:52 | NUR ---
PT RESTING IN HIS BED WITH NO COMPLAINTS OR PROBLEMS AT THIS TIME. NEURO CHECK SHOWS EQUAL STRENGTH, FACIAL MOVEMENTS, EYE TRACKING WITH NO NOTED ISSUES AT THIS TIME. TELE IS SR WITH PAC'S NOTED. SEE ASSESSMENT.
--- NOTE | 2019-09-23 09:00 | NUR ---
In and spoke with Beni. States he lives in a 1 sotry home without steps. 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 and brother in law are supportive. Denies use of any DME. Denies symptoms and would like to return home today. Denies needs to go home.
[2019-09-23] MEDS ORDERED: ASPIR 8181 MG PO ×2 (09:12→13:42)
[2019-09-23] MEDS ORDERED: VITAMIN E400 UNI1 PO (09:13)
[2019-09-23] MEDS ORDERED: B COMPLEX1 EACH PO (09:13)
[2019-09-23] MEDS ORDERED: VITAMIN C1000 MG PO (09:13)
[2019-09-23] MEDS ORDERED: GLUCOSAMINE SU750 MG PO (09:14)
[2019-09-23] MEDS ORDERED: CAL MAG ZINC +1 EACH PO (09:14)
--- NOTE | 2019-09-23 09:15 | NUR ---
MED REC COMPLETE
--- NOTE | 2019-09-23 10:40 | NUR ---
Pt working with OT at this time. He denies any problems.
--- NOTE | 2019-09-23 12:10 | NUR ---
PT RESTING IN HIS BED WITH NO COMPLAINTS AND HIS NIH SCORE IS 0 AT THIS TIME.
--- NOTE | 2019-09-23 13:16 | NUR ---
PT RESTING IN HIS BED USING HIS IS AT THIS TIME. HE CONTINUES TO DENY ANY SOB OR CP. NEURO STATUS IS INTACT. SEE ASSESSMENT.
[2019-09-23] MEDS ORDERED: METOPROLOL SUCC50 MG PO (13:41)
[2019-09-23] MEDS ORDERED: PRAVASTATIN SOD40 MG PO (13:41)
--- NOTE | 2019-09-23 13:57 | NUR ---
PT UP TO BATHROOM AMBULATED ON HIS OWN AND THEN BACK TO BED.
--- NOTE | 2019-09-24 11:37 | EKG ---
[facility] [address] [facility] [place] [address] Signed Sinus rhythm with occasional premature ventricular complexes Biatrial enlargement Inferior infarct , age undetermined Abnormal ECG No previous ECGs available Confirmed by QIANA COSME MD ([id number]) on 09/24/2019 11:37:36 AM Electronically Signed By: QIANA COSME MD 09/24/19 1137 PATIENT NAME: LAMONT SULLIVAN Electrocardiogram DATE OF : 40 PHYSICIAN: QIANA COSME MD REPORT #: [id number] REPORT IS CONFIDENTIAL AND NOT TO BE RELEASED WITHOUT AUTHORIZATION
== END 2019-09-23 14:25 | disposition home or self-care (01) | DRG 123 ==
LOC: ED 14:48 → MS 17:43
PROVIDERS: ADMIT Internal Medicine
DX: H49.02 Third [oculomotor] nerve palsy, left eye (principal); R26.2 Difficulty in walking, not elsewhere classified; I10 Essential (primary) hypertension; E78.5 Hyperlipidemia, unspecified; K21.9 Gastro-esophageal reflux disease without esophagitis; M06.9 Rheumatoid arthritis, unspecified; R73.03 Prediabetes; R29.701 NIHSS score 1; Z20.828 Contact with and (suspected) exposure to other viral communicable diseases; Z88.0 Allergy status to penicillin; Z79.1 Long term (current) use of non-steroidal anti-inflammatories (NSAID); Z79.899 Other long term (current) drug therapy
CPT/HCPCS: 70450; 70496; 70498; 70551; 71045; 80053; 80061; 83036; 84484; 85025; 85610; 85730; 93005; 93010; 93306; 97161; 97165; 99285-25; C9803; J1650; J8610; Q9967; U0002